=== PATIENT | female | born 1930 | race Hispanic/Latino ===

== ENCOUNTER 2016-08-01 21:39 | Inpatient (IN) | payer OTHER, MEDICARE ==
[2016-07-29 16:00] VITALS: BMI 21.2
[2016-08-01] MEDS ORDERED: Ceftaroline 400 mg Inj IVPB SCH (22:00)
[2016-08-02] MEDS: Pantoprazole 40 mg EC Tab PO SCH (06:19)
--- NOTE | 2016-08-02 08:27 | CP.PCM.PN ---
Subjective - Date & Time of Evaluation Date of Evaluation: 08/02/16 Time of Evaluation: 08:20 - Subjective Subjective: PROGRESS NOTE FOR SURGERY DR. ANDUJAR 86 year old female is seen and examined at bedside. Patient is transferred to TCU yesterday. No acute events overnight. Patient denies having any LE pain. Is ambulating without difficulty. No fevers, chills, CP, SOB, N/V/D/C. Objective - Vital Signs/Intake and Output Vital Signs (last 24 hours): Temp Pulse Resp BP Pulse Ox 16 08/02/16 00:14 - Medications Medications: Current Medications Acetaminophen (Tylenol 325mg Tab) 650 mg PO Q6H PRN PRN Reason: Fever >100.4 F Aspirin (Ecotrin) 81 mg PO 0800 [facility] Last Admin: 08/02/16 08:16 Dose: 81 mg Heparin Sodium (Porcine) (Heparin) 5,000 units SC 0600,1800 [facility] PRN Reason: Protocol Last Admin: 08/02/16 06:19 Dose: 5,000 units Ceftaroline Fosamil 400 mg/ (Sodium Chloride) 100 mls @ 100 mls/hr IVPB Q12 [facility] PRN Reason: Protocol Stop: 08/09/16 10:01 Losartan Potassium (Cozaar) 100 mg PO DAILY [facility] Mupirocin (Bactroban Ointment) 0 gm TOP DAILY [facility] Pantoprazole Sodium (Protonix Ec Tab) 40 mg PO 0630 [facility] Last Admin: 08/02/16 06:19 Dose: 40 mg - Constitutional Appears: Non-toxic, No Acute Distress - Head Exam Head Exam: ATRAUMATIC - ENT Exam ENT Exam: Mucous Membranes Moist - Respiratory Exam Respiratory Exam: absent: Accessory Muscle Use, Respiratory Distress - GI/Abdominal Exam GI & Abdominal Exam: Soft. absent: Distended, Tenderness - Extremities Exam Extremities Exam: Pedal Edema. absent: Calf Tenderness, Tenderness - Neurological Exam Neurological Exam: Alert, Awake, Oriented x3 - Psychiatric Exam Psychiatric exam: Normal Affect, Normal Mood - Skin Skin Exam: Dry, Intact, Normal Color, Warm Assessment and Plan - Assessment and Plan (Free Text) Assessment: 86 year old female is seen for cellulitis of her bilateral lower extremities. Plan: -Official read for LE doppler is negative for DVT B/L -continue antibiotics per ID recs -continue bactroban ointment and wrap -elevate legs -dvt prophylaxis Will discuss with Dr. Andujar for further recs Val Lopez, PGY1
--- NOTE | 2016-08-02 11:41 | CON ---
DATE: 08/02/2016 REASON FOR CONSULTATION: Confusion. HISTORY OF PRESENTING ILLNESS: The patient is an 86-year-old female who I have been asked for evalua tion of confusion. The patient was in acute care hospital after she had ulceration in her legs. The patient was given Xanax, and after that she was very confused. Her confusion is a lot better now. She was transferred to subacute rehab yesterday. The patient said she did have some difficulty in sleeping last night. Usually she takes 1/2 a tablet of Xanax 0.25 mg and that works wonders for her. However, she was given a little bit higher dose wh en she was in the acute care hospital and that really made her very confused. At the moment, she fee ls fine. Denies any headache, dizziness. She knows what is going on around her. REVIEW OF SYSTEMS: Denies any headache, dizziness, chest pain, shortness of breath, abdominal pain, constipation, diarrhea, dysuria, pyuria, cough, or sputum production. PAST MEDICAL HISTORY: Includes hypertension. CURRENT MEDICATIONS: Include losartan, aspirin, Protonix, Tylenol, and ceftaroline. ALLERGIES TO CODEINE. SOCIAL HISTORY: Denies smoking, use of alcohol, or illicit drugs. FAMILY HISTORY: Noncontributory. GENERAL PHYSICAL EXAMINATION: The patient is an elderly, pleasant female sitting in no acute distress. Her blood pressure is 111/83, heart rate is 70 per minute, breathing at a rate of 16 per minute, temp erature is 98 degrees Fahrenheit. HENT EXAMINATION: Normocephalic, atraumatic. NECK: Supple. There are no carotid bruits. LUNGS: Clear. CARDIOVASCULAR SYSTEM EXAMINATION: S1, S2 audible. No murmurs. ABDOMEN: Soft and nontender with bowel sounds present. NEUROLOGY EXAMINATION: MENTAL STATUS: The patient is awake, alert, oriented to time, place, and person. Speech is fluent. Naming and repetition is normal. Memory and cognition are intact. CRANIAL NERVE EXAMINATION: Pupils are 3 mm, bilaterally reactive to light. Visual chow are full. Extraocular movements are intact. There is no facial asymmetry. Palate is upgoing bilaterally and tongue is midline. MOTOR EXAMINATION: Tone is normal. Power is 5/5 bilaterally in all extremities. Reflexes +1 and sy mmetrical. Plantars downgoing bilaterally. SENSORY EXAMINATION: Intact to soft touch and pinprick. GAIT: Slow and cautious. IMPRESSION: Status post altered mental status, which is likely secondary to her use of Xanax at a hi gher dose. RECOMMENDATIONS: 1. The patient's mental status seems to be at her baseline. 2. The patient may have 1/2 a tablet of Xanax 0.25 mg at nighttime, as it helps her anxiety as well a s it helps her to go to sleep. As per patient, she has been taking it at home as well, and it does n ot bother her. We will closely monitor her. If she really needs it she may have it. 3. Please continue physical therapy for gait imbalance. 4. Please continue other treatment for her lower extremity ulcerations. Thank you for the opportunity to participate in the care of this patient. Ant Jiménez MD cc: [id number] TT: 08/02/2016 11:41:07 Confirmation # [id number] Dictation # [id number] rosa
--- NOTE | 2016-08-02 12:12 | CP.PCM.PN ---
<Lisette Jenkinsa - Last Filed: 08/02/16 12:08> Subjective - Date & Time of Evaluation Date of Evaluation: 08/02/16 Time of Evaluation: 12:09 - Subjective Subjective: 86 y.o female seen at bedside with attending Dr. Sanchez for bilateral lower extremity lesions. Patient resting comfortably in NAD and AAOx3. Patient states that she has mild pain in her legs. Patient denies any acute events overnight. She was transferred to TCU yesterday. Patient denies n/f/v/c/d/sob. Objective - Vital Signs/Intake and Output Vital Signs (last 24 hours): Temp Pulse Resp BP Pulse Ox 97.6 F 82 18 129/67 99 08/02/16 10:00 08/02/16 10:00 08/02/16 10:00 08/02/16 10:00 08/02/16 10:00 Intake and Output: 08/02/16 08/02/16 06:59 18:59 Intake Total 420 Balance 420 - Medications Medications: Current Medications Acetaminophen (Tylenol 325mg Tab) 650 mg PO Q6H PRN PRN Reason: Fever >100.4 F Alprazolam (Xanax) 0.125 mg PO HS PRN; Protocol PRN Reason: Anxiety Stop: 08/09/16 22:01 Aspirin (Ecotrin) 81 mg PO 0800 [facility] Last Admin: 08/02/16 08:16 Dose: 81 mg Heparin Sodium (Porcine) (Heparin) 5,000 units SC 0600,1800 [facility] PRN Reason: Protocol Last Admin: 08/02/16 06:19 Dose: 5,000 units Ceftaroline Fosamil 400 mg/ (Sodium Chloride) 100 mls @ 100 mls/hr IVPB 0600, 1800 [facility] PRN Reason: Protocol Stop: 08/09/16 18:01 Losartan Potassium (Cozaar) 100 mg PO DAILY [facility] Last Admin: 08/02/16 10:03 Dose: 100 mg Mupirocin (Bactroban Ointment) 0 gm TOP DAILY [facility] Last Admin: 08/02/16 10:03 Dose: 1 applic Pantoprazole Sodium (Protonix Ec Tab) 40 mg PO 0630 [facility] Last Admin: 08/02/16 06:19 Dose: 40 mg - Constitutional Appears: Well, Non-toxic, No Acute Distress - Extremities Exam Additional comments: Vasc: DP/PT 2/4, TG wnl, CFT < 3 sec to all digits, +1 pitting edema b/l neuro: grossly intact derm: multiple circular lesions that have erupted, some crusted, some with yellow serous drainage on anterior and medial legs bilaterally, no fluctuance or any signs of abscess, no purulence, no malodor, erythema diffuse circumferentially legs b/l ortho: mild pain on palpation to legs bilaterally - Neurological Exam Neurological Exam: Alert, Awake, Oriented x3 - Psychiatric Exam Psychiatric exam: Normal Affect, Normal Mood Assessment and Plan - Assessment and Plan (Free Text) Assessment: 86 y/o female seen at bedside in TCU for dermatitis of lower extremities bilateral Plan: patient evaluated and chart reviewed seen at bedside with attending Dr. Sanchez labs and vitals reviewed awaiting wound cx, biopsy results from lab applied xeroform, DSD, SAMANTHA to lower extremities b/l podiatry will continue to monitor while patient remains in house <Armando Sanchez - Last Filed: 08/03/16 07:47> Objective - Vital Signs/Intake and Output Vital Signs (last 24 hours): Temp Pulse Resp BP Pulse Ox 97.6 F 82 18 129/67 99 08/02/16 10:00 08/02/16 10:00 08/02/16 10:00 08/02/16 10:00 08/02/16 10:00 - Medications Medications: Current Medications Acetaminophen (Tylenol 325mg Tab) 650 mg PO Q6H PRN PRN Reason: Fever >100.4 F Alprazolam (Xanax) 0.125 mg PO HS PRN; Protocol PRN Reason: Anxiety Stop: 08/09/16 22:01 Aspirin (Ecotrin) 81 mg PO 0800 [facility] Last Admin: 08/02/16 08:16 Dose: 81 mg Heparin Sodium (Porcine) (Heparin) 5,000 units SC 0600,1800 [facility] PRN Reason: Protocol Last Admin: 08/03/16 05:58 Dose: 5,000 units Ceftaroline Fosamil 400 mg/ (Sodium Chloride) 100 mls @ 100 mls/hr IVPB 0600, 1800 [facility] PRN Reason: Protocol Stop: 08/09/16 18:01 Last Admin: 08/03/16 05:58 Dose: 100 mls/hr Losartan Potassium (Cozaar) 100 mg PO DAILY [facility] Last Admin: 08/02/16 10:03 Dose: 100 mg Mupirocin (Bactroban Ointment) 0 gm TOP DAILY [facility] Last Admin: 08/02/16 10:03 Dose: 1 applic Pantoprazole Sodium (Protonix Ec Tab) 40 mg PO 0630 [facility] Last Admin: 08/03/16 05:58 Dose: 40 mg - Labs Labs: 08/03/16 06:33 08/03/16 06:33 Attending/Attestation - Attestation I have personally seen and examined this patient.: Yes I have fully participated in the care of the patient.: Yes I have reviewed all pertinent clinical information, including history, physical exam and plan: Yes
--- NOTE | 2016-08-02 12:20 | HP ---
HISTORY OF PRESENT ILLNESS: This is an 86-year-old female who is admitted to the transitional care u nit at [facility] for IV antibiotic therapy for cellulitis of the lower extremities, for occupational and physical therapy for deconditioned state. PAST MEDICAL HISTORY: Connective tissue disorder, lupus, left hip surgery, multinodular goiter, cell ulitis of the lower extremities, arthritis of the right shoulder, arteriosclerotic heart disease and hypertension. ALLERGIES: CODEINE. HOME MEDICATIONS: Consist of Protonix 40 mg daily, Cozaar 100 mg daily, Ecotrin 81 mg daily and Tyle nol p.r.n. 2 tablets. CURRENT ACTIVE MEDICATIONS: Ceftaroline IV antibiotic q, 12, Cozaar 100 mg daily, Ecotrin 81 mg castro y, Protonix 40 mg daily, heparin subQ 5000 units b.i.d. for DVT prophylaxis, Tylenol p.r.n., and Bact roban ointment for topical wound care. REVIEW OF SYSTEMS: Ten systems are reviewed. Pertinent findings are that the legs and the lower ext remities are wrapped. There is diminished edema this morning. SOCIAL HISTORY: She is a nonsmoker, nondrinker, nondrug user. PHYSICAL EXAMINATION: VITAL SIGNS: Show a temp of 98, her blood pressure is 136/70. NEUROLOGIC: She is alert and oriented x 3. NECK: Supple. LUNGS: Clear. HEART: An S1, S2 rhythm. ABDOMEN: Soft with positive bowel sounds. EXTREMITIES: Show dressings over the lower extremities. There is a diminished amount of edema. The re is some erythema to the dorsum and soles of the feet. IMPRESSION: The patient will be followed by infectious disease. She has a staph wound infection on the legs and cellulitis of both legs. She will be followed by podiatry for her wound care. There is a skin biopsy that is pending and she is being followed by surgery for her venous insufficiency hist ory. We will follow up the patient's labs and continue current level of supportive care. Susanna Patel MD cc: [id number] TT: 08/02/2016 12:20:15 tn
--- NOTE | 2016-08-02 19:36 | CP.PCM.CON ---
History of Present Illness - History of Present Illness History of Present Illness: 86 year old female with PMH of bilateral lower extremity cellulitis, right shoulder effusion S/P drainage, dyslipidemia, hypertension, osteoarthritis, gastroesophageal reflux disease, multinodular goiter, mitral regurgitation, rheumatoid arthritis was initially admitted because of skin and skin structure infection of both lower extremities (areas of sores with erythema and pain). The cultures grew Staph aureus although repeat wound cx from yesterday are pending. She is now transferred to [facility] for continued medical therapy and physical rehabilitation. Infectious Diseases consult is requested to continue her antibiotic therapy. Currently the patient is comfortable, no fever or chills , no nausea or vomiting, less pain in the legs, no chest pain, no SOB, no cough or colds, no abdominal pain, no chest pain, no diarrhea, no dysuria. 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 - HEENT Hx HEENT Problems: Yes (eyeglasses) - HEMATOLOGICAL/ONCOLOGICAL Other/Comment: 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 - INTEGUMENTARY Other/Comment: ble +1 edema cellulitis, thick hard toenails,redness swelling red raised rash from thighs to lower legs, feet reddened and swollen, red dry cracked skin to legs and feet, weeping coming from open wounds both legs left more than right, both hands are reddened, skin discolorations both arms - MUSCULOSKELETAL/RHEUMATOLOGICAL Hx Falls: Yes (past) - GASTROINTESTINAL Hx Gastrointestinal Disorders: Yes (hiatal hernia) Hx Gastroesophageal Reflux: Yes - GENITOURINARY/GYNECOLOGICAL Hx Genitourinary Disorders: (frequency) - PSYCHIATRIC Hx Depression: No Hx Emotional Abuse: No Hx Physical Abuse: No - SURGICAL HISTORY Hx Cholecystectomy: Yes Hx Orthopedic Surgery: Yes (left hip 11/06/12) - ANESTHESIA Hx Anesthesia: No Hx Anesthesia Reactions: No Meds Allergies/Adverse Reactions: Allergies Allergy/AdvReac Type Severity Reaction Status Date / Time codeine AdvReac NAUSEA Verified 08/01/16 21:57 - Medications Medications: Current Medications Acetaminophen (Tylenol 325mg Tab) 650 mg PO Q6H PRN PRN Reason: Fever >100.4 F Aspirin (Ecotrin) 81 mg PO 0800 [facility] Heparin Sodium (Porcine) (Heparin) 5,000 units SC 0600,1800 [facility] PRN Reason: Protocol Last Admin: 08/02/16 06:19 Dose: 5,000 units Ceftaroline Fosamil 400 mg/ (Sodium Chloride) 100 mls @ 100 mls/hr IVPB Q12 [facility] PRN Reason: Protocol Stop: 08/09/16 10:01 Losartan Potassium (Cozaar) 100 mg PO DAILY [facility] Mupirocin (Bactroban Ointment) 0 gm TOP DAILY [facility] Pantoprazole Sodium (Protonix Ec Tab) 40 mg PO 0630 [facility] Last Admin: 08/02/16 06:19 Dose: 40 mg Physical Exam - Constitutional Appears: Non-toxic, No Acute Distress - Head Exam Head Exam: NORMAL INSPECTION - ENT Exam ENT Exam: Mucous Membranes Moist - Neck Exam Neck exam: Negative for: Lymphadenopathy, Meningismus - Respiratory Exam Respiratory Exam: Decreased Breath Sounds - Cardiovascular Exam Cardiovascular Exam: +S1, +S2 - GI/Abdominal Exam GI & Abdominal Exam: Soft. absent: Tenderness - Extremities Exam Additional comments: both legs with dry dressings in place Results - Vital Signs Recent Vital Signs: Last Vital Signs Temp Pulse Resp 16 08/02/16 00:14 BP Pulse Ox Assessment & Plan - Assessment and Plan (Free Text) Plan: Assessment consider blilateral lower extremity skin and skin structure infection with methicillin-sensitive Staph aureus R/O vasculitis; so far no evidence of fungal infection right shoulder effusion S/P drainage dyslipidemia hypertension osteoarthritis gastroesophageal reflux disease multinodular goiter mitral regurgitation rheumatoid arthritis SLE Plan will continue Ceftaroline (day 4) since repeat wound cx were done yesterday by Surgery for another area and we are awaiting final cx results from this; ANNITA prep from the wound, fungal cx are negative; VHAID is positive and will await further work up Discussed with Dr. Patel previously Will continue to follow clinically
[2016-08-03] MEDS: Pantoprazole 40 mg EC Tab PO SCH (05:58)
[2016-08-03 06:36] LABS: ADD MANUAL DIFF? NO
[2016-08-03 06:38] LABS: BASO # 0.01 K/mm3 (0.0-2.0); BASO % 0.2 % (0.0-3.0); EOS # 0.1 (0.0-0.7); EOS % 1.5 % (1.5-5.0); GRAN # 3.93 (1.4-6.5); GRAN % 72.3 % (50.0-68.0); HEMATOCRIT 31.7 % (36.0-48.0); LYMPH # 0.9 (1.2-3.4); LYMPH % 16.2 % (22.0-35.0); MEAN CELL VOLUME 89.8 fL (80.0-105.0); MEAN CORPUSCULAR HGB CONC 33.4 g/dl (31.0-37.0); MEAN PLATELET VOLUME 10.1 fl (7.0-11.0); MONO # 0.5 (0.1-0.6); MONO % 9.8 % (1.0-6.0); PLATELET COUNT 240 10^3/uL (120.0-450.0); RED CELL DISTRIBUTION WIDTH 15.2 % (11.5-14.5); WHITE BLOOD COUNT 5.4 10^3/ul (4.5-11.0)
[2016-08-03 06:52] LABS: ALB/GLOB RATIO 1.1 (1.1-1.8); ALKALINE PHOSPHATASE 59 U/L (38-133); ALT/SGPT 37 U/L (7-56); AST/SGOT 38 U/L (15-39); BILIRUBIN,TOTAL 0.3 mg/dL (0.2-1.3); BLOOD UREA NITROGEN 22 mg/dL (7-21); CALCIUM 8.7 mg/dL (8.4-10.5); CARBON DIOXIDE 29 mmol/L (21-33); CHLORIDE 102 mmol/L (95-110); GFR AFRICAN-AMERICAN > 60; GLUCOSE,RANDOM 87 mg/dL (70-110); POTASSIUM 4.1 mmol/L (3.6-5.0); SODIUM 136 mmol/L (132-148); TOTAL PROTEIN 5.3 g/dL (5.8-8.3)
--- NOTE | 2016-08-03 09:10 | CP.PCM.PN ---
<Nani Gifford - Last Filed: 08/03/16 09:02> Subjective - Date & Time of Evaluation Date of Evaluation: 08/03/16 Time of Evaluation: 07:45 - Subjective Subjective: 86 yo female patient seen at the bedside this morning with Dr. Sanchez for follow up of BL lower extremity lesions. Pt seen resting at the bedside at time of visit. Reports no acute events overnight. Denies any pain or discomfort to the legs/feet at this time. Objective - Vital Signs/Intake and Output Vital Signs (last 24 hours): Temp Pulse Resp BP Pulse Ox 97.6 F 82 18 129/67 99 08/02/16 10:00 08/02/16 10:00 08/02/16 10:00 08/02/16 10:00 08/02/16 10:00 - Medications Medications: Current Medications Acetaminophen (Tylenol 325mg Tab) 650 mg PO Q6H PRN PRN Reason: Fever >100.4 F Alprazolam (Xanax) 0.125 mg PO HS PRN; Protocol PRN Reason: Anxiety Stop: 08/09/16 22:01 Aspirin (Ecotrin) 81 mg PO 0800 [facility] Last Admin: 08/03/16 08:19 Dose: 81 mg Heparin Sodium (Porcine) (Heparin) 5,000 units SC 0600,1800 [facility] PRN Reason: Protocol Last Admin: 08/03/16 05:58 Dose: 5,000 units Ceftaroline Fosamil 400 mg/ (Sodium Chloride) 100 mls @ 100 mls/hr IVPB 0600, 1800 [facility] PRN Reason: Protocol Stop: 08/09/16 18:01 Last Admin: 08/03/16 05:58 Dose: 100 mls/hr Losartan Potassium (Cozaar) 100 mg PO DAILY [facility] Last Admin: 08/02/16 10:03 Dose: 100 mg Mupirocin (Bactroban Ointment) 0 gm TOP DAILY [facility] Last Admin: 08/02/16 10:03 Dose: 1 applic Pantoprazole Sodium (Protonix Ec Tab) 40 mg PO 0630 [facility] Last Admin: 08/03/16 05:58 Dose: 40 mg - Labs Labs: 08/03/16 06:33 08/03/16 06:33 - Constitutional Appears: Well, Non-toxic, No Acute Distress - Extremities Exam Extremities Exam: absent: Calf Tenderness Additional comments: Lower extremity exam: Dressing appears c/d/i VASC- DP/PT 2/4 BL, skin temp runs warm to cool bl, cft <3 sec to digits x 10, + 1 pitting edema noted to legs BL DERM- multiple circular lesions noted to legs bl, serous drainage noted from wounds BL, no probe to bone, no fluctuance, no purulent drainage, no malodor, slight erythema noted to anterior legs bL NEURO- pedal sensation grossly intact bl. ORTHO- slight tenderness to ant aspect of shins bl - Neurological Exam Neurological Exam: Alert, Awake, Oriented x3 - Psychiatric Exam Psychiatric exam: Normal Affect, Normal Mood Assessment and Plan - Assessment and Plan (Free Text) Assessment: 86 y/o female patient with dermatitis of BL lower extremities. Plan: -Pt seen and evaluated at the bedside with Dr. Sanchez -Chart, labs, vitals reviewed: afebrile, wbc wnl (5.4) -f/u wound cx, f/u punch biopsy results when available -Legs cleansed with sterile normal saline, and dressed with xeroform, DSD, SAMANTHA to lower extremities BL -Pt advised to remove SAMANTHA wraps at night time. -podiatry will continue to monitor while she remains in house <Armando Sanchez - Last Filed: 08/03/16 10:53> Objective - Vital Signs/Intake and Output Vital Signs (last 24 hours): Temp Pulse Resp BP Pulse Ox 97.6 F 82 18 129/67 99 08/02/16 10:00 08/02/16 10:00 08/02/16 10:00 08/02/16 10:00 08/02/16 10:00 - Medications Medications: Current Medications Acetaminophen (Tylenol 325mg Tab) 650 mg PO Q6H PRN PRN Reason: Fever >100.4 F Alprazolam (Xanax) 0.125 mg PO HS PRN; Protocol PRN Reason: Anxiety Stop: 08/09/16 22:01 Aspirin (Ecotrin) 81 mg PO 0800 [facility] Last Admin: 08/03/16 08:19 Dose: 81 mg Heparin Sodium (Porcine) (Heparin) 5,000 units SC 0600,1800 [facility] PRN Reason: Protocol Last Admin: 08/03/16 05:58 Dose: 5,000 units Ceftaroline Fosamil 400 mg/ (Sodium Chloride) 100 mls @ 100 mls/hr IVPB 0600, 1800 [facility] PRN Reason: Protocol Stop: 08/09/16 18:01 Last Admin: 08/03/16 05:58 Dose: 100 mls/hr Losartan Potassium (Cozaar) 100 mg PO DAILY [facility] Last Admin: 08/03/16 10:07 Dose: 100 mg Mupirocin (Bactroban Ointment) 0 gm TOP DAILY [facility] Last Admin: 08/03/16 10:07 Dose: 1 applic Pantoprazole Sodium (Protonix Ec Tab) 40 mg PO 0630 [facility] Last Admin: 08/03/16 05:58 Dose: 40 mg - Labs Labs: 08/03/16 06:33 08/03/16 06:33 Attending/Attestation - Attestation I have personally seen and examined this patient.: Yes I have fully participated in the care of the patient.: Yes I have reviewed all pertinent clinical information, including history, physical exam and plan: Yes
--- NOTE | 2016-08-03 11:18 | PN ---
DATE: 08/03/2016 The patient is in bed in no acute distress. PHYSICAL EXAMINATION: VITAL SIGNS: Temperature is 97. Blood pressure is 120/60, respiratory rate of 18. HEENT: Unremarkable. NECK: Supple. LUNGS: Have decreased breath sounds. HEART: Normal S1, S2. ABDOMEN: Soft. LABORATORY EXAMINATION: Reveals a white count of 5.4, hemoglobin of 10, platelets of 240. BUN of 22 , creatinine of 0.7. Microbiology is noted. ASSESSMENT AND PLAN: An 86-year-old female with bilateral lower extremity cellulitis and right shoul chidi effusion status post drainage, dyslipidemia, hypertension, osteoarthritis, gastroesophageal reflu x disease, multiplied nodular goiter, with bilateral lower extremity skin and skin soft tissue infect ion with sensitive Staphylococcus, with elevated VAHID titers of 1:1280. VAHID screen is positive with s peckled pattern. Case discussed with Dr. Patel. Review of the orders reveals the patient to be on ceftaroline. Satish Toro MD cc: [id number] TT: 08/03/2016 11:17:43 Confirmation # [id number] Dictation # [id number] rosa
--- NOTE | 2016-08-03 12:33 | PN ---
DATE: 08/03/2016 An 86-year-old female resting comfortably in the transitional care unit this morning. Nursing staff relates that she seemed to be a little upset this morning. PHYSICAL EXAMINATION: VITAL SIGNS: Her temp is 97.6, her blood pressure is 129/67, her pulse is 82, her oxygen sat is 99% on room air. GENERAL: She is alert and oriented x 3. NECK: Supple. LUNGS: Clear. HEART: Has an S1, S2 rhythm. ABDOMEN: Soft with positive bowel sounds. EXTREMITIES: She is wearing an Nik wrap ups over wound dressings, which are recently been changed by the special population paraprofessional, Dr. Sanchez. The patient is on IV antibiotic therapy by infectious disease for cellulitis of the leg. Also, there is a skin biopsy that is pending. She has an elevated VAHID titer with her history of lupus. We will await abdominal pathology report. She has also been known to have a wound culture from the site of her legs showing a staph organism, for which she is ceftaroline right now. I have discussed the clin ica setting with the patient and the family at the bedside. Also I am aware that the patient seemed to be a little bit agitated this morning because of not feeling well and at the same time seeing thi ngs going on around her on the floor which is a bit different from her normal routine. She seems to be appropriate at this time. She was seen by neurology yesterday in the evening, cleared to come to TCU with a negative CT of the head and will continue current level of medical care and follow the pat ient closely. Continue the antibiotics and awaiting the dermato pathologist report. Susanna Patel MD cc: [id number] TT: 08/03/2016 12:33:19 Confirmation # [id number] Dictation # [id number] rosa
--- NOTE | 2016-08-04 00:23 | CP.PCM.PN ---
Subjective - Date & Time of Evaluation Date of Evaluation: 08/04/16 Time of Evaluation: 05:50 - Subjective Subjective: General surgery progress note for Dr. Grubbs Pt s/e at bedside. NAEO. Patient states that pain is adequately controlled by current medication and denies fevers and chills Objective - Vital Signs/Intake and Output Vital Signs (last 24 hours): Temp Pulse Resp BP Pulse Ox 98 F 68 18 104/56 L 96 08/03/16 16:00 08/03/16 16:00 08/03/16 16:00 08/03/16 16:00 08/03/16 16:00 Intake and Output: 08/03/16 08/04/16 18:59 06:59 Intake Total 420 480 Balance 420 480 - Medications Medications: Current Medications Acetaminophen (Tylenol 325mg Tab) 650 mg PO Q6H PRN PRN Reason: Fever >100.4 F Alprazolam (Xanax) 0.125 mg PO HS PRN; Protocol PRN Reason: Anxiety Stop: 08/09/16 22:01 Aspirin (Ecotrin) 81 mg PO 0800 [facility] Last Admin: 08/03/16 08:19 Dose: 81 mg Heparin Sodium (Porcine) (Heparin) 5,000 units SC 0600,1800 [facility] PRN Reason: Protocol Last Admin: 08/03/16 17:21 Dose: 5,000 units Ceftaroline Fosamil 400 mg/ (Sodium Chloride) 100 mls @ 100 mls/hr IVPB 0600, 1800 [facility] PRN Reason: Protocol Stop: 08/09/16 18:01 Last Admin: 08/03/16 17:21 Dose: 100 mls/hr Losartan Potassium (Cozaar) 100 mg PO DAILY [facility] Last Admin: 08/03/16 10:07 Dose: 100 mg Mupirocin (Bactroban Ointment) 0 gm TOP DAILY [facility] Last Admin: 08/03/16 10:07 Dose: 1 applic Pantoprazole Sodium (Protonix Ec Tab) 40 mg PO 0630 [facility] Last Admin: 08/03/16 05:58 Dose: 40 mg - Labs Labs: 08/03/16 06:33 08/03/16 06:33 Assessment and Plan - Assessment and Plan (Free Text) Assessment: 86 year old female is seen for cellulitis of her bilateral lower extremities. Plan: -continue antibiotics per ID recs -continue wound care of legs per podiatry recommendations -elevate legs -dvt prophylaxis -f/u wound culture sensitivities Discussed with Dr. Romie Hernandez, PGY1
[2016-08-04] MEDS: Pantoprazole 40 mg EC Tab PO SCH (05:31)
--- NOTE | 2016-08-04 07:43 | CP.PCM.CON ---
History of Present Illness - History of Present Illness History of Present Illness: Surgery: Dr. Grubbs CC: Rash/edema to lower extremities 86F with B/L LE edema. Edema is persistent since Pt broke L hip in 2012 and had it replaced. In April of last yr she was admitted with B/L LE cellulitis. Cellulitis resolved with IV abx and an outpatient course of PO abx but eventually returned. A month ago it began getting worse with multiple sores developing. [place] [facility] [place] duplex ultrasounds were negative for DVT. Podiatry and surgery were consulted and her wounds have been treated with bactroban and zelalem bandage. She was transferred to TCU. She states that her symptoms are improving. Podiatry is changing the dressing. Patient denies F/C, SOB, chest pain, or any other symptoms. PMH: HTN, hyperlipidemia, GERD, hiatal hernia PSH: L hip, cholecystectomy Meds: MAR reviewed ALL: Codeine Social: Former smoker, no ETOH/drugs Fhx: non-contributory Review of Systems - Review of Systems All systems: reviewed and no additional remarkable complaints except (as per HPI ) - Gastrointestinal Gastrointestinal: absent: Nausea, Vomiting Past Patient History - Infectious Disease Hx of Infectious Diseases: None - Tetanus Immunizations Tetanus Immunization: Unknown - Past Social History Smoking Status: Never Smoked - CARDIAC Hx Hypercholesterolemia: Yes Hx Hypertension: Yes - NEUROLOGICAL Other/Comment: 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 - HEENT Hx HEENT Problems: Yes (eyeglasses) - HEMATOLOGICAL/ONCOLOGICAL Other/Comment: 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 - INTEGUMENTARY Other/Comment: ble +1 edema cellulitis, thick hard toenails,redness swelling red raised rash from thighs to lower legs, feet reddened and swollen, red dry cracked skin to legs and feet, weeping coming from open wounds both legs left more than right, both hands are reddened, skin discolorations both arms - MUSCULOSKELETAL/RHEUMATOLOGICAL Hx Falls: Yes (past) - GASTROINTESTINAL Hx Gastrointestinal Disorders: Yes (hiatal hernia) Hx Gastroesophageal Reflux: Yes - GENITOURINARY/GYNECOLOGICAL Hx Genitourinary Disorders: (frequency) - PSYCHIATRIC Hx Depression: No Hx Emotional Abuse: No Hx Physical Abuse: No - SURGICAL HISTORY Hx Cholecystectomy: Yes Hx Orthopedic Surgery: Yes (left hip 11/06/12) - ANESTHESIA Hx Anesthesia: No Hx Anesthesia Reactions: No Meds Allergies/Adverse Reactions: Allergies Allergy/AdvReac Type Severity Reaction Status Date / Time codeine AdvReac NAUSEA Verified 08/01/16 21:57 - Medications Medications: Current Medications Acetaminophen (Tylenol 325mg Tab) 650 mg PO Q6H PRN PRN Reason: Fever >100.4 F Alprazolam (Xanax) 0.125 mg PO HS PRN; Protocol PRN Reason: Anxiety Stop: 08/09/16 22:01 Aspirin (Ecotrin) 81 mg PO 0800 [facility] Last Admin: 08/03/16 08:19 Dose: 81 mg Heparin Sodium (Porcine) (Heparin) 5,000 units SC 0600,1800 [facility] PRN Reason: Protocol Last Admin: 08/04/16 05:31 Dose: 5,000 units Ceftaroline Fosamil 400 mg/ (Sodium Chloride) 100 mls @ 100 mls/hr IVPB 0600, 1800 [facility] PRN Reason: Protocol Stop: 08/09/16 18:01 Last Admin: 08/04/16 05:30 Dose: 100 mls/hr Losartan Potassium (Cozaar) 100 mg PO DAILY [facility] Last Admin: 08/03/16 10:07 Dose: 100 mg Mupirocin (Bactroban Ointment) 0 gm TOP DAILY [facility] Last Admin: 08/03/16 10:07 Dose: 1 applic Pantoprazole Sodium (Protonix Ec Tab) 40 mg PO 0630 [facility] Last Admin: 08/04/16 05:31 Dose: 40 mg Physical Exam - Constitutional Appears: Well, Non-toxic, No Acute Distress - Head Exam Head Exam: ATRAUMATIC, NORMOCEPHALIC - Eye Exam Eye Exam: Normal appearance - ENT Exam ENT Exam: Mucous Membranes Moist - Respiratory Exam Respiratory Exam: NORMAL BREATHING PATTERN. absent: Accessory Muscle Use, Respiratory Distress - Cardiovascular Exam Cardiovascular Exam: RRR - GI/Abdominal Exam GI & Abdominal Exam: absent: Distended - Extremities Exam Extremities exam: Positive for: pedal pulses present. Negative for: calf tenderness, pedal edema Additional comments: Lower legs with kerlex bandage with moderate amount of serous drainage. - Neurological Exam Neurological exam: Alert, Oriented x3 - Psychiatric Exam Psychiatric exam: Normal Affect, Normal Mood - Skin Skin Exam: Dry, Normal Color, Warm Results - Vital Signs Recent Vital Signs: Last Vital Signs Temp 97.5 F L 08/04/16 06:00 Pulse 66 08/04/16 06:00 Resp 18 08/04/16 06:00 BP 118/58 L 08/04/16 06:00 Pulse Ox 96 08/04/16 06:00 - Labs Result Diagrams: 08/03/16 06:33 08/03/16 06:33 Assessment & Plan - Assessment and Plan (Free Text) Assessment: 86F w. B/L LE cellulitis -Continue LE wound care per podiatry -Abx per ID -elevate legs -dvt prophylaxis Thank you for this consult Discussed with Dr Romie Hernandez, PGY1 [phone]
--- NOTE | 2016-08-04 10:05 | PN ---
DATE: 08/04/2016 The patient is on transitional care unit. Nursing staff relates that there were no problems during t he night. The patient says that she is feeling better than yesterday. PHYSICAL EXAMINATION: VITAL SIGNS: Reported as having a temp of 97.5, a blood pressure of 118/58. Oxygen saturation is 96 % on room air with a respiratory rate of 18. GENERAL: She is alert and oriented x 3. NECK: Supple. LUNGS: Clear. HEART: S1, S2 rhythm. ABDOMEN: Soft with positive bowel sounds. EXTREMITIES: Show Nik wraps with bandages. 1. The patient is receiving IV Teflaro, day #6, for cellulitis of the lower extremities. 2. She grew a staph organism, Staph aureus, from a wound culture for which she is receiving topical Bactroban and IV antibiotic. 3. A biopsy of the skin has been done by podiatry to rule out any dermatopathology. 4. She has an elevated VAHID titer with a history of lupus in the past. MEDICATIONS: Currently, the patient is on Xanax 0.125 at bedtime p.r.n., Tylenol 2 tabs q. 6 hours p .r.n. for a temp of 101, Protonix 40 mg daily. She is on subQ heparin for DVT prophylaxis. Ecotrin 81 mg daily, Cozaar 100 mg daily. PLAN: We will continue the antibiotics at this time. We are awaiting the pathology report from the skin biopsy. She is receiving occupational and physical therapy. The patient will be seen by a rheu matologist. Continue current level of care. Susanna Patel MD cc: [phone] TT: 08/04/2016 10:04:19 Confirmation # [id number] Dictation # [id number] rosa
--- NOTE | 2016-08-04 11:52 | PN ---
DATE: 08/04/2016 The patient is sitting on the bed, in no acute distress. Denies having any headache or dizziness. PHYSICAL EXAMINATION: VITAL SIGNS: Her blood pressure is 125/72, heart rate is 69 per minute, breathing at a rate of 16 pe r minute, temperature is 97.6 degrees Fahrenheit. HEENT: Head is normocephalic, atraumatic. NECK: Supple. There are no carotid bruits. LUNGS: Clear. CARDIOVASCULAR: S1, S2 audible. No murmurs. ABDOMEN: Soft, nontender. Bowel sounds present. NEUROLOGIC EXAMINATION: MENTAL STATUS: The patient is awake, alert, oriented to time, place, person. Speech is fluent. Nam ing and repetition is normal. Memory and cognition are intact. CRANIAL NERVES: Pupils are 3 mm, bilaterally reactive to light. Visual chow are full. Extraocula r movements are intact. There is no facial asymmetry. Palate is upgoing bilaterally and tongue is m idline. MOTOR: Tone is normal. Power is 5/5 bilaterally in all extremities. Reflexes 1+ and symmetrical. Plantars downgoing bilaterally. LABORATORIES: Reviewed, shows WBC of 5.4, hemoglobin 10.6, hematocrit 31.7 and platelets of 240. So dium is 136, potassium 4.1, chloride 102, carbon dioxide 29, BUN of 22, creatinine 0.7, and glucose o f 87. IMPRESSION: Status post altered mental status, likely secondary to benzodiazepine use. RECOMMENDATIONS: 1. The patient seems to have no further change in mental status. 2. The patient may have 0.125 mg of Xanax at nighttime to help her anxiety symptoms. 3. The patient to have physical therapy for gait imbalance. 4. Please continue other treatment and supportive care. Thank you for the opportunity to participate in the care of this patient. Ant Jiménez MD cc: [phone] TT: 08/04/2016 11:51:43 Confirmation # [id number] Dictation # [id number] en
--- NOTE | 2016-08-04 12:57 | PN ---
DATE: 08/04/2016 The patient is in bed in no acute distress. PHYSICAL EXAMINATION: VITAL SIGNS: Temperature is 97, blood pressure is 118/50, respiratory rate of 18. HEENT: Unremarkable. NECK: Supple. LUNGS: Have decreased breath sounds. HEART: Normal S1, S2. ABDOMEN: Soft. LABORATORY DATA: Reveals a white count of 5.4, hemoglobin of 10, platelets of 240. Chemistries reve al the BUN of 22, creatinine 0.7. Microbiology is noted. ASSESSMENT AND PLAN: This is an 86-year-old female with bilateral lower extremity cellulitis, right shoulder effusion, status post drainage, dyslipidemia, hypertension, osteoarthritis, gastroesophageal reflux disease, multinodular goiter, bilateral lower extremity skin and skin soft tissue infection w ith sensitive Staphylococcus. The patient also found to have an elevated VAHID titer of 1:1280, VAHID sc reen is positive with a speckled pattern, currently on ceftaroline. Case discussed with Dr. Patel. Will follow closely with you. Dr. Jiménez's note is reviewed. Satish Toro MD cc: [id number] TT: 08/04/2016 12:56:15 Confirmation # [id number] Dictation # [id number] lee
[2016-08-05] MEDS: Pantoprazole 40 mg EC Tab PO SCH (05:57)
--- NOTE | 2016-08-05 07:23 | CP.PCM.PN ---
Subjective - Date & Time of Evaluation Date of Evaluation: 08/05/16 Time of Evaluation: 07:20 - Subjective Subjective: PROGRESS NOTE FOR DR. ANDUJAR 86 year old female is seen and examined at bedside. No new events overnight. Denies having any fevers, chills, LE pain. Patient is ambulating without difficulty. Patient is tolerating diet. Objective - Vital Signs/Intake and Output Vital Signs (last 24 hours): Temp Pulse Resp BP Pulse Ox 97.7 F 68 18 140/61 96 08/05/16 06:00 08/05/16 06:00 08/05/16 06:00 08/05/16 06:00 08/05/16 06:00 Intake and Output: 08/05/16 08/05/16 06:59 18:59 Intake Total 600 Balance 600 - Medications Medications: Current Medications Acetaminophen (Tylenol 325mg Tab) 650 mg PO Q6H PRN PRN Reason: Fever >100.4 F Alprazolam (Xanax) 0.125 mg PO HS PRN; Protocol PRN Reason: Anxiety Stop: 08/09/16 22:01 Aspirin (Ecotrin) 81 mg PO 0800 [facility] Last Admin: 08/04/16 08:09 Dose: 81 mg Heparin Sodium (Porcine) (Heparin) 5,000 units SC 0600,1800 [facility] PRN Reason: Protocol Last Admin: 08/05/16 05:57 Dose: 5,000 units Ceftaroline Fosamil 400 mg/ (Sodium Chloride) 100 mls @ 100 mls/hr IVPB 0600, 1800 [facility] PRN Reason: Protocol Stop: 08/09/16 18:01 Last Admin: 08/05/16 05:58 Dose: 100 mls/hr Losartan Potassium (Cozaar) 100 mg PO DAILY [facility] Last Admin: 08/04/16 09:29 Dose: 100 mg Mupirocin (Bactroban Ointment) 0 gm TOP DAILY [facility] Last Admin: 08/04/16 09:29 Dose: 2 applic Pantoprazole Sodium (Protonix Ec Tab) 40 mg PO 0630 [facility] Last Admin: 08/05/16 05:57 Dose: 40 mg - Labs Labs: 08/03/16 06:33 08/03/16 06:33 - Constitutional Appears: Non-toxic, No Acute Distress - Head Exam Head Exam: ATRAUMATIC, NORMAL INSPECTION - ENT Exam ENT Exam: Mucous Membranes Moist - Respiratory Exam Respiratory Exam: absent: Accessory Muscle Use, Respiratory Distress - GI/Abdominal Exam GI & Abdominal Exam: Soft. absent: Distended, Firm, Guarding, Rigid, Tenderness - Extremities Exam Extremities Exam: Full ROM, Pedal Edema. absent: Tenderness Additional comments: B/L calfs are bandaged up - Neurological Exam Neurological Exam: Alert, Awake, Normal Gait, Oriented x3 - Psychiatric Exam Psychiatric exam: Normal Affect, Normal Mood - Skin Skin Exam: Dry, Intact, Normal Color, Warm Assessment and Plan - Assessment and Plan (Free Text) Assessment: 86F w. B/L LE cellulitis -Continue LE wound care per podiatry -Abx per ID -elevate legs -dvt prophylaxis Will discuss with Dr. Andujar for further recs. Val Lopez, PGY1
--- NOTE | 2016-08-05 09:55 | CP.PCM.PN ---
<Tena Jenkins - Last Filed: 08/05/16 09:52> Subjective - Date & Time of Evaluation Date of Evaluation: 08/05/16 Time of Evaluation: 09:52 - Subjective Subjective: 86 yo female patient seen at the bedside this morning with Dr. Escobar for follow up of BL lower extremity lesions. Pt seen resting at the bedside at time of visit. Reports no acute events overnight. Denies any pain or discomfort to the legs/feet at this time. Objective - Vital Signs/Intake and Output Vital Signs (last 24 hours): Temp Pulse Resp BP Pulse Ox 97.7 F 68 18 140/61 96 08/05/16 06:00 08/05/16 06:00 08/05/16 06:00 08/05/16 06:00 08/05/16 06:00 Intake and Output: 08/05/16 08/05/16 06:59 18:59 Intake Total 600 Balance 600 - Medications Medications: Current Medications Acetaminophen (Tylenol 325mg Tab) 650 mg PO Q6H PRN PRN Reason: Fever >100.4 F Alprazolam (Xanax) 0.125 mg PO HS PRN; Protocol PRN Reason: Anxiety Stop: 08/09/16 22:01 Aspirin (Ecotrin) 81 mg PO 0800 [facility] Last Admin: 08/05/16 07:47 Dose: 81 mg Heparin Sodium (Porcine) (Heparin) 5,000 units SC 0600,1800 [facility] PRN Reason: Protocol Last Admin: 08/05/16 05:57 Dose: 5,000 units Ceftaroline Fosamil 400 mg/ (Sodium Chloride) 100 mls @ 100 mls/hr IVPB 0600, 1800 [facility] PRN Reason: Protocol Stop: 08/09/16 18:01 Last Admin: 08/05/16 05:58 Dose: 100 mls/hr Losartan Potassium (Cozaar) 100 mg PO DAILY [facility] Last Admin: 08/04/16 09:29 Dose: 100 mg Mupirocin (Bactroban Ointment) 0 gm TOP DAILY [facility] Last Admin: 08/04/16 09:29 Dose: 2 applic Pantoprazole Sodium (Protonix Ec Tab) 40 mg PO 0630 [facility] Last Admin: 08/05/16 05:57 Dose: 40 mg - Labs Labs: 08/03/16 06:33 08/03/16 06:33 - Constitutional Appears: Well, Non-toxic, No Acute Distress - Extremities Exam Additional comments: Lower extremity exam: Dressing appears c/d/i VASC- DP/PT 2/4 BL, skin temp runs warm to cool bl, cft <3 sec to digits x 10, + 1 pitting edema noted to legs BL DERM- multiple circular lesions noted to legs bl, serous drainage noted from wounds BL, no probe to bone, no fluctuance, no purulent drainage, no malodor, slight erythema noted to anterior legs bL, improving NEURO- pedal sensation grossly intact bl. ORTHO- no tenderness to palpation of ant aspect of shins bl - Neurological Exam Neurological Exam: Alert, Awake, Oriented x3 - Psychiatric Exam Psychiatric exam: Normal Affect, Normal Mood Assessment and Plan - Assessment and Plan (Free Text) Assessment: 86 y/o female patient with dermatitis of BL lower extremities, improving Plan: -Pt seen and evaluated at the bedside with Dr. Escobar -Chart, labs, vitals reviewed: afebrile -final wound cx: staph aureus b/l legs - f/u punch biopsy results when available -Legs cleansed with sterile normal saline, and dressed with bactroban, DSD, SAMANTHA to lower extremities BL Rx: lotrisone -Pt advised to remove SAMANTHA wraps at night time. -podiatry will continue to monitor while she remains in house <Suellen Escobar - Last Filed: 08/09/16 14:48> Objective - Vital Signs/Intake and Output Vital Signs (last 24 hours): Temp Pulse Resp BP Pulse Ox 97.4 F L 96 H 18 128/63 97 08/09/16 10:00 08/09/16 10:00 08/09/16 10:00 08/09/16 10:00 08/09/16 10:00 Intake and Output: 08/09/16 08/09/16 06:59 18:59 Intake Total 520 620 Balance 520 620 - Medications Medications: Current Medications Acetaminophen (Tylenol 325mg Tab) 650 mg PO Q6H PRN PRN Reason: Fever >100.4 F Alprazolam (Xanax) 0.125 mg PO HS PRN; Protocol PRN Reason: Anxiety Stop: 08/09/16 22:01 Last Admin: 08/08/16 23:08 Dose: 0.125 mg Aspirin (Ecotrin) 81 mg PO 0800 [facility] Last Admin: 08/09/16 08:57 Dose: 81 mg Betamethasone/Clotrimazole (Lotrisone) 0 gm TOP BID [facility] Last Admin: 08/09/16 09:59 Dose: 1 applic Heparin Sodium (Porcine) (Heparin) 5,000 units SC 0600,1800 [facility] PRN Reason: Protocol Last Admin: 08/09/16 05:45 Dose: 5,000 units Ceftaroline Fosamil 400 mg/ (Sodium Chloride) 100 mls @ 100 mls/hr IVPB 0600, 1800 [facility] PRN Reason: Protocol Stop: 08/09/16 18:01 Last Admin: 08/09/16 05:45 Dose: 100 mls/hr Losartan Potassium (Cozaar) 100 mg PO DAILY [facility] Last Admin: 08/09/16 09:59 Dose: 100 mg Mupirocin (Bactroban Ointment) 0 gm TOP DAILY [facility] Last Admin: 08/09/16 09:58 Dose: Not Given Pantoprazole Sodium (Protonix Ec Tab) 40 mg PO 0630 [facility] Last Admin: 08/09/16 05:45 Dose: 40 mg - Labs Labs: 08/06/16 06:30 08/06/16 06:30 Attending/Attestation - Attestation I have personally seen and examined this patient.: Yes I have fully participated in the care of the patient.: Yes I have reviewed all pertinent clinical information, including history, physical exam and plan: Yes
--- NOTE | 2016-08-05 10:01 | PN ---
DATE: 08/05/2016 An 86-year-old female on transitional care unit, receiving occupational and physical therapy and also receiving IV ceftaroline for cellulitis of the lower extremities with wound ulcers and a staph infec tion. PHYSICAL EXAMINATION: GENERAL: She is alert and oriented x 3. NECK: Supple. LUNGS: Clear. VITAL SIGNS: Her blood pressure is 140/61, her temperature is 97.7, her respiratory rate is 18 and h er pulse is 68. HEART: Has an S1, S2 rhythm. ABDOMEN: Soft, scaphoid, with positive bowel sounds. EXTREMITIES: With podiatry, we see that the wounds are better. There is less edema. She is continuing with Lotrisone topical cream and dressings on the legs with SAMANTHA wraps. She will co ntinue occupational and physical therapy and continue her ceftaroline. We will follow up her labs. We are awaiting a skin biopsy from the leg to see if there is any dermal pathology and she has a posi tive VAHID titer, which will need to be reviewed by her wealth management consultant and continue current care. Susanna Patel MD cc: [id number] TT: 08/05/2016 10:01:11 Confirmation # [id number] Dictation # [id number] en
[2016-08-05] MEDS: Clotrimazole/Betamethasone Cream(15 gm) TOP SCH ×2 (10:14→17:00)
--- NOTE | 2016-08-05 15:55 | CP.PCM.PN ---
Subjective - Date & Time of Evaluation Date of Evaluation: 08/05/16 Time of Evaluation: 10:45 - Subjective Subjective: Less pain in the legs, no fevers overnight, not in distress. Objective - Vital Signs/Intake and Output Vital Signs (last 24 hours): Temp Pulse Resp BP Pulse Ox 97.7 F 68 18 140/61 96 08/05/16 06:00 08/05/16 06:00 08/05/16 06:00 08/05/16 06:00 08/05/16 06:00 Intake and Output: 08/05/16 08/05/16 06:59 18:59 Intake Total 600 Balance 600 - Medications Medications: Current Medications Acetaminophen (Tylenol 325mg Tab) 650 mg PO Q6H PRN PRN Reason: Fever >100.4 F Alprazolam (Xanax) 0.125 mg PO HS PRN; Protocol PRN Reason: Anxiety Stop: 08/09/16 22:01 Aspirin (Ecotrin) 81 mg PO 0800 [facility] Last Admin: 08/05/16 07:47 Dose: 81 mg Betamethasone/Clotrimazole (Lotrisone) 0 gm TOP BID [facility] Heparin Sodium (Porcine) (Heparin) 5,000 units SC 0600,1800 [facility] PRN Reason: Protocol Last Admin: 08/05/16 05:57 Dose: 5,000 units Ceftaroline Fosamil 400 mg/ (Sodium Chloride) 100 mls @ 100 mls/hr IVPB 0600, 1800 [facility] PRN Reason: Protocol Stop: 08/09/16 18:01 Last Admin: 08/05/16 05:58 Dose: 100 mls/hr Losartan Potassium (Cozaar) 100 mg PO DAILY [facility] Last Admin: 08/04/16 09:29 Dose: 100 mg Mupirocin (Bactroban Ointment) 0 gm TOP DAILY [facility] Last Admin: 08/04/16 09:29 Dose: 2 applic Pantoprazole Sodium (Protonix Ec Tab) 40 mg PO 0630 [facility] Last Admin: 08/05/16 05:57 Dose: 40 mg - Labs Labs: 08/03/16 06:33 08/03/16 06:33 - Constitutional Appears: Non-toxic, No Acute Distress - Head Exam Head Exam: NORMAL INSPECTION - ENT Exam ENT Exam: Mucous Membranes Moist - Neck Exam Neck Exam: absent: Lymphadenopathy, Meningismus - Respiratory Exam Respiratory Exam: Decreased Breath Sounds - Cardiovascular Exam Cardiovascular Exam: +S1, +S2 - GI/Abdominal Exam GI & Abdominal Exam: Soft. absent: Tenderness Assessment and Plan - Assessment and Plan (Free Text) Plan: Assessment blilateral lower extremity skin and skin structure infection with methicillin- sensitive Staph aureus R/O vasculitis; so far no evidence of fungal infection right shoulder effusion S/P drainage dyslipidemia hypertension osteoarthritis gastroesophageal reflux disease multinodular goiter mitral regurgitation rheumatoid arthritis SLE Plan will continue Ceftaroline (day 7); ANNITA prep from the wound, fungal cx are negative; VAHID is positive and will await further work up; target 7-10 days of antibiotics Discussed with Dr. Patel previously Will continue to follow clinically
--- NOTE | 2016-08-05 16:25 | CON ---
DATE: 08/05/2016 The patient is in room 320, bed 1 with complaint of right shoulder discomfort. 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 History of this happening be fore and I aspirated her in 04/2016. There were no crystals and no infection. This effusion again n ot as bad as in 04/2016, but I explained to her that cortisone shot may have helped it temporarily, b ut if we keep giving her the shot in the shoulders, we could decrease her immunity even further and s he could possibly get an infection. So, she said she does not have that much difficulty with the tiana ulder since the last shot did help and I told her to refrain from another shot as too much of the cor tisone could prove more to more problem than it is worth as infection and eventually increased joint destruction. So, she is understanding not get a shot today and not to even take the fluid out at thi s time because there are no signs of infection. The culture was negative in 04/2016. So, I will fol low her as an outpatient if she needs to and I could always, if it gets too bad, we could always aspi rate in a month or two, but we will try to minimize the cortisone injections to the right shoulder wi th arthritis and effusions. Peña Luna DO cc: [id number] TT: 08/05/2016 16:24:23 Confirmation # [id number] Dictation # [id number] sn
[2016-08-06] MEDS: Pantoprazole 40 mg EC Tab PO SCH (05:50)
[2016-08-06 07:27] LABS: ADD MANUAL DIFF? NO
[2016-08-06 07:30] LABS: BASO # 0.01 K/mm3 (0.0-2.0); BASO % 0.2 % (0.0-3.0); EOS # 0.1 (0.0-0.7); EOS % 2.7 % (1.5-5.0); GRAN # 3.68 (1.4-6.5); GRAN % 69.9 % (50.0-68.0); HEMATOCRIT 34.8 % (36.0-48.0); LYMPH # 0.9 (1.2-3.4); LYMPH % 17.7 % (22.0-35.0); MEAN CELL VOLUME 90.4 fL (80.0-105.0); MEAN CORPUSCULAR HEMOGLOBIN 29.4 pg (25.0-35.0); MEAN CORPUSCULAR HGB CONC 32.5 g/dl (31.0-37.0); MEAN PLATELET VOLUME 9.7 fl (7.0-11.0); MONO # 0.5 (0.1-0.6); MONO % 9.5 % (1.0-6.0); PLATELET COUNT 283 10^3/uL (120.0-450.0); RED CELL DISTRIBUTION WIDTH 15.1 % (11.5-14.5); WHITE BLOOD COUNT 5.3 10^3/ul (4.5-11.0)
[2016-08-06 08:31] LABS: ALB/GLOB RATIO 1.1 (1.1-1.8); ALKALINE PHOSPHATASE 72 U/L (38-133); ALT/SGPT 36 U/L (7-56); AST/SGOT 36 U/L (15-39); BILIRUBIN,TOTAL 0.6 mg/dL (0.2-1.3); BLOOD UREA NITROGEN 25 mg/dL (7-21); CALCIUM 9.3 mg/dL (8.4-10.5); CARBON DIOXIDE 27 mmol/L (21-33); CHLORIDE 100 mmol/L (98-107); GFR AFRICAN-AMERICAN > 60; GLUCOSE,RANDOM 84 mg/dL (70-110); POTASSIUM 4.6 mmol/L (3.6-5.0); SODIUM 134 mmol/L (132-148); TOTAL PROTEIN 6.3 g/dL (5.8-8.3)
[2016-08-06] MEDS: Clotrimazole/Betamethasone Cream(15 gm) TOP SCH ×2 (09:30→17:32)
--- NOTE | 2016-08-06 11:07 | PN ---
DATE: 08/06/2016 PROBLEMS: 1. The patient is on transitional care unit receiving IV antibiotics for cellulitis of both legs wit h micro ulcers. 2. History of seronegative rheumatoid arthritis and lupus. 3. Elevated VAHID, deconditioning, remote history of left hip surgery, hypertension, serous effusion o f the right shoulder. PHYSICAL EXAMINATION: VITAL SIGNS: Temp is 97, blood pressure is reported as 106/70, pulse is 64. LUNGS: Clear. HEART: Has a regular S1, S2 rhythm. ABDOMEN: Soft with positive bowel sounds. EXTREMITIES: Showed diminished edema, diminished erythema. LABORATORY DATA: Shows normal electrolytes. The BUN is 20, but the creatinine is 0.8. LFTs are nor mal. CBC shows a WBC of 5.3, RBC 3.85, hemoglobin 11.3, hematocrit 34.8, platelet count is 283. ASSESSMENT AND PLAN: The patient is currently receiving IV Teflaro for his bilateral cellulitis of t he lower extremities and receiving local wound care. She will continue on this current regimen. We have discussed the rheumatological background that the patient has. I have discussed this with the c onsultants and with the patient, as well as with her planer setter, Dr. Jhaveri. VAHID is elevated. We will follow this up once the current clinical status of the patient improves, to readdress treatment for underlying rheumatological disorder. We will continue current level of care at this time. She c shirin on DVT prophylaxis. Susanna Patel MD cc: [id number] TT: 08/06/2016 11:07:05 Confirmation # [id number] Dictation # [id number] lee
--- NOTE | 2016-08-06 14:22 | PN ---
DATE: 08/06/2016 The patient is an 86-year-old female seen at bedside in TCU for continued evaluation and management o f bilateral lower extremity ulcerations. The patient is reporting no pain or discomfort in either le g at this time. VITAL SIGNS: Reveal temperature of 97.8, pulse rate of 66, blood pressure 105/45, respiratory rate o f 20. LABORATORY DATA: Reveal a white count of 5.3, hemoglobin of 11.3, hematocrit of 34.8, platelet count of 283. OBJECTIVE: Palpable pedal pulses noted bilaterally. Temperature gradient is slightly reversed bilat erally. Capillary filling time is delayed. There is noted to be +1 nonpitting lower extremity edema . There is decreasing erythema and edema noted to both lower legs. The lesions that are present on both lower legs are arleth. There is noted to be serous drainage only. Base of all the wounds are primarily fibrotic. There is serous drainage with no purulence or underlying abscess formation n oted. ASSESSMENT: Resolving cellulitis of both lower extremities with accompanying dermatitis. PLAN: We will cleanse both legs with normal sterile saline. We will apply Lotrisone cream to the le gs and apply Bactroban, Xeroform, dry sterile dressing and Nik wraps. She was told to remove the Nik wraps before bedtime and patient will be seen and followed while she remains in-house. Armando Sanchez DPM cc: [id number] TT: 08/06/2016 14:21:45 Confirmation # [id number] Dictation # [id number] lee
--- NOTE | 2016-08-06 17:03 | CP.PCM.PN ---
Subjective - Date & Time of Evaluation Date of Evaluation: 08/06/16 Time of Evaluation: 10:05 - Subjective Subjective: Comfortable, afebrile, less leg pain. Objective - Vital Signs/Intake and Output Vital Signs (last 24 hours): Temp Pulse Resp BP Pulse Ox 97.8 F 66 20 105/45 L 95 08/06/16 10:00 08/06/16 10:00 08/06/16 10:00 08/06/16 10:00 08/06/16 10:00 Intake and Output: 08/06/16 08/06/16 06:59 18:59 Intake Total 1040 Balance 1040 - Medications Medications: Current Medications Acetaminophen (Tylenol 325mg Tab) 650 mg PO Q6H PRN PRN Reason: Fever >100.4 F Alprazolam (Xanax) 0.125 mg PO HS PRN; Protocol PRN Reason: Anxiety Stop: 08/09/16 22:01 Last Admin: 08/05/16 21:48 Dose: 0.125 mg Aspirin (Ecotrin) 81 mg PO 0800 [facility] Last Admin: 08/06/16 07:55 Dose: 81 mg Betamethasone/Clotrimazole (Lotrisone) 0 gm TOP BID [facility] Heparin Sodium (Porcine) (Heparin) 5,000 units SC 0600,1800 [facility] PRN Reason: Protocol Last Admin: 08/06/16 05:49 Dose: 5,000 units Ceftaroline Fosamil 400 mg/ (Sodium Chloride) 100 mls @ 100 mls/hr IVPB 0600, 1800 [facility] PRN Reason: Protocol Stop: 08/09/16 18:01 Last Admin: 08/06/16 05:50 Dose: 100 mls/hr Losartan Potassium (Cozaar) 100 mg PO DAILY [facility] Last Admin: 08/06/16 09:31 Dose: Not Given Mupirocin (Bactroban Ointment) 0 gm TOP DAILY [facility] Last Admin: 08/06/16 09:31 Dose: 1 applic Pantoprazole Sodium (Protonix Ec Tab) 40 mg PO 0630 [facility] Last Admin: 08/06/16 05:50 Dose: 40 mg - Labs Labs: 08/06/16 06:30 08/06/16 06:30 - Constitutional Appears: Non-toxic, No Acute Distress - Head Exam Head Exam: NORMAL INSPECTION - Neck Exam Neck Exam: absent: Lymphadenopathy, Meningismus - Respiratory Exam Respiratory Exam: Decreased Breath Sounds - Cardiovascular Exam Cardiovascular Exam: +S1, +S2 - GI/Abdominal Exam GI & Abdominal Exam: Soft. absent: Tenderness - Extremities Exam Additional comments: both legs with dry dressings in place Assessment and Plan - Assessment and Plan (Free Text) Plan: Assessment blilateral lower extremity skin and skin structure infection with methicillin- sensitive Staph aureus R/O vasculitis; so far no evidence of fungal infection; clinically improving right shoulder effusion S/P drainage dyslipidemia hypertension osteoarthritis gastroesophageal reflux disease multinodular goiter mitral regurgitation rheumatoid arthritis SLE Plan will continue Ceftaroline (day 8); ANNITA prep from the wound, fungal cx are negative; VAHID is positive and as discussed with Dr. Patel, will see a Manager Nursing as an outpatient; target 7-10 days of antibiotics; we may be able to d/c antibiotics in the next 24 hours Will continue to follow clinically
--- NOTE | 2016-08-06 19:38 | PN ---
DATE: 08/06/2016 SUBJECTIVE: The patient is sitting on the chair in no acute distress. Denies having any headache or dizziness. She is able to sleep better. She has no further episode of confusion. PHYSICAL EXAMINATION: VITAL SIGNS: Her blood pressure is 105/45, heart rate is 66 per minute, breathing at a rate of 16 pe r minute, temperature is 97.8 degrees Fahrenheit. HEENT: Normocephalic, atraumatic. NECK: Supple. There are no carotid bruits. LUNGS: Clear. CARDIOVASCULAR: S1, S2 audible. No murmurs. ABDOMEN: Soft and nontender with bowel sounds present. NEUROLOGIC EXAMINATION: MENTAL STATUS: The patient is awake, alert, oriented to time, place, person. Speech is fluent. Nam ing and repetition normal. Memory and cognition appears intact. CRANIAL NERVE EXAMINATION: Pupils are 3 mm bilaterally reactive to light. Visual chow are full. Extraocular movements are intact. There is no facial asymmetry. Palate is upgoing bilaterally and t ongue is midline. MOTOR EXAMINATION: Tone is normal. Power is 5/5 bilaterally in all extremities. Reflexes +1 and sy mmetrical. Plantars downgoing bilaterally. LABORATORY DATA: Labs reviewed, shows WBC of 5.3, hemoglobin 11.3, hematocrit of 34.8 and platelets of 283. Her sodium is 134, potassium 4.6, chloride 100, carbon dioxide content 27, BUN of 25, creati nine 0.8, and glucose of 84. IMPRESSION: Status post altered mental status, likely secondary to medication side effect. RECOMMENDATIONS: 1. The patient has been doing quite well and has no further episode of change in mental status. 2. The patient may have 0.125 mg of Xanax at nighttime to help her anxiety symptoms as well as to he lp her go to sleep if she needs to. 3. The patient to continue to have physical therapy for gait imbalance. 4. Please continue other treatment and supportive care. Thank you for the opportunity to participate in the care of this patient. Ant Jiménez MD cc: [id number] TT: 08/06/2016 19:38:12 Confirmation # [id number] Dictation # [id number] rn
[2016-08-07] MEDS: Pantoprazole 40 mg EC Tab PO SCH (06:32)
--- NOTE | 2016-08-07 10:11 | PN ---
DATE: 08/07/2016 The patient is resting comfortably on TCU this morning. Nursing staff relates that there were no pro blems during the night. PHYSICAL EXAMINATION: VITAL SIGNS: Temp is 97.8. Blood pressure is 105/45. GENERAL: She is alert and oriented x 3. NECK: Supple. LUNGS: Clear. HEART: Regular S1, S2 rhythm. ABDOMEN: Soft with positive bowel sounds. EXTREMITIES: Show Nik wraps. The legs are a bit less edematous this morning. The patient is receiving IV Teflaro for bilateral cellulitis of the lower extremities, being followed by infectious disease. She is also being followed by podiatry for wound care. Continue current lev el of care, and follow the patient closely with the individual consultants, and continue her physical and occupational therapy. Susanna Patel MD cc: [id number] TT: 08/07/2016 10:11:16 Confirmation # [id number] Dictation # [id number] rosa
[2016-08-07] MEDS: Clotrimazole/Betamethasone Cream(15 gm) TOP SCH ×2 (10:29→17:24)
--- NOTE | 2016-08-07 15:13 | CP.PCM.PN ---
Subjective - Date & Time of Evaluation Date of Evaluation: 08/07/16 Time of Evaluation: 14:30 - Subjective Subjective: Comfortable on a chair, less pain in the legs, no fevers. Objective - Vital Signs/Intake and Output Vital Signs (last 24 hours): Temp Pulse Resp BP Pulse Ox 97.4 F L 76 18 135/62 100 08/07/16 10:00 08/07/16 10:00 08/07/16 10:00 08/07/16 10:00 08/07/16 10:00 Intake and Output: 08/07/16 08/07/16 06:59 18:59 Intake Total 520 420 Balance 520 420 - Medications Medications: Current Medications Acetaminophen (Tylenol 325mg Tab) 650 mg PO Q6H PRN PRN Reason: Fever >100.4 F Alprazolam (Xanax) 0.125 mg PO HS PRN; Protocol PRN Reason: Anxiety Stop: 08/09/16 22:01 Last Admin: 08/06/16 21:43 Dose: 0.125 mg Aspirin (Ecotrin) [address] [facility] Last Admin: 08/07/16 07:34 Dose: 81 mg Betamethasone/Clotrimazole (Lotrisone) [address] [facility] Last Admin: 08/07/16 10:29 Dose: 1 applic Heparin Sodium (Porcine) (Heparin) 5,000 units SC 0600,1800 [facility] PRN Reason: Protocol Last Admin: 08/07/16 06:31 Dose: 5,000 units Ceftaroline Fosamil 400 mg/ (Sodium Chloride) 100 mls @ 100 mls/hr IVPB 0600, 1800 [facility] PRN Reason: Protocol Stop: 08/09/16 18:01 Last Admin: 08/07/16 06:32 Dose: 100 mls/hr Losartan Potassium (Cozaar) [address] [facility] Last Admin: 08/07/16 10:29 Dose: 100 mg Mupirocin (Bactroban Ointment) [address] [facility] Last Admin: 08/07/16 10:29 Dose: 1 applic Pantoprazole Sodium (Protonix Ec Tab) [address] [facility] Last Admin: 08/07/16 06:32 Dose: 40 mg - Labs Labs: 08/06/16 06:30 08/06/16 06:30 - Constitutional Appears: Non-toxic, No Acute Distress - Head Exam Head Exam: NORMAL INSPECTION - ENT Exam ENT Exam: Mucous Membranes Moist - Neck Exam Neck Exam: absent: Lymphadenopathy, Meningismus - Respiratory Exam Respiratory Exam: Decreased Breath Sounds - Cardiovascular Exam Cardiovascular Exam: +S1, +S2 - GI/Abdominal Exam GI & Abdominal Exam: Soft. absent: Tenderness - Extremities Exam Additional comments: both lower extremities with bandages in place Assessment and Plan - Assessment and Plan (Free Text) Plan: Assessment blilateral lower extremity skin and skin structure infection with methicillin- sensitive Staph aureus R/O vasculitis; no evidence of fungal infection; clinically improving right shoulder effusion S/P drainage dyslipidemia hypertension osteoarthritis gastroesophageal reflux disease multinodular goiter mitral regurgitation rheumatoid arthritis SLE Plan will continue Ceftaroline (day 9) - will target 10 days of antibiotics; ANNITA prep from the wound, fungal cx are negative; VAHID is positive and as discussed with Dr. Patel, will see a Show Host Or Hostess as an outpatient - will d/c antibiotics by tomorrow Will continue to follow clinically
--- NOTE | 2016-08-07 15:20 | CP.PCM.PN ---
<Tena Jenkins - Last Filed: 08/07/16 15:17> Subjective - Date & Time of Evaluation Date of Evaluation: 08/07/16 Time of Evaluation: 15:17 - Subjective Subjective: 86 yo female patient seen at the bedside this afternoon for follow up of BL lower extremity lesions. Pt seen resting at the bedside at time of visit. Reports no acute events overnight. Denies any pain or discomfort to the legs/ feet at this time. Objective - Vital Signs/Intake and Output Vital Signs (last 24 hours): Temp Pulse Resp BP Pulse Ox 97.4 F L 76 18 135/62 100 08/07/16 10:00 08/07/16 10:00 08/07/16 10:00 08/07/16 10:00 08/07/16 10:00 Intake and Output: 08/07/16 08/07/16 06:59 18:59 Intake Total 520 420 Balance 520 420 - Medications Medications: Current Medications Acetaminophen (Tylenol 325mg Tab) 650 mg PO Q6H PRN PRN Reason: Fever >100.4 F Alprazolam (Xanax) 0.125 mg PO HS PRN; Protocol PRN Reason: Anxiety Stop: 08/09/16 22:01 Last Admin: 08/06/16 21:43 Dose: 0.125 mg Aspirin (Ecotrin) 81 mg PO 0800 [facility] Last Admin: 08/07/16 07:34 Dose: 81 mg Betamethasone/Clotrimazole (Lotrisone) 0 gm TOP BID [facility] Last Admin: 08/07/16 10:29 Dose: 1 applic Heparin Sodium (Porcine) (Heparin) 5,000 units SC 0600,1800 [facility] PRN Reason: Protocol Last Admin: 08/07/16 06:31 Dose: 5,000 units Ceftaroline Fosamil 400 mg/ (Sodium Chloride) 100 mls @ 100 mls/hr IVPB 0600, 1800 [facility] PRN Reason: Protocol Stop: 08/09/16 18:01 Last Admin: 08/07/16 06:32 Dose: 100 mls/hr Losartan Potassium (Cozaar) 100 mg PO DAILY [facility] Last Admin: 08/07/16 10:29 Dose: 100 mg Mupirocin (Bactroban Ointment) 0 gm TOP DAILY [facility] Last Admin: 08/07/16 10:29 Dose: 1 applic Pantoprazole Sodium (Protonix Ec Tab) 40 mg PO 0630 [facility] Last Admin: 08/07/16 06:32 Dose: 40 mg - Labs Labs: 08/06/16 06:30 08/06/16 06:30 - Constitutional Appears: Well, Non-toxic, No Acute Distress - Extremities Exam Additional comments: Lower extremity exam: Dressing appears c/d/i VASC- DP/PT 2/4 BL, skin temp runs warm to cool bl, cft <3 sec to digits x 10, + 1 pitting edema noted to legs BL DERM- multiple circular lesions noted to legs bl, serous drainage noted from wounds BL, no probe to bone, no fluctuance, no purulent drainage, no malodor, slight erythema noted to anterior legs bL, improving NEURO- pedal sensation grossly intact bl. ORTHO- no tenderness to palpation of ant aspect of shins bl - Neurological Exam Neurological Exam: Alert, Awake, Oriented x3 - Psychiatric Exam Psychiatric exam: Normal Affect, Normal Mood Assessment and Plan - Assessment and Plan (Free Text) Assessment: 86 y/o female patient with dermatitis of BL lower extremities, improving Plan: -Pt seen and evaluated at the bedside discussed with attending Dr. Escobar Chart, labs, vitals reviewed: afebrile final wound cx: staph aureus b/l legs f/u punch biopsy results when available Legs cleansed with sterile normal saline, and dressed with bactroban, lotrisone , DSD, SAMANTHA to lower extremities BL Pt advised to remove SAMANTHA wraps at night time. continue PT continue IV abx as per ID podiatry will continue to monitor while she remains in house <Suellen Escobar - Last Filed: 08/09/16 14:58> Objective - Vital Signs/Intake and Output Vital Signs (last 24 hours): Temp Pulse Resp BP Pulse Ox 97.4 F L 96 H 18 128/63 97 08/09/16 10:00 08/09/16 10:00 08/09/16 10:00 08/09/16 10:00 08/09/16 10:00 Intake and Output: 08/09/16 08/09/16 06:59 18:59 Intake Total 520 620 Balance 520 620 - Medications Medications: Current Medications Acetaminophen (Tylenol 325mg Tab) 650 mg PO Q6H PRN PRN Reason: Fever >100.4 F Alprazolam (Xanax) 0.125 mg PO HS PRN; Protocol PRN Reason: Anxiety Stop: 08/09/16 22:01 Last Admin: 08/08/16 23:08 Dose: 0.125 mg Aspirin (Ecotrin) 81 mg PO 0800 [facility] Last Admin: 08/09/16 08:57 Dose: 81 mg Betamethasone/Clotrimazole (Lotrisone) 0 gm TOP BID [facility] Last Admin: 08/09/16 09:59 Dose: 1 applic Heparin Sodium (Porcine) (Heparin) 5,000 units SC 0600,1800 [facility] PRN Reason: Protocol Last Admin: 08/09/16 05:45 Dose: 5,000 units Ceftaroline Fosamil 400 mg/ (Sodium Chloride) 100 mls @ 100 mls/hr IVPB 0600, 1800 [facility] PRN Reason: Protocol Stop: 08/09/16 18:01 Last Admin: 08/09/16 05:45 Dose: 100 mls/hr Losartan Potassium (Cozaar) 100 mg PO DAILY [facility] Last Admin: 08/09/16 09:59 Dose: 100 mg Mupirocin (Bactroban Ointment) 0 gm TOP DAILY [facility] Last Admin: 08/09/16 09:58 Dose: Not Given Pantoprazole Sodium (Protonix Ec Tab) 40 mg PO 0630 [facility] Last Admin: 08/09/16 05:45 Dose: 40 mg - Labs Labs: 08/06/16 06:30 08/06/16 06:30 Attending/Attestation - Attestation I have personally seen and examined this patient.: Yes I have fully participated in the care of the patient.: Yes I have reviewed all pertinent clinical information, including history, physical exam and plan: Yes
[2016-08-08] MEDS: Pantoprazole 40 mg EC Tab PO SCH (05:36)
[2016-08-08] MEDS: Clotrimazole/Betamethasone Cream(15 gm) TOP SCH ×2 (10:21→17:21)
--- NOTE | 2016-08-08 11:16 | CP.PCM.PN ---
<Tena Jenkins - Last Filed: 08/08/16 11:14> Subjective - Date & Time of Evaluation Date of Evaluation: 08/08/16 Time of Evaluation: 11:14 - Subjective Subjective: 86 yo female patient seen at the bedside with attending Dr. Escobar for follow up of BL lower extremity lesions. Pt seen resting at the bedside at time of visit. Reports no acute events overnight. Denies any pain or discomfort to the legs/feet at this time. Objective - Vital Signs/Intake and Output Vital Signs (last 24 hours): Temp Pulse Resp BP Pulse Ox 97.8 F 59 L 16 127/58 L 96 08/08/16 06:00 08/08/16 06:00 08/08/16 06:00 08/08/16 06:00 08/08/16 06:00 Intake and Output: 08/08/16 08/08/16 06:59 18:59 Intake Total 420 Balance 420 - Medications Medications: Current Medications Acetaminophen (Tylenol 325mg Tab) 650 mg PO Q6H PRN PRN Reason: Fever >100.4 F Alprazolam (Xanax) 0.125 mg PO HS PRN; Protocol PRN Reason: Anxiety Stop: 08/09/16 22:01 Last Admin: 08/07/16 22:42 Dose: 0.125 mg Aspirin (Ecotrin) 81 mg PO 0800 [facility] Last Admin: 08/08/16 08:01 Dose: 81 mg Betamethasone/Clotrimazole (Lotrisone) 0 gm TOP BID [facility] Last Admin: 08/08/16 10:21 Dose: 1 applic Heparin Sodium (Porcine) (Heparin) 5,000 units SC 0600,1800 [facility] PRN Reason: Protocol Last Admin: 08/08/16 05:36 Dose: 5,000 units Ceftaroline Fosamil 400 mg/ (Sodium Chloride) 100 mls @ 100 mls/hr IVPB 0600, 1800 [facility] PRN Reason: Protocol Stop: 08/09/16 18:01 Last Admin: 08/08/16 05:36 Dose: 100 mls/hr Losartan Potassium (Cozaar) 100 mg PO DAILY [facility] Last Admin: 08/08/16 10:21 Dose: 100 mg Mupirocin (Bactroban Ointment) 0 gm TOP DAILY [facility] Last Admin: 08/08/16 10:20 Dose: 1 applic Pantoprazole Sodium (Protonix Ec Tab) 40 mg PO 0630 [facility] Last Admin: 08/08/16 05:36 Dose: 40 mg - Labs Labs: 08/06/16 06:30 08/06/16 06:30 - Constitutional Appears: Well, Non-toxic, No Acute Distress - Extremities Exam Additional comments: Lower extremity exam: Dressing appears c/d/i VASC- DP/PT 2/4 BL, skin temp runs warm to cool bl, cft <3 sec to digits x 10, + 1 pitting edema noted to legs BL DERM- multiple circular lesions noted to legs bl, no serous drainage noted from wounds BL, no probe to bone, no fluctuance, no purulent drainage, no malodor, slight erythema noted to anterior legs bL, improving NEURO- pedal sensation grossly intact bl. ORTHO- no tenderness to palpation of ant aspect of shins bl - Neurological Exam Neurological Exam: Alert, Awake, Oriented x3 - Psychiatric Exam Psychiatric exam: Normal Affect, Normal Mood Assessment and Plan - Assessment and Plan (Free Text) Assessment: 86 y/o female patient with dermatitis of BL lower extremities, improving Plan: -Pt seen and evaluated at the bedside, seen with attending Dr. Escobar Chart, labs, vitals reviewed: afebrile final wound cx: staph aureus b/l legs f/u punch biopsy results Legs cleansed with sterile normal saline, and applied lotrisone, DSD, kerlix to b/l legs continue PT continue IV abx as per ID podiatry will continue to monitor while she remains in house <Suellen Escobar - Last Filed: 08/09/16 15:05> Objective - Vital Signs/Intake and Output Vital Signs (last 24 hours): Temp Pulse Resp BP Pulse Ox 97.4 F L 96 H 18 128/63 97 08/09/16 10:00 08/09/16 10:00 08/09/16 10:00 08/09/16 10:00 08/09/16 10:00 Intake and Output: 08/09/16 08/09/16 06:59 18:59 Intake Total 520 620 Balance 520 620 - Medications Medications: Current Medications Acetaminophen (Tylenol 325mg Tab) 650 mg PO Q6H PRN PRN Reason: Fever >100.4 F Alprazolam (Xanax) 0.125 mg PO HS PRN; Protocol PRN Reason: Anxiety Stop: 08/09/16 22:01 Last Admin: 08/08/16 23:08 Dose: 0.125 mg Aspirin (Ecotrin) 81 mg PO 0800 [facility] Last Admin: 08/09/16 08:57 Dose: 81 mg Betamethasone/Clotrimazole (Lotrisone) 0 gm TOP BID [facility] Last Admin: 08/09/16 09:59 Dose: 1 applic Heparin Sodium (Porcine) (Heparin) 5,000 units SC 0600,1800 [facility] PRN Reason: Protocol Last Admin: 08/09/16 05:45 Dose: 5,000 units Ceftaroline Fosamil 400 mg/ (Sodium Chloride) 100 mls @ 100 mls/hr IVPB 0600, 1800 [facility] PRN Reason: Protocol Stop: 08/09/16 18:01 Last Admin: 08/09/16 05:45 Dose: 100 mls/hr Losartan Potassium (Cozaar) 100 mg PO DAILY [facility] Last Admin: 08/09/16 09:59 Dose: 100 mg Mupirocin (Bactroban Ointment) 0 gm TOP DAILY [facility] Last Admin: 08/09/16 09:58 Dose: Not Given Pantoprazole Sodium (Protonix Ec Tab) 40 mg PO 0630 [facility] Last Admin: 08/09/16 05:45 Dose: 40 mg - Labs Labs: 08/06/16 06:30 08/06/16 06:30 Attending/Attestation - Attestation I have personally seen and examined this patient.: Yes I have fully participated in the care of the patient.: Yes I have reviewed all pertinent clinical information, including history, physical exam and plan: Yes
[2016-08-08 12:14] VITALS: RESP 18
--- NOTE | 2016-08-08 14:18 | PN ---
DATE: 08/08/2016 An 86-year-old female on the transitional care unit. Nursing staff relates that there were no partic ular problems this morning. PHYSICAL EXAMINATION: VITAL SIGNS: Show a temp of 97.6, the blood pressure is 127/58, the pulse is 59, the oxygen sat is 9 6% on room air. GENERAL: She is alert and oriented x 3. LUNGS: Clear. HEART: An regular S1, S2 rhythm. ABDOMEN: Soft with positive bowel sounds. EXTREMITIES: Show mild edema with diminished erythema. Wounds are improving clinically. The patient is receiving local wound care for bilateral cellulitis of the lower extremities as well a s IV antibiotic therapy. She is being followed by podiatry as well as infectious disease. We will c modestoue current level of care and she is continuing occupational and physical therapy on the floor. Susanna Patel MD cc: [id number] TT: 08/08/2016 14:17:55 Confirmation # [id number] Dictation # [id number] tn
--- NOTE | 2016-08-08 15:04 | CP.PCM.PN ---
Subjective - Date & Time of Evaluation Date of Evaluation: 08/08/16 Time of Evaluation: 07:55 - Subjective Subjective: Comfortable on a chair, less pain in the legs, no fevers overnight, no diarrhea. Objective - Vital Signs/Intake and Output Vital Signs (last 24 hours): Temp Pulse Resp BP Pulse Ox 97.6 F 64 18 180/61 H 99 08/08/16 10:00 08/08/16 10:00 08/08/16 10:00 08/08/16 10:00 08/08/16 10:00 Intake and Output: 08/08/16 08/08/16 06:59 18:59 Intake Total 420 Balance 420 - Medications Medications: Current Medications Acetaminophen (Tylenol 325mg Tab) 650 mg PO Q6H PRN PRN Reason: Fever >100.4 F Alprazolam (Xanax) 0.125 mg PO HS PRN; Protocol PRN Reason: Anxiety Stop: 08/09/16 22:01 Last Admin: 08/07/16 22:42 Dose: 0.125 mg Aspirin (Ecotrin) 81 mg PO 0800 [facility] Last Admin: 08/08/16 08:01 Dose: 81 mg Betamethasone/Clotrimazole (Lotrisone) 0 gm TOP BID [facility] Last Admin: 08/08/16 10:21 Dose: 1 applic Heparin Sodium (Porcine) (Heparin) 5,000 units SC 0600,1800 [facility] PRN Reason: Protocol Last Admin: 08/08/16 05:36 Dose: 5,000 units Ceftaroline Fosamil 400 mg/ (Sodium Chloride) 100 mls @ 100 mls/hr IVPB 0600, 1800 [facility] PRN Reason: Protocol Stop: 08/09/16 18:01 Last Admin: 08/08/16 05:36 Dose: 100 mls/hr Losartan Potassium (Cozaar) 100 mg PO DAILY [facility] Last Admin: 08/08/16 10:21 Dose: 100 mg Mupirocin (Bactroban Ointment) 0 gm TOP DAILY [facility] Last Admin: 08/08/16 10:20 Dose: 1 applic Pantoprazole Sodium (Protonix Ec Tab) 40 mg PO 0630 [facility] Last Admin: 08/08/16 05:36 Dose: 40 mg - Labs Labs: 08/06/16 06:30 08/06/16 06:30 - Constitutional Appears: Non-toxic, No Acute Distress - Head Exam Head Exam: NORMAL INSPECTION - ENT Exam ENT Exam: Mucous Membranes Moist - Neck Exam Neck Exam: absent: Lymphadenopathy, Meningismus - Respiratory Exam Respiratory Exam: Decreased Breath Sounds - Cardiovascular Exam Cardiovascular Exam: +S1, +S2 - GI/Abdominal Exam GI & Abdominal Exam: Soft. absent: Tenderness - Extremities Exam Additional comments: both legs with dry dressings in place Assessment and Plan - Assessment and Plan (Free Text) Plan: Assessment blilateral lower extremity skin and skin structure infection with methicillin- sensitive Staph aureus R/O vasculitis; no evidence of fungal infection; clinically improving right shoulder effusion S/P drainage dyslipidemia hypertension osteoarthritis gastroesophageal reflux disease multinodular goiter mitral regurgitation rheumatoid arthritis SLE Plan will continue Ceftaroline (day 10) - willd/c antibiotics after today; ANNITA prep from the wound, fungal cx are negative; VAHID is positive and as discussed with Dr. Patel, will see a [employer] as an outpatient Discussed with Dr. Patel Will continue to follow clinically
[2016-08-09] MEDS: Pantoprazole 40 mg EC Tab PO SCH (05:45)
[2016-08-09] MEDS: Clotrimazole/Betamethasone Cream(15 gm) TOP SCH (09:59)
[2016-08-09 11:20] VITALS: BP 128/63; PULSE 96; TEMP 97.4; O2SAT 97
--- NOTE | 2016-08-09 13:21 | CP.PCM.PN ---
<Tena Jenkins - Last Filed: 08/09/16 13:18> Subjective - Date & Time of Evaluation Date of Evaluation: 08/09/16 Time of Evaluation: 13:18 - Subjective Subjective: 86 yo female patient seen at the bedside for follow up of BL lower extremity lesions. Pt seen resting at the bedside at time of visit. Reports no acute events overnight. Denies any pain or discomfort to the legs/feet at this time. Objective - Vital Signs/Intake and Output Vital Signs (last 24 hours): Temp Pulse Resp BP Pulse Ox 97.4 F L 96 H 18 128/63 97 08/09/16 10:00 08/09/16 10:00 08/09/16 10:00 08/09/16 10:00 08/09/16 10:00 Intake and Output: 08/09/16 08/09/16 06:59 18:59 Intake Total 520 Balance 520 - Medications Medications: Current Medications Acetaminophen (Tylenol 325mg Tab) 650 mg PO Q6H PRN PRN Reason: Fever >100.4 F Alprazolam (Xanax) 0.125 mg PO HS PRN; Protocol PRN Reason: Anxiety Stop: 08/09/16 22:01 Last Admin: 08/08/16 23:08 Dose: 0.125 mg Aspirin (Ecotrin) 81 mg PO 0800 [facility] Last Admin: 08/09/16 08:57 Dose: 81 mg Betamethasone/Clotrimazole (Lotrisone) 0 gm TOP BID [facility] Last Admin: 08/09/16 09:59 Dose: 1 applic Heparin Sodium (Porcine) (Heparin) 5,000 units SC 0600,1800 [facility] PRN Reason: Protocol Last Admin: 08/09/16 05:45 Dose: 5,000 units Ceftaroline Fosamil 400 mg/ (Sodium Chloride) 100 mls @ 100 mls/hr IVPB 0600, 1800 [facility] PRN Reason: Protocol Stop: 08/09/16 18:01 Last Admin: 08/09/16 05:45 Dose: 100 mls/hr Losartan Potassium (Cozaar) 100 mg PO DAILY [facility] Last Admin: 08/09/16 09:59 Dose: 100 mg Mupirocin (Bactroban Ointment) 0 gm TOP DAILY [facility] Last Admin: 08/09/16 09:58 Dose: Not Given Pantoprazole Sodium (Protonix Ec Tab) 40 mg PO 0630 [facility] Last Admin: 08/09/16 05:45 Dose: 40 mg - Labs Labs: 08/06/16 06:30 08/06/16 06:30 - Constitutional Appears: Well, Non-toxic, No Acute Distress - Extremities Exam Additional comments: Lower extremity exam: Dressing appears c/d/i VASC- DP/PT 2/4 BL, skin temp runs warm to cool bl, cft <3 sec to digits x 10, + 1 pitting edema noted to legs BL DERM- multiple circular lesions noted to legs bl, no serous drainage noted from wounds BL, no probe to bone, no fluctuance, no purulent drainage, no malodor, slight erythema noted to anterior legs bL, improving NEURO- pedal sensation grossly intact bl. ORTHO- no tenderness to palpation of ant aspect of shins bl - Neurological Exam Neurological Exam: Alert, Awake, Oriented x3 - Psychiatric Exam Psychiatric exam: Normal Affect, Normal Mood Assessment and Plan - Assessment and Plan (Free Text) Assessment: 86 y/o female patient with dermatitis of BL lower extremities, improving Plan: -Pt seen and evaluated at the bedside discussed in detail with attending Dr. Sanchez Chart, labs, vitals reviewed: afebrile final wound cx: staph aureus b/l legs biopsy results: SLE Legs cleansed with sterile normal saline, and applied lotrisone, DSD, kerlix to b/l legs continue PT upon d/c, patient instructed to have lotrisone, kerlix applied to lower extremities b/l daily patient to follow up with Dr. Escobar in the wound care center or office next week podiatry will continue to monitor while she remains in house <Armando Sanchez - Last Filed: 08/10/16 07:27> Objective - Vital Signs/Intake and Output Vital Signs (last 24 hours): Temp Pulse Resp BP Pulse Ox 97.4 F L 96 H 18 128/63 97 08/09/16 10:00 08/09/16 10:00 08/09/16 10:00 08/09/16 10:00 08/09/16 10:00 - Labs Labs: 08/06/16 06:30 08/06/16 06:30 Attending/Attestation - Attestation I have personally seen and examined this patient.: Yes I have fully participated in the care of the patient.: Yes I have reviewed all pertinent clinical information, including history, physical exam and plan: Yes
--- NOTE | 2016-08-09 16:59 | CP.PCM.PN ---
Subjective - Date & Time of Evaluation Date of Evaluation: 08/09/16 Time of Evaluation: 10:05 - Subjective Subjective: Comfortable on a chair, afebrile, not in distress, improved leg pain. Objective - Vital Signs/Intake and Output Vital Signs (last 24 hours): Temp Pulse Resp BP Pulse Ox 97.4 F L 96 H 18 128/63 97 08/09/16 10:00 08/09/16 10:00 08/09/16 10:00 08/09/16 10:00 08/09/16 10:00 Intake and Output: 08/09/16 08/09/16 06:59 18:59 Intake Total 520 620 Balance 520 620 - Medications Medications: Current Medications Acetaminophen (Tylenol 325mg Tab) 650 mg PO Q6H PRN PRN Reason: Fever >100.4 F Alprazolam (Xanax) 0.125 mg PO HS PRN; Protocol PRN Reason: Anxiety Stop: 08/09/16 22:01 Last Admin: 08/08/16 23:08 Dose: 0.125 mg Aspirin (Ecotrin) 81 mg PO 0800 [facility] Last Admin: 08/09/16 08:57 Dose: 81 mg Betamethasone/Clotrimazole (Lotrisone) 0 gm TOP BID [facility] Last Admin: 08/09/16 09:59 Dose: 1 applic Heparin Sodium (Porcine) (Heparin) 5,000 units SC 0600,1800 [facility] PRN Reason: Protocol Last Admin: 08/09/16 05:45 Dose: 5,000 units Losartan Potassium (Cozaar) 100 mg PO DAILY [facility] Last Admin: 08/09/16 09:59 Dose: 100 mg Mupirocin (Bactroban Ointment) 0 gm TOP DAILY [facility] Last Admin: 08/09/16 09:58 Dose: Not Given Pantoprazole Sodium (Protonix Ec Tab) 40 mg PO 0630 [facility] Last Admin: 08/09/16 05:45 Dose: 40 mg - Labs Labs: 08/06/16 06:30 08/06/16 06:30 - Constitutional Appears: Non-toxic, No Acute Distress - Head Exam Head Exam: NORMAL INSPECTION - ENT Exam ENT Exam: Mucous Membranes Moist - Neck Exam Neck Exam: absent: Lymphadenopathy, Meningismus - Respiratory Exam Respiratory Exam: Decreased Breath Sounds - Cardiovascular Exam Cardiovascular Exam: +S1, +S2 - GI/Abdominal Exam GI & Abdominal Exam: Soft. absent: Tenderness - Extremities Exam Additional comments: bilateral lower extremities with dry dressings in place Assessment and Plan - Assessment and Plan (Free Text) Plan: Assessment blilateral lower extremity skin and skin structure infection with methicillin- sensitive Staph aureus R/O vasculitis; no evidence of fungal infection; clinically improved right shoulder effusion S/P drainage dyslipidemia hypertension osteoarthritis gastroesophageal reflux disease multinodular goiter mitral regurgitation rheumatoid arthritis SLE Plan S/P 10 days of Ceftaroline - will continue to monitor off antibiotics; ANNITA prep from the wound, fungal cx are negative; VAHID is positive and as discussed with Dr. Patel, will see a [employer] as an outpatient Discussed with Dr. Patel Will continue to follow clinically
== END 2016-08-09 16:40 | disposition home or self-care (01) | DRG 603 ==
LOC: TRCU 21:39
PROVIDERS: ADMIT Internal Medicine; ATTEND Internal Medicine
PROC: F07Z9FZ Gait Training/Functional Ambulation Treatment using Assistive, Adaptive, Supportive or Protective Equipment (ICD-10-PCS; principal; 2016-08-02)
PROC: F08Z4ZZ Home Management Treatment (ICD-10-PCS; 2016-08-02)
DX: L03.116 Cellulitis of left lower limb (principal); M32.9 Systemic lupus erythematosus, unspecified; B95.61 Methicillin susceptible Staphylococcus aureus infection as the cause of diseases classified elsewhere; L03.115 Cellulitis of right lower limb; Z79.2 Long term (current) use of antibiotics; M19.011 Primary osteoarthritis, right shoulder; I25.10 Atherosclerotic heart disease of native coronary artery without angina pectoris; I10 Essential (primary) hypertension; E04.2 Nontoxic multinodular goiter; R41.82 Altered mental status, unspecified; T42.4X5A Adverse effect of benzodiazepines, initial encounter; I87.2 Venous insufficiency (chronic) (peripheral); M06.9 Rheumatoid arthritis, unspecified; K21.9 Gastro-esophageal reflux disease without esophagitis; I34.0 Nonrheumatic mitral (valve) insufficiency; E78.5 Hyperlipidemia, unspecified; K44.9 Diaphragmatic hernia without obstruction or gangrene; L30.9 Dermatitis, unspecified; Z79.82 Long term (current) use of aspirin; Z90.49 Acquired absence of other specified parts of digestive tract; Z87.891 Personal history of nicotine dependence

== ENCOUNTER 2016-09-30 12:06 | Emergency (ER) | payer MEDICARE ==
[2016-09-30 12:13] VITALS: TEMP 98.6
[2016-09-30 12:17] VITALS: BMI 20.5
--- NOTE | 2016-09-30 12:38 | CP.PCM.PN ---
<ParthaFide - Last Filed: 09/30/16 12:31> Subjective - Date & Time of Evaluation Date of Evaluation: 09/30/16 Time of Evaluation: 11:50 - Subjective Subjective: 11:45AM code star 86 YO F w/ PMHx of SLE on plaquenil, ORIF of L hip, presents with unwitnessed fall while at appointment at outpatient wound clinic at [facility] for resolving venous stasis ulcers. Pt reports slipping on non-skid shoes and falling on L hip. Reports fall at home during night prior due slipping on marble luzma. Denies being diabetic, denies head trauma and denies LOC. Vitals minutes after fall: 140/70, 84 pulse, 16 rr. PMHx of SLE on plaquenil SxHx: ORIF of L hip Medications: plaquenil, ASA 81 Objective - Vital Signs/Intake and Output Vital Signs (last 24 hours): Temp Pulse Resp BP Pulse Ox 98.6 F 73 16 161/75 H 98 09/30/16 12:12 09/30/16 12:12 09/30/16 12:12 09/30/16 12:12 09/30/16 12:12 - Constitutional Appears: Non-toxic, No Acute Distress - Eye Exam Eye Exam: EOMI, Normal appearance - Neurological Exam Neurological Exam: Alert, Oriented x3 - Skin Skin Exam: Normal Color, Warm Assessment and Plan - Assessment and Plan (Free Text) Plan: 86 YO F w/ PMHx of SLE on plaquenil, ORIF of L hip, presents with unwitnessed fall while at appointment at outpatient wound clinic at [facility] for resolving venous stasis ulcers. Pt reports slipping on non-skid shoes and falling on L hip. Vitals minutes after fall: 140/70, 84 pulse, 16 rr. Fall on L hip: transported on bed and endorsed to Dr. Watson in emergency department <Lisy Casarez - Last Filed: 09/30/16 13:08> Objective - Vital Signs/Intake and Output Vital Signs (last 24 hours): Temp Pulse Resp BP Pulse Ox 98.6 F 73 16 161/75 H 98 09/30/16 12:12 09/30/16 12:12 09/30/16 12:12 09/30/16 12:12 09/30/16 12:12 Attending/Attestation - Attestation I have personally seen and examined this patient.: Yes I have fully participated in the care of the patient.: No I have reviewed all pertinent clinical information, including history, physical exam and plan: Yes Notes (Text): 09/30/16 12:57 Pt was able to move from the wheel chair to the stretcher with some help. She also reports a fall at home a few days ago. She denies any other symptoms before or after the fall today. 09/30/16 13:04
--- NOTE | 2016-09-30 13:36 | ED PDOC ---
Arrival/HPI - General Chief Complaint: Trauma Time Seen by Provider: 09/30/16 13:31 Historian: Patient - History of Present Illness Narrative History of Present Illness (Text): 09/30/16 13:22 A 86 year old female, whose past medical history includes Left hip replacement, presents to the emergency department from the [facility] for evaluation of left hip discomfort. Patient reports she slipped and fell onto her left side. She did not hit her head or loss consciousness. Patient says she was able to stand up after the fall. She denies any back pain, neck pain, dizziness, headache or any other complaints at this time. Patient does not want any pain medications. 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 - HEENT Hx HEENT Disorder: Yes (eyeglasses) - Hematological/Oncological Other/Comment: 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 - Integumentary Other/Comment: ble +1 edema cellulitis, thick hard toenails,redness swelling red raised rash from thighs to lower legs, feet reddened and swollen, red dry cracked skin to legs and feet, weeping coming from open wounds both legs left more than right, both hands are reddened, skin discolorations both arms - Musculoskeletal/Rheumatological Hx Falls: Yes (past) - Gastrointestinal Hx Gastrointestinal Disorders: Yes (hiatal hernia) Hx Gastroesophageal Reflux: Yes - Genitourinary/Gynecological Hx Genitourinary Disorders: (frequency) - Psychiatric Hx Depression: No Hx Emotional Abuse: No Hx Physical Abuse: No Hx Substance Use: No - Surgical History Hx Cholecystectomy: Yes Hx Orthopedic Surgery: Yes (left hip 11/06/12) - Anesthesia Hx Anesthesia: No Hx Anesthesia Reactions: No Hx Malignant Hyperthermia: No - Suicidal Assessment Feels Threatened In Home Enviroment: No Family/Social History - Physician Review Nursing Documentation Reviewed: Yes Family/Social History: Unknown Family HX Smoking Status: Never Smoked Hx Alcohol Use: No Hx Substance Use: No Hx Substance Use Treatment: No Allergies/Home Meds Allergies/Adverse Reactions: Allergies codeine Adverse Reaction (Verified 09/30/16 12:21) NAUSEA Home Medications: Home Meds Medication Instructions Recorded Confirmed Hydroxychloroquine Sulfate 200 mg PO DAILY 09/30/16 09/30/16 [Plaquenil] Physical Exam - Physical Exam Narrative Physical Exam (Text): - Review of Systems Constitutional: Normal. absent: Fatigue, Weight Change, Fevers Eyes: Normal ENT: Normal Respiratory: Normal absent: SOB, Cough, Sputum Cardiovascular: Normal absent: Chest pain, Palpitations, Syncope Gastrointestinal: Normal absent: Abdominal pain, Diarrhea, Nausea, Vomiting Genitourinary: Normal. absent: Dysuria, Frequency, Hematuria Musculoskeletal: Left hip pain. absent: Arthralgias, Back Pain, Neck Pain Skin: Normal Neurological: Normal absent: Focal Weakness Endocrine: Normal Hemo/Lymphatic: Normal Psychiatric: Normal - Physical exam Patient appears age appropriate, speaking full sentences without difficulty - Systems Exam Head: Present: Atraumatic, Normocephalic Pupils: Present: PERRL Extraocular Muscles: Present: EOMI Conjunctiva: Present: Normal Mouth: Present: Moist Mucous Membranes Neck: Present: Normal Range of Motion. No: MIDLINE TENDERNESS, Paraspinal Tenderness Respiratory/Chest: Present: Clear to Auscultation, Good Air Exchange. No: Respiratory Distress, Accessory Muscle Use, Tachypneic Cardiovascular: Present: Regular Rate and Rhythm, Normal S1, S2, Peripheral Pulses Present. No: Murmurs Abdomen: Present: Normal Bowel Sounds, No: Tenderness, Peritoneal Signs, Rebound, Guarding, Distention Back: Present: Normal Inspection. No: Midline Tenderness, Paraspinal Tenderness Upper Extremity: Present: Normal Inspection. No: Cyanosis, Edema Lower Extremity: Present: Normal Inspection. No: Edema Neurological: Present: GCS=15, Speech Normal, cranial nerves II through XII fully intact with no cerebellar abnormality, neuro-sensory fully intact. No focal neurological deficits. Skin: Present: clean dressings to b/l LEs, pt asked not to have them unwrapped as she just left the wound care clinic Lymphatic: Present: OX3, NI, NC Psychiatric: Present: Alert, Oriented x 3, Normal Insight, Normal Concentration Head atraumatic. No nasal bone deformity or tenderness, no facial or jaw pain/ swelling. No neck midline tenderness, thoracic and lumbar spine with no midline tenderness. Pt moving b/l upper and lower extremities without difficulty, 5/5 strength, with full active and passive ROM. Distal neurovasc fully intact. Abd soft/nt/ng, no hematomas, no peritoneal signs. Neg. pelvic rock. Vital Signs Reviewed: Yes Vital Signs Temp Pulse Resp BP Pulse Ox 09/30/16 15:00 74 18 142/77 96 09/30/16 12:12 98.6 F 73 16 161/75 H 98 Temperature: Afebrile Blood Pressure: Hypertensive Pulse: Regular Respiratory Rate: Normal Appearance: Positive for: Well-Appearing, Non-Toxic, Comfortable Pain Distress: None Mental Status: Positive for: Alert and Oriented X 3 Medical Decision Making ED Course and Treatment: 09/30/16 13:22 Impression: A 86 year old female with left hip pain after a mechanical fall. No acute findings on examination Differential Diagnosis include but are not limited to: fracture vs. sprain vs. strain Plan: -- Head CT -- Bilateral Hip X-ray -- Reassess and disposition Progress Notes: 09/30/16 14:[address]: Creator : Idania Mayen MD IMPRESSION: Generalized atrophy. Nonspecific white matter changes. 09/30/16 14:40 Bilateral Hip and Pelvis X-ray: Creator : Peña Perez MD IMPRESSION: Severe joint space narrowing right hip. 09/30/16 15:[address] Patel, states he spoke with Dr. Escobar plan to dc pt home with outpatient f/u pt aware of and agrees with plan pt ambulates in the ER Pt states she understands to return to the ER right away for new or worsening symptoms or for inability to f/u with PMD or specialist as instructed. Patient states that she fully agrees with and understands discharge instructions. States that she agrees with the plan and disposition. Verbalized and repeated discharge instructions and plan. I have given the patient opportunity to ask any additional questions. - RAD Interpretation Radiology Orders: 09/30/16 13:32 HEAD W/O CONTRAST [CT] Stat Hip Bi with Pelvis Fall Protocol [HIP MIN 2V W/ PELVIS DHARMESH] [RAD] Stat - Scribe Statement The provider has reviewed the documentation as recorded by the Scribe Todd Gilmore Provider Scribe Attestation: All medical record entries made by the Scribe were at my direction and personally dictated by me. I have reviewed the chart and agree that the record accurately reflects my personal performance of the history, physical exam, medical decision making, and the department course for this patient. I have also personally directed, reviewed, and agree with the discharge instructions and disposition. Disposition/Present on Arrival - Present on Arrival Any Indicators Present on Arrival: No History of DVT/PE: No History of Uncontrolled Diabetes: No Urinary Catheter: No History of Decub. Ulcer: No History Surgical Site Infection Following: Orthopedic Procedures - Disposition Have Diagnosis and Disposition been Completed?: Yes Diagnosis: Fall Disposition: HOME/ ROUTINE Disposition Time: 15:34 Patient Plan: Discharge Condition: GOOD Discharge Instructions (ExitCare): Fall Prevention for Older Adults (ED), Fall Prevention (ED) Additional Instructions: PLEASE RETURN TO THE EMERGENCY DEPARTMENT FOR NEW OR WORSENING SYMPTOMS. RETURN RIGHT AWAY IF YOU CANNOT FOLLOW UP WITH YOUR PRIMARY CARE DOCTOR, CLINIC, OR SPECIALIST IN 1-2 DAYS. Please take [id number] Motrin or Tylenol for pain Referrals: PCP,NO [Primary Care Provider] - Follow up with primary Susanna Patel MD [Staff Provider] - Follow up with primary Suellen Escobar DPM [Staff Provider] - Follow up with primary
--- NOTE | 2016-09-30 14:13 | CT ---
PROCEDURE: CT HEAD WITHOUT CONTRAST. HISTORY: fall COMPARISON: None available. TECHNIQUE: Axial computed tomography images were obtained through the head/brain without intravenous contrast. Radiation dose: Total exam DLP = 780.21 mGy-cm. This CT exam was performed using one or more of the following dose reduction techniques: Automated exposure control, adjustment of the mA and/or kV according to patient size, and/or use of iterative reconstruction technique. FINDINGS: HEMORRHAGE: No intracranial hemorrhage. BRAIN: Diffuse atrophy with prominence of the ventricles and sulci noted. No mass effect or edema. Intracranial atherosclerotic calcifications. Scattered periventricular and subcortical white matter hypodensities, which are nonspecific, but often seen with chronic microvascular ischemic disease. Please note that MRI with diffusion imaging is more sensitive in the detection of acute ischemic event. VENTRICLES: No hydrocephalus. CALVARIUM: Unremarkable. PARANASAL SINUSES: Unremarkable as visualized. No significant inflammatory changes. MASTOID AIR CELLS: Unremarkable as visualized. No inflammatory changes. OTHER FINDINGS: None. IMPRESSION: Generalized atrophy. Nonspecific white matter changes.
--- NOTE | 2016-09-30 14:39 | RAD ---
PROCEDURE: Radiographs of the pelvis and bilateral hips HISTORY: pain COMPARISON: None. FINDINGS: BONES: Pelvis: Unremarkable. Right hip:Unremarkable. Left hip:Unremarkable. JOINTS: Right hip: There is severe joint space narrowing superiorly Left hip: Left hip replacement. No fracture or loosening Sacroiliac Joints: Unremarkable. Pubic symphysis: Unremarkable. SOFT TISSUES: Normal. OTHER FINDINGS: None. IMPRESSION: Severe joint space narrowing right hip.
[2016-09-30 15:26] VITALS: BP 142/77; PULSE 74; RESP 18; O2SAT 96
== END 2016-09-30 14:51 | disposition home or self-care (01) ==
LOC: ED 12:06
DX: Z03.89 Encounter for observation for other suspected diseases and conditions ruled out (principal); W01.0XXA Fall on same level from slipping, tripping and stumbling without subsequent striking against object, initial encounter

== ENCOUNTER 2017-05-20 15:19 | Inpatient (IN) | payer MEDICARE ==
[2017-05-20 15:46] VITALS: BMI 20.7
[2017-05-20 17:28] LABS: ALB/GLOB RATIO 1.1 (1.1-1.8); ALBUMIN 3.8 g/dL (3.0-4.8); ALT/SGPT 50 U/L (7-56); AST/SGOT 31 U/L (14-36); BLOOD UREA NITROGEN 18 mg/dL (7-21); CALCIUM 9.8 mg/dL (8.4-10.5); GFR AFRICAN-AMERICAN > 60; GFR NON-AFRICAN AMERICAN > 60
[2017-05-20 17:29] LABS: BASO # 0.01 K/mm3 (0.0-2.0); BASO % 0.1 % (0.0-3.0); EOS # 0.1 (0.0-0.7); EOS % 1.1 % (1.5-5.0); GRAN # 5.86 (1.4-6.5); GRAN % 79.4 % (50.0-68.0); HEMOGLOBIN 10.3 g/dL (12.0-16.0); LYMPH # 0.7 (1.2-3.4); LYMPH % 9.7 % (22.0-35.0); MEAN CORPUSCULAR HEMOGLOBIN 25.7 pg (25.0-35.0); MEAN CORPUSCULAR HGB CONC 30.6 g/dl (31.0-37.0); MEAN PLATELET VOLUME 9.1 fl (7.0-11.0); MONO # 0.7 (0.1-0.6); MONO % 9.7 % (1.0-6.0); RBC 4.01 10^6/uL (3.5-6.1); RED CELL DISTRIBUTION WIDTH 16.2 % (11.5-14.5); WHITE BLOOD COUNT 7.4 10^3/ul (4.5-11.0)
--- NOTE | 2017-05-20 17:29 | ED PDOC ---
Arrival/HPI - General Chief Complaint: Cough, Cold, Congestion Time Seen by Provider: 05/20/17 15:51 Historian: Patient, Family - History of Present Illness Narrative History of Present Illness (Text): 05/20/17 17:16 86-year-old female presents today with cough, nasal congestion 1 week. Patient states she started out with laryngitis then developed a cough. Patient states the cough is productive with a yellow phlegm. Patient denies chest pain. Denies fevers at home. Patient states she was seen at the primary care physician office today and was sent into the emergency room for evaluation to rule out pneumonia. Patient denies dizziness or weakness. Denies neck or back pain. Denies abdominal pain. No nausea or vomiting. 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 - Integumentary Other/Comment: ble +1 edema cellulitis, thick hard toenails,redness swelling red raised rash from thighs to lower legs, feet reddened and swollen, red dry cracked skin to legs and feet, weeping coming from open wounds both legs left more than right, both hands are reddened, skin discolorations both arms - Musculoskeletal/Rheumatological Hx Falls: Yes (past) - Gastrointestinal Hx Gastrointestinal Disorders: Yes (hiatal hernia) Hx Gastroesophageal Reflux: Yes - Genitourinary/Gynecological Hx Genitourinary Disorders: (frequency) - Psychiatric Hx Depression: No Hx Emotional Abuse: No Hx Physical Abuse: No Hx Substance Use: No - Surgical History Hx Cholecystectomy: Yes Hx Orthopedic Surgery: Yes (left hip 11/06/12) Other/Comment: tongue surgery - Anesthesia Hx Anesthesia: Yes Hx Anesthesia Reactions: No Hx Malignant Hyperthermia: No - Suicidal Assessment Feels Threatened In Home Enviroment: No Family/Social History - Physician Review Nursing Documentation Reviewed: Yes Family/Social History: Unknown Family HX Smoking Status: Never Smoked Hx Alcohol Use: No Hx Substance Use: No Hx Substance Use Treatment: No Allergies/Home Meds Allergies/Adverse Reactions: Allergies codeine Adverse Reaction (Verified 09/30/16 12:21) NAUSEA Home Medications: Home Meds Medication Instructions Recorded Confirmed Hydroxychloroquine Sulfate 200 mg PO HS 09/30/16 05/20/17 [Plaquenil] Esomeprazole Magnesium [Nexium] 1 cap PO DAILY 05/20/17 05/20/17 Review of Systems - Review of Systems Constitutional: absent: Fatigue, Fevers ENT: Sore Throat, Sinus Congestion Respiratory: Cough, Sputum. absent: SOB Cardiovascular: absent: Chest Pain, Palpitations Gastrointestinal: absent: Abdominal Pain, Nausea, Vomiting Genitourinary Female: absent: Dysuria Musculoskeletal: absent: Arthralgias Skin: absent: Rash, Pruritis Neurological: absent: Headache, Dizziness Psychiatric: absent: Anxiety, Depression Physical Exam Vital Signs Reviewed: Yes Vital Signs Temp Pulse Resp BP Pulse Ox 05/20/17 23:19 88 18 145/73 99 05/20/17 21:19 77 18 135/74 98 05/20/17 20:00 140/78 05/20/17 19:19 77 18 135/72 98 05/20/17 15:56 97.7 F 81 18 133/66 98 Temperature: Afebrile Blood Pressure: Normal Pulse: Regular Respiratory Rate: Normal Appearance: Positive for: Well-Appearing, Non-Toxic, Comfortable Pain Distress: None Mental Status: Positive for: Alert and Oriented X 3 - Systems Exam Head: Present: Atraumatic Mouth: Present: Moist Mucous Membranes Pharnyx: Present: Normal. No: ERYTHEMA, EXUDATE, TONSILS ENLARGED, Peritonsilar Swelling, Uvular Deviation, Muffled/Hoarse Voice Nose (External): Present: Atraumatic Nose (Internal): Present: Clear Mucous. No: Septal Hematoma Neck: Present: Normal Range of Motion Respiratory/Chest: Present: Rhonchi (right base). No: Clear to Auscultation Cardiovascular: Present: Regular Rate and Rhythm. No: Tachycardic Abdomen: No: Tenderness, Distention, Rebound, Guarding Back: Present: Normal Inspection Neurological: Present: GCS=15, Speech Normal Skin: Present: Warm, Dry, Normal Color. No: Rashes Psychiatric: Present: Alert Medical Decision Making ED Course and Treatment: 05/20/17 17:31 86yr old female with cough x >1 week. cbc wnl cmp wnl bnp 4000 trop: 0.08 Chest x-ray: FINDINGS: LUNGS: Hyperinflation, manifestations of COPD. No active pulmonary disease. PLEURA: No significant pleural effusion identified. No pneumothorax apparent. CARDIOVASCULAR: No radiographic findings to suggest acute or significant cardiovascular disease. OSSEOUS STRUCTURES: No significant abnormalities. VISUALIZED UPPER ABDOMEN: Normal. OTHER FINDINGS: None. IMPRESSION: No active pulmonary disease. No significant interval change compared to the prior examination(s). ekg; normal sinus rhythm at [address] elevations blood cultures pending Venous duplex of the bilateral lower extremities: No evidence of DVT Case was discussed in depth with Dr. Patel. We will admit the patient observational status to telemetry for CHF. 20mg of Lasix given IV All results were discussed in depth with the patient and family. pt reassessment; nontoxic well-appearing no distress. Impression: CHF, cough admit observational status to tele. - Lab Interpretations Lab Results: 05/20/17 17:01 05/20/17 17:01 Lab Results 05/20/17 18:17: Lactate Dehydrogenase 743 H, Total Creatine Kinase 113, Troponin I 0.08 D 05/20/17 17:01: WBC 7.4 D, RBC 4.01, Hgb 10.3 L, Hct 33.7 L, MCV 84.0, MCH 25.7 , MCHC 30.6 L, RDW 16.2 H, Plt Count 357, MPV 9.1, Gran % 79.4 H, Lymph % (Auto ) 9.7 L, Weld % (Auto) 9.7 H, Eos % (Auto) 1.1 L, Baso % (Auto) 0.1, Gran # 5.86 , Lymph # 0.7 L, Weld # 0.7 H, Eos # 0.1, Baso # 0.01 05/20/17 17:01: Sodium 138, Potassium 4.1, Chloride 101, Carbon Dioxide 27, Anion Gap 14, BUN 18, Creatinine 0.7, Est GFR ( Amer) > 60, Est GFR (Non- Af Amer) > 60, Random Glucose 137 H, Calcium 9.8, Total Bilirubin 0.4, AST 31, ALT 50, Alkaline Phosphatase 109, NT-Pro-B Natriuret Pep 4000 H, Total Protein 7.2, Albumin 3.8, Globulin 3.4, Albumin/Globulin Ratio 1.1 - RAD Interpretation Radiology Orders: 05/20/17 16:15 CHEST TWO VIEWS (PA/LAT) [RAD] Stat 05/20/17 18:24 DUPLEX LOWER EXTRM VEIN BILAT [US] Stat - Medication Orders Current Medication Orders: Discontinued Medications Furosemide (Lasix) 20 mg IVP STAT STA Stop: 05/20/17 19:32 Last Admin: 05/20/17 20:00 Dose: 20 mg MAR Blood Pressure Document 05/20/17 20:00 JOL (Rec: 05/20/17 20:21 JOL [id number]) Blood Pressure Blood Pressure (100/60-150/90 mm Hg) 140/78 IVP Administration Document 05/20/17 20:00 JOL (Rec: 05/20/17 20:21 JOL [id number]) Charges for Administration # of IVP Administrations 1 Disposition/Present on Arrival - Present on Arrival Any Indicators Present on Arrival: No History of DVT/PE: No History of Uncontrolled Diabetes: No Urinary Catheter: No History of Decub. Ulcer: No - Disposition Have Diagnosis and Disposition been Completed?: Yes Diagnosis: CHF (congestive heart failure) Disposition: HOSPITALIZED Disposition Time: 18:43 Patient Plan: Admission Patient Problems: Current Active Problems Problem Status Onset CHF (congestive heart failure) Acute Condition: FAIR
[2017-05-20 17:36] LABS: B-TYPE NATRIURETIC PEPTIDE 4000 pg/mL (0-450)
--- NOTE | 2017-05-20 18:42 | RAD ---
HISTORY: cough x 1 week COMPARISON: 07/29/2016 TECHNIQUE: Chest PA and lateral FINDINGS: LUNGS: Hyperinflation, manifestations of COPD. No active pulmonary disease. PLEURA: No significant pleural effusion identified. No pneumothorax apparent. CARDIOVASCULAR: No radiographic findings to suggest acute or significant cardiovascular disease. OSSEOUS STRUCTURES: No significant abnormalities. VISUALIZED UPPER ABDOMEN: Normal. OTHER FINDINGS: None. IMPRESSION: No active pulmonary disease. No significant interval change compared to the prior examination(s).
[2017-05-20 19:43] LABS: TROPONIN I 0.08 ng/mL
--- NOTE | 2017-05-20 19:54 | US ---
HISTORY: Leg pain and swelling. Evaluate for DVT PHYSICIAN(S): Silvino Tracey MD. TECHNIQUE: Duplex sonography and color-flow Doppler with graded compression were used to evaluate the deep venous systems of both lower extremities. The exam is limited by edema. FINDINGS: The visualized deep venous systems of both lower extremities are sonographically normal and compressible. Normal wave forms and augmentation are seen. There is no sonographic evidence for deep venous thrombosis in the visualized segments of both lower extremities. IMPRESSION: No sonographic evidence for deep venous thrombosis in the visualized segments of both lower extremities.
[2017-05-21 06:52] LABS: BLOOD UREA NITROGEN 16 mg/dL (7-21); CALCIUM 9.1 mg/dL (8.4-10.5); GFR AFRICAN-AMERICAN > 60; GFR NON-AFRICAN AMERICAN > 60
[2017-05-21 07:49] LABS: TROPONIN I 0.07 ng/mL
[2017-05-21] MEDS ORDERED: levoFLOXacin 500 MG TAB PO SCH (10:45)
--- NOTE | 2017-05-21 10:55 | HP ---
HISTORY OF PRESENT ILLNESS: This is an 86-year-old female who lives at home who is seen for history of fatigue, cough, and congestion apparently since [place]. The patient denied any evidence of fever, chills, or chest pain. She has a past medical history of rheumatoid arthritis, serous effusion of the right shoulder, thyroid nodules, left hip fracture, cellulitis of the lower extremities, hypertension, and anxiety disorder. ALLERGIES: CODEINE. HOME MEDICATIONS: Consist of Xanax 0.125 mg at bedtime, Cozaar 100 mg daily, Plaquenil 200 mg daily, Nexium 1 capsule daily, and Ecotrin 81 mg daily. REVIEW OF SYSTEMS: Other systems are reviewed. Pertinent findings is that there is diminished breath sounds at the bases of the lungs. There is edema in the lower extremities. PHYSICAL EXAMINATION: GENERAL: The patient is alert and oriented x3. VITAL SIGNS: The patient had a pulse of 77, temperature of 98, blood pressure of 135/72, respiratory rate was 18, and oxygen saturation was 98% on room air. NECK: Supple. HEART: S1 and S2 rhythm. LUNGS: Showed some mild wheezing with rhonchi at the base. ABDOMEN: Soft, scaphoid, and positive bowel sounds. EXTREMITIES: Showed 2+ edema. LABORATORY DATA: Shows WBC of 7.4, RBC of 4.01, hemoglobin of 10.3, hematocrit of 33.7, and platelet count of 357. Chemistry showed BNP of 4000 and her troponin is 0.08. She had sodium of 138, potassium of 4.1, chloride of 101, and CO2 of 27. The BUN is 18 with a creatinine of 0.7. Random blood sugar is 137. LFTs are normal. LDH is 743. A venous Doppler of the lower extremities was reported as showing no evidence of DVT. Chest x-ray reviewed by Radiology shows hyperinflation with manifestations of COPD IMPRESSION AND PLAN: The patient has one elevated brain natriuretic peptide, an indeterminate elevation in her troponin, edema in the lower extremity, and chronic obstructive pulmonary disease. We will admit the patient into the hospital. She receive a dose of Lasix in the Emergency Room. She will be admitted to monitor telemetry bed with Cardiology consult. Will follow heart healthy diet. Clinical findings have been discussed with the emergency room staff and with the family and the patient as well. Must consider respiratory tract infection also,possible community acquired infection. Susanna Patel MD [facility] # [id number] IRMA
[2017-05-21] MEDS: Pantoprazole 40 mg EC Tab PO SCH (11:43)
--- NOTE | 2017-05-21 15:10 | CARD ---
APPROVED REPORT EKG Measurement Heart [id number] <Conclusion> Normal sinus rhythm Possible Left atrial enlargement Possible Anterior infarct, age undetermined Abnormal ECG
--- NOTE | 2017-05-21 15:16 | CP.PCM.CON ---
History of Present Illness - History of Present Illness History of Present Illness: 86 year old female with PMH of bilateral lower extremity cellulitis, right shoulder effusion S/P drainage, dyslipidemia, hypertension, osteoarthritis, gastroesophageal reflux disease, multinodular goiter, mitral regurgitation, rheumatoid arthritis came in to [facility] complaining of nasal congestion for the past week which has progressed to sore throat and cough with associated yellowish phlegm. She denies having rhinorrhea currently and has no fevers. She denies headache, no excessive eye tearing, no facial pain, no dysphagia, no chest pain, no SOB, no abdominal pain, no diarrhea, no dysuria, no hematuria, no melena or hematochezia. She has not been in the hospital since July of last year and lives at home. Infectious Diseases consult is requested to further evaluate and manage. 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 - HEENT Hx HEENT Problems: Yes (eyeglasses) - HEMATOLOGICAL/ONCOLOGICAL Other/Comment: 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 - INTEGUMENTARY Other/Comment: ble +1 edema cellulitis, thick hard toenails,redness swelling red raised rash from thighs to lower legs, feet reddened and swollen, red dry cracked skin to legs and feet, weeping coming from open wounds both legs left more than right, both hands are reddened, skin discolorations both arms - MUSCULOSKELETAL/RHEUMATOLOGICAL Hx Falls: No - GASTROINTESTINAL Hx Gastrointestinal Disorders: Yes (hiatal hernia) Hx Gastroesophageal Reflux: Yes - GENITOURINARY/GYNECOLOGICAL Hx Genitourinary Disorders: (frequency) - PSYCHIATRIC Hx Depression: No Hx Emotional Abuse: No Hx Physical Abuse: No Hx Substance Use: No - SURGICAL HISTORY Hx Cholecystectomy: Yes Hx Orthopedic Surgery: Yes (left hip 11/06/12) Other/Comment: tongue surgery - ANESTHESIA Hx Anesthesia: Yes Hx Anesthesia Reactions: No Hx Malignant Hyperthermia: No Meds Allergies/Adverse Reactions: Allergies Allergy/AdvReac Type Severity Reaction Status Date / Time codeine AdvReac NAUSEA Verified 09/30/16 12:21 - Medications Medications: Current Medications Alprazolam (Xanax) 0.125 mg PO HS PRN; Protocol PRN Reason: Anxiety Stop: 05/28/17 10:36 Aspirin (Ecotrin) 81 mg PO DAILY ANTHONY Hydroxychloroquine Sulfate (Plaquenil) 200 mg PO HS ANTHONY Losartan Potassium (Cozaar) 100 mg PO DAILY ANTHONY Pantoprazole Sodium (Protonix Ec Tab) 40 mg PO ACB ANTHONY Physical Exam - Constitutional Appears: Non-toxic - Head Exam Head Exam: NORMAL INSPECTION - ENT Exam ENT Exam: Mucous Membranes Moist - Neck Exam Neck exam: Negative for: Meningismus - Respiratory Exam Respiratory Exam: Decreased Breath Sounds - Cardiovascular Exam Cardiovascular Exam: +S1, +S2 - GI/Abdominal Exam GI & Abdominal Exam: Soft. absent: Tenderness Results - Vital Signs Recent Vital Signs: Last Vital Signs Temp 98.2 F 05/21/17 06:00 Pulse 91 H 05/21/17 06:00 Resp 19 05/21/17 06:00 BP 148/76 05/21/17 06:00 Pulse Ox 95 05/21/17 06:00 - Labs Result Diagrams: 05/20/17 17:01 05/21/17 06:00 Labs: Laboratory Results - last 24 hr 05/21/17 05/21/17 06:00 06:00 Sodium 137 Potassium 3.8 Chloride 103 Carbon Dioxide 26 Anion Gap 12 BUN 16 Creatinine 0.7 Est GFR ( Amer) > 60 Est GFR (Non-Af Amer) > 60 Random Glucose 103 Calcium 9.1 Lactate Dehydrogenase 566 Total Creatine Kinase 90 Troponin I 0.07 Assessment & Plan - Assessment and Plan (Free Text) Plan: Assessment Consider upper respiratory tract infection without evidence of pneumonia history of bilateral lower extremity skin and skin structure infection with methicillin-sensitive Staph aureus history of right shoulder effusion S/P drainage dyslipidemia hypertension osteoarthritis gastroesophageal reflux disease multinodular goiter mitral regurgitation rheumatoid arthritis SLE Plan Since it has been a week since start of symptoms, will treat with Rocephin and Doxycycline pending blood cx; reviewed CXR which does not show pneumonia discussed with Dr. Patel will monitor clinical response
[2017-05-21 16:08] LABS: TROPONIN I 0.07 ng/mL
[2017-05-21] MEDS: cefTRIAXone 1 gm 1 GM/100 ML BAG IVPB SCH (16:37)
[2017-05-21] MEDS ORDERED: Benzocaine/Menthol (Cepacol) Lozenge MT PRN (19:26)
[2017-05-21] MEDS: guaiFENesin 100 mg/5 ml Syrup UD PO PRN (22:50)
[2017-05-21 22:51] LABS: TROPONIN I 0.07 ng/mL
--- NOTE | 2017-05-21 23:15 | CON ---
DATE: 05/21/2017 REQUESTING PHYSICIAN: Susanna Patel MD REASON FOR CONSULTATION: Dyspnea. HISTORY OF PRESENT ILLNESS: This is an 86-year-old woman well known to me with a history of chronic venous insufficiency and mitral regurgitation who was admitted with complains of persistent cough, congestion and fatigue for over one week. She was seen in the office by Dr. Patel, yesterday and advised the hospital admission. She is currently seen on Telemetry. She is feeling somewhat better, but does have a persistent cough and chest x-ray showed no clear infiltrate or evidence of congestive heart failure. She was treated with Lasix in the Emergency Room. She denies any chest pain, PND or orthopnea. She does have chronic leg edema. PAST MEDICAL HISTORY: Notable for chronic cellulitis of the lower extremities, history of hypertension, left hip fracture, rheumatoid arthritis and anxiety. MEDICATIONS: At home included Cozaar,Plaquenil, Nexium, Xanax, and Ecotrin. ALLERGIES: SHE HAS HAD REACTION TO CODEINE IN THE PAST. FAMILY HISTORY: Both parents are from age-related illness. SOCIAL HISTORY: She does not smoke or drink. She is and lives alone. REVIEW OF SYSTEMS: A 10-point review of systems was reviewed and otherwise unremarkable. PHYSICAL EXAMINATION GENERAL: She is anxious appearing elderly woman. VITAL SIGNS: Her blood pressure is 148/76 with pulse of 90 and sinus, and respirations are 14. She is afebrile. HEENT: Head is normocephalic and atraumatic. NECK: Supple. No JVD noted. CHEST: Bilateral scattered rhonchi heard. No rales present. HEART: PMI displaced bilaterally with soft systolic murmur at the low sternal border and apex. GASTROINTESTINAL: The abdomen is soft and nontender with normoactive bowel sounds. EXTREMITIES: Chronic cellulitic changes present. 1 to 2+ leg edema noted. SKIN: Warm and dry. PSYCHIATRIC: Mild anxiety revealed, otherwise normal mood and affect. NEUROLOGIC: Alert and oriented x3. No gross motor sensory is appreciable. DIAGNOSTIC DATA: Her initial troponin is 0.08 and repeat is 0.07, potassium is 4.1, and BUN and creatinine are 18 and 0.7. White count of 7.4, and hemoglobin and hematocrit of 10.3, and 33.7 with MCV of 84, and platelet count is 357,000. Electrocardiogram reveals sinus rhythm with left atrial enlargement and prior anteroseptal myocardial infarction, pattern is not being excluded. Chest x-ray revealed borderline cardiac silhouette enlargement with no evidence of congestive changes. IMPRESSION: 1. Dyspnea and fatigue appears most consistent with upper respiratory infection and likely viral in nature. 2. No clear evidence of congestive heart failure despite elevated brain natriuretic peptide likely due to diastolic dysfunction and chronic valvular heart disease. 3. Chronic venous sufficiency, stable at present. RECOMMENDATIONS: The patient does not appear any additional Lasix therapy at this time. Leg elevation and compression stocking use is advised. Symptomatic treatment for her cough should proceed. Assuming no other issues arise early discharge would be advisable. Thank you for this consultation. We will be happy to follow along as needed. Gibran Hunter MD
--- NOTE | 2017-05-22 04:34 | CON ---
DATE: IDENTIFYING INFORMATION: The patient is an 86-year-old (soon to be 87 year-old as told to me by the patient) white female, initially admitted with a history of fatigue, cough and congestion over the past week. She has a past medical history of rheumatoid arthritis, serous effusion of her right shoulder, nodular thyroid, a past left hip fracture, cellulitis of the lower extremities, hypertension, and the perception of an anxiety disorder. She has been maintained domestically on Xanax 0.125 mg h.s. along with Cozaar 100 mg, Plaquenil 200, Nexium and Ecotrin. The patient was interviewed alone and I had discussed her situation with her two younger daughters (with her older daughter residing in [place]). The patient is a [place] and a high school graduate. 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 She for the first time in her 20s and was for approximately 7 years before she lost interest in her and asked for a divorce, which was granted. She then remarried in her 30s, and was for 45 years according to the patient until her 10 years ago of heart disease. She indicated she got along well with her who was an avid fisherman, which led to travels that she was not so enthusiastic about (but went along with him nonetheless). From this marriage, she has her three daughters, which she described as being aged 23, 24 (which is obviously wrong) and Gabriela, age 60, who lives in [place] (which is closer to the approximate age of her daughters). She has a number of grandchildren. The patient describes herself as always been a somewhat finicky, anxious individual, not anxious to travel. Her activities appear to have been mostly local other than her fishing expeditions with her , with her primary social output apparently being a member of the [employer] choir. She still appears to be involved in this, although she observes that she has to climb up stairs and gets winded and thus is less participatory of this choral event. Last year, her daughters, concerned about her driving abilities or lack thereof having prohibited her from driving. This is because it felt she was somewhat slower and having trouble with her leg. About 7 years ago, according to the patient, she did see a psychiatrist, this appears to be Dr. Quiroz whom she saw briefly according to the patient. She could not tell me specifically what medication she was on, but it may have included Xanax, which she is still on. The patient is an only child of her parents who were for along time. Her father of esophageal cancer, her mother of heart disease and also had Alzheimer disease (her daughters told me that her mother Aysha was possibly treated by me for Alzheimer disease in the ). Presently, the patient is alert, oriented, gave a meaningful history, expressed the fear that she has word-finding difficulties, and at times, did, as noted, appear to have focusing work concentration or memory difficulties, but was able to interact in a meaningful focused engaging away. She spoke of some anxiety and lack of energy or drive, but stopped short of calling herself depressed. She denied suicidality, denied psychotic ideation. Her insight and judgment appear to be reasonably intact. 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 RECOMMENDATIONS: I will start the patient both on Aricept for potential memory preservation or enhancement and Wellbutrin 150 XL as a stimulating antidepressant that might help her with her energy, anhedonia and possible attentional difficulties. A CBC and differential yesterday showed low hemoglobin of 10.3, hematocrit 33.7. Biochemical profile showed the blood glucose of 103 today. Pulse 92, temperature 98.4, blood pressure 131/67, respiratory rate 18. Thank you as always for this consultation. I will continue to monitor with you. Glenn Manning MD/ PhD
[2017-05-22] MEDS: guaiFENesin 100 mg/5 ml Syrup UD PO PRN (07:50)
[2017-05-22] MEDS: Pantoprazole 40 mg EC Tab PO SCH (07:50)
[2017-05-22] MEDS: cefTRIAXone 1 gm 1 GM/100 ML BAG IVPB SCH (09:36)
[2017-05-22] MEDS: buPROPion 150 mg/24 Hours XL Tab PO SCH (09:36)
--- NOTE | 2017-05-22 12:30 | CP.PCM.PN ---
Subjective - Date & Time of Evaluation Date of Evaluation: 05/22/17 Time of Evaluation: 10:35 - Subjective Subjective: Cough is a little better, no fevers overnight, not in distress. Having right knee pain. Objective - Vital Signs/Intake and Output Vital Signs (last 24 hours): Temp Pulse Resp BP Pulse Ox 98.4 F 94 H 20 139/76 94 L 05/22/17 06:00 05/22/17 06:00 05/22/17 06:00 05/22/17 06:00 05/22/17 06:00 Intake and Output: 05/22/17 05/22/17 06:59 18:59 Intake Total 240 Output Total 650 Balance -410 - Medications Medications: Current Medications Alprazolam (Xanax) 0.125 mg PO HS PRN; Protocol PRN Reason: Anxiety Stop: 05/28/17 10:36 Aspirin (Ecotrin) 81 mg PO DAILY [facility] Last Admin: 05/22/17 09:36 Dose: 81 mg Benzocaine/Menthol (Cepacol Sore Throat) 1 farnaz MT Q1H PRN PRN Reason: Cough Bupropion HCl (Wellbutrin Xl) 150 mg PO DAILY [facility] Last Admin: 05/22/17 09:36 Dose: 150 mg Donepezil HCl (Aricept) 5 mg PO HS [facility] Last Admin: 05/21/17 22:50 Dose: 5 mg Doxycycline Hyclate (Doryx) 100 mg PO Q12 [facility] PRN Reason: Protocol Last Admin: 05/22/17 09:36 Dose: 100 mg Guaifenesin (Robitussin) 200 mg PO Q4H PRN PRN Reason: Cough Last Admin: 05/22/17 07:50 Dose: 200 mg Hydroxychloroquine Sulfate (Plaquenil) 200 mg PO HS [facility] Last Admin: 05/21/17 22:50 Dose: 200 mg Ceftriaxone Sodium (Rocephin 1 Gram Ivpb) 1 gm in 100 mls @ 100 mls/hr IVPB DAILY [facility] PRN Reason: Protocol Last Admin: 05/22/17 09:36 Dose: 100 mls/hr Losartan Potassium (Cozaar) 100 mg PO DAILY [facility] Last Admin: 05/22/17 09:36 Dose: 100 mg Pantoprazole Sodium (Protonix Ec Tab) 40 mg PO ACB [facility] Last Admin: 05/22/17 07:50 Dose: 40 mg - Constitutional Appears: Non-toxic - Head Exam Head Exam: NORMAL INSPECTION - ENT Exam ENT Exam: Mucous Membranes Moist - Neck Exam Neck Exam: absent: Lymphadenopathy, Meningismus - Respiratory Exam Respiratory Exam: Decreased Breath Sounds. absent: Rales - Cardiovascular Exam Cardiovascular Exam: +S1, +S2 - GI/Abdominal Exam GI & Abdominal Exam: Soft. absent: Tenderness - Extremities Exam Additional comments: right knee without swelling Assessment and Plan - Assessment and Plan (Free Text) Plan: Assessment Consider upper respiratory tract infection without evidence of pneumonia, slowly improving right knee arthralgia history of bilateral lower extremity skin and skin structure infection with methicillin-sensitive Staph aureus history of right shoulder effusion S/P drainage dyslipidemia hypertension osteoarthritis gastroesophageal reflux disease multinodular goiter mitral regurgitation rheumatoid arthritis SLE Plan continue Rocephin and Doxycycline day 2 to complete 3-5 days; blood cx are negative x 1 day; reviewed CXR which does not show pneumonia discussed with Dr. Patel previously - pain meds for the knee pain per Dr. Patel will continue to monitor clinically
--- NOTE | 2017-05-22 19:32 | PN ---
DATE: SUBJECTIVE: An 86-year-old female, resting in bed this morning. Nursing staff relates there are no particular problems during the night. The patient is little emotional this morning. She is upset about being sick and having to be in the hospital, also concerns about being by herself, although her children are extremely supportive and are close by, but she feels that she does not want to be a burden on them. She had a good night sleep. PHYSICAL EXAMINATION GENERAL: She is alert and oriented x3. VITAL SIGNS: Her temperature is 98.4, her pulse is 94, her blood pressure is 139/76, her oxygen saturation is 94% on room air. NECK: Supple. There is no JVD. LUNGS: Have rhonchi at the bases, right more than left. ABDOMEN: Soft and scaphoid. Positive bowel sounds. EXTREMITIES: Showing some erythema, there is mild edema. LABORATORY DATA: Her serial troponins are 0.07 and 0.07. She has been seen by Cardiology who states that the elevation of BMP is probably from some right diastolic dysfunction. No evidence of CHF. She is being followed by Infectious Disease and placed on IV antibiotics for respiratory tract infection using Rocephin and Doryx. We will continue with the current regimen at this time. She was seen by Psychiatry. Note has been reviewed and she has been placed on Wellbutrin 150 mg daily and Aricept 5 mg at bedtime. We will continue current level of care. The patient will receive physical therapy. We will follow up her lab work. Susanna Patel MD
[2017-05-23 06:19] LABS: BASO # 0.01 K/mm3 (0.0-2.0); BASO % 0.1 % (0.0-3.0); EOS % 0.2 % (1.5-5.0); GRAN # 7.37 (1.4-6.5); GRAN % 82.1 % (50.0-68.0); HEMOGLOBIN 8.6 g/dL (12.0-16.0); LYMPH # 0.6 (1.2-3.4); MEAN CELL VOLUME 81.4 fl (80.0-105.0); MEAN CORPUSCULAR HEMOGLOBIN 25.4 pg (25.0-35.0); MEAN CORPUSCULAR HGB CONC 31.2 g/dl (31.0-37.0); MEAN PLATELET VOLUME 8.8 fl (7.0-11.0); MONO % 10.6 % (1.0-6.0); RBC 3.39 10^6/uL (3.5-6.1); RED CELL DISTRIBUTION WIDTH 16.1 % (11.5-14.5)
[2017-05-23 06:37] LABS: BLOOD UREA NITROGEN 17 mg/dL (7-21); CALCIUM 9.1 mg/dL (8.4-10.5); GFR AFRICAN-AMERICAN > 60; GFR NON-AFRICAN AMERICAN > 60
[2017-05-23] MEDS: Pantoprazole 40 mg EC Tab PO SCH (08:28)
--- NOTE | 2017-05-23 08:57 | PN ---
DATE: 05/22/2017 SUBJECTIVE: The patient is seen lying in bed on telemetry. She appears extremely anxious. She continues to have a dry cough. She feels that she is developing mild laryngitis. She is very anxious to go home. CURRENT MEDICATIONS: Include Aricept, Cozaar 100 mg daily, doxycycline, Ecotrin, Plaquenil, Protonix, Rocephin, Wellbutrin and Xanax p.r.n. OBJECTIVE: GENERAL: She is a very elderly woman, appears extremely anxious. VITAL SIGNS: Her blood pressure is 140/76 with a pulse of 90 and sinus, respirations are 14. She is afebrile. HEENT: No JVD. CHEST: A few scattered rhonchi heart. HEART: PMI displaced laterally with systolic murmur noted in the left sternal border and apex. ABDOMEN: Soft, nontender. Normoactive bowel sounds. EXTREMITIES: Revealed 1+ leg edema with chronic cellulitic changes. LABORATORY DATA: No morning blood work pending. Serial cardiac enzymes from yesterday were negative. IMPRESSION: 1. Apparent tracheobronchitis. 2. Chronic venous insufficiency. 3. Mitral regurgitation. 4. Worsened anxiety with no underlying dementia. RECOMMENDATIONS: Her current cardiac medication management should continue. Early discharge would be in her best interest. Wellbutrin and Aricept were recently added by Dr. Manning hopefully will be helpful in reducing her level of anxiety and agitation. We will be happy to follow along as needed. Gibran Hunter MD MTDD
[2017-05-23] MEDS: cefTRIAXone 1 gm 1 GM/100 ML BAG IVPB SCH (11:02)
[2017-05-23] MEDS: buPROPion 150 mg/24 Hours XL Tab PO SCH (11:02)
--- NOTE | 2017-05-23 11:25 | RAD ---
PROCEDURE: Right Knee Radiographs. HISTORY: swollen right knee COMPARISON: None. FINDINGS: BONES: Normal. No fracture. JOINTS: There is joint space narrowing and osteophyte formation in the lateral compartment. There is meniscal calcification JOINT EFFUSION: Moderate joint effusion OTHER FINDINGS: None. IMPRESSION: There is joint space narrowing and osteophyte formation in the lateral compartment. There is meniscal calcification
--- NOTE | 2017-05-23 12:34 | CP.PCM.PN ---
Subjective - Date & Time of Evaluation Date of Evaluation: 05/23/17 Time of Evaluation: 11:15 - Subjective Subjective: Complaining of right knee pain, no fevers, less cough. Objective - Vital Signs/Intake and Output Vital Signs (last 24 hours): Temp Pulse Resp BP Pulse Ox 98.3 F 108 H 19 129/59 L 95 05/23/17 09:00 05/23/17 09:00 05/23/17 09:00 05/23/17 09:00 05/23/17 09:00 Intake and Output: 05/23/17 05/23/17 06:59 18:59 Output Total 400 Balance -400 - Medications Medications: Current Medications Alprazolam (Xanax) 0.125 mg PO HS PRN; Protocol PRN Reason: Anxiety Stop: 05/28/17 10:36 Aspirin (Ecotrin) 81 mg PO DAILY [facility] Last Admin: 05/23/17 11:02 Dose: 81 mg Benzocaine/Menthol (Cepacol Sore Throat) 1 farnaz MT Q1H PRN PRN Reason: Cough Bupropion HCl (Wellbutrin Xl) 150 mg PO DAILY [facility] Last Admin: 05/23/17 11:02 Dose: 150 mg Donepezil HCl (Aricept) 5 mg PO HS [facility] Last Admin: 05/22/17 21:13 Dose: 5 mg Doxycycline Hyclate (Doryx) 100 mg PO Q12 [facility] PRN Reason: Protocol Last Admin: 05/23/17 11:02 Dose: 100 mg Guaifenesin (Robitussin) 200 mg PO Q4H PRN PRN Reason: Cough Last Admin: 05/22/17 07:50 Dose: 200 mg Hydroxychloroquine Sulfate (Plaquenil) 200 mg PO HS [facility] Last Admin: 05/22/17 21:13 Dose: 200 mg Ceftriaxone Sodium (Rocephin 1 Gram Ivpb) 1 gm in 100 mls @ 100 mls/hr IVPB DAILY [facility] PRN Reason: Protocol Last Admin: 05/23/17 11:02 Dose: 100 mls/hr Losartan Potassium (Cozaar) 100 mg PO DAILY [facility] Last Admin: 05/23/17 11:02 Dose: 100 mg Pantoprazole Sodium (Protonix Ec Tab) 40 mg PO ACB [facility] Last Admin: 05/23/17 08:28 Dose: 40 mg - Labs Labs: 05/23/17 06:00 05/23/17 06:00 - Constitutional Appears: Non-toxic - Head Exam Head Exam: NORMAL INSPECTION - ENT Exam ENT Exam: Mucous Membranes Moist - Neck Exam Neck Exam: absent: Lymphadenopathy, Meningismus - Respiratory Exam Respiratory Exam: Decreased Breath Sounds - Cardiovascular Exam Cardiovascular Exam: +S1, +S2 - GI/Abdominal Exam GI & Abdominal Exam: Soft. absent: Tenderness Assessment and Plan - Assessment and Plan (Free Text) Plan: Assessment Consider upper respiratory tract infection without evidence of pneumonia, slowly improving right knee arthralgia history of bilateral lower extremity skin and skin structure infection with methicillin-sensitive Staph aureus history of right shoulder effusion S/P drainage dyslipidemia hypertension osteoarthritis gastroesophageal reflux disease multinodular goiter mitral regurgitation rheumatoid arthritis SLE Plan continue Rocephin and Doxycycline day 3 to complete 3-5 days; blood cx are negative; reviewed CXR which does not show pneumonia discussed with Dr. Patel previously - pain meds for the knee pain per Dr. Patel and patient to be seen by Dr. Luna - follow up knee xray will continue to monitor clinically
[2017-05-23 13:49] LABS: IRON < 10 ug/dL (45-180); TOTAL IRON BINDING CAPACITY 318 ug/dL (265-497)
[2017-05-23 13:49] LABS: BODY FLUID TYPE PLEURAL
[2017-05-23 13:54] LABS: % IRON SATURATION < 3 % (20-55)
--- NOTE | 2017-05-23 18:07 | PN ---
IDENTIFYING INFORMATION: The patient is an 86-year-old white female who has mild dementia and a longstanding depressive disorder. She had been started on Aricept and Wellbutrin 2 days ago in response to her clinical condition. Her case has been reviewed with Dr. Patel. The patient is alert, oriented, seems anxious today and tells me that she does feel anxious. She appears to be somewhat sedate and withdrawn. It is too soon to make a determination about the efficacy of either the Aricept or the Wellbutrin. Blood pressure 129/59, pulse 108, temperature 98.3, respiratory rate 19. CBC and differential today shows RBC of 3.39, hemoglobin 8.6, hematocrit 27.6 all low. A biochemical profile today is within normal limits. The patient does not appear to be psychotic or confused. She is complaining of right knee pain but, has been noted to have neither fever and less of a cough. Supportive therapy offered. Glenn Manning MD/ PhD
--- NOTE | 2017-05-24 01:08 | CON ---
DATE: 05/23/2017 ORTHOPEDIC CONSULTATION HISTORY OF PRESENT ILLNESS: The patient is an 86-year-old female who came in the hospital on 05/21/2017, Dr. Patel saw her for medical issues and I saw her for the right knee pain and right shoulder pain. X-rays of her right knee shows osteoarthritis with decreased joint space laterally with a tense effusion. We did arthrocentesis, aspirating 60 mL of turbid fluid, not purulent, we sent this specimen for cell count, culture and crystals, and I injected the right knee after irrigated out with normal saline diluted, and I gave her Depo-Medrol and Marcaine to help the pain and inflammation. We will await for the culture to come back and cell count and crystal analysis in a couple of days. She is on IV antibiotics for her respiratory infection. FINAL DIAGNOSIS: Inflammatory arthritis of right knee, suspect gout or other inflammation problems. Peña Luna DO [facility]
[2017-05-24 08:08] LABS: GRAN # 10.58 (1.4-6.5); GRAN % 91.3 % (50.0-68.0); HEMOGLOBIN 8.7 g/dL (12.0-16.0); LYMPH # 0.5 (1.2-3.4); LYMPH % 4.2 % (22.0-35.0); MEAN CELL VOLUME 81.3 fl (80.0-105.0); MEAN CORPUSCULAR HGB CONC 30.7 g/dl (31.0-37.0); MEAN PLATELET VOLUME 8.9 fl (7.0-11.0); MONO # 0.5 (0.1-0.6); MONO % 4.5 % (1.0-6.0); PLATELET COUNT 353 10^3/uL (120.0-450.0); RBC 3.48 10^6/uL (3.5-6.1); WHITE BLOOD COUNT 11.6 10^3/ul (4.5-11.0)
[2017-05-24] MEDS: Pantoprazole 40 mg EC Tab PO SCH (08:18)
[2017-05-24] MEDS: buPROPion 150 mg/24 Hours XL Tab PO SCH (10:03)
[2017-05-24] MEDS: cefTRIAXone 1 gm 1 GM/100 ML BAG IVPB SCH (10:03)
--- NOTE | 2017-05-24 10:11 | PN ---
DATE: 05/24/2017 SUBJECTIVE: An 86-year-old female in room 366, bed 3. The patient underwent arthrocentesis of her tensely swollen right knee yesterday, was still waiting for the white cell count, culture and crystal analysis. Otherwise, she feels better in her right knee. We will do physical therapy to get her up out of bed and ambulate with a walker, and we will reevaluate her again once the blood work and synovial fluid analysis comes back. In the meantime, we will do physical therapy, ambulate with a walker, weight bearing to tolerance of the right knee. Peña Luna DO
[2017-05-24 10:24] LABS: ANISOCYTOSIS SLIGHT; BASOPHIL 1 % (0.0-1.0); GIANT PLATELETS PRESENT; LARGE PLATELETS PRESENT; LYMPHOCYTE 6 % (22.0-35.0); MONOCYTE 1 % (1.0-6.0); NEUTROPHIL 92 % (50.0-70.0); PLATELET ESTIMATE NORMAL (NORMAL); POIKILOCYTOSIS SLIGHT
--- NOTE | 2017-05-24 12:45 | CP.PCM.PN ---
Subjective - Date & Time of Evaluation Date of Evaluation: 05/24/17 Time of Evaluation: 11:35 - Subjective Subjective: Had drainage of right knee yesterday and is feeling little better today, cough is better. Objective - Vital Signs/Intake and Output Vital Signs (last 24 hours): Temp Pulse Resp BP Pulse Ox 98.3 F 78 16 109/60 96 05/23/17 16:00 05/23/17 16:00 05/23/17 16:00 05/23/17 16:00 05/23/17 16:00 Intake and Output: 05/24/17 05/24/17 06:59 18:59 Intake Total 940 Output Total 1200 Balance -260 - Medications Medications: Current Medications Alprazolam (Xanax) 0.125 mg PO HS PRN; Protocol PRN Reason: Anxiety Stop: 05/28/17 10:36 Benzocaine/Menthol (Cepacol Sore Throat) 1 farnaz MT Q1H PRN PRN Reason: Cough Last Admin: 05/24/17 10:08 Dose: 1 farnaz Bupropion HCl (Wellbutrin Xl) 150 mg PO DAILY [facility] Last Admin: 05/24/17 10:03 Dose: 150 mg Donepezil HCl (Aricept) 5 mg PO HS [facility] Last Admin: 05/23/17 22:01 Dose: 5 mg Doxycycline Hyclate (Doryx) 100 mg PO Q12 [facility] PRN Reason: Protocol Last Admin: 05/24/17 10:03 Dose: 100 mg Guaifenesin (Robitussin) 200 mg PO Q4H PRN PRN Reason: Cough Last Admin: 05/22/17 07:50 Dose: 200 mg Hydroxychloroquine Sulfate (Plaquenil) 200 mg PO HS [facility] Last Admin: 05/23/17 22:02 Dose: 200 mg Ceftriaxone Sodium (Rocephin 1 Gram Ivpb) 1 gm in 100 mls @ 100 mls/hr IVPB DAILY [facility] PRN Reason: Protocol Last Admin: 05/24/17 10:03 Dose: 100 mls/hr Losartan Potassium (Cozaar) 100 mg PO DAILY [facility] Last Admin: 05/24/17 10:03 Dose: 100 mg Pantoprazole Sodium (Protonix Ec Tab) 40 mg PO ACB [facility] Last Admin: 05/24/17 08:18 Dose: 40 mg - Labs Labs: 05/24/17 07:00 05/23/17 06:00 - Constitutional Appears: Non-toxic - Head Exam Head Exam: NORMAL INSPECTION - ENT Exam ENT Exam: Mucous Membranes Moist - Neck Exam Neck Exam: absent: Meningismus - Respiratory Exam Respiratory Exam: Decreased Breath Sounds - Cardiovascular Exam Cardiovascular Exam: +S1, +S2 - GI/Abdominal Exam GI & Abdominal Exam: Soft. absent: Tenderness Assessment and Plan - Assessment and Plan (Free Text) Plan: Assessment Consider upper respiratory tract infection without evidence of pneumonia, slowly improving right knee inflammatory arthritis S/P arthrocentesis POD #1 history of bilateral lower extremity skin and skin structure infection with methicillin-sensitive Staph aureus history of right shoulder effusion S/P drainage dyslipidemia hypertension osteoarthritis gastroesophageal reflux disease multinodular goiter mitral regurgitation rheumatoid arthritis SLE Plan continue Rocephin and Doxycycline day 4 to complete 3-5 days; blood cx are negative; reviewed CXR which does not show pneumonia follow up synovial fluid analysis and cultures will continue to monitor clinically
--- NOTE | 2017-05-24 16:14 | PN ---
DATE: SUBJECTIVE: This is an 86-year-old female resting in bed comfortably this morning. The nursing staff relates that there were no particular problems during the night. PHYSICAL EXAMINATION: VITAL SIGNS: Her vital signs show a temperature of 98.3, pulse is 78, blood pressure is 109/60, oxygen sat is 96% on room air. GENERAL: She is alert and oriented x3. NECK: Her neck is supple. There is no JVD. LUNGS: Clear. A few rhonchi at the base. HEART: S1 and S2 rhythm with a grade 2/6 systolic murmur. ABDOMEN: Soft, scaphoid. Positive bowel sounds. EXTREMITIES: Showed increased edema. LABORATORY DATA: Her iron is less than 10, her TIBC is 318, her percent saturation less than 3. Ferritin is 24.9. Stool guaiac is positive. CBC shows a WBC of 11.6, RBC 3.48, hemoglobin 8.7, hematocrit 28.3, and platelet count of 353. Retic count is 0.88. ASSESSMENT: 1, The patient is being treated with intravenous antibiotics, being followed by Infectious Disease. They were initiated on 05/21/2017. This is day 3. She is continuing on her Rocephin and Doryx. 2. She has been seen by Orthopedics for swelling of the right knee, fluid analysis is pending. 3. The patient has a history of arthritis, on Plaquenil by Rheumatology. 4. She has a history of hypertension. 5. She has been seen by Psychiatry and placed on Aricept for the feeling of early dementia, mild. She has periods of memory loss or forgetfulness and difficulty to recall on certain items. She has also been placed on Wellbutrin 150 daily by Psychiatry for depression. She is also on Xanax for anxiety. She is on Protonix p.o. Gastrointestinal consult is pending. We will continue to monitor the patient. Microbiological studies to date and blood cultures are negative after three days. Susanna Patel MD
--- NOTE | 2017-05-24 20:27 | CON ---
DATE: 05/24/2017 REQUESTING PHYSICIAN: Susanna Patel MD. REASON FOR CONSULTATION: I have been asked to see this 86-year-old female, well-known to me with a longstanding history of GERD, also with history of mitral regurgitation, chronic venous stasis of her lower extremities, rheumatoid arthritis, who comes to the hospital with 1-week history of cough, upper airway and nasal congestion; this is associated with generalized weakness and malaise. I have been asked to see this patient for a drop in her hemoglobin from 10 g range to 8-1/2 g range. Stool for occult blood was positive. She currently denies any overt rectal bleeding, melena, nausea, vomiting, abdominal pain or chest pain. She does feel extremely weak. She has had endoscopies and colonoscopies in the past with her last endoscopy over 3-4 years ago and a colonoscopy over 5 years ago. PAST MEDICAL HISTORY: As above. Again, she has a history of GERD, hypertension, mitral regurgitation, chronic venous insufficiency of her lower extremities, rheumatoid arthritis, anxiety. SOCIAL HISTORY: She denies cigarette smoking or alcohol use. She is a and lives at home alone. FAMILY HISTORY: Noncontributory. REVIEW OF SYSTEMS: A 14-point review of systems is notable for cough, upper airway and nasal congestion, generalized weakness. HOME MEDICATIONS: Include alprazolam, losartan,esomeprazole 40 mg once a day, Plaquenil 200 mg once a day, and Ecotrin 81 mg once a day. PHYSICAL EXAMINATION: GENERAL: Elderly female appearing pale, lying in bed with nasal congestion, her voice sounds nasally. VITAL SIGNS: Reveal temperature of 98.3, blood pressure 109/60, heart rate 78. HEENT: Reveal sclerae to be white. Conjunctivae pale. NECK: Supple. CHEST: Reveal lungs to be clear. HEART: Exam reveals a regular rate and rhythm. ABDOMEN: Soft, nontender. EXTREMITIES: Show no edema. LABORATORY DATA: Reveal hemoglobin of 8.7, on admission to the hospital was 10.3. This is a drop of approximately 15%. White blood cell count 11.6, platelet count 353,000. Chemistries reveal normal electrolytes. AST, ALT, alk phos on admission were normal. Iron saturation is less than 3%. Ferritin is 24.9. IMPRESSION: This is an 86-year-old female with symptomatic anemia with a drop in her hemoglobin from 10.3 to 8.7. Her she denies any overt gastrointestinal bleeding, but her stool guaiac was positive. I suspect that the anemia is multifactorial including possible chronic gastrointestinal blood loss versus anemia of chronic disease. She was admitted with cough and upper airway congestion probably secondary to viral syndrome or possible flu. RECOMMENDATIONS: 1. Transfuse 2 units of packed red blood cells. 2. An EGD and colonoscopy can be performed electively. 3. The patient to be transferred to [facility] after her blood transfusions have been completed. 4. Follow serial hematocrits. Drake Bennett MD
[2017-05-24 21:02] VITALS: RESP 20
[2017-05-25 08:42] LABS: GRAN # 9.99 (1.4-6.5); GRAN % 87.9 % (50.0-68.0); LYMPH # 0.7 (1.2-3.4); LYMPH % 6.3 % (22.0-35.0); MEAN CORPUSCULAR HGB CONC 31.7 g/dl (31.0-37.0); MONO # 0.7 (0.1-0.6); MONO % 5.8 % (1.0-6.0); RBC 4.23 10^6/uL (3.5-6.1); RED CELL DISTRIBUTION WIDTH 15.6 % (11.5-14.5); WHITE BLOOD COUNT 11.4 10^3/ul (4.5-11.0)
[2017-05-25 09:07] LABS: ALBUMIN 2.9 g/dL (3.0-4.8); ALT/SGPT 44 U/L (7-56); AST/SGOT 42 U/L (14-36); BLOOD UREA NITROGEN 28 mg/dL (7-21); CALCIUM 9.4 mg/dL (8.4-10.5); GFR AFRICAN-AMERICAN > 60; GFR NON-AFRICAN AMERICAN > 60
[2017-05-25 09:10] VITALS: BP 127/73; PULSE 70; TEMP 97.8; O2SAT 97
[2017-05-25] MEDS: cefTRIAXone 1 gm 1 GM/100 ML BAG IVPB SCH (10:04)
[2017-05-25] MEDS: Pantoprazole 40 mg EC Tab PO SCH (10:04)
[2017-05-25] MEDS: buPROPion 150 mg/24 Hours XL Tab PO SCH (10:05)
--- NOTE | 2017-05-25 11:55 | CP.PCM.PN ---
Subjective - Date & Time of Evaluation Date of Evaluation: 05/25/17 Time of Evaluation: 11:10 - Subjective Subjective: Comfortable in bed, less pain in the right knee, less cough. Objective - Vital Signs/Intake and Output Vital Signs (last 24 hours): Temp Pulse Resp BP Pulse Ox 97.8 F 70 20 127/73 97 05/25/17 06:00 05/25/17 06:00 05/25/17 06:00 05/25/17 06:00 05/25/17 06:00 Intake and Output: 05/25/17 05/25/17 06:59 18:59 Intake Total 625 Balance 625 - Medications Medications: Current Medications Alprazolam (Xanax) 0.125 mg PO HS PRN; Protocol PRN Reason: Anxiety Stop: 05/28/17 10:36 Benzocaine/Menthol (Cepacol Sore Throat) 1 farnaz MT Q1H PRN PRN Reason: Cough Last Admin: 05/24/17 10:08 Dose: 1 farnaz Bupropion HCl (Wellbutrin Xl) 150 mg PO DAILY [facility] Last Admin: 05/24/17 10:03 Dose: 150 mg Donepezil HCl (Aricept) 5 mg PO HS [facility] Last Admin: 05/24/17 22:11 Dose: 5 mg Doxycycline Hyclate (Doryx) 100 mg PO Q12 [facility] PRN Reason: Protocol Last Admin: 05/24/17 22:11 Dose: 100 mg Guaifenesin (Robitussin) 200 mg PO Q4H PRN PRN Reason: Cough Last Admin: 05/22/17 07:50 Dose: 200 mg Hydroxychloroquine Sulfate (Plaquenil) 200 mg PO HS [facility] Last Admin: 05/24/17 22:12 Dose: 200 mg Ceftriaxone Sodium (Rocephin 1 Gram Ivpb) 1 gm in 100 mls @ 100 mls/hr IVPB DAILY [facility] PRN Reason: Protocol Last Admin: 05/24/17 10:03 Dose: 100 mls/hr Losartan Potassium (Cozaar) 100 mg PO DAILY [facility] Last Admin: 05/24/17 10:03 Dose: 100 mg Pantoprazole Sodium (Protonix Ec Tab) 40 mg PO ACB [facility] Last Admin: 05/24/17 08:18 Dose: 40 mg - Labs Labs: 05/25/17 08:00 05/25/17 08:00 - Constitutional Appears: Non-toxic - Head Exam Head Exam: NORMAL INSPECTION - ENT Exam ENT Exam: Mucous Membranes Moist - Neck Exam Neck Exam: absent: Meningismus - Respiratory Exam Respiratory Exam: Decreased Breath Sounds - Cardiovascular Exam Cardiovascular Exam: +S1, +S2 - GI/Abdominal Exam GI & Abdominal Exam: Soft. absent: Tenderness Assessment and Plan - Assessment and Plan (Free Text) Plan: Assessment Consider upper respiratory tract infection without evidence of pneumonia, improving right knee inflammatory arthritis S/P arthrocentesis POD #2 history of bilateral lower extremity skin and skin structure infection with methicillin-sensitive Staph aureus history of right shoulder effusion S/P drainage dyslipidemia hypertension osteoarthritis gastroesophageal reflux disease multinodular goiter mitral regurgitation rheumatoid arthritis SLE Plan continue Rocephin and Doxycycline day 5 to complete 3-5 days; blood cx are negative; reviewed CXR which does not show pneumonia follow up synovial fluid analysis and cultures will continue to monitor clinically discussed with Dr. Patel
--- NOTE | 2017-05-26 04:41 | DS ---
HOSPITAL COURSE: This is an 86-year-old female, resting comfortably in bed this morning. Nursing staff relates that there were no problems during the night or day. The patient is status post 2 units of packed red blood cells as ordered by her public transportation inspector, Dr. Bennett, for low hemoglobin and she has a history of positive stool guaiac. PHYSICAL EXAMINATION: VITAL SIGNS: Show a temperature of 97.8, pulse is 70, blood pressure is 127/73, oxygen saturation is 97% on room air, and respiratory rate is 20. GENERAL: She is alert and oriented x3. NECK: Supple. LUNGS: Shows some diminished breath sounds at the bases. HEART: Has S1 and S2 rhythm. ABDOMEN: Soft, scaphoid. Positive bowel sounds. EXTREMITIES: Show no evidence of edema LABORATORY DATA: Status post transfusion of 2 units of packed red blood cells, WBCs 11.4, RBCs 4.23, hemoglobin is 11, hematocrit is 34.7, platelet count is 356. Chemistry shows normal electrolytes, the BUN is 20 and the creatinine is 0.8. Her HIV is negative, nonreactive. 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 She is on Cozaar 100 mg daily, Protonix 40 mg daily, Plaquenil 200 mg at bedtime, Doryx 100 mg q.12, Rocephin a gram q.24, Xanax 0.125 mg at bedtime p.r.n. She is currently receiving treatment for respiratory tract infection. She is status post aspiration of fluid from the right knee by Orthopedics. The mycobacterial culture of the fluid is reported as no acid-fast bacilli seen. Fluid cell count is still pending. GI is recommending elective endoscopies for the drop in her hemoglobin and positive stool guaiac. I do recommend continuation of current antibiotic regimen for respiratory tract infection. Dr. Manning of psychiatrist is recommending continuation of the above-mentioned medications for her underlying depression and cognitive disorder. Continue current level of care. The patient will be going to the Transitional Care Unit to continue her medication and therapy and get occupational and physical therapy. Susanna Patel MD
[2017-05-26 10:47] LABS: BF GROSS APPEARANCE TURBID (CLEAR)
[2017-05-26 10:49] LABS: BODY FLUID TOTAL COUNT 100 (0-0)
[2017-05-26 19:28] LABS: HEPATITIS B SURFACE AG NEGATIVE (NEGATIVE)
[2017-05-26 19:33] LABS: HEPATITIS A IGM NEGATIVE (NEGATIVE); HEPATITIS B CORE AB Negative (NEGATIVE)
[2017-05-26 19:45] LABS: HEPATITIS C ANTIBODY Negative (NEGATIVE)
== END 2017-05-25 13:00 | DRG 153 ==
LOC: ED 15:19 → ERH 19:17 → 2RSO 05-21 01:07 → OBSVTOIN 05-21 10:37 → 3RNO 05-22 19:02
PROVIDERS: ADMIT Internal Medicine; ATTEND Internal Medicine
PROC: 0S9C3ZX Drainage of Right Knee Joint, Percutaneous Approach, Diagnostic (ICD-10-PCS; principal; 2017-05-23)
PROC: 3E0U33Z Introduction of Anti-inflammatory into Joints, Percutaneous Approach (ICD-10-PCS; 2017-05-23)
PROC: 3E0U3BZ Introduction of Anesthetic Agent into Joints, Percutaneous Approach (ICD-10-PCS; 2017-05-23)
PROC: 30233N1 Transfusion of Nonautologous Red Blood Cells into Peripheral Vein, Percutaneous Approach (ICD-10-PCS; 2017-05-24)
DX: J06.9 Acute upper respiratory infection, unspecified (principal); I11.0 Hypertensive heart disease with heart failure; I50.9 Heart failure, unspecified; M32.9 Systemic lupus erythematosus, unspecified; M17.11 Unilateral primary osteoarthritis, right knee; D63.8 Anemia in other chronic diseases classified elsewhere; J44.9 Chronic obstructive pulmonary disease, unspecified; I34.0 Nonrheumatic mitral (valve) insufficiency; M06.9 Rheumatoid arthritis, unspecified; F41.9 Anxiety disorder, unspecified; M25.411 Effusion, right shoulder; E78.5 Hyperlipidemia, unspecified; K21.9 Gastro-esophageal reflux disease without esophagitis; E04.2 Nontoxic multinodular goiter; I87.2 Venous insufficiency (chronic) (peripheral); F32.9 Major depressive disorder, single episode, unspecified; G30.9 Alzheimer's disease, unspecified; F02.80 Dementia in other diseases classified elsewhere, unspecified severity, without behavioral disturbance, psychotic disturbance, mood disturbance, and anxiety; E78.00 Pure hypercholesterolemia, unspecified; Z87.891 Personal history of nicotine dependence

== ENCOUNTER → 2017-06-01 14:09 | Inpatient (IN) | payer OTHER, MEDICARE ==
[2017-05-25 14:14] VITALS: BMI 20.1
[2017-05-26] MEDS: cefTRIAXone 1 GM/100 ML BAG IVPB SCH (05:49)
[2017-05-26] MEDS: Pantoprazole 40 mg EC Tab PO SCH (05:50)
[2017-05-26 07:06] LABS: ALBUMIN 2.7 g/dL (3.0-4.8); ALT/SGPT 51 U/L (7-56); AST/SGOT 41 U/L (14-36); BLOOD UREA NITROGEN 28 mg/dL (7-21); CALCIUM 9.1 mg/dL (8.4-10.5); GFR AFRICAN-AMERICAN > 60; GFR NON-AFRICAN AMERICAN 60
[2017-05-26 07:07] LABS: BASO # 0.01 K/mm3 (0.0-2.0); BASO % 0.1 % (0.0-3.0); EOS # 0.1 (0.0-0.7); GRAN # 6.14 (1.4-6.5); GRAN % 78.3 % (50.0-68.0); LYMPH # 0.9 (1.2-3.4); LYMPH % 11.2 % (22.0-35.0); MEAN CELL VOLUME 82.5 fl (80.0-105.0); MEAN CORPUSCULAR HEMOGLOBIN 25.9 pg (25.0-35.0); MEAN CORPUSCULAR HGB CONC 31.4 g/dl (31.0-37.0); MONO # 0.7 (0.1-0.6); MONO % 9.4 % (1.0-6.0); RBC 4.24 10^6/uL (3.5-6.1); RED CELL DISTRIBUTION WIDTH 15.7 % (11.5-14.5); WHITE BLOOD COUNT 7.9 10^3/ul (4.5-11.0)
[2017-05-26] MEDS: buPROPion 150 mg/24 Hours XL Tab PO SCH (10:57)
--- NOTE | 2017-05-26 12:30 | PN ---
DATE: 05/26/2017 SUBJECTIVE: The patient is seen in [facility]. She feels a little bit stronger. Her cough is less. Her medications include Aricept 5 mg at night, losartan 100 mg daily, doxycycline 100 mg p.o. twice a day, Plaquenil 200 mg at bedtime, Protonix 40 mg once a day, ceftriaxone 1 g IV daily, Wellbutrin 150 mg daily, Xanax 0.125 mg at bedtime. PHYSICAL EXAMINATION: VITAL SIGNS: Reveal temperature of 97.9, blood pressure 116/70, heart rate 65. HEENT: Reveal sclerae to be white. Conjunctivae pink. NECK: Supple. CHEST: Reveal lungs to be clear. HEART: Exam reveals a regular rate and rhythm. ABDOMEN: Soft, nontender. No mass. EXTREMITIES: Show chronic stasis changes of the lower extremities. LABORATORY DATA: Reveal hemoglobin 11, white blood cell count 7.9. Chemistries reveal BUN 28, creatinine 0.9. IMPRESSION: 1. Anemia with heme-positive stool. There is no evidence of overt gastrointestinal bleeding. 2. Cough 3. Gastroesophageal reflux disease. 4. Mitral regurgitation. RECOMMENDATIONS: 1. Continue PPI. 2. Follow serial hematocrits. 3. Outpatient endoscopy and possible colonoscopy. Drake Bennett MD
--- NOTE | 2017-05-26 14:14 | CP.PCM.CON ---
History of Present Illness - History of Present Illness History of Present Illness: 86 year old female with PMH of bilateral lower extremity cellulitis, right shoulder effusion S/P drainage, dyslipidemia, hypertension, osteoarthritis, gastroesophageal reflux disease, multinodular goiter, mitral regurgitation, rheumatoid arthritis was initially admitted for respiratory tract infection. She also developed right knee effusion with arthritis and arthrocentesis was done. She is now transferred to [facility] for continued medical therapy and physical rehab. Infectious diseases consult is requested to continue her antibiotic therapy. Her right knee is still sore but is better, no fever or chills, no nausea or vomiting, no chest pain, no SOB, no headache or dizziness, no abdominal pain, no diarrhea, no dysuria. 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 - HEENT Hx HEENT Problems: Yes (eyeglasses) - HEMATOLOGICAL/ONCOLOGICAL Other/Comment: 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 - INTEGUMENTARY Other/Comment: ble +1 edema cellulitis, thick hard toenails,redness swelling red raised rash from thighs to lower legs, feet reddened and swollen, red dry cracked skin to legs and feet, weeping coming from open wounds both legs left more than right, both hands are reddened, skin discolorations both arms - MUSCULOSKELETAL/RHEUMATOLOGICAL Hx Falls: No - GASTROINTESTINAL Hx Gastrointestinal Disorders: Yes (hiatal hernia) Hx Gastroesophageal Reflux: Yes - GENITOURINARY/GYNECOLOGICAL Hx Genitourinary Disorders: (frequency) - PSYCHIATRIC Hx Depression: No Hx Emotional Abuse: No Hx Physical Abuse: No - SURGICAL HISTORY Hx Cholecystectomy: Yes Hx Orthopedic Surgery: Yes (left hip 11/06/12) Other/Comment: tongue surgery - ANESTHESIA Hx Anesthesia: Yes Hx Anesthesia Reactions: No Hx Malignant Hyperthermia: No Meds Allergies/Adverse Reactions: Allergies Allergy/AdvReac Type Severity Reaction Status Date / Time codeine AdvReac NAUSEA Verified 05/25/17 15:42 - Medications Medications: Current Medications Alprazolam (Xanax) 0.125 mg PO HS PRN; Protocol PRN Reason: Anxiety Stop: 06/01/17 13:22 Benzocaine/Menthol (Cepacol Sore Throat) 1 farnaz MT Q1H PRN; Protocol PRN Reason: Cough Bupropion HCl (Wellbutrin Xl) 150 mg PO DAILY ANTHONY PRN Reason: Protocol Donepezil HCl (Aricept) 5 mg PO HS ANTHONY PRN Reason: Protocol Last Admin: 05/25/17 21:32 Dose: 5 mg Doxycycline Hyclate (Doryx) 100 mg PO Q12 ANTHONY PRN Reason: Protocol Last Admin: 05/25/17 21:32 Dose: 100 mg Guaifenesin (Robitussin) 200 mg PO Q4H PRN; Protocol PRN Reason: Cough and congestion Hydroxychloroquine Sulfate (Plaquenil) 200 mg PO HS ANTHONY PRN Reason: Protocol Last Admin: 05/25/17 21:33 Dose: 200 mg Ceftriaxone Sodium (Rocephin 1 Gram Ivpb) 1 gm in 100 mls @ 100 mls/hr IVPB 0600 [facility] Last Admin: 05/26/17 05:49 Dose: 100 mls/hr Losartan Potassium (Cozaar) 100 mg PO DAILY [facility] PRN Reason: Protocol Pantoprazole Sodium (Protonix Ec Tab) 40 mg PO 0600 [facility] Last Admin: 05/26/17 05:50 Dose: 40 mg Physical Exam - Constitutional Appears: Non-toxic - Head Exam Head Exam: NORMAL INSPECTION - ENT Exam ENT Exam: Mucous Membranes Moist - Neck Exam Neck exam: Negative for: Lymphadenopathy, Meningismus - Respiratory Exam Respiratory Exam: Decreased Breath Sounds - Cardiovascular Exam Cardiovascular Exam: +S1, +S2 - GI/Abdominal Exam GI & Abdominal Exam: Soft. absent: Tenderness Results - Vital Signs Recent Vital Signs: Last Vital Signs Temp 97.9 F 05/26/17 06:00 Pulse 65 05/26/17 06:00 Resp 18 05/26/17 06:00 BP 116/70 05/26/17 06:00 Pulse Ox 95 05/26/17 06:00 - Labs Result Diagrams: 05/26/17 06:30 05/26/17 06:30 Assessment & Plan - Assessment and Plan (Free Text) Plan: Assessment Consider upper respiratory tract infection without evidence of pneumonia, improving right knee inflammatory arthritis S/P arthrocentesis POD #3 history of bilateral lower extremity skin and skin structure infection with methicillin-sensitive Staph aureus history of right shoulder effusion S/P drainage dyslipidemia hypertension osteoarthritis gastroesophageal reflux disease multinodular goiter mitral regurgitation rheumatoid arthritis SLE Plan on Rocephin and Doxycycline day 6 - will d/c after today; blood cx are negative ; reviewed CXR which does not show pneumonia follow up synovial fluid analysis and cultures ( so far negative) will continue to monitor clinically discussed with Dr. Patel
--- NOTE | 2017-05-26 15:14 | PN ---
DATE: HISTORY OF PRESENT ILLNESS: This is an 86-year-old female receiving IV antibiotics for respiratory tract infection, bronchitis, with underlying COPD, status post right knee effusion drainage for arthritis, admitted to the Transitional Care Unit for continuation of her therapy and antibiotic treatment. SOCIAL HISTORY: She is a nonsmoker, nondrinker. ALLERGIES: TO CODEINE. ACTIVE MEDICATIONS: Consist of Xanax 0.125 mg at bedtime, Wellbutrin 150 mg daily, Rocephin 1 g q. 24, doxycycline 100 mg p.o. q.12, Protonix 40 mg daily, Robitussin q.4 hours p.r.n. for cough, Plaquenil 200 mg at bedtime, Losartan, potassium 100 mg daily, Cepacol p.r.n., and Aricept 5 mg at bedtime. PHYSICAL EXAMINATION: GENERAL: She is alert and oriented x3. VITAL SIGNS: Show a temperature of 97.9, blood pressure 116/70, pulse is 65, respiratory rate is 18, and oxygen saturation is 95% on room air. NECK: Supple. No JVD. LUNGS: Rhonchitic at the base. HEART: S1 and S2 rhythm. ABDOMEN: Soft. Positive bowel sounds. EXTREMITIES: No evidence of edema. LABORATORY DATA: Shows WBC of 7.9, RBC 4.24, hemoglobin 11, hematocrit 35, and platelet count is 352. Chemistry shows normal electrolytes, the BUN is 20, the creatinine is 0.9, AST is 41. The patient is status post transfusion of 2 units of packed red blood cells as recommended by Gastroenterology, where she was found to have a drop in her hemoglobin with positive stool guaiac. Recommendation at this time is to monitor the patient. She is being followed by Psychiatry for depression and cognitive behavior disorder by Infectious Disease for her respiratory tract infection and by Orthopedics for arthritis and swollen right knee. Fluid analysis is pending and continue current levels of care. Susanna Patel MD
--- NOTE | 2017-05-27 01:42 | PN ---
DATE: IDENTIFYING INFORMATION: The patient is an 86-year-old white female whom I had initially seen on the medical floor prior to her transfer to the Transitional Care Unit. She has a mild dementia and longstanding depressive disorder. Presently, she appears to be alert, oriented, remembered who I was, indicates that she is feeling somewhat more relaxed and better, but was presently concerned about getting to the bathroom so that she could have a bowel movement. I have reviewed her situation with Dr. Patel. Psychotropically, she is on Aricept 5 mg at bedtime and Wellbutrin 150 XL and Xanax 0.125 p.r.n. and seems to be doing reasonably well. Glenn Manning MD/ PhD
[2017-05-27] MEDS: cefTRIAXone 1 GM/100 ML BAG IVPB SCH (05:16)
[2017-05-27] MEDS: Pantoprazole 40 mg EC Tab PO SCH (05:16)
--- NOTE | 2017-05-27 09:29 | CON ---
DATE: 05/27/2017 ORTHOPEDIC CONSULTATION LOCATION: Room 322, bed 1. HISTORY OF PRESENT ILLNESS: The patient is an 86-year-old female seen about a week ago with right knee swelling and right shoulder pain. We injected her right knee at that time because of swelling and we got fluid back that showed calcium pyrophosphate crystals and that got the knee to feeling better, so she could ambulate better and right shoulder has osteoarthritis, but does not want an injection there. We will start physical therapy in the same Transitional Care Unit and hope she gets stronger and her knees tolerate the therapy, but she does not need any injection at this time and she does feel better. I will just maintain good physical therapy to get her confidence back, so she could walk with a walker and improve her strength. FINAL DIAGNOSES: Osteoarthritis of the both knees and right shoulder osteoarthritis. Peña Luna DO
[2017-05-27] MEDS: buPROPion 150 mg/24 Hours XL Tab PO SCH (10:29)
--- NOTE | 2017-05-27 13:08 | CP.PCM.PN ---
Subjective - Date & Time of Evaluation Date of Evaluation: 05/27/17 Time of Evaluation: 10:10 - Subjective Subjective: Comfortable, breathing better, improved cough, no fevers. Objective - Vital Signs/Intake and Output Vital Signs (last 24 hours): Temp Pulse Resp BP Pulse Ox 98.4 F 60 18 131/70 96 05/27/17 06:00 05/27/17 06:00 05/27/17 06:00 05/27/17 06:00 05/27/17 06:00 - Medications Medications: Current Medications Alprazolam (Xanax) 0.125 mg PO HS PRN; Protocol PRN Reason: Anxiety Stop: 06/02/17 23:07 Last Admin: 05/26/17 23:18 Dose: 0.125 mg Benzocaine/Menthol (Cepacol Sore Throat) 1 farnaz MT Q1H PRN; Protocol PRN Reason: Cough Bupropion HCl (Wellbutrin Xl) 150 mg PO DAILY ANTHONY PRN Reason: Protocol Last Admin: 05/26/17 10:57 Dose: 150 mg Donepezil HCl (Aricept) 5 mg PO HS ANTHONY PRN Reason: Protocol Last Admin: 05/26/17 21:23 Dose: 5 mg Doxycycline Hyclate (Doryx) 100 mg PO Q12 ANTHONY PRN Reason: Protocol Last Admin: 05/26/17 21:23 Dose: 100 mg Guaifenesin (Robitussin) 200 mg PO Q4H PRN; Protocol PRN Reason: Cough and congestion Hydroxychloroquine Sulfate (Plaquenil) 200 mg PO HS ANTHONY PRN Reason: Protocol Last Admin: 05/26/17 21:23 Dose: 200 mg Ceftriaxone Sodium (Rocephin 1 Gram Ivpb) 1 gm in 100 mls @ 100 mls/hr IVPB 0600 AN[facility] Last Admin: 05/27/17 05:16 Dose: 100 mls/hr Losartan Potassium (Cozaar) 100 mg PO DAILY AN[facility]Y PRN Reason: Protocol Last Admin: 05/26/17 10:56 Dose: 100 mg Pantoprazole Sodium (Protonix Ec Tab) 40 mg PO 0600 [facility] Last Admin: 05/27/17 05:16 Dose: 40 mg - Labs Labs: 05/26/17 06:30 05/26/17 06:30 - Constitutional Appears: Non-toxic - Head Exam Head Exam: NORMAL INSPECTION - Respiratory Exam Respiratory Exam: Decreased Breath Sounds - Cardiovascular Exam Cardiovascular Exam: +S1, +S2 - GI/Abdominal Exam GI & Abdominal Exam: Soft. absent: Tenderness Assessment and Plan - Assessment and Plan (Free Text) Plan: Assessment Consider upper respiratory tract infection without evidence of pneumonia, improving right knee inflammatory arthritis S/P arthrocentesis POD #4 history of bilateral lower extremity skin and skin structure infection with methicillin-sensitive Staph aureus history of right shoulder effusion S/P drainage dyslipidemia hypertension osteoarthritis gastroesophageal reflux disease multinodular goiter mitral regurgitation rheumatoid arthritis SLE Plan on Rocephin and Doxycycline day 7 - will d/c today; blood cx are negative; reviewed CXR which does not show pneumonia follow up synovial fluid analysis and cultures ( so far negative) will continue to follow clinically
--- NOTE | 2017-05-27 18:42 | PN ---
DATE: SUBJECTIVE: This is an 86-year-old female in the Transitional Care Unit. The patient is completing a course of antibiotics therapy for respiratory tract infection. She is also receiving Occupational and Physical Therapy. She is status post right knee fluid aspiration for an effusion by orthopedic. PHYSICAL EXAMINATION: VITAL SIGNS: Her vital signs show a temperature of 97, blood pressure is 120/61, pulse is 63, oxygen sat is 96% on room air. GENERAL: She is alert and oriented x3. NECK: Her neck is supple. There is no JVD. LUNGS: Clear. HEART: S1 and S2 rhythm. ABDOMEN: Soft, scaphoid. Positive bowel sounds. EXTREMITIES: No evidence of edema. NEUROLOGIC. She is alert and oriented x3. LABORATORY DATA: She is status post transfusion of 2 units of packed red blood cells as ordered by GI for drop in her hemoglobin with heme positive stool. RECOMMENDATIONS: At this time, monitor the CBC and electively do endoscopy unless of course there is an indication that she needs to have it done sooner as per GI. She has been placed on Aricept and Wellbutrin for depression and a mild cognitive disorder. She is on Cozaar for blood pressure along with Plaquenil for her rheumatoid arthritis, Protonix for GI prophylaxis and GERD, Xanax at bedtime p.r.n. and Robitussin p.r.n. for cough. We will follow up the patient's CBC. She will continue being followed by the individual consultants of Psychiatry, GI, and Infectious Disease and continue to receive her therapy. Susanna Patel MD
[2017-05-28] MEDS: Pantoprazole 40 mg EC Tab PO SCH (05:40)
[2017-05-28 07:12] LABS: BASO # 0.01 K/mm3 (0.0-2.0); BASO % 0.1 % (0.0-3.0); EOS # 0.1 (0.0-0.7); EOS % 1.5 % (1.5-5.0); GRAN # 7.55 (1.4-6.5); HEMOGLOBIN 11.4 g/dL (12.0-16.0); LYMPH # 1.1 (1.2-3.4); MEAN CELL VOLUME 82.8 fl (80.0-105.0); MEAN CORPUSCULAR HEMOGLOBIN 25.9 pg (25.0-35.0); MEAN CORPUSCULAR HGB CONC 31.2 g/dl (31.0-37.0); MEAN PLATELET VOLUME 8.7 fl (7.0-11.0); MONO # 0.8 (0.1-0.6); MONO % 8.4 % (1.0-6.0); RBC 4.41 10^6/uL (3.5-6.1); RED CELL DISTRIBUTION WIDTH 15.6 % (11.5-14.5); WHITE BLOOD COUNT 9.6 10^3/ul (4.5-11.0)
[2017-05-28] MEDS: buPROPion 150 mg/24 Hours XL Tab PO SCH (09:52)
--- NOTE | 2017-05-28 12:09 | PN ---
DATE: 05/28/2017 SUBJECTIVE: The patient is sitting up in bed. She denies any further cough. She denies rectal bleeding. She has had bowel movements. She denies any nausea, vomiting or abdominal pain. PHYSICAL EXAMINATION: VITAL SIGNS: Reveal a temperature of 98, blood pressure 129/77, heart rate of 69. HEENT: Reveals sclerae to be white. Conjunctivae pink. NECK: Supple. CHEST: Lungs are clear. HEART: Exam reveals regular rate and rhythm. ABDOMEN: Soft, nontender. No mass. EXTREMITIES: Show chronic stasis changes of the lower extremities. LABORATORY DATA: Reveals hemoglobin 11.4, white blood cell count 9.6, BUN 28, creatinine 0.9. IMPRESSION: 1. Anemia with heme-positive stools. Her hemoglobin has remained stable since her blood transfusion several days ago. 2. Upper respiratory tract infection. 3. Deconditioning. RECOMMENDATIONS: 1. Continue rehab for deconditioning. 2. We will follow the patient up as an outpatient with endoscopy and colonoscopy for her anemia and heme-positive stool. There is no evidence of active GI bleeding at this time. Drake Bennett MD
--- NOTE | 2017-05-28 16:40 | CP.PCM.PN ---
Subjective - Date & Time of Evaluation Date of Evaluation: 05/28/17 Time of Evaluation: 10:55 - Subjective Subjective: Comfortable, afebrile overnight, right knee is feeling a little better. Objective - Vital Signs/Intake and Output Vital Signs (last 24 hours): Temp Pulse Resp BP Pulse Ox 98 F 69 18 129/77 96 05/27/17 17:36 05/27/17 17:36 05/27/17 17:36 05/27/17 17:36 05/27/17 06:00 - Medications Medications: Current Medications Alprazolam (Xanax) 0.125 mg PO HS PRN; Protocol PRN Reason: Anxiety Stop: 06/02/17 23:07 Last Admin: 05/26/17 23:18 Dose: 0.125 mg Benzocaine/Menthol (Cepacol Sore Throat) 1 farnaz MT Q1H PRN; Protocol PRN Reason: Cough Bupropion HCl (Wellbutrin Xl) 150 mg PO DAILY ANTHONY PRN Reason: Protocol Last Admin: 05/27/17 10:29 Dose: 150 mg Donepezil HCl (Aricept) 5 mg PO HS ANTHONY PRN Reason: Protocol Last Admin: 05/27/17 21:36 Dose: 5 mg Guaifenesin (Robitussin) 200 mg PO Q4H PRN; Protocol PRN Reason: Cough and congestion Hydroxychloroquine Sulfate (Plaquenil) 200 mg PO HS ANTHONY PRN Reason: Protocol Last Admin: 05/27/17 21:36 Dose: 200 mg Losartan Potassium (Cozaar) 100 mg PO DAILY ANTHONY PRN Reason: Protocol Last Admin: 05/27/17 10:29 Dose: 100 mg Pantoprazole Sodium (Protonix Ec Tab) 40 mg PO 0600 [facility] Last Admin: 05/28/17 05:40 Dose: 40 mg - Labs Labs: 05/28/17 06:30 05/26/17 06:30 - Constitutional Appears: Non-toxic, No Acute Distress - Head Exam Head Exam: NORMAL INSPECTION - ENT Exam ENT Exam: Mucous Membranes Moist - Neck Exam Neck Exam: absent: Meningismus - Respiratory Exam Respiratory Exam: Decreased Breath Sounds - Cardiovascular Exam Cardiovascular Exam: +S1, +S2 - GI/Abdominal Exam GI & Abdominal Exam: Soft. absent: Tenderness Assessment and Plan - Assessment and Plan (Free Text) Plan: Assessment Consider upper respiratory tract infection without evidence of pneumonia, improving right knee inflammatory arthritis S/P arthrocentesis POD #5 history of bilateral lower extremity skin and skin structure infection with methicillin-sensitive Staph aureus history of right shoulder effusion S/P drainage dyslipidemia hypertension osteoarthritis gastroesophageal reflux disease multinodular goiter mitral regurgitation rheumatoid arthritis SLE Plan continue to monitor off antibiotics since she is at risk for nosocomial infections discussed with Dr. Patel
--- NOTE | 2017-05-28 19:54 | PN ---
DATE: SUBJECTIVE: An 86-year-old female resting comfortably this morning. She has completed a course of the antibiotics for respiratory tract infection. She is currently receiving Occupational and Physical Therapy in the Transitional Care Unit. She is status post aspiration of fluid from the right knee with injection of steroid for arthritic knee. She has an underlying history of rheumatoid arthritis, on Plaquenil 200 mg daily. She has GERD with a history of using Protonix 40 mg daily. She has cognitive behavior disorder and depression and she is on Aricept 5 mg daily and Wellbutrin 150 mg daily, Xanax 0.125 mg at bedtime p.r.n. She has a history of hypertension, on Cozaar 100 mg daily. PHYSICAL EXAMINATION GENERAL: She is alert and oriented x3. VITAL SIGNS: Temperature of 98.5, blood pressure of 139/71, respiratory rate was 14, and oxygen saturation was 97% and pulse is 74 and regular. LUNGS: Clear with diminished breath sounds. HEART: Regular S1 and S2 rhythm. ABDOMEN: Soft. Positive bowel sounds. EXTREMITIES: No evidence of edema. LABORATORY DATA: She is status post transfusion of 2 units of packed red blood cells for drop in her hemoglobin and heme positive stool being followed by Dr. Bennett of the GI service. So, her WBC is 9.6, RBC is 4.41, hemoglobin 11.1, hematocrit 36.5, platelets are 378,000. Chemistry shows normal electrolytes; BUN is 28, creatinine is 0.9, AST is 41. We will follow up the patient's chemistries and LFT. She finished her antibiotics and we will continue her current medications at this time. Susanna Patel MD
[2017-05-29] MEDS: Pantoprazole 40 mg EC Tab PO SCH (05:53)
[2017-05-29 07:27] LABS: BASO # 0.01 K/mm3 (0.0-2.0); BASO % 0.1 % (0.0-3.0); EOS # 0.2 (0.0-0.7); EOS % 1.8 % (1.5-5.0); GRAN # 8.31 (1.4-6.5); GRAN % 81.6 % (50.0-68.0); HEMOGLOBIN 11.3 g/dL (12.0-16.0); LYMPH % 9.3 % (22.0-35.0); MEAN CELL VOLUME 83.1 fl (80.0-105.0); MEAN CORPUSCULAR HEMOGLOBIN 25.5 pg (25.0-35.0); MEAN CORPUSCULAR HGB CONC 30.7 g/dl (31.0-37.0); MEAN PLATELET VOLUME 8.7 fl (7.0-11.0); MONO # 0.7 (0.1-0.6); MONO % 7.2 % (1.0-6.0); RBC 4.43 10^6/uL (3.5-6.1); RED CELL DISTRIBUTION WIDTH 15.9 % (11.5-14.5); WHITE BLOOD COUNT 10.2 10^3/ul (4.5-11.0)
[2017-05-29 08:00] LABS: ALBUMIN 2.9 g/dL (3.0-4.8); ALT/SGPT 38 U/L (7-56); AST/SGOT 24 U/L (14-36); BLOOD UREA NITROGEN 20 mg/dL (7-21); CALCIUM 9.6 mg/dL (8.4-10.5); GFR AFRICAN-AMERICAN > 60; GFR NON-AFRICAN AMERICAN > 60
[2017-05-29] MEDS: buPROPion 150 mg/24 Hours XL Tab PO SCH (11:06)
--- NOTE | 2017-05-29 14:53 | CP.PCM.PN ---
Subjective - Date & Time of Evaluation Date of Evaluation: 05/29/17 Time of Evaluation: 12:00 - Subjective Subjective: Comfortable in bed, improved pain in the right knee, no fevers, breathing much better. Objective - Vital Signs/Intake and Output Vital Signs (last 24 hours): Temp Pulse Resp BP Pulse Ox 98.5 F 74 14 139/71 97 05/28/17 16:00 05/28/17 16:00 05/28/17 16:00 05/28/17 16:00 05/28/17 16:00 - Medications Medications: Current Medications Alprazolam (Xanax) 0.125 mg PO HS PRN; Protocol PRN Reason: Anxiety Stop: 06/02/17 23:07 Last Admin: 05/28/17 22:50 Dose: 0.125 mg Benzocaine/Menthol (Cepacol Sore Throat) 1 farnaz MT Q1H PRN; Protocol PRN Reason: Cough Bupropion HCl (Wellbutrin Xl) 150 mg PO DAILY ANTHONY PRN Reason: Protocol Last Admin: 05/28/17 09:52 Dose: 150 mg Donepezil HCl (Aricept) 5 mg PO HS ANTHONY PRN Reason: Protocol Last Admin: 05/28/17 21:30 Dose: 5 mg Guaifenesin (Robitussin) 200 mg PO Q4H PRN; Protocol PRN Reason: Cough and congestion Hydroxychloroquine Sulfate (Plaquenil) 200 mg PO HS ANTHONY PRN Reason: Protocol Last Admin: 05/28/17 21:31 Dose: 200 mg Losartan Potassium (Cozaar) 100 mg PO DAILY ANTHONY PRN Reason: Protocol Last Admin: 05/28/17 09:52 Dose: 100 mg Pantoprazole Sodium (Protonix Ec Tab) 40 mg PO 0600 [facility] Last Admin: 05/29/17 05:53 Dose: 40 mg - Labs Labs: 05/28/17 06:30 05/26/17 06:30 - Constitutional Appears: Non-toxic - Head Exam Head Exam: NORMAL INSPECTION - ENT Exam ENT Exam: Mucous Membranes Moist - Neck Exam Neck Exam: absent: Meningismus - Respiratory Exam Respiratory Exam: Decreased Breath Sounds - Cardiovascular Exam Cardiovascular Exam: +S1, +S2 - GI/Abdominal Exam GI & Abdominal Exam: Soft. absent: Tenderness Assessment and Plan - Assessment and Plan (Free Text) Plan: Assessment S/P upper respiratory tract infection without evidence of pneumonia, improved and S/P treatment right knee inflammatory arthritis S/P arthrocentesis POD #6 history of bilateral lower extremity skin and skin structure infection with methicillin-sensitive Staph aureus history of right shoulder effusion S/P drainage dyslipidemia hypertension osteoarthritis gastroesophageal reflux disease multinodular goiter mitral regurgitation rheumatoid arthritis SLE Plan continue to monitor off antibiotics since she is at risk for hospital-acquired infections discussed with Dr. Patel previously
--- NOTE | 2017-05-29 15:03 | PN ---
DATE: SUBJECTIVE: The patient is an 86-year-old white female with a lifelong history of anxiety and more recent history of depression. She is being seen in the TCU where she appears to be comfortable. She is alert, oriented to 3 spheres, indicates that her mood and affect are good. She was able to recognize me by name (after some initial difficulty). She has been started on Aricept and is also on Wellbutrin 150 XL and Xanax 0.125. She has a past history of PHYSICAL EXAMINATION: VITAL SIGNS: Blood pressure 137/57, pulse 57, temperature 97.6, respiratory rate 16. Please recontact as needed. Glenn Manning MD/ PhD
--- NOTE | 2017-05-29 22:11 | PN ---
DATE: 05/29/2017 SUBJECTIVE: An 86-year-old female resting comfortably this morning on the bed. Nursing staff relates that there were no particular problems during the night. She has completed a course of antibiotics for respiratory tract infection and is currently receiving occupational/physical therapy on the transitional care unit. CURRENT MEDICATIONS: Consist of Aricept 5 mg at bedtime and Wellbutrin 150 mg daily for cognitive behavior disorder, memory issues and depression. She is also on Cozaar 100 mg daily for hypertension, Plaquenil 200 mg daily for rheumatoid arthritis, Protonix 40 mg daily for GERD, Robitussin 200 mg q.4 hours p.r.n. for cough, Tylenol two tabs q.6 p.r.n. for pain and Xanax 0.125 at bedtime p.r.n. for anxiety. PHYSICAL EXAMINATION: VITAL SIGNS: She had a temperature of 97.2, pulse 71, blood pressure was 110/50, oxygen saturation is 95% on room air, respiratory rate was 18. GENERAL: She is alert and oriented x3. NECK: Supple. No JVD. LUNGS: Clear. HEART: S1 and S2 rhythm. ABDOMEN: Soft. Positive bowel sounds. EXTREMITIES: Show no evidence of edema. NEUROLOGICAL: She was alert and oriented x3. LABORATORY DATA: Shows WBC of 10.2, RBC of 4.43, hemoglobin 11.3, hematocrit 36.8, platelet count 389,000. Electrolytes and chemistry were normal. The BUN was 20, creatinine 0.8. LFTs were normal. Albumin is 2.9. ASSESSMENT AND PLAN: The patient will continue her current therapy. She was being followed by Psychiatry as well as by Infectious Disease. She has received 2 units of packed red blood cells for which she had had a drop in her blood count and has stool positive for blood. Dr. Bennett, the [facility] extension specialist, recommended monitoring the patient and electively do endoscopies. Susanna Patel MD
[2017-05-30] MEDS: Pantoprazole 40 mg EC Tab PO SCH (05:16)
--- NOTE | 2017-05-30 09:24 | PN ---
DATE: SUBJECTIVE: An 86-year-old female on Transitional Care Unit recently treated for respiratory tract infection with IV antibiotic therapy status post right knee fluid drainage with prednisone injection, receiving occupational and physical therapy. PHYSICAL EXAMINATION GENERAL: The patient is alert and oriented x3. VITAL SIGNS: Her temperature is 98, pulse 65, blood pressure 106/41, oxygen saturation is 97% on room air, respiratory rate is 18. NECK: Supple. LUNGS: Clear. HEART: S1 and S2 rhythm. ABDOMEN: Soft, scaphoid, positive bowel sounds. EXTREMITIES: No evidence of edema. MEDICATIONS: Currently, the patient is taking Aricept 5 mg at bedtime and Wellbutrin 150 mg daily, Cozaar 100 mg daily, Plaquenil 200 mg daily, Protonix 40 mg daily, Robitussin cough medicine q. 4 hours p.r.n., Tylenol 2 tablets q. 6 h. p.r.n., Xanax 0.125 mg at bedtime. ASSESSMENT AND PLAN: She has a history of rheumatoid arthritis, forgetfulness, memory issues, cognitive disorder, depression, reflux, gastroesophageal reflux disease, hypertension and anxiety. She is being followed by Psychiatry, GI, and Infectious Disease. She had received 2 units of packed red blood cells when it was noted that her hemoglobin had dropped and she had a stool guaiac positive. GI recommended outpatient endoscopies. I am monitoring the patient closely while in the hospital. Should that status change, then decision about endoscopies would be revisited. We will follow up the patient's lab work and continue current level of care. Susanna Patel MD
[2017-05-30] MEDS: buPROPion 150 mg/24 Hours XL Tab PO SCH (09:48)
--- NOTE | 2017-05-30 14:08 | CP.PCM.PN ---
Subjective - Date & Time of Evaluation Date of Evaluation: 05/30/17 Time of Evaluation: 11:50 - Subjective Subjective: Comfortable in bed, no fevers, not in distress. Objective - Vital Signs/Intake and Output Vital Signs (last 24 hours): Temp Pulse Resp BP Pulse Ox 98.1 F 65 18 106/41 L 97 05/30/17 06:00 05/30/17 06:00 05/30/17 06:00 05/30/17 06:00 05/30/17 06:00 Intake and Output: 05/29/17 05/30/17 18:59 06:59 Intake Total 420 Balance 420 - Medications Medications: Current Medications Acetaminophen (Tylenol 325mg Tab) 650 mg PO Q6H PRN PRN Reason: Pain, moderate (4-7) Alprazolam (Xanax) 0.125 mg PO HS PRN; Protocol PRN Reason: Anxiety Stop: 06/02/17 23:07 Last Admin: 05/29/17 23:05 Dose: 0.125 mg Benzocaine/Menthol (Cepacol Sore Throat) 1 farnaz MT Q1H PRN; Protocol PRN Reason: Cough Bupropion HCl (Wellbutrin Xl) 150 mg PO DAILY ANTHONY PRN Reason: Protocol Last Admin: 05/29/17 11:06 Dose: 150 mg Donepezil HCl (Aricept) 5 mg PO HS ANTHONY PRN Reason: Protocol Last Admin: 05/29/17 21:07 Dose: 5 mg Guaifenesin (Robitussin) 200 mg PO Q4H PRN; Protocol PRN Reason: Cough and congestion Hydroxychloroquine Sulfate (Plaquenil) 200 mg PO HS ANTHONY PRN Reason: Protocol Last Admin: 05/29/17 21:07 Dose: 200 mg Losartan Potassium (Cozaar) 100 mg PO DAILY ANTHONY PRN Reason: Protocol Last Admin: 05/29/17 11:05 Dose: 100 mg Pantoprazole Sodium (Protonix Ec Tab) 40 mg PO 0600 [facility] Last Admin: 05/30/17 05:16 Dose: 40 mg - Labs Labs: 05/29/17 07:00 05/29/17 07:00 - Constitutional Appears: Non-toxic - Head Exam Head Exam: NORMAL INSPECTION - Respiratory Exam Respiratory Exam: Decreased Breath Sounds - Cardiovascular Exam Cardiovascular Exam: +S1, +S2 - GI/Abdominal Exam GI & Abdominal Exam: Soft. absent: Tenderness Assessment and Plan - Assessment and Plan (Free Text) Plan: Assessment S/P upper respiratory tract infection without evidence of pneumonia, improved and S/P treatment right knee inflammatory arthritis S/P arthrocentesis POD #7 history of bilateral lower extremity skin and skin structure infection with methicillin-sensitive Staph aureus history of right shoulder effusion S/P drainage dyslipidemia hypertension osteoarthritis gastroesophageal reflux disease multinodular goiter mitral regurgitation rheumatoid arthritis SLE Plan continue to monitor off antibiotics since she is at risk for healthcare- associated infections discussed with Dr. Patel previously
[2017-05-30 18:45] VITALS: O2SAT 94
[2017-05-31] MEDS: Pantoprazole 40 mg EC Tab PO SCH (05:48)
[2017-05-31 07:29] LABS: BASO # 0.02 K/mm3 (0.0-2.0); BASO % 0.2 % (0.0-3.0); EOS # 0.1 (0.0-0.7); EOS % 1.6 % (1.5-5.0); GRAN # 7.35 (1.4-6.5); GRAN % 81.7 % (50.0-68.0); HEMOGLOBIN 10.7 g/dL (12.0-16.0); LYMPH # 0.8 (1.2-3.4); LYMPH % 8.5 % (22.0-35.0); MEAN CELL VOLUME 83.7 fl (80.0-105.0); MEAN CORPUSCULAR HEMOGLOBIN 26.1 pg (25.0-35.0); MEAN CORPUSCULAR HGB CONC 31.2 g/dl (31.0-37.0); MEAN PLATELET VOLUME 9.1 fl (7.0-11.0); MONO # 0.7 (0.1-0.6); RBC 4.1 10^6/uL (3.5-6.1); RED CELL DISTRIBUTION WIDTH 16.3 % (11.5-14.5)
[2017-05-31] MEDS: buPROPion 150 mg/24 Hours XL Tab PO SCH (09:54)
--- NOTE | 2017-05-31 13:17 | PN ---
DATE: 05/31/2017 SUBJECTIVE: The patient seen in bed, in no acute distress, nontoxic. OBJECTIVE: VITAL SIGNS: On exam, temperature is 98, blood pressure is 120/70, respiratory rate of 16. HEENT: Unremarkable. NECK: Supple. LUNGS: Have decreased breath sounds. HEART: Normal S1, S2. ABDOMEN: Soft, nontender. LABORATORY EXAMINATION: Reveals a white count of 9000, hemoglobin of 10, platelets of 406. Chemistries reveals a BUN of 20, creatinine of 0.8. ASSESSMENT AND PLAN: An 86-year-old female with status post upper respiratory tract infection and without evidence of pneumonia that improved and status post treatment of right knee inflammatory arthritis, status post arthrocentesis postprocedure day #8 with a history of bilateral lower extremity skin and skin structure infection, and methicillin-sensitive Staphylococcus aureus, a history of right shoulder effusion, status post drainage, dyslipidemia, hypertension, osteoarthritis, gastroesophageal reflux disease, multinodular goiter, mitral regurgitation, rheumatoid arthritis and lupus, currently off antibiotics, afebrile. Review of the orders confirms the patient to be off antibiotics. The patient is at risk for developing nosocomial infections. Satish Toro MD
--- NOTE | 2017-05-31 15:51 | PN ---
DATE: SUBJECTIVE: This is an 86-year-old female on Transitional Care Unit. She is receiving occupational and physical therapy. She has a history of anemia with positive stool guaiac; depression; memory loss issues; hypertension; bronchitis, treated with IV antibiotics; rheumatoid arthritis. Currently, her medications are Aricept 5 mg at bedtime, Cepacol lozenges p.r.n., Cozaar 100 mg daily, Plaquenil 200 mg at bedtime, Protonix 40 mg daily, Robitussin p.r.n. q. 4 hours, Tylenol 2 tablets q. 6 hours p.r.n. for moderate pain, Wellbutrin 150 mg daily, and Xanax 0.125 mg p.o. at bedtime p.r.n. PHYSICAL EXAMINATION: GENERAL: She is alert and oriented x3. NECK: Supple. LUNGS: Clear. HEART: S1 and S2 rhythm. ABDOMEN: Soft with positive bowel sounds. EXTREMITIES: No evidence of edema. LABORATORY DATA: Shows a WBC of 9, RBC 4.1, hemoglobin 10.7, hematocrit 31.3, and platelet count 406. Chemistry shows a sodium of 134, potassium 4.3, chloride 99, BUN is 20, creatinine is 0.8. Albumin is 2.9. ASSESSMENT AND PLAN: We will repeat the CBC of the patient in the a.m. I have discussed with Dr. Bennett who recently recommended that the patient could have elective endoscopies as an outpatient. We will review this treatment plan, pending repeat CBC. Continue current level of medical care, monitor the patient's blood pressure and continue her physical and occupational therapy. Susanna aPtel MD
[2017-05-31 17:15] VITALS: BP 118/64; PULSE 90; RESP 14; TEMP 97
--- NOTE | 2017-05-31 17:58 | PN ---
DATE: 05/31/2017 SUBJECTIVE: The patient is sitting in chair, comfortable. She has had a slight drop in her hemoglobin from 11.5 to 10.7. She denies any abdominal pain, rectal bleeding or melena. PHYSICAL EXAMINATION: VITAL SIGNS: Reveal temperature of 98.1, blood pressure 116/47, heart rate 69. HEENT: Reveal sclerae to be white. Conjunctivae pink. NECK: Supple. CHEST/LUNGS: Clear. HEART: Reveals regular rate and rhythm. ABDOMEN: Soft, nontender. No mass. EXTREMITIES: Show chronic stasis changes of her lower extremities. LABORATORY DATA: Reveal hemoglobin of 10.7 down from 11.3, white blood cell count of 11. Chemistries reveal normal electrolytes. IMPRESSION: 1. Anemia. No signs of overt gastrointestinal bleeding. 2. Acute upper respiratory infection. RECOMMENDATIONS: 1. Follow CBC. 2. Outpatient elective endoscopy and colonoscopy. I have discussed this case with Dr. Patel at the bedside with the patient. Drake Bennett MD
[2017-06-01] MEDS: Pantoprazole 40 mg EC Tab PO SCH (06:06)
[2017-06-01 08:12] LABS: BASO # 0.01 K/mm3 (0.0-2.0); BASO % 0.1 % (0.0-3.0); EOS # 0.1 (0.0-0.7); EOS % 1.1 % (1.5-5.0); GRAN # 6.97 (1.4-6.5); LYMPH % 11.8 % (22.0-35.0); MEAN CORPUSCULAR HEMOGLOBIN 26.2 pg (25.0-35.0); MEAN CORPUSCULAR HGB CONC 31.2 g/dl (31.0-37.0); MEAN PLATELET VOLUME 9.4 fl (7.0-11.0); MONO # 0.7 (0.1-0.6); RBC 4.2 10^6/uL (3.5-6.1); RED CELL DISTRIBUTION WIDTH 16.5 % (11.5-14.5); WHITE BLOOD COUNT 8.8 10^3/ul (4.5-11.0)
[2017-06-01] MEDS: buPROPion 150 mg/24 Hours XL Tab PO SCH (10:59)
--- NOTE | 2017-06-01 11:49 | PN ---
DATE: 06/01/2017 SUBJECTIVE: The patient is in bed, in no acute distress, nontoxic. PHYSICAL EXAMINATION: VITAL SIGNS: Temperature is 98, blood pressure is 118/60, respiratory rate of 18, heart rate of 90. HEENT: Unremarkable. NECK: Supple. LUNGS: Have decreased breath sounds. HEART: Normal S1, S2. ABDOMEN: Soft, nontender. LABORATORY EXAMINATION: Reveals a white count of 8, hemoglobin of 11, platelets of 434. Chemistries reveal a BUN of 20, creatinine of 0.8. Review of orders reveals the patient to be off antibiotics. Dr. Bennett's note from yesterday is reviewed and Dr. Patel' note is reviewed. ASSESSMENT/PLAN: This is an 86-year-old female status post upper respiratory tract infection without evidence of pneumonia, improved; status post treatment of right knee inflammatory arthritis, arthrocentesis postprocedure day number 9 and a bilateral lower extremity skin and skin soft tissue infection with methicillin-resistant Staphylococcus aureus; history of right shoulder effusion, status post drainage; dyslipidemia; hypertension; osteoarthritis; gastroesophageal reflux disease; multinodular goiter; mitral regurgitation; rheumatoid arthritis and lupus. Currently, the patient is off antibiotics, afebrile, doing well, however, at risk of developing nosocomial infections. Satish Toro MD
[~2017-06-01 14:09] MED LIST: Benzocaine/Menthol (Cepacol) Lozenge MT PRN; cefTRIAXone 2 GM IN NS 2 GM/100 ML BAG IVPB SCH; guaiFENesin 200 mg/10 ml Syrup UD PO PRN
--- NOTE | 2017-06-02 10:49 | DS ---
HISTORY OF PRESENT ILLNESS: This is an 86-year-old female resting comfortably this morning. Nursing staff related there were no problems during the day or night. PHYSICAL EXAMINATION: VITAL SIGNS: Show a temperature of 97, pulse of 90, blood pressure 118/64, respiratory rate is 14, oxygen saturation is 94% on room air. GENERAL: Patient is alert and oriented x3. NECK: Supple. No JVD. LUNGS: Show diminished breath sounds at the base. ABDOMEN: Soft with positive bowel sounds. HEART: S1, S2 rhythm. EXTREMITIES: No evidence of edema. LABORATORY DATA: Shows a WBC of 8.8, RBC 4.2, hemoglobin 11, hematocrit 35.3, platelet count 434,000. MEDICATIONS: Current medications consist of Aricept 5 mg at bedtime; Cozaar 100 mg daily; Plaquenil 200 mg daily; Protonix 40 mg daily, which will be replaced with Nexium; Tylenol 2 tablets q. 6 h. p.r.n. for moderate pain; Wellbutrin 150 mg daily; and Xanax 0.125 mg at bedtime. ASSESSMENT AND PLAN: Patient will be returning home with family. She is status post treatment for respiratory tract infection with bronchitis and chronic obstructive pulmonary disease. She had an effusion of the right knee, managed by Dr. Luna of the Orthopedics Service with clinical improvement. She had a mild drop in her hemoglobin, was seen by GI Dr. Bennett. Stool guaiac was positive. Aspirin was recommended to be discontinued. The patient had a repeat CBC while in the hospital, which showed improvement. No evidence of active bleeding and GI recommended outpatient followup with endoscopies. She will continue on the above-mentioned medications for the history of rheumatoid arthritis, chronic obstructive lung disease, bronchitis, memory issues, cognitive disorder, and depression. She will be home with family with outpatient followup of labs. Susanna Patel MD
== END | disposition home or self-care (01) | DRG 153 ==
LOC: TRCU 05-25 13:19 → UNDOADMIN 05-25 13:19 → TRCU 05-25 13:19
PROVIDERS: ADMIT Internal Medicine; ATTEND Internal Medicine
PROC: F07Z9FZ Gait Training/Functional Ambulation Treatment using Assistive, Adaptive, Supportive or Protective Equipment (ICD-10-PCS; principal; 2017-05-27)
PROC: F07L6ZZ Therapeutic Exercise Treatment of Musculoskeletal System - Lower Back / Lower Extremity (ICD-10-PCS; 2017-05-27)
PROC: F07Z5FZ Bed Mobility Treatment using Assistive, Adaptive, Supportive or Protective Equipment (ICD-10-PCS; 2017-05-28)
PROC: F07Z8FZ Transfer Training Treatment using Assistive, Adaptive, Supportive or Protective Equipment (ICD-10-PCS; 2017-05-28)
PROC: F08Z2FZ Grooming/Personal Hygiene Treatment using Assistive, Adaptive, Supportive or Protective Equipment (ICD-10-PCS; 2017-05-28)
PROC: F08Z1FZ Dressing Techniques Treatment using Assistive, Adaptive, Supportive or Protective Equipment (ICD-10-PCS; 2017-05-28)
DX: J06.9 Acute upper respiratory infection, unspecified (principal); F03.91 Unspecified dementia, unspecified severity, with behavioral disturbance; M32.9 Systemic lupus erythematosus, unspecified; D64.9 Anemia, unspecified; M06.9 Rheumatoid arthritis, unspecified; I10 Essential (primary) hypertension; F32.9 Major depressive disorder, single episode, unspecified; K21.9 Gastro-esophageal reflux disease without esophagitis; E04.2 Nontoxic multinodular goiter; I34.0 Nonrheumatic mitral (valve) insufficiency; M19.011 Primary osteoarthritis, right shoulder; M17.0 Bilateral primary osteoarthritis of knee; F41.9 Anxiety disorder, unspecified; J44.9 Chronic obstructive pulmonary disease, unspecified; E78.5 Hyperlipidemia, unspecified; Z87.891 Personal history of nicotine dependence

== ENCOUNTER 2017-12-25 20:41 | Inpatient (IN) | payer MEDICARE ==
[2017-12-25 21:18] VITALS: BMI 20.3
[2017-12-25 21:45] LABS: BASO # 0.01 K/mm3 (0.0-2.0); BASO % 0.2 % (0.0-3.0); EOS % 0.3 % (1.5-5.0); GRAN # 5.8 (1.4-6.5); HEMOGLOBIN 12.3 g/dL (12.0-16.0); LYMPH # 0.5 (1.2-3.4); LYMPH % 7.2 % (22.0-35.0); MEAN CELL VOLUME 83.8 fl (80.0-105.0); MEAN CORPUSCULAR HEMOGLOBIN 27.2 pg (25.0-35.0); MEAN CORPUSCULAR HGB CONC 32.5 g/dl (31.0-37.0); MEAN PLATELET VOLUME 9.3 fl (7.0-11.0); MONO # 0.4 (0.1-0.6); MONO % 5.3 % (1.0-6.0); RBC 4.52 10^6/uL (3.5-6.1); RED CELL DISTRIBUTION WIDTH 15.4 % (11.5-14.5); WHITE BLOOD COUNT 6.7 10^3/ul (4.5-11.0)
[2017-12-25 21:54] LABS: PARTIAL THROMBOPLASTIN TIME 28.9 Seconds (25.1-36.5); PROTHROMBIN TIME 11.4 SECONDS (9.4-12.5)
[2017-12-25 22:05] LABS: ALB/GLOB RATIO 1.3 (1.1-1.8); ALBUMIN 3.9 g/dL (3.0-4.8); ALT/SGPT 32 U/L (7-56); AST/SGOT 41 U/L (14-36); BLOOD UREA NITROGEN 25 mg/dL (7-21); GFR AFRICAN-AMERICAN > 60; GFR NON-AFRICAN AMERICAN > 60
[2017-12-25 22:13] LABS: TROPONIN I 0.09 ng/mL
[2017-12-25 22:27] LABS: CK MB% 2.2 % (2.5-3.0); CK-MB 10.6 ng/mL (0.0-3.6)
--- NOTE | 2017-12-25 23:10 | ED PDOC ---
Arrival/HPI - General Historian: Patient - General Chief Complaint: Trauma Time Seen by Provider: 12/25/17 20:54 - History of Present Illness Narrative History of Present Illness (Text): 12/25/17 23:04 87yo female with OA and left hip replacement surgery bib EMS for complaint of right hip, lower back and right knee pain s/p trauma today. The daughter's by the bedside states patient lives by herself and she fell while going to the bathroom and was on the floor for unknown period of time. Patient usually ambulates with a walker, states she slipped and fell backward, hitting the back of her head and her back on the floor. She denies LOC, headache, nausea, focal weakness, dizziness, focal/urinary incontinence, saddle anesthesia, any other complaint. 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 - HEENT Hx HEENT Disorder: Yes (eyeglasses) Hx Glaucoma: Yes - Renal Hx Renal Disorder: No - Endocrine/Metabolic Hx Endocrine Disorders: Yes Hx Systemic Lupus Erythematosus: Yes - Hematological/Oncological Other/Comment: 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 - Integumentary Hx Dermatological Disorder: Yes Hx Cellulitis: Yes Other/Comment: ble +1 edema cellulitis, thick hard toenails,redness swelling red raised rash from thighs to lower legs, feet reddened and swollen, red dry cracked skin to legs and feet, weeping coming from open wounds both legs left more than right, both hands are reddened, skin discolorations both arms - Musculoskeletal/Rheumatological Hx Musculoskeletal Disorders: Yes Hx Degenerative Joint Disease: Yes - Gastrointestinal Hx Gastrointestinal Disorders: Yes (hiatal hernia) Hx Gastroesophageal Reflux: Yes - Genitourinary/Gynecological Hx Genitourinary Disorders: (frequency) - Psychiatric Hx Psychophysiologic Disorder: No Hx Depression: No Hx Emotional Abuse: No Hx Physical Abuse: No Hx Substance Use: No - Surgical History Hx Appendectomy: Yes Hx Cataract Extraction: Yes Hx Cholecystectomy: Yes Hx Orthopedic Surgery: Yes (left hip 11/06/12) Other/Comment: tongue surgery. cyst removal from right breast. hemorroidectomy - Anesthesia Hx Anesthesia: Yes Hx Anesthesia Reactions: No Hx Malignant Hyperthermia: No - Suicidal Assessment Feels Threatened In Home Enviroment: No Family/Social History - Physician Review Nursing Documentation Reviewed: Yes Family/Social History: Unknown Family HX Smoking Status: Former Smoker Hx Alcohol Use: No Hx Substance Use: No Hx Substance Use Treatment: No Allergies/Home Meds Allergies/Adverse Reactions: Allergies codeine Adverse Reaction (Verified 05/25/17 15:42) NAUSEA Home Medications: Home Meds Medication Instructions Recorded Confirmed Hydroxychloroquine Sulfate 200 mg PO HS 09/30/16 05/25/17 [Plaquenil] Esomeprazole Magnesium [Nexium] 1 cap PO DAILY 05/20/17 05/25/17 Review of Systems - Physician Review All systems were reviewed & negative as marked: Yes - Review of Systems Constitutional: Normal Eyes: Normal ENT: Normal Respiratory: Normal Cardiovascular: Normal Gastrointestinal: Normal Genitourinary Female: Normal Musculoskeletal: Arthralgias (Right hip), Back Pain Skin: Normal Neurological: Normal Endocrine: Normal Hemo/Lymphatic: Normal Psychiatric: Normal Physical Exam Vital Signs Reviewed: Yes Temperature: Afebrile Blood Pressure: Normal Pulse: Regular Respiratory Rate: Normal Appearance: Positive for: Well-Appearing, Non-Toxic, Comfortable Pain Distress: None Mental Status: Positive for: Alert and Oriented X 3 - Systems Exam Head: Present: Atraumatic, Normocephalic Pupils: Present: PERRL Extroacular Muscles: Present: EOMI Conjunctiva: Present: Normal Mouth: Present: Moist Mucous Membranes Neck: Present: Normal Range of Motion Respiratory/Chest: Present: Clear to Auscultation, Good Air Exchange. No: Respiratory Distress, Accessory Muscle Use Cardiovascular: Present: Regular Rate and Rhythm, Normal S1, S2. No: Murmurs Abdomen: No: Tenderness, Distention, Peritoneal Signs Back: Present: Midline Tenderness, Paraspinal Tenderness. No: Pain with Leg Raise Upper Extremity: Present: Normal Inspection. No: Cyanosis, Edema Lower Extremity: Present: NORMAL PULSES, Normal ROM, Tenderness (Right hip/knee) , Swelling (Right knee), Neurovascularly Intact. No: Edema, Deformity Neurological: Present: GCS=15, CN II-XII Intact, Speech Normal Skin: Present: Warm, Dry, Normal Color. No: Rashes Psychiatric: Present: Alert, Oriented x 3, Normal Insight, Normal Concentration Vital Signs Temp Pulse Resp BP Pulse Ox 12/25/17 21:09 98.7 F 83 17 128/69 98 12/25/17 20:54 97.9 F 76 18 128/69 94 L Medical Decision Making ED Course and Treatment: 12/26/17 01:07 EKG reviewed, shows: Normal sinus rhythm @68 bpm Possible left atrial enlargement Nonspecific T wave abnormality Abnormal EKG (Tc Moss) 12/26/17 01:56 PT presented for stated history. She was AAO x3, Neurologically intact and hemodynamically stable in ED. B/L hips/LS xray and right hip xray - No acute fracture/dislocation. Avascular necrosis of right hip was noted, which is old. Head CT - No acute finding Lab was ordered and elevated CK was noted Case was DW Dr. Patel who requested for Beef Tagger to see the pt. He saw the pt and states pt is stable for Tele admission. PT was admitted to Tele. (Vidya Guzman) - Lab Interpretations Lab Results: 12/25/17 21:35 12/25/17 21:35 Lab Results 12/25/17 21:35: PT 11.4, INR 1.00, APTT 28.9 12/25/17 21:35: Sodium 138, Potassium 4.2, Chloride 102, Carbon Dioxide 28, Anion Gap 13, BUN 25 H, Creatinine 0.8, Est GFR ( Amer) > 60, Est GFR ( Non-Af Amer) > 60, Random Glucose 132 H, Calcium 10.0, Total Bilirubin 0.8, AST 41 H D, ALT 32, Alkaline Phosphatase 100, Lactate Dehydrogenase 831 H, Total Creatine Kinase 474 H, CK-MB (CK-2) 10.6 H, CK-MB (CK-2) % 2.2 L, Troponin I 0.09 D, Total Protein 7.0, Albumin 3.9, Globulin 3.0, Albumin/Globulin Ratio 1.3 12/25/17 21:35: WBC 6.7, RBC 4.52, Hgb 12.3, Hct 37.9, MCV 83.8, MCH 27.2, MCHC 32.5, RDW 15.4 H, Plt Count 287, MPV 9.3, Gran % 87.0 H, Lymph % (Auto) 7.2 L, [place] % (Auto) 5.3, Eos % (Auto) 0.3 L, Baso % (Auto) 0.2, Gran # 5.80, Lymph # ( Auto) 0.5 L, [place] # (Auto) 0.4, Eos # (Auto) 0.0, Baso # (Auto) 0.01 - RAD Interpretation Radiology Orders: 12/25/17 21:19 HEAD W/O CONTRAST [CT] Stat 12/25/17 21:20 HIP MIN 3V W/ PELVIS DHARMESH [RAD] Stat LS SPINE WITH OBL > 18 YRS OLD [RAD] Stat 12/25/17 21:21 KNEE RIGHT 2 VIEWS (AP & LAT) [RAD] Stat - Medication Orders Current Medication Orders: Sodium Chloride (Sodium Chloride 0.9%) 1,000 mls @ 100 mls/hr IV .Q10H ANTHONY Stop: 12/26/17 09:00 Last Admin: 12/26/17 00:30 Dose: 100 mls/hr eMAR Start Stop Document 12/26/17 00:30 AD (Rec: 12/26/17 01:56 AD [email or web address]) Intravenous Solution Start Date 12/26/17 Start Time 00:30 Sodium Chloride (Sodium Chloride 0.9%) 1,000 mls @ 75 mls/hr IV .[id number] ANTHONY Discontinued Medications Acetaminophen (Tylenol 325mg Tab) 975 mg PO STAT STA Stop: 12/26/17 00:16 Last Admin: 12/26/17 00:30 Dose: 975 mg MAR Pain/Vitals Document 12/26/17 00:30 AD (Rec: 12/26/17 01:55 AD [email or web address]) Presence of Pain Presence of Pain Yes Location Intensity 5 Scale Used Numeric Sodium Chloride (Sodium Chloride 0.9%) 1,000 mls @ 100 mls/hr IV .Q10H STA Stop: 12/26/17 09:26 Last Admin: 12/25/17 23:37 Dose: 100 mls/hr eMAR Start Stop Document 12/25/17 23:37 AD (Rec: 12/25/17 23:37 AD [email or web address]) Intravenous Solution Start Date 12/25/17 Start Time 23:37 Lidocaine (Lidoderm) 1 ea TD ONCE ONE Stop: 12/26/17 00:18 Morphine Sulfate (Morphine) 2 mg IVP STAT STA Stop: 12/26/17 00:25 Simethicone (Mylicon Chew Tab) 80 mg PO ONCE ONE Stop: 12/26/17 00:19 Tramadol HCl (Ultram) 50 mg PO STAT STA Stop: 12/26/17 00:16 Last Admin: 12/26/17 00:30 Dose: 50 mg MAR Pain Assessment Document 12/26/17 00:30 AD (Rec: 12/26/17 01:56 AD [email or web address] Pain Reassessment Is this a pain reassessment? No Presence of Pain Presence of Pain Yes Pain Scale Used Pain Scale Used Numeric Description Intensity of Pain at present 5 Pain Behavior Facial Grimacing Disposition/Present on Arrival - Present on Arrival Any Indicators Present on Arrival: No History of DVT/PE: No History of Uncontrolled Diabetes: No Urinary Catheter: No History of Decub. Ulcer: No History Surgical Site Infection Following: None - Disposition Have Diagnosis and Disposition been Completed?: Yes Disposition Time: 22:10 Patient Plan: Admission - Disposition Diagnosis: Rhabdomyolysis, Hip pain, Back pain, Knee pain Disposition: HOSPITALIZED Patient Problems: Current Active Problems Problem Status Onset Back pain Acute Hip pain Acute Knee pain Acute Rhabdomyolysis Acute Condition: FAIR
[2017-12-25] MEDS ORDERED: Sodium Chloride 0.9% 1,000 ML IV STA (23:27)
[2017-12-26] MEDS ORDERED: Sodium Chloride 0.9% 1,000 ML IV SCH (00:15)
[2017-12-26] MEDS ORDERED: Lidocaine 5% Patch TD ONE (00:17)
[2017-12-26] MEDS ORDERED: Simethicone 80 mg Chewtab PO ONE (00:18)
[2017-12-26] MEDS ORDERED: Morphine 2 mg/ml ISec IVP STA (00:24)
--- NOTE | 2017-12-26 00:25 | CP.PCM.CON ---
History of Present Illness - History of Present Illness History of Present Illness: PGY-2 ICU consult note for Dr Barboza HPI: Patient is a 87 year old female with a PMHx left hip replacement, osteoporosis, HTN, HLD, GERD, hiatal hernia, was brought by EMS after sustaining a fall and suffering injuring to her right hip, lower back and right knee. Patient's daughter was at bedside. Patient stated she slipped while going to the bathroom and fell backward and hit the back of her head on the floor and landed on her right side. She could not recall how long she was on the floor. She lives by herself and ambulates with a walker. Patient stated the pain was most prominent in her lumbar back rating it a 10/10. Imaging was collected including knee xray, hip/pelvis xray and lumbar xray all of which were negative for acute fracture. On labs, her total creatine kinase was elevated at 474 and her LDH was 831. PMH: HTN, hyperlipidemia, GERD, hiatal hernia PSH: L hip replacement, cholecystectomy Meds: MAR reviewed ALL: Codeine (rash) Social: Former smoker, no ETOH/drugs Fhx: non-contributory Review of Systems - Constitutional Constitutional: absent: Chills, Fever - EENT Eyes: absent: Blurred Vision Ears: absent: Disequilibrium, Dizziness Nose/Mouth/Throat: absent: Nasal Discharge - Cardiovascular Cardiovascular: absent: Chest Pain, Chest Pain at Rest, Diaphoresis, Dyspnea, Lightheadedness - Respiratory Respiratory: absent: Cough, Dyspnea, Wheezing - Gastrointestinal Gastrointestinal: absent: Abdominal Pain, Constipation, Diarrhea - Genitourinary Genitourinary: absent: Dysuria - Musculoskeletal Musculoskeletal: Back Pain, Myalgias - Integumentary Integumentary: Bleeding Lesions - Neurological Neurological: Confusion. 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 - HEENT Hx HEENT Problems: Yes (eyeglasses) Hx Glaucoma: Yes - RENAL Hx Chronic Kidney Disease: No - ENDOCRINE/METABOLIC Hx Endocrine Disorders: Yes Hx Systemic Lupus Erythematosus: Yes - HEMATOLOGICAL/ONCOLOGICAL Other/Comment: 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 - INTEGUMENTARY Hx Dermatological Problems: Yes Hx Cellulitis: Yes Other/Comment: ble +1 edema cellulitis, thick hard toenails,redness swelling red raised rash from thighs to lower legs, feet reddened and swollen, red dry cracked skin to legs and feet, weeping coming from open wounds both legs left more than right, both hands are reddened, skin discolorations both arms - MUSCULOSKELETAL/RHEUMATOLOGICAL Hx Musculoskeletal Disorders: Yes Hx Degenerative Joint Disease: Yes - GASTROINTESTINAL Hx Gastrointestinal Disorders: Yes (hiatal hernia) Hx Gastroesophageal Reflux: Yes - GENITOURINARY/GYNECOLOGICAL Hx Genitourinary Disorders: (frequency) - PSYCHIATRIC Hx Psychophysiologic Disorder: No Hx Depression: No Hx Emotional Abuse: No Hx Physical Abuse: No Hx Substance Use: No - SURGICAL HISTORY Hx Appendectomy: Yes Hx Cataract Extraction: Yes Hx Cholecystectomy: Yes Hx Orthopedic Surgery: Yes (left hip 11/06/12) Other/Comment: tongue surgery. cyst removal from right breast. hemorroidectomy - ANESTHESIA Hx Anesthesia: Yes Hx Anesthesia Reactions: No Hx Malignant Hyperthermia: No Meds Allergies/Adverse Reactions: Allergies Allergy/AdvReac Type Severity Reaction Status Date / Time codeine AdvReac NAUSEA Verified 05/25/17 15:42 - Medications Medications: Current Medications Acetaminophen (Tylenol 325mg Tab) 975 mg PO STAT STA Stop: 12/26/17 00:16 Sodium Chloride (Sodium Chloride 0.9%) 1,000 mls @ 100 mls/hr IV .Q10H ANTHONY Stop: 12/26/17 09:00 Sodium Chloride (Sodium Chloride 0.9%) 1,000 mls @ 75 mls/hr IV .[id number] ANTHONY Lidocaine (Lidoderm) 1 ea TD ONCE ONE Stop: 12/26/17 00:18 Physical Exam - Constitutional Appears: Well, Non-toxic, No Acute Distress - Head Exam Head Exam: ATRAUMATIC, NORMAL INSPECTION - Eye Exam Eye Exam: EOMI, PERRL - ENT Exam ENT Exam: Mucous Membranes Moist - Neck Exam Neck exam: Positive for: Normal Inspection. Negative for: Tenderness - Respiratory Exam Respiratory Exam: Clear to Auscultation Bilateral, NORMAL BREATHING PATTERN. absent: Rales, Rhonchi, Wheezes - Cardiovascular Exam Cardiovascular Exam: +S1, +S2, Systolic Murmur. absent: Bradycardia, Tachycardia, JVD - GI/Abdominal Exam GI & Abdominal Exam: Normal Bowel Sounds, Soft. absent: Distended, Firm, Tenderness - Extremities Exam Extremities exam: Positive for: normal inspection - Back Exam Back exam: muscle spasm, tenderness. absent: NORMAL INSPECTION, rash noted - Neurological Exam Neurological exam: Alert, Oriented x3 - Skin Skin Exam: Dry, Intact, Warm Results - Vital Signs Recent Vital Signs: Last Vital Signs Temp 98.7 F 12/25/17 21:09 Pulse 83 12/25/17 21:09 Resp 17 12/25/17 21:09 BP 128/69 12/25/17 21:09 Pulse Ox 98 12/25/17 21:09 - Labs Result Diagrams: 12/25/17 21:35 12/25/17 21:35 Assessment & Plan - Assessment and Plan (Free Text) Assessment: Patient is a 87 year old female with a PMHx left hip replacement, osteoporosis, HTN, HLD, GERD, hiatal hernia, was brought by EMS after sustaining a fall and suffering injuring to her right hip, lower back and right knee: S/P Fall Elevated Total Creatine Kinase Elevated CK-MB -We'll hydrate patient, start with NS 100cc/hr for 8 hours then switch to NS 75cc/hr -Trend total creatine kinase and CK-MB -Treat pain with tramadol 50mg po once, tylenol 975mg po once, lidocaine patch Patient does not need ICU monitoring at this time.
--- NOTE | 2017-12-26 00:55 | CP.PCM.PN ---
Subjective - Date & Time of Evaluation Date of Evaluation: 12/26/17 Time of Evaluation: 00:49 - Subjective Subjective: The pt. was seen and discussed with residents. 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 doesn't meet ICU criteria and can be managed on AMF Objective - Vital Signs/Intake and Output Vital Signs (last 24 hours): Temp Pulse Resp BP Pulse Ox 98.7 F 83 17 128/69 98 12/25/17 21:09 12/25/17 21:09 12/25/17 21:09 12/25/17 21:09 12/25/17 21:09 - Medications Medications: Current Medications Sodium Chloride (Sodium Chloride 0.9%) 1,000 mls @ 100 mls/hr IV .Q10H ANTHONY Stop: 12/26/17 09:00 Sodium Chloride (Sodium Chloride 0.9%) 1,000 mls @ 75 mls/hr IV .[id number] ANTHONY - Labs Labs: PT 11.4 SECONDS (9.4-12.5) 12/25/17 21:35 INR 1.00 12/25/17 21:35 APTT 28.9 Seconds (25.1-36.5) 12/25/17 21:35
[2017-12-26 07:03] LABS: BASO # 0.01 K/mm3 (0.0-2.0); BASO % 0.2 % (0.0-3.0); EOS # 0.1 (0.0-0.7); EOS % 2.5 % (1.5-5.0); GRAN # 3.12 (1.4-6.5); GRAN % 69.6 % (50.0-68.0); HEMOGLOBIN 10.3 g/dL (12.0-16.0); LYMPH # 0.8 (1.2-3.4); LYMPH % 18.3 % (22.0-35.0); MEAN CORPUSCULAR HEMOGLOBIN 26.6 pg (25.0-35.0); MEAN CORPUSCULAR HGB CONC 31.7 g/dl (31.0-37.0); MEAN PLATELET VOLUME 9.2 fl (7.0-11.0); MONO # 0.4 (0.1-0.6); MONO % 9.4 % (1.0-6.0); RBC 3.87 10^6/uL (3.5-6.1); RED CELL DISTRIBUTION WIDTH 15.4 % (11.5-14.5); WHITE BLOOD COUNT 4.5 10^3/ul (4.5-11.0)
[2017-12-26 07:05] LABS: PROTHROMBIN TIME 11.5 SECONDS (9.4-12.5)
[2017-12-26 07:24] LABS: ALB/GLOB RATIO 1.2 (1.1-1.8); ALT/SGPT 23 U/L (7-56); AST/SGOT 33 U/L (14-36); BLOOD UREA NITROGEN 19 mg/dL (7-21); CALCIUM 8.9 mg/dL (8.4-10.5); GFR AFRICAN-AMERICAN > 60; GFR NON-AFRICAN AMERICAN > 60
[2017-12-26 08:18] LABS: CK MB% 2.1 % (2.5-3.0); CK-MB 7.2 ng/mL (0.0-3.6)
--- NOTE | 2017-12-26 08:36 | CT ---
Date of service: 12/25/2017 PROCEDURE: CT HEAD WITHOUT CONTRAST. HISTORY: s/p trauma COMPARISON: None available. TECHNIQUE: Axial computed tomography images were obtained through the head/brain without intravenous contrast. Radiation dose: Total exam DLP = mGy-cm. This CT exam was performed using one or more of the following dose reduction techniques: Automated exposure control, adjustment of the mA and/or kV according to patient size, and/or use of iterative reconstruction technique. FINDINGS: HEMORRHAGE: No intracranial hemorrhage. BRAIN: No mass effect or edema. Chronic periventricular white matter ischemic disease. VENTRICLES: Unremarkable. No hydrocephalus. CALVARIUM: Unremarkable. PARANASAL SINUSES: Unremarkable as visualized. No significant inflammatory changes. MASTOID AIR CELLS: Unremarkable as visualized. No inflammatory changes. OTHER FINDINGS: None. IMPRESSION: No acute hemorrhage.
--- NOTE | 2017-12-26 09:36 | RAD ---
Date of service: 12/25/2017 PROCEDURE: Radiographs of the Lumbar Spine. HISTORY: back pain COMPARISON: No prior. FINDINGS: BONES: Normal alignment. No listhesis. No fracture. DISC SPACES: There is severe multilevel disc degeneration. There is dextroscoliosis. OTHER FINDINGS: None. IMPRESSION: No acute compression fracture. Multilevel disc degeneration and dextroscoliosis
--- NOTE | 2017-12-26 09:38 | RAD ---
Date of service: 12/25/2017 PROCEDURE: Right Knee Radiographs. HISTORY: knee pain s/p trauma COMPARISON: None. FINDINGS: BONES: Normal. No fracture. JOINTS: There is joint space narrowing in the medial and lateral joint space. JOINT EFFUSION: None. OTHER FINDINGS: The report concurs with the preliminary [facility] report IMPRESSION: Joint space narrowing in the medial and lateral joint space
[2017-12-26 09:40] LABS: IRON 68 ug/dL (45-180)
--- NOTE | 2017-12-26 09:40 | RAD ---
PROCEDURE: Radiographs of the pelvis and bilateral hips HISTORY: hip pain s/p trauma COMPARISON: None. FINDINGS: BONES: Pelvis: Unremarkable. Right hip:Severe degenerative changes with flattening of the femoral head and bony sclerosis. No evidence of fracture Left hip:Left hip prosthesis with no fracture or loosening JOINTS: Right hip: Unremarkable. Left hip: Unremarkable. Sacroiliac Joints: Unremarkable. Pubic symphysis: Unremarkable. SOFT TISSUES: Normal. OTHER FINDINGS: The report concurs with the preliminary [facility] report IMPRESSION: Right hip:Severe degenerative changes with flattening of the femoral head and bony sclerosis. No evidence of fracture
[2017-12-26 09:50] LABS: % IRON SATURATION 19 % (20-55); TOTAL IRON BINDING CAPACITY 360 ug/dL (265-497)
[2017-12-26] MEDS: Sodium Chloride 0.9% 1,000 ML IV SCH ×2 (10:39→23:42)
[2017-12-26] MEDS: Magnesium Oxide 400 mg Tab UD PO SCH ×2 (10:40→18:48)
[2017-12-26] MEDS ORDERED: MethylPREDNISolone Depo 40 mg/ml Inj IM ONE (11:04)
[2017-12-26] MEDS ORDERED: Bupivacaine 0.5% Inj(30mL) IJ ONE (11:04)
--- NOTE | 2017-12-26 12:24 | CP.PCM.CON ---
History of Present Illness - History of Present Illness History of Present Illness: 87 year old female with PMH of bilateral lower extremity cellulitis, right shoulder effusion S/P drainage, dyslipidemia, hypertension, osteoarthritis, gastroesophageal reflux disease, multinodular goiter, mitral regurgitation, rheumatoid arthritis came in to [facility] after she fell in the bathroom when she slipped and hit her left arm and leg. She denies losing consciousness, no headache or dizziness, no chest palpitations, no nausea or vomiting, no abdominal pain, no diarrhea, no dysuria, no sore throat, no cough or colds. Infectious Diseases consult is requested to further evaluate and manage. 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 - HEENT Hx HEENT Problems: Yes (eyeglasses) Hx Glaucoma: Yes - RENAL Hx Chronic Kidney Disease: No - ENDOCRINE/METABOLIC Hx Endocrine Disorders: Yes Hx Systemic Lupus Erythematosus: Yes - HEMATOLOGICAL/ONCOLOGICAL Other/Comment: 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 - INTEGUMENTARY Hx Dermatological Problems: Yes Other/Comment: ble +1 edema cellulitis, thick hard toenails,redness swelling red raised rash from thighs to lower legs, feet reddened and swollen, red dry cracked skin to legs and feet, weeping coming from open wounds both legs left more than right, both hands are reddened, skin discolorations both arms - MUSCULOSKELETAL/RHEUMATOLOGICAL Hx Musculoskeletal Disorders: Yes Hx Degenerative Joint Disease: Yes Hx Falls: Yes (fell at home) - GASTROINTESTINAL Hx Gastrointestinal Disorders: Yes (hiatal hernia) Hx Gastroesophageal Reflux: Yes - GENITOURINARY/GYNECOLOGICAL Hx Genitourinary Disorders: (frequency) - PSYCHIATRIC Hx Psychophysiologic Disorder: No Hx Depression: No Hx Emotional Abuse: No Hx Physical Abuse: No Hx Substance Use: No - SURGICAL HISTORY Hx Appendectomy: Yes Hx Cholecystectomy: Yes Hx Orthopedic Surgery: Yes (left hip 11/06/12) Other/Comment: tongue surgery. cyst removal from right breast. hemorroidectomy - ANESTHESIA Hx Anesthesia: Yes Hx Anesthesia Reactions: No Hx Malignant Hyperthermia: No Meds Allergies/Adverse Reactions: Allergies Allergy/AdvReac Type Severity Reaction Status Date / Time codeine AdvReac NAUSEA Verified 05/25/17 15:42 - Medications Medications: Current Medications Acetaminophen (Tylenol 325mg Tab) 650 mg PO Q6H PRN PRN Reason: Pain, moderate (4-7) Donepezil HCl (Aricept) 5 mg PO HS ANTHONY Hydroxychloroquine Sulfate (Plaquenil) 200 mg PO HS ANTHONY PRN Reason: Protocol Sodium Chloride (Sodium Chloride 0.9%) 1,000 mls @ 100 mls/hr IV .Q10H ANTHONY Stop: 12/26/17 09:00 Last Admin: 12/26/17 00:30 Dose: 100 mls/hr Sodium Chloride (Sodium Chloride 0.9%) 1,000 mls @ 75 mls/hr IV .[id number] ANTHONY Losartan Potassium (Cozaar) 100 mg PO DAILY ANTHONY Magnesium Oxide (Mag-Ox) 400 mg PO BID ANTHONY Physical Exam - Constitutional Appears: Non-toxic, Chronically Ill - Head Exam Head Exam: NORMAL INSPECTION - ENT Exam ENT Exam: Mucous Membranes Moist - Neck Exam Neck exam: Negative for: Lymphadenopathy, Meningismus - Respiratory Exam Respiratory Exam: Decreased Breath Sounds - Cardiovascular Exam Cardiovascular Exam: +S1, +S2 - GI/Abdominal Exam GI & Abdominal Exam: Soft. absent: Tenderness - Extremities Exam Additional comments: small wound on the left forearm without discharge or pus, some erythema and tenderness on the left leg, without pus Results - Vital Signs Recent Vital Signs: Last Vital Signs Temp 98.7 F 12/25/17 21:09 Pulse 63 12/26/17 05:35 Resp 19 12/26/17 02:02 BP 129/72 12/26/17 00:35 Pulse Ox 100 12/26/17 00:35 - Labs Result Diagrams: 12/26/17 06:45 12/26/17 06:45 Assessment & Plan - Assessment and Plan (Free Text) Plan: Assessment consider left leg cellulitis in this patient with a history of MRSA wound infection in the same leg S/P upper respiratory tract infection without evidence of pneumonia, improved and S/P treatment right knee inflammatory arthritis S/P arthrocentesis POD #7 history of bilateral lower extremity skin and skin structure infection with methicillin-sensitive Staph aureus history of right shoulder effusion S/P drainage dyslipidemia hypertension osteoarthritis gastroesophageal reflux disease multinodular goiter mitral regurgitation rheumatoid arthritis SLE Plan started Teflaro pending blood cx and will monitor clinically discussed with Dr. Patel
[2017-12-26 12:36] LABS: FERRITIN 26.8 ng/mL
[2017-12-26 13:06] LABS: FOLATE 15.3 ng/mL
--- NOTE | 2017-12-26 16:14 | CON ---
Copied To: Peña Luna DO Attending MD: Peña Luna DO DATE: 12/26/2017 ORTHOPEDIC CONSULTATION Patient is an 87-year-old female with known osteoarthritis of her right hip with subluxation of the hip joint. No evidence of infection and she has mild osteoarthritis of the right knee with mild effusion. She was seen several months ago and did not want total hip replacement to get rid of her right hip pain and she has not changed her mind. She still does not want to consider surgery to help the pain of her right hip. She had a history of falling at home yesterday and had to wait for a while to get help, but there is nothing for me to do right now. She does not want to have surgery, but she is a good candidate for right total hip replacement. Even at the age, surgery is much more successful than years ago and they will get rid of her pain and she will be more stable when she walks. So, she consents for surgery as much I can do for now and she does not need a Depo-Medrol injection for the right knee. I will give that if she hurts more in the right knee. We will try to get her up out of bed and ambulate. Peña Luna, DO : 12/26/2017 11:49:44
--- NOTE | 2017-12-26 17:58 | CP.PCM.CON ---
<Froylan Metzger - Last Filed: 12/26/17 17:54> History of Present Illness - History of Present Illness History of Present Illness: Podiatry Consult Note for Dr. Sanchez 87F with PMHx eft hip replacement, osteoporosis, HTN, HLD, GERD, hiatal hernia seen at bedside complaining of elongated, thickened, dystrophic nails that have been present for several weeks. Patient states that she is no longer able to reach her toenails to trim them. She is AAO x 3 and NAD at time of visit. Denies any acute overnight events or any other pedal complaints at this time. Denies any recent N/V/F/C/CP/SOB/D/posterior calf pain when squeezed. 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 - HEENT Hx HEENT Problems: Yes (eyeglasses) Hx Glaucoma: Yes - RENAL Hx Chronic Kidney Disease: No - ENDOCRINE/METABOLIC Hx Endocrine Disorders: Yes Hx Systemic Lupus Erythematosus: Yes - HEMATOLOGICAL/ONCOLOGICAL Other/Comment: 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 - INTEGUMENTARY Hx Dermatological Problems: Yes Other/Comment: ble +1 edema cellulitis, thick hard toenails,redness swelling red raised rash from thighs to lower legs, feet reddened and swollen, red dry cracked skin to legs and feet, weeping coming from open wounds both legs left more than right, both hands are reddened, skin discolorations both arms - MUSCULOSKELETAL/RHEUMATOLOGICAL Hx Musculoskeletal Disorders: Yes Hx Degenerative Joint Disease: Yes Hx Falls: Yes (fell at home) - GASTROINTESTINAL Hx Gastrointestinal Disorders: Yes (hiatal hernia) Hx Gastroesophageal Reflux: Yes - GENITOURINARY/GYNECOLOGICAL Hx Genitourinary Disorders: (frequency) - PSYCHIATRIC Hx Psychophysiologic Disorder: No Hx Depression: No Hx Emotional Abuse: No Hx Physical Abuse: No Hx Substance Use: No - SURGICAL HISTORY Hx Appendectomy: Yes Hx Cholecystectomy: Yes Hx Orthopedic Surgery: Yes (left hip 06/21/13) Other/Comment: tongue surgery. cyst removal from right breast. hemorroidectomy - ANESTHESIA Hx Anesthesia: Yes Hx Anesthesia Reactions: No Hx Malignant Hyperthermia: No Meds Allergies/Adverse Reactions: Allergies Allergy/AdvReac Type Severity Reaction Status Date / Time codeine AdvReac NAUSEA Verified 05/25/17 15:42 - Medications Medications: Current Medications Acetaminophen (Tylenol 325mg Tab) 650 mg PO Q6H PRN PRN Reason: Pain, moderate (4-7) Donepezil HCl (Aricept) 5 mg PO HS ANTHONY Hydroxychloroquine Sulfate (Plaquenil) 200 mg PO HS ANTHONY PRN Reason: Protocol Sodium Chloride (Sodium Chloride 0.9%) 1,000 mls @ 75 mls/hr IV .[id number] [facility] Last Admin: 12/26/17 10:39 Dose: 75 mls/hr Ceftaroline Fosamil 400 mg/ (Sodium Chloride) 100 mls @ 100 mls/hr IVPB Q12 ANTHONY PRN Reason: Protocol Stop: 01/02/18 10:01 Last Admin: 12/26/17 10:46 Dose: 100 mls/hr Losartan Potassium (Cozaar) 100 mg PO DAILY [facility] Last Admin: 12/26/17 10:40 Dose: 100 mg Magnesium Oxide (Mag-Ox) 400 mg PO BID [facility] Last Admin: 12/26/17 10:40 Dose: 400 mg Physical Exam - Constitutional Appears: Well, Non-toxic, No Acute Distress - Extremities Exam Additional comments: B/l LE focused exam: Vasc: DP/PT pulses fully palpable 2/4 b/l. Skin temperature warm to warm from proximal to distal. CFT < 3 seconds to all digits b/l. Minimal 1+, pitting b/l LE edema noted Neuro: Epicritic and protective sensation grossly intact b/l Derm: Nails 1-5 b/l noted to be elongated, thickened and dystrophic. Otherwise, no open lesions, wounds, maceration, xerosis, abnormal pigmentation or abnormal growths noted bl/ MSK: Minimal POP to nail plates. ROM WNL at all major muscle groups. MMT WNL for patient age. No other gross deformities noted - Neurological Exam Neurological exam: Alert, Oriented x3 - Psychiatric Exam Psychiatric exam: Normal Affect, Normal Mood Results - Vital Signs Recent Vital Signs: Last Vital Signs Temp 98 F 12/26/17 17:41 Pulse 63 08/10/18 17:41 Resp 18 12/26/17 17:41 BP 134/62 12/26/17 17:41 Pulse Ox 100 12/26/17 00:35 - Labs Result Diagrams: 12/26/17 06:45 12/26/17 06:45 Labs: Laboratory Results - last 24 hr 12/26/17 Unknown Iron 68 TIBC 360 % Saturation 19 L Assessment & Plan - Assessment and Plan (Free Text) Assessment: 87F seen at bedside complaining of elongated, thickened, dystrophic nails that have been present for several weeks Plan: Patient seen and evaluated Plan discussed with Dr. Sanchez Did not have access to nail nippers as wound care center was closed Will see patient tomorrow to debride nails down to appropriate length - Date & Time Date: 12/26/17 Time: 17:58 <Armando Sanchez - Last Filed: 12/26/17 19:29> Meds - Medications Medications: Current Medications Acetaminophen (Tylenol 325mg Tab) 650 mg PO Q6H PRN PRN Reason: Pain, moderate (4-7) Donepezil HCl (Aricept) 5 mg PO HS ANTHONY Hydroxychloroquine Sulfate (Plaquenil) 200 mg PO HS ANTHONY PRN Reason: Protocol Sodium Chloride (Sodium Chloride 0.9%) 1,000 mls @ 75 mls/hr IV .[id number] [facility] Last Admin: 12/26/17 10:39 Dose: 75 mls/hr Ceftaroline Fosamil 400 mg/ (Sodium Chloride) 100 mls @ 100 mls/hr IVPB Q12 ANTHONY PRN Reason: Protocol Stop: 01/02/18 10:01 Last Admin: 12/26/17 10:46 Dose: 100 mls/hr Losartan Potassium (Cozaar) 100 mg PO DAILY [facility] Last Admin: 12/26/17 10:40 Dose: 100 mg Magnesium Oxide (Mag-Ox) 400 mg PO BID [facility] Last Admin: 12/26/17 18:48 Dose: 400 mg Results - Vital Signs Recent Vital Signs: Last Vital Signs Temp 98 F 12/26/17 17:41 Pulse 63 12/26/17 18:00 Resp 18 12/26/17 17:41 BP 134/62 12/26/17 17:41 Pulse Ox 100 12/26/17 00:35 - Labs Result Diagrams: 12/26/17 06:45 12/26/17 06:45 Labs: Laboratory Results - last 24 hr 12/26/17 Unknown Iron 68 TIBC 360 % Saturation 19 L Attending/Attestation - Attestation I have personally seen and examined this patient.: Yes I have fully participated in the care of the patient.: Yes I have reviewed all pertinent clinical information: Yes
--- NOTE | 2017-12-26 19:16 | CON ---
Copied To: Marlen León MD Attending MD: Marlen León MD DATE: 12/26/2017 REASON FOR CONSULTATION: Acute rhabdomyolysis, status post fall. HISTORY OF PRESENT ILLNESS: An 87-year-old lady admitted early this morning, she was brought to the emergency room after a fall. She was in the bathroom. She did try to reach for a towel, she lost her balance and she fell. She denies any chest pain or palpitations prior to fall. She denies any lightheadedness or dizziness. She denies any nausea or vomiting. She does report diarrhea for two days prior to admission. She also reports lack of an appetite and some abdominal pain. She denies any chest tightness. She denies any urinary complaints. There was no loss of bladder or bowel. In the emergency room, she was hemodynamically stable. She was afebrile. Her initial blood work showed a hemoglobin of 12, elevated CPK of 474 with a troponin of 0.09. The patient was admitted to observation, but now she is full admission. The patient had multiple x-rays in the emergency room, no fractures were seen. PAST MEDICAL AND SURGICAL HISTORY: Severe osteoarthritis, left hip replacement, right hip osteoarthritis, hypertension, hyperlipidemia, GERD. FAMILY HISTORY: Noncontributory. SOCIAL HISTORY: Ex-smoker, no alcohol use, no IV drug abuse. ALLERGIES: CODEINE. MEDICATIONS AT HOME: Included losartan 100, hydroxychloroquine 200, Aricept, Tylenol, Wellbutrin, Nexium, Xanax. REVIEW OF SYSTEMS: All systems are reviewed, pertinent positives as mentioned in the history of presenting illness, rest is unremarkable. PHYSICAL EXAMINATION GENERAL: Elderly lady lying in bed, in no acute distress at present. VITAL SIGNS: Blood pressure 129/72, heart rate 88, respiratory rate 18, temperature 98.7. HEENT: Normocephalic, atraumatic, positive pallor. NECK: Supple, no JVD. LUNGS: Bilateral equal air entry, bilateral equal expansion, no rales. CARDIAC: S1 and S2, regular rate and rhythm, no murmur, no rub. ABDOMEN: Soft, nondistended, nontender, bowel sounds present. EXTREMITIES: No lower extremity edema. INTAKE AND OUTPUT: Not charted. LABORATORY DATA: WBC 4.5, hemoglobin 10.3, hematocrit 32, platelets 252. Sodium 136, potassium 4.1, chloride 104, CO2 of 28, BUN 19, creatinine 0.7, glucose 84, calcium 8.9, phosphorus 2.9, magnesium 1.6, AST 33, ALT 23, albumin 3. CURRENT MEDICATIONS: Aricept, ceftaroline, losartan 100, magnesium oxide, hydroxychloroquine, normal saline at 75, Tylenol. ASSESSMENT: 1. Status post fall at home, mild rhabdomyolysis. 2. Mild prerenal azotemia. 3. Severe osteoarthritis. 4. History of lupus. 5. Hypertension. 6. Anemia. PLAN: 1. Continue IV fluids for 24 hours. 2. Discontinue empiric antibiotics? 3. Check iron stores. 4. Check B12 and folate. 5. Continue losartan for hypertension. 6. Right hip replacement being considered? Thank you for the courtesy of this consultation. We will follow this patient closely with you. Marlen León MD
--- NOTE | 2017-12-26 19:33 | HP ---
Copied To: Susanna Patel MD Attending MD: Susanna Patel MD HISTORY OF PRESENT ILLNESS: An 87-year-old female was brought to [facility] by her daughters. When they returned to home in the evening, they found that the mother was on the floor. As per the patient, she states that in the morning when she was in the bathroom, she fell. Denies any loss of consciousness, chest pain or shortness of breath or headache, but she fell, stating that she felt that she lost her balance. PAST MEDICAL HISTORY: Lupus, cellulitis of the lower extremities with MRSA wound infection, hypertension, cognitive behavior disorder, gastroesophageal reflux disease, anxiety history. HOME MEDICATIONS: Reported as Cozaar, Plaquenil, Aricept, Tylenol, Nexium and Xanax. She states that she has not been using any Wellbutrin. SOCIAL HISTORY: She is a nonsmoker, nondrinker, nondrug user. ALLERGIES: CODEINE. REVIEW OF SYSTEMS: Ten systems are reviewed, pertinent finding as stated above. PHYSICAL EXAMINATION: VITAL SIGNS: Her temp is 98.7, her pulse is 88, blood pressure is 129/72, oxygen saturation is reported at 100% on room air. GENERAL: She is sleepy, but alert and oriented x3. She states that she is not having any pain at this time, but she did have pain when she was in the Emergency Room. NECK: Supple. LUNGS: Shows diminished breath sounds at the bases. HEART: S1 and S2 rhythm. ABDOMEN: Soft, scaphoid with positive bowel sounds. EXTREMITIES: Show edema with cellulitic changes, has a dry scab on the left leg. LABORATORY DATA: Shows a WBC of 6.7, RBC of 4.52, hemoglobin 12.3, hematocrit 37.9, platelet count 287. Her PT is 11.4 with an INR of 1 and PTT is 28.9. Chemistry shows a sodium of 138, potassium 4.2, chloride 102, the BUN is 20, creatinine is 0.8, random blood sugar is 132, calcium is 10. Her AST is 41, her LDH is 831, her total CK is 474, CK-MB2 is 10.6, percent is 2.2, troponin is 0.09. Her CAT scan of the head shows chronic ischemic changes, no acute findings. X-ray of the hip and pelvis is variably reported showing no evidence of fracture. X-ray of the lumbar spine is reportedly showing degenerative changes with multilevel disk disease and dextroscoliosis. X-ray of the knee is pending. It has been reported by the monitor technicians that the patient had some bradyarrhythmia on the monitors during the night. ASSESSMENT: 1. Elderly female with fall at home. 2. Degenerative arthritis of the spine, history of lupus in the past. 3. History of left hip surgery in the past. 4. History of degenerative arthritis of the right shoulder. 5. History of arthritis of the right knee. 6. Gait disorder. 7. Cognitive disorder. 8. Anemia. 9. Elevated CPK and LDH. The patient had been lying on the floor for a period of time, as per the patient, since 9:30 in the morning until her daughters found her in the evening. PLAN: 1. We will get Renal to see the patient given the elevated in the CPK, the LDH with rhabdomyolysis as a differential. 2. Anemia. We will get iron studies and B12 and folate and check stool guaiacs. 3. Bradyarrhythmia history. We will get Cardiology evaluation. 4. We will get an Ortho evaluation. The patient will be monitored on telemetry. Follow up the patient's labs. Further treatment plan pending input from the consultants and diagnostic studies. Case has been discussed with emergency room and the patient's family. Susanna Patel MD
--- NOTE | 2017-12-26 20:59 | CARD ---
APPROVED REPORT Date of service: 12/26/2017 EKG Measurement Heart [id number] CT [id number] <Conclusion> Normal sinus rhythm Possible Left atrial enlargement Nonspecific T wave abnormality Abnormal ECG
[2017-12-27 07:28] LABS: BASO # 0.01 K/mm3 (0.0-2.0); BASO % 0.2 % (0.0-3.0); EOS # 0.1 (0.0-0.7); EOS % 1.7 % (1.5-5.0); GRAN # 4.97 (1.4-6.5); HEMOGLOBIN 11.2 g/dL (12.0-16.0); LYMPH # 0.8 (1.2-3.4); LYMPH % 12.6 % (22.0-35.0); MEAN CELL VOLUME 84.5 fl (80.0-105.0); MEAN CORPUSCULAR HEMOGLOBIN 27.1 pg (25.0-35.0); MEAN CORPUSCULAR HGB CONC 32.1 g/dl (31.0-37.0); MEAN PLATELET VOLUME 9.5 fl (7.0-11.0); MONO # 0.4 (0.1-0.6); MONO % 6.5 % (1.0-6.0); RBC 4.13 10^6/uL (3.5-6.1); RED CELL DISTRIBUTION WIDTH 15.4 % (11.5-14.5); WHITE BLOOD COUNT 6.3 10^3/ul (4.5-11.0)
[2017-12-27 08:02] LABS: ALB/GLOB RATIO 1.2 (1.1-1.8); ALBUMIN 3.1 g/dL (3.0-4.8); ALT/SGPT 22 U/L (7-56); AST/SGOT 34 U/L (14-36); BLOOD UREA NITROGEN 17 mg/dL (7-21); CALCIUM 8.8 mg/dL (8.4-10.5); GFR AFRICAN-AMERICAN > 60; GFR NON-AFRICAN AMERICAN > 60
[2017-12-27] MEDS: Magnesium Oxide 400 mg Tab UD PO SCH ×2 (09:11→17:23)
--- NOTE | 2017-12-27 10:22 | CP.PCM.PN ---
<SbBernie - Last Filed: 12/27/17 10:18> Subjective - Date & Time of Evaluation Date of Evaluation: 12/27/17 Time of Evaluation: 10:18 - Subjective Subjective: Podiatry Consult Note for Dr. Sanchez 87 y/o female patient seen and evaluated at bedside complaining of elongated, thickened, dystrophic nails that have been present for several weeks. Patient states that she is no longer able to reach her toenails to trim them. She is AAO x 3 and NAD at time of visit. Denies any acute overnight events or any other pedal complaints at this time. Denies any recent N/V/F/C/CP/SOB/D/ posterior calf pain when squeezed. Objective - Vital Signs/Intake and Output Vital Signs (last 24 hours): Temp Pulse Resp BP Pulse Ox 98.2 F 60 20 147/71 95 12/27/17 00:01 12/27/17 02:00 12/27/17 00:01 12/27/17 00:01 12/27/17 00:01 Intake and Output: 12/27/17 12/27/17 06:59 18:59 Intake Total 240 Output Total 2500 Balance -2260 - Medications Medications: Current Medications Acetaminophen (Tylenol 325mg Tab) 650 mg PO Q6H PRN PRN Reason: Pain, moderate (4-7) Last Admin: 12/26/17 23:41 Dose: 650 mg Alprazolam (Xanax) 0.125 mg PO HS PRN; Protocol PRN Reason: Anxiety Stop: 01/02/18 22:16 Last Admin: 12/26/17 23:42 Dose: 0.125 mg Donepezil HCl (Aricept) 5 mg PO HS ANTHONY Last Admin: 12/26/17 21:46 Dose: 5 mg Hydroxychloroquine Sulfate (Plaquenil) 200 mg PO HS ANTHONY PRN Reason: Protocol Last Admin: 12/26/17 21:47 Dose: 200 mg Sodium Chloride (Sodium Chloride 0.9%) 1,000 mls @ 75 mls/hr IV .[id number] ANTHONY Last Admin: 12/26/17 23:42 Dose: 75 mls/hr Ceftaroline Fosamil 400 mg/ (Sodium Chloride) 100 mls @ 100 mls/hr IVPB Q12 ANTHONY PRN Reason: Protocol Stop: 01/02/18 10:01 Last Admin: 12/27/17 09:15 Dose: 100 mls/hr Lidocaine (Lidoderm) 1 ea TD DAILY [facility] Losartan Potassium (Cozaar) 100 mg PO DAILY [facility] Last Admin: 12/27/17 09:11 Dose: 100 mg Magnesium Oxide (Mag-Ox) 400 mg PO BID [facility] Last Admin: 12/27/17 09:11 Dose: 400 mg - Labs Labs: 12/27/17 07:00 12/27/17 07:00 PT 11.5 SECONDS (9.4-12.5) 12/26/17 06:45 INR 1.00 12/26/17 06:45 APTT 29.0 Seconds (25.1-36.5) 12/26/17 06:45 - Constitutional Appears: Well, Non-toxic, No Acute Distress - Head Exam Head Exam: ATRAUMATIC, NORMOCEPHALIC - Extremities Exam Additional comments: B/l LE focused exam: Vasc: DP/PT pulses fully palpable 2/4 b/l. Skin temperature warm to warm from proximal to distal. CFT < 3 seconds to all digits b/l. Minimal 1+, pitting b/l LE edema noted Neuro: Epicritic and protective sensation grossly intact b/l Derm: Elongated, thickened and dystrophic toenails X 10, Otherwise, no open lesions, wounds, maceration, xerosis, abnormal pigmentation or abnormal growths noted bl/ MSK: Minimal POP to nail plates. ROM WNL at all major muscle groups. MMT WNL for patient age. No other gross deformities noted - Neurological Exam Neurological Exam: Alert, Awake, Oriented x3 - Psychiatric Exam Psychiatric exam: Normal Affect, Normal Mood Assessment and Plan - Assessment and Plan (Free Text) Assessment: 87 y/o female seen at bedside complaining of elongated, thickened, dystrophic nails that have been present for several weeks Plan: Patient seen and evaluated at bedside Plan with discussed with attending Dr. Sanchez Chart, labs and vitals reviewed Aseptic debridement of toenails X 10 with sterile nail nippers Patient tolerated procedure well Patient questions and concerns were answered Thank You for the podiatry consult <Armando Sanchez - Last Filed: 12/27/17 13:47> Objective - Vital Signs/Intake and Output Vital Signs (last 24 hours): Temp Pulse Resp BP Pulse Ox 97.9 F 70 18 138/77 95 12/27/17 11:25 12/27/17 13:15 12/27/17 11:25 12/27/17 11:25 12/27/17 00:01 Intake and Output: 12/27/17 12/27/17 06:59 18:59 Intake Total 240 Output Total 2500 Balance -2260 - Medications Medications: Current Medications Acetaminophen (Tylenol 325mg Tab) 650 mg PO Q6H PRN PRN Reason: Pain, moderate (4-7) Last Admin: 12/26/17 23:41 Dose: 650 mg Alprazolam (Xanax) 0.125 mg PO HS PRN; Protocol PRN Reason: Anxiety Stop: 01/02/18 22:16 Last Admin: 12/26/17 23:42 Dose: 0.125 mg Donepezil HCl (Aricept) 5 mg PO HS ANTHONY Last Admin: 12/26/17 21:46 Dose: 5 mg Hydroxychloroquine Sulfate (Plaquenil) 200 mg PO HS ANTHONY PRN Reason: Protocol Last Admin: 12/26/17 21:47 Dose: 200 mg Sodium Chloride (Sodium Chloride 0.9%) 1,000 mls @ 75 mls/hr IV .[id number] [facility]ON[facility] Last Admin: 12/27/17 12:56 Dose: 75 mls/hr Ceftaroline Fosamil 400 mg/ (Sodium Chloride) 100 mls @ 100 mls/hr IVPB Q12 ANTHONY PRN Reason: Protocol Stop: 01/02/18 10:01 Last Admin: 12/27/17 09:15 Dose: 100 mls/hr Lidocaine (Lidoderm) 1 ea TD DAILY [facility] Last Admin: 12/27/17 10:53 Dose: 1 ea Losartan Potassium (Cozaar) 100 mg PO DAILY [facility] Last Admin: 12/27/17 09:11 Dose: 100 mg Magnesium Oxide (Mag-Ox) 400 mg PO BID [facility] Last Admin: 12/27/17 09:11 Dose: 400 mg - Labs Labs: 12/27/17 07:00 12/27/17 07:00 PT 11.5 SECONDS (9.4-12.5) 12/26/17 06:45 INR 1.00 12/26/17 06:45 APTT 29.0 Seconds (25.1-36.5) 12/26/17 06:45 Attending/Attestation - Attestation I have personally seen and examined this patient.: Yes I have fully participated in the care of the patient.: Yes I have reviewed all pertinent clinical information, including history, physical exam and plan: Yes
[2017-12-27] MEDS: Lidocaine 5% Patch TD SCH (10:53)
--- NOTE | 2017-12-27 11:15 | CT ---
Date of service: 12/27/2017 PROCEDURE: CT of the Right Hip. HISTORY: Pain. COMPARISON: Comparison made with radiographs of the pelvis and both hips 12/25/2017. TECHNIQUE: Contiguous axial images of the right hip were obtained. Coronal and sagittal reformats were generated. This CT exam was performed using one or more of the following dose reduction techniques: Automated exposure control, adjustment of the mA and/or kV according to patient size, and/or use of iterative reconstruction technique. Radiation dose: Total DLP = 227.1 mGy-cm FINDINGS: BONES: No evidence of acute displaced fracture. Re- demonstrated is flattening of the superior margin of the right femoral head possibly secondary to chronic avascular necrosis. The femoral head is also slightly laterally positioned/located with respect to the acetabulum also felt to be secondary to femoral head flattened femoral head. Secondary degenerative osteoarthritis with marked joint space narrowing subchondral cystic changes and eburnation involving both the femoral head an acetabulum. . There appears to have been some remodeling of the acetabulum as well. RIGHT HIP JOINT: As above. SOFT TISSUES: No evidence of subcutaneous emphysema. IMPRESSION: No evidence of acute displaced fracture. Re- demonstrated is flattening of the superior margin of the right femoral head possibly secondary to chronic avascular necrosis. The femoral head is also slightly laterally positioned/located with respect to the acetabulum also felt to be secondary to femoral head flattened femoral head. Secondary degenerative osteoarthritis with marked joint space narrowing subchondral cystic changes and eburnation involving both the femoral head an acetabulum. . There also appears to have been some remodeling of the acetabulum as well.
--- NOTE | 2017-12-27 12:05 | CP.PCM.PN ---
Subjective - Date & Time of Evaluation Date of Evaluation: 12/27/17 Time of Evaluation: 11:45 - Subjective Subjective: No fevers, less pain in the left leg, no nausea. Objective - Vital Signs/Intake and Output Vital Signs (last 24 hours): Temp Pulse Resp BP Pulse Ox 97.6 F 79 18 113/53 L 100 12/26/17 11:51 12/26/17 11:51 12/26/17 11:51 12/26/17 11:51 12/26/17 00:35 - Medications Medications: Current Medications Acetaminophen (Tylenol 325mg Tab) 650 mg PO Q6H PRN PRN Reason: Pain, moderate (4-7) Donepezil HCl (Aricept) 5 mg PO HS [facility] Hydroxychloroquine Sulfate (Plaquenil) 200 mg PO HS ANTHONY PRN Reason: Protocol Sodium Chloride (Sodium Chloride 0.9%) 1,000 mls @ 75 mls/hr IV .[id number] [facility] Last Admin: 12/26/17 10:39 Dose: 75 mls/hr Ceftaroline Fosamil 400 mg/ (Sodium Chloride) 100 mls @ 100 mls/hr IVPB Q12 ANTHONY PRN Reason: Protocol Stop: 01/02/18 10:01 Last Admin: 12/26/17 10:46 Dose: 100 mls/hr Losartan Potassium (Cozaar) 100 mg PO DAILY [facility] Last Admin: 12/26/17 10:40 Dose: 100 mg Magnesium Oxide (Mag-Ox) 400 mg PO BID [facility] Last Admin: 12/26/17 10:40 Dose: 400 mg - Labs Labs: PT 11.5 SECONDS (9.4-12.5) 12/26/17 06:45 INR 1.00 12/26/17 06:45 APTT 29.0 Seconds (25.1-36.5) 12/26/17 06:45 - Constitutional Appears: Non-toxic, No Acute Distress, Chronically Ill - Head Exam Head Exam: NORMAL INSPECTION - ENT Exam ENT Exam: Mucous Membranes Moist - Respiratory Exam Respiratory Exam: Decreased Breath Sounds - Cardiovascular Exam Cardiovascular Exam: +S1, +S2 - GI/Abdominal Exam GI & Abdominal Exam: Soft. absent: Tenderness - Extremities Exam Additional comments: left leg with decreased erythema Assessment and Plan - Assessment and Plan (Free Text) Plan: Assessment consider left leg cellulitis in this patient with a history of MRSA wound infection in the same leg, slowly improving S/P upper respiratory tract infection without evidence of pneumonia, improved and S/P treatment right knee inflammatory arthritis S/P arthrocentesis POD #7 history of bilateral lower extremity skin and skin structure infection with methicillin-sensitive Staph aureus history of right shoulder effusion S/P drainage dyslipidemia hypertension osteoarthritis gastroesophageal reflux disease multinodular goiter mitral regurgitation rheumatoid arthritis SLE Plan continue Teflaro day 2 pending blood cx and will continue to monitor clinically discussed with Dr. Patel
[2017-12-27] MEDS: Sodium Chloride 0.9% 1,000 ML IV SCH (12:56)
--- NOTE | 2017-12-27 14:20 | PN ---
Copied To: Susanna Patel MD Attending MD: Susanna Patel MD DATE: 12/27/2017 SUBJECTIVE: The patient is resting in bed this morning. She feels very fatigued and tired. PHYSICAL EXAMINATION: VITAL SIGNS: Her temperature is 98, her pulse is 58, her blood pressure is 147/71 and her oxygen saturation is 95% on room air. NECK: Supple. LUNGS: Clear. HEART: S1, S2. ABDOMEN: Soft. Positive bowel sounds. EXTREMITIES: Show diminished edema. There is mild erythema. There is a dry scab on the left lower leg. LABORATORY DATA: Shows a sodium of 136, potassium of 4.3, chloride 104, BUN is 17, creatinine is 0.7. Magnesium is now 1.8. Her iron is 360. Her TIBC is 19, ferritin is 26.8. Her B12 is 308. Her folate is 15.3. ASSESSMENT AND PLAN: Currently, the patient is receiving Aricept, sertraline, Lidoderm patch, magnesium oxide, Plaquenil, intravenous fluids, Tylenol and Xanax at bedtime p.r.n. The patient is receiving antibiotic therapy for cellulitis of the lower extremities. There is a remote history of methicillin-resistant Staphylococcus aureus. She had been seen by Podiatry for nail care. She is being followed by Orthopedics. A CAT scan of the right hip has been done. Cardiology consult is pending. Family and the patient are discussing with Orthopedics the possibility of right hip surgery when she is more clinically stable. This will require Cardiology evaluation and clearance. We will continue current level of care. Monitor the patient's labs. Stool for guaiac has been requested. Susanna Patel MD
[2017-12-28] MEDS: Sodium Chloride 0.9% 1,000 ML IV SCH ×2 (02:00→15:00)
[2017-12-28 08:05] LABS: BASO # 0.01 K/mm3 (0.0-2.0); BASO % 0.1 % (0.0-3.0); EOS # 0.2 (0.0-0.7); EOS % 2.2 % (1.5-5.0); GRAN # 6.19 (1.4-6.5); GRAN % 84.1 % (50.0-68.0); HEMOGLOBIN 12.3 g/dL (12.0-16.0); LYMPH # 0.6 (1.2-3.4); MEAN CELL VOLUME 84.1 fl (80.0-105.0); MEAN CORPUSCULAR HEMOGLOBIN 27.1 pg (25.0-35.0); MEAN CORPUSCULAR HGB CONC 32.2 g/dl (31.0-37.0); MEAN PLATELET VOLUME 9.5 fl (7.0-11.0); MONO # 0.4 (0.1-0.6); MONO % 5.6 % (1.0-6.0); RBC 4.54 10^6/uL (3.5-6.1); RED CELL DISTRIBUTION WIDTH 15.4 % (11.5-14.5); WHITE BLOOD COUNT 7.4 10^3/ul (4.5-11.0)
[2017-12-28 08:06] LABS: BLOOD UREA NITROGEN 10 mg/dL (7-21); CALCIUM 9.3 mg/dL (8.4-10.5); GFR AFRICAN-AMERICAN > 60; GFR NON-AFRICAN AMERICAN > 60
--- NOTE | 2017-12-28 08:11 | PN ---
Copied To: Marlen León MD Attending MD: Marlen León MD DATE: 12/27/2017 SUBJECTIVE: The patient is seen lying in bed. She is awake. She is alert. She reports she is not feeling well. She denies any specific complaints. She complains of pain in her right hip. She also reports that she needs to move her bowels. PHYSICAL EXAMINATION: GENERAL: Elderly lady, lying in bed. VITAL SIGNS: Blood pressure 132/70, heart rate 88, respiratory rate 18, temperature 98.2. HEENT: Normocephalic, atraumatic, positive pallor. NECK: Supple, no JVD. LUNGS: Bilateral equal air entry, bilateral equal expansion, no rales. CARDIAC: S1 and S2, regular rate and rhythm, no murmur, no rub. ABDOMEN: Soft, nondistended, nontender, bowel sounds present. EXTREMITIES: No lower extremity edema. INTAKE AND OUTPUT: Not charted. LABORATORY DATA: WBC 6.3, hemoglobin 11, hematocrit 35, platelets 285. Sodium 136, potassium 4.3, chloride 104, CO2 of 27, BUN 17, creatinine 0.7, glucose 92, CPK 208. MEDICATIONS: List reviewed. ASSESSMENT: 1. Mild acute rhabdomyolysis, resolved. 2. Severe osteoarthritis. 3. Status post fall. 4. History of hypertension. 5. History of left hip replacement. PLAN: 1. The patient is stable from the renal standpoint. 2. Right hip surgery is being considered. 3. Continue current management. Marlen León MD
[2017-12-28] MEDS: Lidocaine 5% Patch TD SCH (09:12)
[2017-12-28] MEDS: Magnesium Oxide 400 mg Tab UD PO SCH ×2 (09:13→17:31)
--- NOTE | 2017-12-28 15:19 | CT ---
Date of service: 12/28/2017 PROCEDURE: CT HEAD WITHOUT CONTRAST. HISTORY: HEADACHE COMPARISON: Comparison made with CT scan of the brain 12/25/2017. TECHNIQUE: Contiguous helical/transaxial computed tomography images were obtained through the head/brain without intravenous contrast. Radiation dose: Total exam DLP = 1078.79 mGy-cm. This CT exam was performed using one or more of the following dose reduction techniques: Automated exposure control, adjustment of the mA and/or kV according to patient size, and/or use of iterative reconstruction technique. . FINDINGS: HEMORRHAGE: No intracranial hemorrhage. BRAIN: Moderate to significant clear diffuse/ confluent chronic periventricular white matter ischemic changes are again seen extending peripherally into the deep and subcortical white matter both cerebral hemispheres. There may also be some extension of these changes into the white matter tracts of both basal ganglia. Note that the possibility of a small hyperacute infarct cannot be excluded. Clinical correlation recommended. No obvious parenchymal nor extra-axial mass or collection seen on this noncontrast study. Moderate to significant generalized volume loss Vascular calcifications both carotid siphons and vertebral arteries. VENTRICLES: Unremarkable. No hydrocephalus. CALVARIUM: Calvarium intact. PARANASAL SINUSES: Unremarkable as visualized. No significant inflammatory changes. MASTOID AIR CELLS: Unremarkable as visualized. No inflammatory changes. OTHER FINDINGS: Note that the orbits are incompletely visualized however senile calcifications at the insertion sites of the extraocular musculature bilaterally on the right and unilaterally are incompletely visualized. Changes of bilateral cataract surgery also the the incompletely visualized. IMPRESSION: Moderate to significant chronic white matter ischemic changes with some extension of these changes into the white matter tracts of both basal nuclei. Moderate to significant generalized volume loss.
--- NOTE | 2017-12-28 15:43 | CT ---
Date of service: 12/28/2017 PROCEDURE: CT Cervical Spine without contrast HISTORY: HEADACHE COMPARISON: No prior study available for comparison. TECHNIQUE: Axial computed tomography images were obtained of the cervical spine without the use of intravenous contrast. Coronal and sagittal reformatted images were created and reviewed. Radiation dose: Total exam DLP = 280.92 mGy-cm. This CT exam was performed using one or more of the following dose reduction techniques: Automated exposure control, adjustment of the mA and/or kV according to patient size, and/or use of iterative reconstruction technique.. FINDINGS: VERTEBRAE: The current study reveals no acute compression fractures nor retropulsed fragments. The vertebral bodies exhibit relatively normal stature. There is however mild to moderate dextroscoliosis limiting evaluation to some degree. Minimal anterior subluxation of C3 over C4. Vertebral bodies and facets otherwise exhibit normal alignment. DISCS/SPINAL CANAL/NEURAL FORAMINA: Multilevel degenerative spondylosis. Of. At the C2-C3 level, there is posterior disc space narrowing. Small amount of intradiscal calcification present. Small central and bilateral disc bulge indents the ventral surface of the thecal sac reaching and minimally if at all flattening the ventral surface of the cord. Central canal is mildly narrowed. The uncovertebral facet joints are hypertrophic left greater than right. Left exit foramen is marginal to slightly narrowed. Right exit foramen is adequate. At the C3-C4 level, there is also mild posterior disc space narrowing. Small central and bilateral disc bulge ridge complex is present. Uncovertebral joints are mildly hypertrophic. The facets are also moderate 2 fairly significantly hypertrophic . There calcification changes of the left sided ligamentum flavum. . Changes result in mild central canal stenosis and cord compression. Exit foramina are appear narrowed bilaterally. At the C4-C5 level, there is disc space narrowing more so along the posterior disc margin. Small broad-based disc ridge complex contiguous with mildly hypertrophic uncovertebral joints. The facets also hypertrophic bilaterally. The changes result in mild central canal stenosis and flattening of the ventral surface of the cord. Exit foramina stenotic bilaterally. At the C5-C6 level, there is marked disc space narrowing. Small irregular osteophytic ridge disc complex contiguous with hypertrophic uncovertebral joints left greater than right. Facets are hypertrophic of. There is resultant irregular compressive effects on the ventral surface of the thecal sac and spinal cord. There is also mild central canal stenosis. Exit foramina stenotic bilaterally. Significant disc space narrowing noted at the C6-C7 level with what appears represent partial fusion of the posterior vertebral body segments at the disc space level. Broad-based disc ridge complex contiguous with hypertrophic uncovertebral joints. Facets also hypertrophic. Central canal is appears adequate. Exit foramina are stenotic. . PARASPINAL SOFT TISSUES: Prevertebral and paraspinal soft tissues unremarkable. . OTHER FINDINGS: Note made of vascular calcifications both carotid bifurcations. Carotid Doppler could be performed further evaluation if indicated. Lung apices clear. IMPRESSION: No acute fractures. Multilevel degenerative spondylosis of with varying degrees of mild canal narrowing and cord compression with variable bilateral foraminal stenosis as detailed above.
--- NOTE | 2017-12-28 16:11 | CP.PCM.PN ---
Subjective - Date & Time of Evaluation Date of Evaluation: 12/28/17 Time of Evaluation: 11:15 - Subjective Subjective: Comfortable in bed, improved discomfort in the left leg, no fevers. Objective - Vital Signs/Intake and Output Vital Signs (last 24 hours): Temp Pulse Resp BP Pulse Ox 97.9 F 72 18 138/77 95 12/27/17 11:25 12/27/17 11:25 12/27/17 11:25 12/27/17 11:25 12/27/17 00:01 Intake and Output: 12/27/17 12/27/17 06:59 18:59 Intake Total 240 Output Total 2500 Balance -2260 - Medications Medications: Current Medications Acetaminophen (Tylenol 325mg Tab) 650 mg PO Q6H PRN PRN Reason: Pain, moderate (4-7) Last Admin: 12/26/17 23:41 Dose: 650 mg Alprazolam (Xanax) 0.125 mg PO HS PRN; Protocol PRN Reason: Anxiety Stop: 01/02/18 22:16 Last Admin: 12/26/17 23:42 Dose: 0.125 mg Donepezil HCl (Aricept) 5 mg PO HS ANTHONY Last Admin: 12/26/17 21:46 Dose: 5 mg Hydroxychloroquine Sulfate (Plaquenil) 200 mg PO HS ANTHONY PRN Reason: Protocol Last Admin: 12/26/17 21:47 Dose: 200 mg Sodium Chloride (Sodium Chloride 0.9%) 1,000 mls @ 75 mls/hr IV .[id number] ANTHONY Last Admin: 12/26/17 23:42 Dose: 75 mls/hr Ceftaroline Fosamil 400 mg/ (Sodium Chloride) 100 mls @ 100 mls/hr IVPB Q12 ANTHONY PRN Reason: Protocol Stop: 01/02/18 10:01 Last Admin: 12/27/17 09:15 Dose: 100 mls/hr Lidocaine (Lidoderm) 1 ea TD DAILY ANTHONY Last Admin: 12/27/17 10:53 Dose: 1 ea Losartan Potassium (Cozaar) 100 mg PO DAILY ANTHONY Last Admin: 12/27/17 09:11 Dose: 100 mg Magnesium Oxide (Mag-Ox) 400 mg PO BID ANTHONY Last Admin: 12/27/17 09:11 Dose: 400 mg - Labs Labs: 12/27/17 07:00 12/27/17 07:00 PT 11.5 SECONDS (9.4-12.5) 12/26/17 06:45 INR 1.00 12/26/17 06:45 APTT 29.0 Seconds (25.1-36.5) 12/26/17 06:45 - Constitutional Appears: Chronically Ill - Head Exam Head Exam: NORMAL INSPECTION - Neck Exam Neck Exam: absent: Meningismus - Respiratory Exam Respiratory Exam: Decreased Breath Sounds - Cardiovascular Exam Cardiovascular Exam: +S1, +S2 - GI/Abdominal Exam GI & Abdominal Exam: Soft. absent: Tenderness Assessment and Plan - Assessment and Plan (Free Text) Assessment: Assessment consider left leg cellulitis in this patient with a history of MRSA wound infection in the same leg, slowly improving S/P upper respiratory tract infection without evidence of pneumonia, improved and S/P treatment right knee inflammatory arthritis S/P arthrocentesis POD #7 history of bilateral lower extremity skin and skin structure infection with methicillin-sensitive Staph aureus history of right shoulder effusion S/P drainage dyslipidemia hypertension osteoarthritis gastroesophageal reflux disease multinodular goiter mitral regurgitation rheumatoid arthritis SLE Plan continue Teflaro day 3 pending final blood cx results and will continue to monitor clinically - target is 7-10 days of therapy but may be able to switch to PO antibiotics in the next 48-[address] Patel
--- NOTE | 2017-12-28 21:19 | PN ---
Copied To: Susanna Patel MD Attending MD: Susanna Patel MD DATE: 12/28/2017 SUBJECTIVE: The patient is sitting comfortably in a chair at this time. Earlier this morning, she stated that she had a mild headache with some discomfort over her neck. She states that it has been off and on since the fall that she had months ago, which she now states. PHYSICAL EXAMINATION: VITAL SIGNS: Show a temperature of 98.5, blood pressure is 132/63, respiratory rate is 18, oxygen sat is 98%, pulse is 70 and regular. GENERAL: She is alert and oriented x3. LUNGS: Clear. HEART: In S1, S2. ABDOMEN: Soft, scaphoid. Positive bowel sounds. EXTREMITIES: Show edema with marked erythema. LABORATORY DATA: Shows a WBC of 7.4, RBC of 4.54, hemoglobin 12.3, hematocrit 38.2, platelet count is 290. Chemistry shows normal electrolytes. BUN is 10, creatinine is 0.6. Calcium is 9.3. ASSESSMENT AND PLAN: 1. We will get a Neurology consult and repeat CT of the head and cervical spine. CT was discussed with Neurology. 2. She continues on IV antibiotics for the cellulitis of the lower extremities. She has a remote history of methicillin-resistant Staphylococcus aureus cellulitis in the past. She is also having evaluation by Cardiology, has been requested as there is an intended discussion and plan for right hip surgery. We will follow up the patient's labs. Susanna Patel MD
[2017-12-29] MEDS: Magnesium Oxide 400 mg Tab UD PO SCH ×2 (10:33→17:41)
[2017-12-29] MEDS: Lidocaine 5% Patch TD SCH (10:34)
[2017-12-29 11:20] LABS: BASO # 0.01 K/mm3 (0.0-2.0); BASO % 0.1 % (0.0-3.0); EOS # 0.1 (0.0-0.7); EOS % 1.6 % (1.5-5.0); GRAN # 7.95 (1.4-6.5); HEMOGLOBIN 11.9 g/dL (12.0-16.0); LYMPH # 0.3 (1.2-3.4); LYMPH % 3.2 % (22.0-35.0); MEAN CELL VOLUME 83.8 fl (80.0-105.0); MEAN CORPUSCULAR HEMOGLOBIN 27.2 pg (25.0-35.0); MEAN CORPUSCULAR HGB CONC 32.5 g/dl (31.0-37.0); MEAN PLATELET VOLUME 9.1 fl (7.0-11.0); MONO # 0.5 (0.1-0.6); MONO % 5.1 % (1.0-6.0); PLATELET COUNT 257 10^3/uL (120.0-450.0); RBC 4.37 10^6/uL (3.5-6.1); RED CELL DISTRIBUTION WIDTH 15.3 % (11.5-14.5); WHITE BLOOD COUNT 8.8 10^3/ul (4.5-11.0)
[2017-12-29 11:32] LABS: ALB/GLOB RATIO 1.3 (1.1-1.8); ALBUMIN 3.3 g/dL (3.0-4.8); ALT/SGPT 32 U/L (7-56); AST/SGOT 22 U/L (14-36); BLOOD UREA NITROGEN 15 mg/dL (7-21); CALCIUM 9.6 mg/dL (8.4-10.5); GFR AFRICAN-AMERICAN > 60; GFR NON-AFRICAN AMERICAN > 60
[2017-12-29 11:46] LABS: EOSINOPHIL 3 % (0.0-3.0); LYMPHOCYTE 8 % (22.0-35.0); MONOCYTE 3 % (1.0-6.0); NEUTROPHIL 86 % (50.0-70.0)
[2017-12-29 11:47] LABS: PLATELET ESTIMATE NORMAL (NORMAL)
--- NOTE | 2017-12-29 11:52 | CP.PCM.PN ---
Subjective - Date & Time of Evaluation Date of Evaluation: 12/29/17 Time of Evaluation: 11:35 - Subjective Subjective: Left leg is a little better, no fevers, no nausea, no diarrhea. Objective - Vital Signs/Intake and Output Vital Signs (last 24 hours): Temp Pulse Resp BP Pulse Ox 97.5 F L 76 20 143/81 97 12/29/17 05:54 12/29/17 05:54 12/29/17 05:54 12/29/17 05:54 12/29/17 05:54 Intake and Output: 12/29/17 12/29/17 06:59 18:59 Intake Total 760 Output Total 500 Balance 260 - Medications Medications: Current Medications Acetaminophen (Tylenol 325mg Tab) 650 mg PO Q6H PRN PRN Reason: Pain, moderate (4-7) Last Admin: 12/29/17 10:13 Dose: 650 mg Alprazolam (Xanax) 0.125 mg PO HS PRN; Protocol PRN Reason: Anxiety Stop: 01/02/18 22:16 Last Admin: 12/28/17 21:24 Dose: 0.125 mg Donepezil HCl (Aricept) 5 mg PO HS ANTHONY Last Admin: 12/28/17 21:24 Dose: 5 mg Hydroxychloroquine Sulfate (Plaquenil) 200 mg PO HS ANTHONY PRN Reason: Protocol Last Admin: 12/28/17 21:24 Dose: 200 mg Sodium Chloride (Sodium Chloride 0.9%) 1,000 mls @ 75 mls/hr IV .[id number] ANTHONY Last Admin: 12/28/17 15:00 Dose: 75 mls/hr Ceftaroline Fosamil 400 mg/ (Sodium Chloride) 100 mls @ 100 mls/hr IVPB Q12 ANTHONY PRN Reason: Protocol Stop: 01/02/18 10:01 Last Admin: 12/29/17 10:34 Dose: 100 mls/hr Lidocaine (Lidoderm) 1 ea TD DAILY ANTHONY Last Admin: 12/29/17 10:34 Dose: 1 ea Losartan Potassium (Cozaar) 100 mg PO DAILY ANTHONY Last Admin: 12/29/17 10:33 Dose: 100 mg Magnesium Oxide (Mag-Ox) 400 mg PO BID ANTHONY Last Admin: 12/29/17 10:33 Dose: 400 mg - Labs Labs: 12/29/17 11:15 12/29/17 11:15 PT 11.5 SECONDS (9.4-12.5) 12/26/17 06:45 INR 1.00 12/26/17 06:45 APTT 29.0 Seconds (25.1-36.5) 12/26/17 06:45 - Constitutional Appears: Chronically Ill - Head Exam Head Exam: NORMAL INSPECTION - ENT Exam ENT Exam: Mucous Membranes Moist - Neck Exam Neck Exam: absent: Meningismus - Respiratory Exam Respiratory Exam: Decreased Breath Sounds - Cardiovascular Exam Cardiovascular Exam: +S1, +S2 - GI/Abdominal Exam GI & Abdominal Exam: Soft. absent: Tenderness - Extremities Exam Additional comments: left leg with decreased erythema and swelling Assessment and Plan - Assessment and Plan (Free Text) Plan: Assessment consider left leg cellulitis in this patient with a history of MRSA wound infection in the same leg, slowly improving S/P upper respiratory tract infection without evidence of pneumonia, improved and S/P treatment right knee inflammatory arthritis S/P arthrocentesis history of bilateral lower extremity skin and skin structure infection with methicillin-sensitive Staph aureus history of right shoulder effusion S/P drainage dyslipidemia hypertension osteoarthritis gastroesophageal reflux disease multinodular goiter mitral regurgitation rheumatoid arthritis SLE Plan continue Teflaro day 4 pending final blood cx results and will continue to monitor clinically - target is 7-10 days of therapy but may be able to switch to PO antibiotics in the next 24-[address] Patel
--- NOTE | 2017-12-29 13:45 | CON ---
Copied To: Paul Blair MD Attending MD: Paul Blair MD DATE: 12/29/2017 NEUROLOGY CONSULT CHIEF COMPLAINT: Neck pain, status post fall. HISTORY OF PRESENT ILLNESS: This is an 87-year-old woman with past medical history of bilateral lower extremity cellulitis; right shoulder effusion, status post drainage; dyslipidemia; hypertension; severe osteoarthritis; history of left hip replacement; gastroesophageal reflux disease; mitral regurgitation; rheumatoid arthritis. Came in after she had fallen in the bathtub, slipped and hit left side of her body. She denies any loss of consciousness, but she was complaining of neck pain, in addition to some mild headache. Her CAT scan of head just showed chronic ischemic changes. No evidence of any acute intracranial abnormality. Her CAT scan of the cervical spine did show multilevel severe degenerative changes and spondylosis especially from C5 to C6 and C6 to C7 in addition to bilateral severe foraminal stenosis, but no evidence of any cord impingement. Currently, she has very minimal neck pain. No more headaches. She is able to move her upper extremities without any difficulty, able to squeeze hands and has very good strength. It is noticed on my examination, she has severe osteoarthritis. No acute events overnight. She will need a Lidoderm patch and physical therapy. PAST MEDICAL HISTORY: As above. SOCIAL HISTORY: No illicit drug use, smoking or EtOH abuse. MEDICATIONS: Reviewed by nurses' reconciliation sheet. ALLERGIES: ALLERGIC TO CODEINE. FAMILY HISTORY: Noncontributory. REVIEW OF SYSTEMS: Fourteen-point review of systems is negative except as per the HPI. LABORATORY DATA: Sodium is 138, potassium 4.2, chloride 101, carbon dioxide 28, BUN 15, creatinine 0.7, random glucose of 90. PHYSICAL EXAMINATION: VITAL SIGNS: Temperature 98.4, pulse rate of 68, blood pressure 132/87, respiratory rate of 18, oxygen saturation of 97% by room air. GENERAL: The patient is sitting up in bed, in no acute distress. HEENT: Atraumatic, normocephalic. PERRLA. Extraocular muscles intact. NECK: Supple. No JVD, no adenopathy noted. LUNGS: Clear to auscultation. No adventitious sounds. HEART: S1, S2. Normal rate and rhythm. No murmurs, rubs or gallops. ABDOMEN: Soft, nontender and nondistended. Bowel sounds are present. EXTREMITIES: No clubbing. No cyanosis. Peripheral pulses 2+ felt bilaterally. MUSCULOSKELETAL: There are severe changes of osteoarthritis on her musculoskeletal exam. NEUROLOGIC: The patient is alert and oriented to person, place, month and year. Speech is fluent without any errors. Cranial nerves II through XII intact. Motor exam: Moves all extremities equally. Toes are downgoing bilaterally. Sensory exam: Light touch, pinprick, proprioception and vibration are intact. DTRs are 2+ throughout, 1 at both knees and ankles. Coordination: [id number] intact. No dysmetria noted. 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 She complained of neck pain, therefore I was called to evaluate. Her CAT scan of the head showed no acute intracranial abnormality. Cervical CT scan showed severe foraminal and degenerative arthritis and stenosis from C5 to C7, but no evidence of any cord compression. Neurologic exam is nonfocal. This is mostly deconditioned, generalized osteoarthritis. 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 At this time, we will recommend, 1. Physical therapy: Cervical muscle stretching, therapeutic exercise, TENS unit, myofascial pain release techniques. 2. Continue Lidoderm patch for pain relief and p.r.n. Toradol with acute onset of pain. 3. Follow up with orthopedics recommendations regarding her possible right hip placement avascular necrosis. 4. Continue to hydrate since she has some mild rhabdomyolysis. Continue with the current present medical management. No further neurological workup needed at this time. She is clinically stable. Paul Blair MD
--- NOTE | 2017-12-29 14:35 | PN ---
Copied To: Marlen León MD Attending MD: Marlen León MD DATE: 12/29/2017 SUBJECTIVE: The patient is seen lying in bed. She is awake. She is alert. She is comfortable. She reports feeling good today. She moved her bowels yesterday and the day before. She denies any chest tightness. She denies any palpitation. PHYSICAL EXAMINATION GENERAL: Elderly lady, lying in bed. VITAL SIGNS: Blood pressure 143/81, heart rate 76, respiratory rate 20, temperature 97.5. HEENT: Normocephalic, atraumatic, positive pallor. NECK: Supple, no JVD. LUNGS: Bilateral equal air entry, bilateral equal expansion, no rales. CARDIAC: S1 and S2, regular rate and rhythm, no murmur, no rub. ABDOMEN: Soft, nondistended, nontender, bowel sounds present. EXTREMITIES: No lower extremity edema. INTAKE AND OUTPUT: 1630/500. LABORATORY DATA: WBC 8.8, hemoglobin 11.9, hematocrit 36.6, platelets 257. Sodium 138, potassium 4.2, chloride 101, CO2 of 28, BUN 15, creatinine 0.7, glucose 90, calcium 9.6. AST 22, ALT 32. Blood culture, no growth. CT of the cervical spine, no acute fractures, multilevel degeneration, spondylosis, varying degrees of mild canal narrowing and cord compression. CT of the right hip, flattening of the superior margin of the right femoral head secondary to chronic avascular necrosis, DJD with marked joint space narrowing. CURRENT MEDICATIONS: Aricept, ceftaroline, Cozaar 100, lidocaine, magnesium oxide, Plaquenil, Tylenol, Xanax. ASSESSMENT: 1. Status post fall, mild rhabdomyolysis, resolved. 2. Hypertension, well controlled. 3. Severe osteoarthritis, right hip osteoarthritis, plan for hip replacement? PLAN: 1. Discontinue IV fluids. 2. Continue current antihypertensives. 3. The patient is stable from the renal standpoint. Marlen León MD
--- NOTE | 2017-12-29 20:55 | PN ---
Copied To: Susanna Patel MD Attending MD: Susanna Patel MD DATE: 12/29/2017 SUBJECTIVE: An 87-year-old female resting comfortably in bed this morning. Nursing staff relates that there are no particular problems during the day or night. PHYSICAL EXAMINATION: VITAL SIGNS: Temperature is 98.4, blood pressure is 133/87, respiratory rate is 18, oxygen saturation is 97% on room air, pulse is 68 and regular. NECK: Supple. LUNGS: Clear. HEART: S1, S2 rhythm ABDOMEN: Soft, positive bowel sounds. EXTREMITIES: No evidence of edema, it is reduced at this time. LABORATORY DATA: Cultures of blood and MRSA screen are negative. Currently, the patient is on IV ceftaroline for cellulitis of the lower extremities with a history of MRSA in the past. She has got a normal electrolyte panel with a BUN of 15, creatinine is 0.7, LFTs are normal. C-reactive protein is less than 5. CBC: WBC is 8.8, RBC 4.37, hemoglobin 11.9, hematocrit 36.6, platelet count is 257. ASSESSMENT AND PLAN: The patient is awaiting Cardiology evaluation in anticipation of right hip surgery. She is receiving physical therapy at this time and will continue on medical management. She has underlying cognitive behavior rheumatoid arthritis, hypertension, chronic degenerative changes. Neurology is evaluating the patient and reviewing the cervical and hip CT studies. Susanna Patel MD
[2017-12-30 00:10] VITALS: O2SAT 95
--- NOTE | 2017-12-30 11:29 | CON ---
Copied To: Zbigniew Ortiz MD Attending MD: Zbigniew Ortiz MD DATE: 12/30/2017 CONSULTATION INDICATIONS: Preoperative evaluation. HISTORY OF PRESENT ILLNESS: This is an 87-year-old woman admitted on 12/25/2017 with a fall at home. Apparently, she fell in the bathroom hitting the back of her head and suffering back and hip trauma with pain. There is a plan for a right total hip replacement electively in the future. Cardiac consultation was requested. The episode was a mechanical fall. There was no loss of consciousness. There is no chest pain, shortness of breath, orthopnea, PND, syncope, palpitations, vertigo, fever, chills, cough, sputum production, hemoptysis, abdominal pain, nausea, vomiting, diarrhea, constipation, melena. PAST MEDICAL HISTORY: Includes hypertension, hyperlipidemia, mitral regurgitation, chronic venous insufficiency, lupus, cellulitis, status post left hip replacement, cognitive dysfunction, GERD, anxiety, anemia and severe osteoarthritis. On admission, she was found to have elevated enzymes and was treated for mild rhabdomyolysis. She has been seen by multiple consultants including Renal, Orthopedics, Infectious Disease, Neurology, Podiatry. Initially, there was some evidence of bradycardia on monitoring, but she continues to be in sinus rhythm most of the time. There is no history of rheumatic fever, myocardial infarction, congestive heart failure, angina, arrhythmia, diabetes, stroke, TIA or gout. MEDICATIONS: At the time of admission included Aricept, losartan, Nexium, Plaquenil, Tylenol, Wellbutrin, Xanax. Her current medications include Aricept, losartan, methylprednisolone, lidocaine patch, magnesium oxide, hydroxychloroquine, ceftaroline, Tylenol, Xanax. ALLERGIES: THERE IS AN ALLERGY TO CODEINE REPORTED. SOCIAL HISTORY: She lives at home. She does not smoke cigarettes or drink alcohol. FAMILY HISTORY: Noncontributory. REVIEW OF SYSTEMS: Ten-point review of systems is, otherwise, unremarkable. PHYSICAL EXAMINATION: GENERAL: She is a well-developed elderly woman lying in bed on Telemetry, in no acute distress. VITAL SIGNS: She is in sinus rhythm at 74 to 89 beats per minute. She is afebrile, blood pressure 133/68, respirations 18 to 19, O2 sat 95% on room air. HEENT: Reveals no neck vein distention, thyromegaly, carotid bruit. Mucous membranes moist. Conjunctivae pink. NECK: Supple. LUNGS: Lung chow clear. HEART: Revealed normal first and second heart sounds. There is a soft systolic murmur along the left sternal border. PMI is not palpable. ABDOMEN: Soft. Bowel sounds present. No mass, organomegaly, tenderness, rebound or guarding. No CVA tenderness. No palpable abdominal aortic aneurysm. EXTREMITIES: Revealed no cyanosis, clubbing or edema. There are cellulitic changes in the lower extremities. NEUROLOGICAL: She was awake, alert and oriented. PSYCHIATRIC: Normal as to mood and affect. SKIN: Warm and dry. LABORATORY AND IMAGING: A CT scan of the head on 12/25/2017 revealed no acute hemorrhage. The repeat CT scan of the head on 12/28/2017 revealed moderate-to- significant chronic white matter ischemic changes, etc., see full report. A hip and pelvis x-ray reveals severe degenerative changes with flattening of the femoral head and bony sclerosis, no fracture, etc. A lumbar spine x-ray reveals multilevel disk degeneration. A knee x-ray reveals joint space narrowing in the medial and lateral joint space of the right knee. EKG demonstrates sinus rhythm, LVH, nonspecific S-T wave changes, no acute changes or change compared to a prior EKG. A hip CT scan reveals no evidence of acute displaced fracture, etc. A cervical spine CT reveals no acute fractures, etc. White count normal, hemoglobin 11.9, hematocrit 36.6, platelet count normal. PT/INR and PTT normal. Electrolytes: BUN, creatinine, blood sugar unremarkable. Magnesium 1.8. LFT is unremarkable. Troponin 0.09. Initial CKs were elevated consistent with rhabdomyolysis. B12 and folate levels are normal. C-reactive protein less than 5. Yesterday's basic metabolic panel unremarkable. IMPRESSION: Deann Felix is an 87-year-old woman with a history of hypertension and mitral regurgitation who was admitted with a fall at home and evidence of mild rhabdomyolysis, which has improved. She has severe osteoarthritis, status post left total hip replacement and severe degenerative changes in her right hip and spine. Orthopedic Surgery is being planned. There are no cardiac contraindications. She should be considered a mildly increased cardiac risk. She is, however, frail with many medical problems and should be thoroughly evaluated and cleared medically prior to any elective surgery. In considering surgery, the benefit of increased mobility should be carefully assessed in this frail woman with multiple orthopedic issues. I have discussed the case with Dr. Patel. She will be going to [facility] [place] for a period of rehabilitation. The decision regarding future orthopedic surgery will be made during that period. Zbigniew Ortiz MD [facility]
[2017-12-30] MEDS: Lidocaine 5% Patch TD SCH (11:33)
[2017-12-30] MEDS: Magnesium Oxide 400 mg Tab UD PO SCH (11:33)
[2017-12-30 11:39] VITALS: BP 142/69; PULSE 61; RESP 18; TEMP 97.8
--- NOTE | 2017-12-30 12:45 | CP.PCM.PN ---
Subjective - Date & Time of Evaluation Date of Evaluation: 12/30/17 Time of Evaluation: 08:25 - Subjective Subjective: No fevers, left leg is a little better, no nausea or diarrhea. Objective - Vital Signs/Intake and Output Vital Signs (last 24 hours): Temp Pulse Resp BP Pulse Ox 97.5 F L 76 20 143/81 97 12/29/17 05:54 12/29/17 05:54 12/29/17 05:54 12/29/17 05:54 12/29/17 05:54 Intake and Output: 12/29/17 12/29/17 06:59 18:59 Intake Total 760 Output Total 500 Balance 260 - Medications Medications: Current Medications Acetaminophen (Tylenol 325mg Tab) 650 mg PO Q6H PRN PRN Reason: Pain, moderate (4-7) Last Admin: 12/29/17 10:13 Dose: 650 mg Alprazolam (Xanax) 0.125 mg PO HS PRN; Protocol PRN Reason: Anxiety Stop: 01/02/18 22:16 Last Admin: 12/28/17 21:24 Dose: 0.125 mg Donepezil HCl (Aricept) 5 mg PO HS ANTHONY Last Admin: 12/28/17 21:24 Dose: 5 mg Hydroxychloroquine Sulfate (Plaquenil) 200 mg PO HS ANTHONY PRN Reason: Protocol Last Admin: 12/28/17 21:24 Dose: 200 mg Sodium Chloride (Sodium Chloride 0.9%) 1,000 mls @ 75 mls/hr IV .[id number] ANTHONY Last Admin: 12/28/17 15:00 Dose: 75 mls/hr Ceftaroline Fosamil 400 mg/ (Sodium Chloride) 100 mls @ 100 mls/hr IVPB Q12 ANTHONY PRN Reason: Protocol Stop: 01/02/18 10:01 Last Admin: 12/29/17 10:34 Dose: 100 mls/hr Lidocaine (Lidoderm) 1 ea TD DAILY ANTHONY Last Admin: 12/29/17 10:34 Dose: 1 ea Losartan Potassium (Cozaar) 100 mg PO DAILY ANTHONY Last Admin: 12/29/17 10:33 Dose: 100 mg Magnesium Oxide (Mag-Ox) 400 mg PO BID ANTHONY Last Admin: 12/29/17 10:33 Dose: 400 mg - Labs Labs: 12/29/17 11:15 12/29/17 11:15 PT 11.5 SECONDS (9.4-12.5) 12/26/17 06:45 INR 1.00 12/26/17 06:45 APTT 29.0 Seconds (25.1-36.5) 12/26/17 06:45 - Constitutional Appears: Non-toxic, Chronically Ill - Head Exam Head Exam: NORMAL INSPECTION - ENT Exam ENT Exam: Mucous Membranes Moist - Respiratory Exam Respiratory Exam: Decreased Breath Sounds - Cardiovascular Exam Cardiovascular Exam: +S1, +S2 - GI/Abdominal Exam GI & Abdominal Exam: Soft. absent: Tenderness Assessment and Plan - Assessment and Plan (Free Text) Plan: Assessment consider left leg cellulitis in this patient with a history of MRSA wound infection in the same leg, slowly improving S/P upper respiratory tract infection without evidence of pneumonia, improved and S/P treatment right knee inflammatory arthritis S/P arthrocentesis history of bilateral lower extremity skin and skin structure infection with methicillin-sensitive Staph aureus history of right shoulder effusion S/P drainage dyslipidemia hypertension osteoarthritis gastroesophageal reflux disease multinodular goiter mitral regurgitation rheumatoid arthritis SLE Plan continue Zyvox day 5 total (was on Teflaro previously) and will continue to monitor clinically - target is 7-10 days of therapy
--- NOTE | 2017-12-30 16:37 | DS ---
Copied To: Susanna Patel MD Attending MD: Susanna Patel MD HISTORY OF PRESENT ILLNESS: An 87-year-old female, admitted to [facility] for rhabdomyolysis, status post mechanical fall at home, who was seen by Nephrology for her rhabdomyolysis, seen by Neurology for her fall, seen by Cardiology at the request of Orthopedics and the family for her fall history and anticipated possible right hip surgery. MEDICATIONS: Consist of Cozaar 100 mg daily, Plaquenil 200 mg at bedtime, Aricept 5 mg at bedtime, Tylenol 2 tabs every 6 p.r.n. for moderate pain, Nexium, Xanax 0.125 mg at bedtime. PHYSICAL EXAMINATION: VITAL SIGNS: The patient had a temp of 97.8, pulse is 61, blood pressure 148/69, respiratory rate was 18 and oxygen sat was 95% on room air. GENERAL: The patient was alert and oriented x3. LUNGS: Clear. HEART: An S1 and S2 rhythm. ABDOMEN: Soft with positive bowel sounds. EXTREMITIES: No evidence of edema. ASSESSMENT AND PLAN: 1. She was cleared by Neurology with the recommendation of physical therapy. 2. She has been seen by Infectious Disease and subsequently after being treated for cellulitis with a remote history of methicillin-resistant Staphylococcus aureus infection of the legs, she was also seen by Podiatry for care. She has a history of left hip fracture, effusion of the right shoulder with drainage, methicillin-resistant Staphylococcus aureus infection of the legs with cellulitis, inflammatory arthritis. She has been recommended to continue on Zyvox to complete course. She has rheumatoid arthritis, lupus, mitral regurgitation, multinodular goiter, gastroesophageal reflux, dyslipidemia, hypertension. She was seen by Cardiology, Dr. Ortiz, who states in his notes that there is no cardiac contradictions to the planned hip surgery, but that she is frail with multiple medical problems would benefit from rehabilitation. She will be going for rehabilitation at this time and continue above-mentioned medications. Susanna Patel MD
== END 2017-12-30 15:16 | DRG 558 ==
LOC: ED 20:41 → ERH 23:48 → 2RSO 12-26 01:07 → OBSVTOIN 12-26 08:01
PROVIDERS: ADMIT Internal Medicine; ATTEND Internal Medicine
DX: M62.82 Rhabdomyolysis (principal); L03.115 Cellulitis of right lower limb; L03.116 Cellulitis of left lower limb; D64.9 Anemia, unspecified; E04.2 Nontoxic multinodular goiter; E78.5 Hyperlipidemia, unspecified; E86.0 Dehydration; F09 Unspecified mental disorder due to known physiological condition; H40.9 Unspecified glaucoma; I10 Essential (primary) hypertension; I34.0 Nonrheumatic mitral (valve) insufficiency; I73.00 Raynaud's syndrome without gangrene; I87.2 Venous insufficiency (chronic) (peripheral); K21.9 Gastro-esophageal reflux disease without esophagitis; M06.9 Rheumatoid arthritis, unspecified; M16.0 Bilateral primary osteoarthritis of hip; M17.11 Unilateral primary osteoarthritis, right knee; M19.011 Primary osteoarthritis, right shoulder; M32.9 Systemic lupus erythematosus, unspecified; M46.92 Unspecified inflammatory spondylopathy, cervical region; M47.9 Spondylosis, unspecified; M48.02 Spinal stenosis, cervical region; M81.0 Age-related osteoporosis without current pathological fracture; W01.0XXA Fall on same level from slipping, tripping and stumbling without subsequent striking against object, initial encounter; Y92.002 Bathroom of unspecified non-institutional (private) residence as the place of occurrence of the external cause; Z86.14 Personal history of Methicillin resistant Staphylococcus aureus infection; Z87.891 Personal history of nicotine dependence; Z90.49 Acquired absence of other specified parts of digestive tract; Z91.81 History of falling; Z96.642 Presence of left artificial hip joint

== ENCOUNTER 2017-12-30 15:19 | Inpatient (IN) | payer OTHER, MEDICARE ==
[2017-12-30 16:18] VITALS: BMI 18.6
[2017-12-30] MEDS: Magnesium Oxide 400 mg Tab UD PO SCH (17:33)
[2017-12-30] MEDS ORDERED: Pneumococcal 23-Valent Vaccine IM ONE (17:38)
--- NOTE | 2017-12-31 00:40 | PN ---
Copied To: Marlen León MD Attending MD: Marlen León MD DATE: 12/30/2017 SUBJECTIVE: The patient is seen lying in bed. She is awake. She is alert. She is complaining of some pain in her right groin. She denies any chest pain. She denies any shortness of breath. PHYSICAL EXAMINATION: GENERAL: Elderly lady, lying in bed. VITAL SIGNS: Blood pressure 142/69, heart rate 61, respiratory rate 18, temperature 97.8. HEENT: Normocephalic, atraumatic, positive pallor. NECK: Supple, no JVD. LUNGS: Bilateral equal air entry, bilateral equal expansion. CARDIAC: S1 and S2, regular rate and rhythm, no murmur, no rub. ABDOMEN: Soft, nondistended, nontender, bowel sounds present. EXTREMITIES: No lower extremity edema. LABORATORY DATA: WBC 8.8, hemoglobin 11.9, hematocrit 36.6, platelets 257. Sodium 132, potassium 4.2, chloride 101, CO2 of 28, BUN 15, creatinine 0.7, glucose 90, calcium 9.6. CURRENT MEDICATIONS: Aricept, ceftaroline, Cozaar, mag oxide, Plaquenil, Tylenol, Xanax, Zyvox. ASSESSMENT: 1. Acute rhabdomyolysis, mild, resolved. 2. Status post fall. 3. Severe osteoarthritis. 4. Hypertension. PLAN: 1. Continue current antihypertensives. 2. Avoid nephrotoxins. 3. Stable from the renal standpoint. Marlen León MD
[2017-12-31 06:55] LABS: BASO # 0.01 K/mm3 (0.0-2.0); BASO % 0.2 % (0.0-3.0); EOS # 0.2 (0.0-0.7); EOS % 4.5 % (1.5-5.0); GRAN # 3.97 (1.4-6.5); GRAN % 78.1 % (50.0-68.0); HEMOGLOBIN 10.3 g/dL (12.0-16.0); LYMPH # 0.4 (1.2-3.4); LYMPH % 8.7 % (22.0-35.0); MEAN CELL VOLUME 83.4 fl (80.0-105.0); MEAN CORPUSCULAR HEMOGLOBIN 26.7 pg (25.0-35.0); MEAN PLATELET VOLUME 9.2 fl (7.0-11.0); MONO # 0.4 (0.1-0.6); MONO % 8.5 % (1.0-6.0); RBC 3.86 10^6/uL (3.5-6.1); RED CELL DISTRIBUTION WIDTH 15.5 % (11.5-14.5); WHITE BLOOD COUNT 5.1 10^3/ul (4.5-11.0)
[2017-12-31 07:13] LABS: ALB/GLOB RATIO 1.1 (1.1-1.8); ALBUMIN 2.9 g/dL (3.0-4.8); ALT/SGPT 20 U/L (7-56); AST/SGOT 20 U/L (14-36); BLOOD UREA NITROGEN 18 mg/dL (7-21); CALCIUM 8.8 mg/dL (8.4-10.5); GFR NON-AFRICAN AMERICAN > 60
[2017-12-31] MEDS: Magnesium Oxide 400 mg Tab UD PO SCH ×2 (09:54→17:12)
[2017-12-31] MEDS: Lidocaine 5% Patch TD SCH (09:54)
--- NOTE | 2017-12-31 17:48 | CON ---
Copied To: Peña Luna DO Attending MD: Peña Luna DO DATE: 12/31/2017 ORTHOPEDIC CONSULTATION LOCATION: In room 321, bed 1. HISTORY OF PRESENT ILLNESS: The patient is an 87-year-old female with severe advanced unstable osteoarthritis, right hip, being prepared for total hip replacement at [facility] once she has optimal strength and conditioning. We will do this at the [facility] at [facility] once medically she is ready and they will have more facilities that facilitate to accomplish a total hip replacement on someone at 87 years old. Has closer follow up with well trained house staff for total hip replacements and with the residents. We will do advanced physical therapy here in the TCU floor and speak with the family to make arrangements at [facility] at that optimal time, hopefully within two weeks. FINAL DIAGNOSIS: Advanced unstable osteoarthritis, right hip. PLAN: Total hip replacement when she is optimally ready, medically and physically. Peña Luna DO
--- NOTE | 2017-12-31 21:28 | HP ---
Copied To: Susanna Patel MD Attending MD: Susanna Patel MD HISTORY OF PRESENT ILLNESS: An 87-year-old female being admitted to the transitional care unit at [facility]. PAST MEDICAL HISTORY: Left hip surgery, degenerative arthritis of the right hip, cervical disc disease, lumbar disc disease, lupus, arthritis, cellulitis of the lower extremities with MRSA, hypomagnesemia, hypertension, anxiety, and cognitive behavior disorder. CURRENT MEDICATIONS: Consist of Aricept 5 mg at bedtime, Cozaar 100 mg daily, Lidoderm patch daily, magnesium oxide 400 mg b.i.d, Plaquenil 200 mg at bedtime, Tylenol 2 tabs every 6 hours p.r.n. pain, Xanax 0.125 mg at bedtime p.r.n. and 0.125 mg daily p.r.n. and Zyvox 100 mg p.o. b.i.d. ALLERGIES: CODEINE. SOCIAL HISTORY: She is a nonsmoker, nondrinker, non-drug user. REVIEW OF SYSTEMS: Multiple systems are reviewed. Pertinent findings as stated in the physical. PHYSICAL EXAMINATION: VITAL SIGNS: Show a temperature of 98, pulse of 60, blood pressure 113/66, respiratory rate is 18, oxygen sat is 97% on room air. GENERAL: She is alert and oriented x 3. NECK: Supple. There is no JVD. LUNGS: Clear. HEART: S1, S2 rhythm. ABDOMEN: Soft with positive bowel sounds. EXTREMITIES: Show diminished erythema and edema. NEUROLOGIC: She is alert and oriented x 3. LABORATORY DATA: Shows a WBC of 5.1, RBC 3.86, hemoglobin 10.3, hematocrit 32.2, platelet count is 243. Chemistry shows normal electrolytes. BUN is 18, creatinine is 0.7, total protein is 5.5, albumin is 2.9. LFTs are normal. ASSESSMENT AND PLAN: 1. Patient is status post treatment for acute rhabdomyolysis. 2. She is status post mechanical fall, was cleared by Neurology. She had a negative CT of the head and CAT scan of the cervical spine showed mild degenerative disease. Orthopedics and Neurology recommended physical therapy. She is being followed by Orthopedics with recommendation to consider right hip surgery. She has been seen by Cardiology at the request of orthopedics for the clearance. Cardiology's note suggested the patient is okay for surgery. There is no cardiac contraindication, however, he recommends patient be monitored during rehab. She will continue the current above mentioned medications and receive physical and occupational therapy. She will be followed by Orthopedics and further clinical management pending input from the consultants and the plan for physical therapy. Susanna Patel MD : 12/31/2017 11:34:43
[2018-01-01 06:59] LABS: BASO # 0.01 K/mm3 (0.0-2.0); BASO % 0.2 % (0.0-3.0); EOS # 0.2 (0.0-0.7); EOS % 4.6 % (1.5-5.0); GRAN # 3.21 (1.4-6.5); GRAN % 73.3 % (50.0-68.0); HEMOGLOBIN 10.5 g/dL (12.0-16.0); LYMPH # 0.6 (1.2-3.4); LYMPH % 14.4 % (22.0-35.0); MEAN CELL VOLUME 84.2 fl (80.0-105.0); MEAN CORPUSCULAR HEMOGLOBIN 26.7 pg (25.0-35.0); MEAN CORPUSCULAR HGB CONC 31.7 g/dl (31.0-37.0); MEAN PLATELET VOLUME 9.5 fl (7.0-11.0); MONO # 0.3 (0.1-0.6); MONO % 7.5 % (1.0-6.0); RBC 3.93 10^6/uL (3.5-6.1); RED CELL DISTRIBUTION WIDTH 15.4 % (11.5-14.5); WHITE BLOOD COUNT 4.4 10^3/ul (4.5-11.0)
[2018-01-01] MEDS: Lidocaine 5% Patch TD SCH (09:44)
[2018-01-01] MEDS: Magnesium Oxide 400 mg Tab UD PO SCH ×2 (09:45→17:33)
--- NOTE | 2018-01-02 00:55 | PN ---
Copied To: Susanna Patel MD Attending MD: Susanna Patel MD DATE: 01/01/2018 SUBJECTIVE: An 87-year-old female on the transitional care unit receiving occupational and physical therapy. Completing antibiotic course for cellulitis in the lower extremity. PHYSICAL EXAMINATION: GENERAL: Patient is alert and oriented x3. VITAL SIGNS: Temperature is 98.3, pulse is 65, blood pressure is 121/57, respiratory rate is 18, oxygen saturation is reported 95% on room air. NECK: Supple. HEART: S1, S2 rhythm. LUNGS: Show diminished breath sounds at the bases. ABDOMEN: Soft, scaphoid with positive bowel sounds. EXTREMITIES: Show diminished erythema and edema. LABORATORY DATA: Shows a WBC of 4.4, RBC 3.93, hemoglobin 10.5, hematocrit 33.1, platelet count is 277. MEDICATIONS: Currently, the patient is on Aricept, Cozaar, Lidoderm, magnesium, Plaquenil, Xanax, Tylenol and Zyvox. PLAN: We will continue current level of care. She is being followed by Infectious Disease and Orthopedics. We will follow up the patient's CBC and continue her occupational and physical therapy. Susanna Patel MD
[2018-01-02 07:10] LABS: BASO # 0.01 K/mm3 (0.0-2.0); BASO % 0.3 % (0.0-3.0); EOS # 0.2 (0.0-0.7); EOS % 4.5 % (1.5-5.0); GRAN # 2.72 (1.4-6.5); GRAN % 67.9 % (50.0-68.0); HEMOGLOBIN 10.5 g/dL (12.0-16.0); LYMPH # 0.7 (1.2-3.4); LYMPH % 18.5 % (22.0-35.0); MEAN CELL VOLUME 83.4 fl (80.0-105.0); MEAN CORPUSCULAR HEMOGLOBIN 27.2 pg (25.0-35.0); MEAN CORPUSCULAR HGB CONC 32.6 g/dl (31.0-37.0); MEAN PLATELET VOLUME 9.5 fl (7.0-11.0); MONO # 0.4 (0.1-0.6); MONO % 8.8 % (1.0-6.0); RBC 3.86 10^6/uL (3.5-6.1); RED CELL DISTRIBUTION WIDTH 15.5 % (11.5-14.5)
[2018-01-02] MEDS: Lidocaine 5% Patch TD SCH (09:45)
[2018-01-02] MEDS: Magnesium Oxide 400 mg Tab UD PO SCH ×2 (09:45→17:19)
--- NOTE | 2018-01-02 11:44 | PN ---
Copied To: Susanna Patel MD Attending MD: Susanna Patel MD DATE: 01/02/2018 SUBJECTIVE: An 87-year-old female resting comfortably in a chair this morning. Nursing staff relates that the patient has no particular problems. PHYSICAL EXAMINATION: GENERAL: She is alert and oriented x3. VITAL SIGNS: Her blood pressure is 104/54, her temp is 98.1. LUNGS: Clear. HEART: S1 and S2 rhythm. ABDOMEN: Soft with positive bowel sounds. EXTREMITIES: Show diminished edema. LABORATORY DATA: Shows a WBC of 4, RBC of 3.86, hemoglobin 10.5, hematocrit 32.2, platelet count 287. The patient is receiving antibiotic therapy, completing the course of treatment for her cellulitis of the lower extremities. She has cognitive behavior disorder, on Aricept. She has a history of hypertension, on Cozaar. She is receiving Lidoderm patch for her backache problem and she is on Plaquenil for her history of arthritis and lupus. She is also on Xanax for anxiety. She will continue occupational and physical therapy. She is being followed by Orthopedics with an intent to do right hip surgery at a later date. We will continue current level of care and follow the patient's lab work. Susanna Patel MD
--- NOTE | 2018-01-02 13:51 | CP.PCM.CON ---
History of Present Illness - History of Present Illness History of Present Illness: 87 year old female with PMH of bilateral lower extremity cellulitis, right shoulder effusion S/P drainage, dyslipidemia, hypertension, osteoarthritis, gastroesophageal reflux disease, multinodular goiter, mitral regurgitation, rheumatoid arthritis initially came in to [facility] because of a fall, but she was also noted to have cellulitis of the left leg. She is now transferred to [facility] for continued medical therapy and physical rehab. Infectious diseases consult is requested to continue her antibiotics. She is comfortable in bed, left leg feels much better, no fevers, no vomiting, no diarrhea, no SOB, no cough, no abdominal pain. 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 - HEENT Hx HEENT Problems: Yes (eyeglasses) Hx Glaucoma: Yes - RENAL Hx Chronic Kidney Disease: No - ENDOCRINE/METABOLIC Hx Endocrine Disorders: Yes Hx Systemic Lupus Erythematosus: Yes - HEMATOLOGICAL/ONCOLOGICAL Other/Comment: 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 - INTEGUMENTARY Hx Dermatological Problems: Yes Other/Comment: ble +1 edema cellulitis, thick hard toenails,redness swelling red raised rash from thighs to lower legs, feet reddened and swollen, red dry cracked skin to legs and feet, weeping coming from open wounds both legs left more than right, both hands are reddened, skin discolorations both arms - MUSCULOSKELETAL/RHEUMATOLOGICAL Hx Arthritis: Yes - GASTROINTESTINAL Hx Gastrointestinal Disorders: Yes (HIATAL HERNIA,APPENDECTOMY,CHOLECYSTECTOMY, CONSTIPATION) - GENITOURINARY/GYNECOLOGICAL Hx Genitourinary Disorders: Yes (URINARY FREQUENCY,SOME INCONTINENCY.) Hx Reproductive Disorders: No - PSYCHIATRIC Hx Psychophysiologic Disorder: No Hx Depression: No Hx Emotional Abuse: No Hx Physical Abuse: No Hx Substance Use: No - SURGICAL HISTORY Hx Appendectomy: Yes Hx Cholecystectomy: Yes Hx Orthopedic Surgery: Yes (left hip 11/06/12) Other/Comment: tongue surgery. cyst removal from right breast. hemorroidectomy - ANESTHESIA Hx Anesthesia: Yes Hx Anesthesia Reactions: No Hx Malignant Hyperthermia: No Meds Allergies/Adverse Reactions: Allergies Allergy/AdvReac Type Severity Reaction Status Date / Time codeine AdvReac NAUSEA Verified 12/30/17 15:46 - Medications Medications: Current Medications Acetaminophen (Tylenol 325mg Tab) 650 mg PO Q6H PRN; Protocol PRN Reason: Pain, moderate (4-7) Last Admin: 01/01/18 21:26 Dose: 650 mg Alprazolam (Xanax) 0.125 mg PO HS PRN; Protocol PRN Reason: Anxiety Stop: 01/06/18 16:19 Last Admin: 01/01/18 21:24 Dose: 0.125 mg Alprazolam (Xanax) 0.125 mg PO DAILY PRN; Protocol PRN Reason: Anxiety Stop: 01/07/18 10:01 Donepezil HCl (Aricept) 5 mg PO HS ANTHONY PRN Reason: Protocol Last Admin: 01/01/18 21:24 Dose: 5 mg Hydroxychloroquine Sulfate (Plaquenil) 200 mg PO HS ANTHONY PRN Reason: Protocol Last Admin: 01/01/18 21:24 Dose: 200 mg Lidocaine (Lidoderm) 1 ea TD DAILY ANTHONY PRN Reason: Protocol Last Admin: 01/01/18 09:44 Dose: 1 ea Linezolid (Zyvox) 600 mg PO BID ANTHONY PRN Reason: Protocol Last Admin: 01/01/18 17:33 Dose: 600 mg Losartan Potassium (Cozaar) 100 mg PO DAILY ANTHONY PRN Reason: Protocol Last Admin: 01/01/18 09:43 Dose: 100 mg Magnesium Oxide (Mag-Ox) 400 mg PO BID ANTHONY PRN Reason: Protocol Last Admin: 01/01/18 17:33 Dose: 400 mg Physical Exam - Constitutional Appears: Non-toxic, Chronically Ill - Head Exam Head Exam: NORMAL INSPECTION - Respiratory Exam Respiratory Exam: Decreased Breath Sounds - Cardiovascular Exam Cardiovascular Exam: +S1, +S2 - GI/Abdominal Exam GI & Abdominal Exam: Soft. absent: Tenderness - Extremities Exam Additional comments: left leg with decreased redness and swelling Results - Vital Signs Recent Vital Signs: Last Vital Signs Temp 98.1 F 01/01/18 16:00 Pulse 59 L 01/01/18 16:00 Resp 18 01/01/18 16:00 BP 104/54 L 01/01/18 16:00 Pulse Ox 94 L 01/01/18 16:00 - Labs Result Diagrams: 01/02/18 06:30 12/31/17 06:30 Labs: Laboratory Results - last 24 hr 01/01/18 06:50 WBC 4.4 L RBC 3.93 Hgb 10.5 L Hct 33.1 L MCV 84.2 MCH 26.7 MCHC 31.7 RDW 15.4 H Plt Count 277 MPV 9.5 Gran % 73.3 H Lymph % (Auto) 14.4 L [place] % (Auto) 7.5 H Eos % (Auto) 4.6 Baso % (Auto) 0.2 Gran # 3.21 Lymph # (Auto) 0.6 L [place] # (Auto) 0.3 Eos # (Auto) 0.2 Baso # (Auto) 0.01 Assessment & Plan - Assessment and Plan (Free Text) Plan: Assessment consider left leg cellulitis in this patient with a history of MRSA wound infection in the same leg, clinically improving S/P upper respiratory tract infection without evidence of pneumonia, improved and S/P treatment right knee inflammatory arthritis S/P arthrocentesis history of bilateral lower extremity skin and skin structure infection with methicillin-sensitive Staph aureus history of right shoulder effusion S/P drainage dyslipidemia hypertension osteoarthritis gastroesophageal reflux disease multinodular goiter mitral regurgitation rheumatoid arthritis SLE Plan continue Zyvox day 9 to complete 10 days of therapy
[2018-01-03 07:35] LABS: BASO # 0.01 K/mm3 (0.0-2.0); BASO % 0.2 % (0.0-3.0); EOS # 0.2 (0.0-0.7); EOS % 4.4 % (1.5-5.0); GRAN # 3.2 (1.4-6.5); GRAN % 67.6 % (50.0-68.0); HEMOGLOBIN 11.1 g/dL (12.0-16.0); LYMPH # 0.9 (1.2-3.4); LYMPH % 19.2 % (22.0-35.0); MEAN CELL VOLUME 82.7 fl (80.0-105.0); MEAN CORPUSCULAR HEMOGLOBIN 26.6 pg (25.0-35.0); MEAN CORPUSCULAR HGB CONC 32.2 g/dl (31.0-37.0); MEAN PLATELET VOLUME 8.9 fl (7.0-11.0); MONO # 0.4 (0.1-0.6); MONO % 8.6 % (1.0-6.0); RBC 4.17 10^6/uL (3.5-6.1); RED CELL DISTRIBUTION WIDTH 15.4 % (11.5-14.5); WHITE BLOOD COUNT 4.7 10^3/ul (4.5-11.0)
[2018-01-03 08:05] LABS: ALB/GLOB RATIO 1.2 (1.1-1.8); ALBUMIN 3.3 g/dL (3.0-4.8); ALT/SGPT 23 U/L (7-56); AST/SGOT 22 U/L (14-36); BLOOD UREA NITROGEN 19 mg/dL (7-21); CALCIUM 9.4 mg/dL (8.4-10.5); GFR NON-AFRICAN AMERICAN > 60
[2018-01-03] MEDS: Magnesium Oxide 400 mg Tab UD PO SCH ×2 (09:32→17:11)
[2018-01-03] MEDS: Lidocaine 5% Patch TD SCH (09:32)
--- NOTE | 2018-01-03 11:20 | PN ---
Copied To: Satish Toro MD Attending MD: Satish Toro MD DATE: 01/03/2018 SUBJECTIVE: The patient is seen early this morning in room 321. No fevers and chills. She had an uneventful night. She is tolerating antibiotics well. No diarrhea. No nausea. PHYSICAL EXAMINATION: VITAL SIGNS: On exam, temperature is 97, blood pressure is 106/40, respiratory rate of 18, heart rate of 58. HEENT: Examination of HEENT is unremarkable. NECK: Supple. LUNGS: Have decreased breath sounds. HEART: Normal S1, S2. ABDOMEN: Soft. LABORATORY DATA: Laboratory examination reveals a white count of 4.7, hemoglobin of 11, platelets of 211. BUN of 19, creatinine of 0.8. Microbiology is noted. Blood cultures are reported to be negative. Naris is negative for MRSA. ASSESSMENT AND PLAN: An 87-year-old female seen earlier today in room 321 with left leg cellulitis in a patient with a history of methicillin-resistant Staphylococcus aureus wound infection in the same leg, improving and status post upper respiratory tract infection with history of bilateral lower extremity skin and skin structure infection with methicillin-resistant Staphylococcus aureus, hypertension, osteoarthritis and currently on day #10 of Zyvox. We will discontinue the Zyvox after today's last dose. Satish Toro MD
--- NOTE | 2018-01-03 13:19 | PN ---
Copied To: Susanna Patel MD Attending MD: Susanna Patel MD DATE: 01/03/2018 SUBJECTIVE: An 87-year-old female resting in bed on Transitional Care Unit this morning. The patient states that she had several bowel movements yesterday. The nursing staff states that they were formed, soft, not loose. Nothing else has been reported by the patient or the nurse. PHYSICAL EXAMINATION: GENERAL: The patient is alert and oriented x3. VITAL SIGNS: Her temp is 97.5, pulse is 63, blood pressure is 137/67, respiratory rate is 20, oxygen saturation is reported at 95% on room air. LUNGS: Clear. HEART: S1, S2. ABDOMEN: Soft with positive bowel sounds. EXTREMITIES: Show diminished edema. LABORATORY DATA: Shows a WBC of 4.7, RBC of 4.17, hemoglobin 11.1, hematocrit 34.5, platelet count is 311. The chemistry shows normal electrolytes, the BUN is 19 and creatinine is 0.8, LFTs are normal. Her albumin is 3.3. ASSESSMENT AND PLAN: Currently, the patient is status post treatment for rhabdomyolysis. She has degenerative arthritis and degenerative right hip. She is receiving occupational and physical therapy in the Transitional Care Unit and will ultimately undergo right hip surgery. She has got a history of left hip surgery repair, right shoulder effusion with degenerative arthritis, cognitive behavior disorder and lupus, hypertension, hypomagnesemia and has a history of anxiety. She will continue on the antibiotic, Zyvox; being followed by Infectious Disease with cellulitis of the lower extremities, Xanax is on a p.r.n. basis as is Tylenol for moderate pain. She is on Plaquenil, magnesium, Lidoderm patch, Cozaar and Aricept. I will continue with current medical management at this time and occupational and physical therapy. Susanna Patel MD
[2018-01-04] MEDS: Lidocaine 5% Patch TD SCH (09:18)
[2018-01-04] MEDS: Magnesium Oxide 400 mg Tab UD PO SCH ×2 (09:19→17:36)
--- NOTE | 2018-01-04 10:23 | PN ---
Copied To: Susanna Patel MD Attending MD: Susanna Patel MD DATE: 01/04/2018 SUBJECTIVE: An 87-year-old female on the Transitional Care Unit. Nursing staff relates that the patient had no particular problems during the day or night. She did not have any loose bowel movements as per the nursing staff. PHYSICAL EXAMINATION: VITAL SIGNS: Her temp is 97.4, blood pressure is 120/70, oxygen sat is 95% on room air. GENERAL: She is alert and oriented x3. LUNGS: Clear. HEART: An S1 and S2 rhythm. ABDOMEN: Soft with positive bowel sounds. EXTREMITIES: Show no evidence of edema. MEDICATIONS: She is currently on Aricept, Cozaar, Lidoderm, magnesium oxide, Plaquenil, Tylenol, Xanax. ASSESSMENT AND PLAN: She is receiving occupational and physical therapy. She is status post fall at home with rhabdomyolysis, which is resolved. Discussion is ongoing between her and the family and the Orthopedics regarding probable right hip surgery. I continued current medical management at this time and wait input regarding plans for further care and surgery. Susanna Patel MD
--- NOTE | 2018-01-04 12:02 | PN ---
Copied To: Satish Toro MD Attending MD: Satish Toro MD DATE: 01/04/2018 SUBJECTIVE: The patient has no fevers. No chills. No nausea. No vomiting. PHYSICAL EXAMINATION: VITAL SIGNS: With a temperature of 97, blood pressure is 100/50, respiratory rate of 20, heart rate of 80. HEENT: Examination of HEENT is unremarkable. NECK: Supple. LUNGS: Have decreased breath sounds. HEART: Normal S1, S2. ABDOMEN: Soft, nontender. LABORATORY DATA: Laboratory examination reveals a white count of 4.7, hemoglobin 11, platelets of 311. BUN 19, creatinine of 0.8. Microbiology reveals the patient's blood cultures were negative. Nares cultures are also negative. Review of orders reveals the patient is on Zyvox p.o. ASSESSMENT AND PLAN: An 87-year-old female, seen earlier today in room 321 with a left leg cellulitis in a patient with a history of methicillin-resistant Staphylococcus aureus, status post upper respiratory tract infection and history of bilateral lower extremity skin and skin structure infection, osteoarthritis. The patient had completed, today is day #11. The patient has received 11 days as of today. We will discontinue the Zyvox. Case discussed with Dr. Patel. The patient is at risk for developing nosocomial infections. We will discontinue the Zyvox, today is day #11. Satish Toro MD
[2018-01-05 06:21] LABS: BASO # 0.02 K/mm3 (0.0-2.0); BASO % 0.5 % (0.0-3.0); EOS # 0.1 (0.0-0.7); EOS % 3.6 % (1.5-5.0); GRAN # 2.89 (1.4-6.5); GRAN % 73.5 % (50.0-68.0); HEMOGLOBIN 10.9 g/dL (12.0-16.0); LYMPH # 0.6 (1.2-3.4); LYMPH % 16.3 % (22.0-35.0); MEAN CELL VOLUME 84.1 fl (80.0-105.0); MEAN CORPUSCULAR HGB CONC 32.2 g/dl (31.0-37.0); MEAN PLATELET VOLUME 8.9 fl (7.0-11.0); MONO # 0.2 (0.1-0.6); MONO % 6.1 % (1.0-6.0); RBC 4.03 10^6/uL (3.5-6.1); RED CELL DISTRIBUTION WIDTH 15.3 % (11.5-14.5); WHITE BLOOD COUNT 3.9 10^3/ul (4.5-11.0)
[2018-01-05 06:31] LABS: ALB/GLOB RATIO 1.2 (1.1-1.8); ALBUMIN 3.3 g/dL (3.0-4.8); ALT/SGPT 24 U/L (7-56); AST/SGOT 18 U/L (14-36); BLOOD UREA NITROGEN 27 mg/dL (7-21); CALCIUM 9.2 mg/dL (8.4-10.5); GFR NON-AFRICAN AMERICAN > 60
[2018-01-05] MEDS: Lidocaine 5% Patch TD SCH (10:21)
[2018-01-05] MEDS: Magnesium Oxide 400 mg Tab UD PO SCH ×2 (10:21→17:16)
--- NOTE | 2018-01-05 12:07 | PN ---
Copied To: Susanna Patel MD Attending MD: Susanna Patel MD DATE: 01/05/2018 SUBJECTIVE: This is an 87-year-old female on Transitional Care Unit status post treatment for acute rhabdomyolysis and cellulitis of the lower extremities. PHYSICAL EXAMINATION: VITALS SIGNS: Show a temperature of 97.7, blood pressure is 115/57, respiratory rate of 18, oxygen sat is 95% on room air, pulse is 61. GENERAL: She is alert and oriented x3. NECK: Supple. There is no JVD. LUNGS: Clear. HEART: S1 and S2 rhythm. ABDOMEN: Soft, scaphoid with positive bowel sounds. EXTREMITIES: Showed no evidence of edema. LABORATORY DATA: Shows a WBC of 3.9, RBC 4.03, hemoglobin of 10.9, hematocrit 33.9, platelet count is 299. Chemistry shows normal electrolytes. BUN is 27, creatinine is 0.8. LFTs are normal. Her albumin is 3.3. The patient is currently receiving Occupational and Physical Therapy on the Transitional Care Unit and a history of degenerative arthritis of the cervical spine, the lumbar spine, lupus and degenerative arthritis of the right hip. ASSESSMENT AND PLAN: Discussion is ongoing with the family regarding possible right hip surgery in the near future. She will continue on her current medications with followup of her CBC. Susanna Patel MD
--- NOTE | 2018-01-05 19:18 | CP.PCM.PN ---
Subjective - Date & Time of Evaluation Date of Evaluation: 01/05/18 Time of Evaluation: 11:25 - Subjective Subjective: Patient doing her physical therapy well, no fevers, no leg pain. Objective - Vital Signs/Intake and Output Vital Signs (last 24 hours): Temp Pulse Resp BP Pulse Ox 97.7 F 61 18 115/57 L 95 01/04/18 15:23 01/04/18 15:23 01/04/18 15:23 01/04/18 15:23 01/04/18 15:23 - Medications Medications: Current Medications Acetaminophen (Tylenol 325mg Tab) 650 mg PO Q6H PRN; Protocol PRN Reason: Pain, moderate (4-7) Last Admin: 01/04/18 20:30 Dose: 650 mg Alprazolam (Xanax) 0.125 mg PO HS PRN; Protocol PRN Reason: Anxiety Stop: 01/06/18 16:19 Last Admin: 01/04/18 22:06 Dose: 0.125 mg Alprazolam (Xanax) 0.125 mg PO DAILY PRN; Protocol PRN Reason: Anxiety Stop: 01/07/18 10:01 Donepezil HCl (Aricept) 5 mg PO HS ANTHONY PRN Reason: Protocol Last Admin: 01/04/18 21:50 Dose: 5 mg Hydroxychloroquine Sulfate (Plaquenil) 200 mg PO HS ANTHONY PRN Reason: Protocol Last Admin: 01/04/18 21:50 Dose: 200 mg Lidocaine (Lidoderm) 1 ea TD DAILY ANTHONY PRN Reason: Protocol Last Admin: 01/05/18 10:21 Dose: 1 ea Losartan Potassium (Cozaar) 100 mg PO DAILY ANTHONY PRN Reason: Protocol Last Admin: 01/05/18 10:21 Dose: 100 mg Magnesium Oxide (Mag-Ox) 400 mg PO BID ANTHONY PRN Reason: Protocol Last Admin: 01/05/18 10:21 Dose: 400 mg - Labs Labs: 01/05/18 05:50 01/05/18 05:50 - Constitutional Appears: Chronically Ill - Head Exam Head Exam: NORMAL INSPECTION - ENT Exam ENT Exam: Mucous Membranes Moist - Neck Exam Neck Exam: absent: Meningismus - Respiratory Exam Respiratory Exam: Decreased Breath Sounds - Cardiovascular Exam Cardiovascular Exam: +S1, +S2 - GI/Abdominal Exam GI & Abdominal Exam: Soft. absent: Tenderness Assessment and Plan - Assessment and Plan (Free Text) Plan: Assessment S/P left leg cellulitis in this patient with a history of MRSA wound infection in the same leg, clinically improved and S/P treatment with antibiotics S/P upper respiratory tract infection without evidence of pneumonia, improved and S/P treatment right knee inflammatory arthritis S/P arthrocentesis history of bilateral lower extremity skin and skin structure infection with methicillin-sensitive Staph aureus history of right shoulder effusion S/P drainage dyslipidemia hypertension osteoarthritis gastroesophageal reflux disease multinodular goiter mitral regurgitation rheumatoid arthritis SLE Plan completed course of Zyvox - continue to monitor the patient off antibiotics discussed with Dr. Patel
[2018-01-06 06:35] LABS: BASO # 0.02 K/mm3 (0.0-2.0); BASO % 0.5 % (0.0-3.0); EOS # 0.1 (0.0-0.7); EOS % 2.7 % (1.5-5.0); GRAN # 2.84 (1.4-6.5); GRAN % 70.3 % (50.0-68.0); HEMOGLOBIN 11.4 g/dL (12.0-16.0); LYMPH # 0.8 (1.2-3.4); LYMPH % 19.1 % (22.0-35.0); MEAN CELL VOLUME 83.3 fl (80.0-105.0); MEAN CORPUSCULAR HEMOGLOBIN 26.9 pg (25.0-35.0); MEAN CORPUSCULAR HGB CONC 32.3 g/dl (31.0-37.0); MEAN PLATELET VOLUME 8.9 fl (7.0-11.0); MONO # 0.3 (0.1-0.6); MONO % 7.4 % (1.0-6.0); RBC 4.24 10^6/uL (3.5-6.1); RED CELL DISTRIBUTION WIDTH 15.2 % (11.5-14.5)
--- NOTE | 2018-01-06 10:00 | PN ---
Copied To: Susanna Patel MD Attending MD: Susanna Patel MD DATE: 01/06/2018 SUBJECTIVE: An 87-year-old female, who was sitting in chair on the Transitional Care Unit. Nurses state that she had a quiet evening. She is a bit agitated this morning, anxious about anticipation of going home and anticipated surgery. PHYSICAL EXAMINATION: VITAL SIGNS: Her temp is 97.6, her pulse is 70, her blood pressure is 118/69, respiratory rate is 18, oxygen sat is reported at 99% on room air. GENERAL: She is alert and oriented x3. LUNGS: Show diminished breath sounds at the bases. HEART: An S1 and S2 rhythm. ABDOMEN: Soft with positive bowel sounds. EXTREMITIES: Show no evidence of edema. LABORATORY DATA: WBC is 4, RBC 4.24, hemoglobin 11.4, hematocrit 35.3, platelet count is 304. MEDICATIONS: Currently, the patient is on Aricept, Cozaar, Lidoderm patch, magnesium oxide, Plaquenil, Tylenol, Xanax at bedtime and daily p.r.n. ASSESSMENT AND PLAN: 1. Status post acute rhabdomyolysis. 2. Status post cellulitis of the lower extremities. 3. History of degenerative arthritis of the shoulder and the spine and neck, right hip. History of left hip surgery. History of anxiety. History of cognitive disorder. I have discussed with the patient getting a psychiatry evaluation or discussion. She has agreed. I have also spoken to the family about the anticipation of possible surgery going forward. At this time, I would continue the occupational and physical therapy. Follow up the patient's labs. Susanna Patel MD
[2018-01-06] MEDS: Magnesium Oxide 400 mg Tab UD PO SCH ×2 (10:24→17:40)
[2018-01-06] MEDS: Lidocaine 5% Patch TD SCH (10:24)
--- NOTE | 2018-01-06 10:25 | PN ---
Copied To: Peña Luna DO Attending MD: Peña Luna DO DATE: 01/06/2018 An 87-year-old female in 321, bed 1. 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 At [facility], I do not have the level of help that I have at [facility] and the knowledge of the assistance and the team that performs total hip replacement and the OR and the special squad to be observed 24x7 as I would be the only one responsible for the patient here but in the other facilities at [facility], we have a whole team of people for the Orthopedic service that is responsible for the care of the patient and it will be higher risk than a normal procedure in a patient who was told there is risk of an infection, redislocation, redo surgery and blood loss. I feel more comfortable with the patient at [facility] and we are in the process of scheduling the case in a week or two. I will follow her closely. This is a patient with severe arthritis of the right hip. Peña Luna DO
--- NOTE | 2018-01-06 13:47 | RAD ---
HISTORY: COMPARISON: No prior. TECHNIQUE: Chest PA and lateral FINDINGS: LINES AND TUBES: None. LUNG AND PLEURA: The lungs are well inflated and clear. No pleural effusion or pneumothorax. HEART AND MEDIASTINUM: The heart is not enlarged. The hilar and mediastinal contours are within normal limits. SKELETAL STRUCTURES: There is severe degenerative osteoarthrosis in the right glenohumeral joint.There is diffuse bone demineralization and multilevel degenerative changes in the spine. VISUALIZED UPPER ABDOMEN: Normal. OTHER FINDINGS: None. IMPRESSION: No active pulmonary disease.
--- NOTE | 2018-01-06 15:02 | CP.PCM.PN ---
Subjective - Date & Time of Evaluation Date of Evaluation: 01/06/18 Time of Evaluation: 10:45 - Subjective Subjective: Feeling much stronger, eager to go home, no diarrhea, no nausea, no fevers, left leg feels much better. Objective - Vital Signs/Intake and Output Vital Signs (last 24 hours): Temp Pulse Resp BP Pulse Ox 97.6 F 70 18 118/69 99 01/05/18 16:00 01/05/18 16:00 01/05/18 16:00 01/05/18 16:00 01/05/18 16:00 - Medications Medications: Current Medications Acetaminophen (Tylenol 325mg Tab) 650 mg PO Q6H PRN; Protocol PRN Reason: Pain, moderate (4-7) Last Admin: 01/05/18 15:56 Dose: 650 mg Alprazolam (Xanax) 0.125 mg PO HS PRN; Protocol PRN Reason: Anxiety Stop: 01/06/18 16:19 Last Admin: 01/05/18 21:18 Dose: 0.125 mg Alprazolam (Xanax) 0.125 mg PO DAILY PRN; Protocol PRN Reason: Anxiety Stop: 01/07/18 10:01 Donepezil HCl (Aricept) 5 mg PO HS ANTHONY PRN Reason: Protocol Last Admin: 01/05/18 21:17 Dose: 5 mg Hydroxychloroquine Sulfate (Plaquenil) 200 mg PO HS ANTHONY PRN Reason: Protocol Last Admin: 01/05/18 21:17 Dose: 200 mg Lidocaine (Lidoderm) 1 ea TD DAILY ANTHONY PRN Reason: Protocol Last Admin: 01/05/18 10:21 Dose: 1 ea Losartan Potassium (Cozaar) 100 mg PO DAILY ANTHONY PRN Reason: Protocol Last Admin: 01/05/18 10:21 Dose: 100 mg Magnesium Oxide (Mag-Ox) 400 mg PO BID ANTHONY PRN Reason: Protocol Last Admin: 01/05/18 17:16 Dose: 400 mg - Labs Labs: 01/06/18 06:00 01/05/18 05:50 - Constitutional Appears: Non-toxic, No Acute Distress, Chronically Ill - Head Exam Head Exam: NORMAL INSPECTION - ENT Exam ENT Exam: Mucous Membranes Moist - Respiratory Exam Respiratory Exam: absent: Rales, Rhonchi - Cardiovascular Exam Cardiovascular Exam: +S1, +S2 - GI/Abdominal Exam GI & Abdominal Exam: Soft. absent: Tenderness - Extremities Exam Additional comments: no swelling of left leg, no erythema Assessment and Plan - Assessment and Plan (Free Text) Plan: Assessment S/P left leg cellulitis in this patient with a history of MRSA wound infection in the same leg, clinically improved and S/P treatment with antibiotics S/P upper respiratory tract infection without evidence of pneumonia, improved and S/P treatment right knee inflammatory arthritis S/P arthrocentesis history of bilateral lower extremity skin and skin structure infection with methicillin-sensitive Staph aureus history of right shoulder effusion S/P drainage dyslipidemia hypertension osteoarthritis gastroesophageal reflux disease multinodular goiter mitral regurgitation rheumatoid arthritis SLE Plan completed course of Zyvox - continue to monitor the patient off antibiotics discussed with Dr. Patel
[2018-01-07 06:25] LABS: INR 0.97; PARTIAL THROMBOPLASTIN TIME 28.2 Seconds (25.1-36.5); PROTHROMBIN TIME 11.2 SECONDS (9.4-12.5)
[2018-01-07 06:30] LABS: BASO # 0.02 K/mm3 (0.0-2.0); BASO % 0.4 % (0.0-3.0); EOS # 0.1 (0.0-0.7); EOS % 2.2 % (1.5-5.0); GRAN # 3.28 (1.4-6.5); HEMOGLOBIN 11.2 g/dL (12.0-16.0); LYMPH # 0.8 (1.2-3.4); LYMPH % 17.3 % (22.0-35.0); MEAN CELL VOLUME 83.4 fl (80.0-105.0); MEAN CORPUSCULAR HEMOGLOBIN 27.3 pg (25.0-35.0); MEAN CORPUSCULAR HGB CONC 32.7 g/dl (31.0-37.0); MEAN PLATELET VOLUME 8.5 fl (7.0-11.0); MONO # 0.4 (0.1-0.6); MONO % 9.1 % (1.0-6.0); RBC 4.1 10^6/uL (3.5-6.1); RED CELL DISTRIBUTION WIDTH 15.4 % (11.5-14.5); WHITE BLOOD COUNT 4.6 10^3/ul (4.5-11.0)
[2018-01-07 06:31] LABS: ALB/GLOB RATIO 1.2 (1.1-1.8); ALBUMIN 3.4 g/dL (3.0-4.8); ALT/SGPT 25 U/L (7-56); AST/SGOT 19 U/L (14-36); BLOOD UREA NITROGEN 27 mg/dL (7-21); CALCIUM 9.1 mg/dL (8.4-10.5); GFR NON-AFRICAN AMERICAN > 60
[2018-01-07] MEDS: Magnesium Oxide 400 mg Tab UD PO SCH ×2 (10:06→17:30)
[2018-01-07] MEDS: Lidocaine 5% Patch TD SCH (10:06)
--- NOTE | 2018-01-07 11:35 | PN ---
Copied To: Susanna Patel MD Attending MD: Susanna Patel MD DATE: 01/07/2018 SUBJECTIVE: An 87-year-old female on the Transitional Care Unit. Nursing staff states that there were no bowel movements during the day or night. The patient states that she is feeling a little bit better this morning. PHYSICAL EXAMINATION: VITAL SIGNS: Her temp is 97.2, her pulse is 67, her blood pressure is 120/65, respiratory rate is 18, oxygen saturation is reported at 92% on room air. NECK: Supple. LUNGS: Clear. HEART: An S1 and S2 rhythm. ABDOMEN: Soft with positive bowel sounds. EXTREMITIES: No evidence of edema. LABORATORY DATA: CBC: WBC is 4.6, RBC 4.1, hemoglobin 11.2, hematocrit 34.2, platelet count 280. PT 11.2 with an INR of 0.97, PTT of 28.2. Chemistry: Normal electrolytes. The BUN is 27, the creatinine is 0.8. LFTs are normal. Albumin is 3.4. ASSESSMENT AND PLAN: Currently, the patient is on Aricept, Cozaar, Lidoderm patch, magnesium oxide, Plaquenil and Tylenol. She is receiving occupational and physical therapy. She is status post fall at home with acute rhabdomyolysis, which is resolved. She is being followed by Orthopedics with a planned outpatient surgical procedure for the right hip. There is an ongoing discussion with the family and Orthopedics regarding the timing and scheduling of this. She had a chest x-ray that showed no acute or active disease. She is also being followed by Infectious Disease and she was treated for cellulitis of the lower extremities. She has a history of arthritis, effusion of the right shoulder with degenerative changes, left hip surgery, cellulitis of the lower extremities with methicillin-resistant Staphylococcus aureus, history of degenerative arthritis of the right hip, dyslipidemia, hypertension, gastroesophageal reflux disease, multinodular goiter, mitral regurgitation, lupus and rheumatoid arthritis. Susanna Patel MD
--- NOTE | 2018-01-07 11:58 | CP.PCM.PN ---
Subjective - Date & Time of Evaluation Date of Evaluation: 01/07/18 Time of Evaluation: 11:00 - Subjective Subjective: Comfortable on a chair, no fevers, not in distress. Objective - Vital Signs/Intake and Output Vital Signs (last 24 hours): Temp Pulse Resp BP Pulse Ox 97.2 F L 67 18 120/65 92 L 01/06/18 16:00 01/06/18 16:00 01/06/18 16:00 01/06/18 16:00 01/06/18 16:00 - Medications Medications: Current Medications Acetaminophen (Tylenol 325mg Tab) 650 mg PO Q6H PRN; Protocol PRN Reason: Pain, moderate (4-7) Last Admin: 01/06/18 16:47 Dose: 650 mg Alprazolam (Xanax) 0.125 mg PO DAILY PRN; Protocol PRN Reason: Anxiety Stop: 01/07/18 10:01 Last Admin: 01/06/18 21:34 Dose: 0.125 mg Donepezil HCl (Aricept) 5 mg PO HS ANTHONY PRN Reason: Protocol Last Admin: 01/06/18 21:34 Dose: 5 mg Hydroxychloroquine Sulfate (Plaquenil) 200 mg PO HS ANTHONY PRN Reason: Protocol Last Admin: 01/06/18 21:34 Dose: 200 mg Lidocaine (Lidoderm) 1 ea TD DAILY ANTHONY PRN Reason: Protocol Last Admin: 01/06/18 10:24 Dose: 1 ea Losartan Potassium (Cozaar) 100 mg PO DAILY ANTHONY PRN Reason: Protocol Last Admin: 01/06/18 10:23 Dose: 100 mg Magnesium Oxide (Mag-Ox) 400 mg PO BID ANTHONY PRN Reason: Protocol Last Admin: 01/06/18 17:40 Dose: 400 mg - Labs Labs: 01/07/18 05:30 01/07/18 05:30 PT 11.2 SECONDS (9.4-12.5) 01/07/18 05:30 INR 0.97 01/07/18 05:30 APTT 28.2 Seconds (25.1-36.5) 01/07/18 05:30 - Constitutional Appears: No Acute Distress, Chronically Ill - Head Exam Head Exam: NORMAL INSPECTION - Respiratory Exam Respiratory Exam: Decreased Breath Sounds - Cardiovascular Exam Cardiovascular Exam: +S1, +S2 - GI/Abdominal Exam GI & Abdominal Exam: Soft. absent: Tenderness Assessment and Plan - Assessment and Plan (Free Text) Plan: Assessment S/P left leg cellulitis in this patient with a history of MRSA wound infection in the same leg, clinically improved and S/P treatment with antibiotics S/P upper respiratory tract infection without evidence of pneumonia, improved and S/P treatment right knee inflammatory arthritis S/P arthrocentesis history of bilateral lower extremity skin and skin structure infection with methicillin-sensitive Staph aureus history of right shoulder effusion S/P drainage dyslipidemia hypertension osteoarthritis gastroesophageal reflux disease multinodular goiter mitral regurgitation rheumatoid arthritis SLE Plan completed course of Zyvox - continue to monitor the patient off antibiotics discussed with Dr. Patel previously
--- NOTE | 2018-01-08 08:18 | CON ---
Copied To: Glenn Manning MD/ PhD Attending MD: Glenn Manning MD/ PhD DATE: 01/07/2018 HISTORY OF PRESENT ILLNESS: The patient is an 87-year-old white female, seen in the Transitional Care Unit after she had suffered a fall. The patient is receiving occupational and physical therapy after a fall at home, which has had led to acute rhabdomyolysis, which has resolved. She is to undergo hip surgery in 2 days under the care of Dr. Luna. I have interviewed the patient, reviewed her chart, discussed with Dr. Patel and with the patient's daughter. The patient did recognize me from our previous encounters this past May. She has a past medical history of a left hip fracture, cellulitis of the lower extremities, hypertension, rheumatoid arthritis, serous effusion of her right shoulder, and a thyroid nodule. She resides by herself, but her daughter and other relatives looking on her regularly. She is to have an aide when she goes home tomorrow. A notable feature of her behavioral repertoire is her anxiety and obsessiveness, which appears to be a lifelong. She is a [place] and high school graduate. She had worked as a secretary board of commissioners for many years in [place] and then for many years at the [employer] in [place]. She had been active in their choir, but can no longer call upon the pulmonary reserve that this requires. She still however is active in her protestant and has friends there. She had for the first time in her 20s and remained so for approximately 7 years until she asked for a divorce, because she lost interest in her . Then in her 30s, she a man whom she was to for 45 years until his demise of heart disease 10 years ago. She indicated she got along with her who is an avid fisherman. Her three daughters, one who is a nurse at [employer], one who lives in [place], are all attentive to her. The patient had been under the care of Dr. Quiroz approximately 8 years ago, but not for long period of time. The patient is an only child. Her father of esophageal cancer and her mother of heart disease. The mother also had Alzheimer's disease. The patient is presently alert, mildly disoriented to time, anxious with her being aware that this is a lifelong trait. She is worried about her health. She does not appear to be despondent, nor suicidal or homicidal. She appears capable of making decisions regarding her own health care. I had put her on Wellbutrin in the past. Its therapeutic efficacy is uncertain to me. The daughters indicate that Aricept has helped her and we will maintain on 5 mg, although she may be a candidate for an increase in this dose. Given her behavioral profile with obsessiveness and anxiety, we will start the patient on an SSRI (Celexa 10 mg). A CBC and differential today showed hemoglobin 11.2, hematocrit 34.2. A biochemical profile shows elevated BUN of 27. Blood pressure 110/53, temperature 97.8, pulse 64, respiratory rate 20. The patient's other medications are Cozaar 100 mg daily, Lidoderm daily, magnesium oxide 400 mg b.i.d., Plaquenil 200 mg at bedtime. 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 Glenn Manning MD/ PhD
[2018-01-08 10:08] VITALS: O2SAT 95
[2018-01-08] MEDS: Lidocaine 5% Patch TD SCH (10:34)
[2018-01-08] MEDS: Magnesium Oxide 400 mg Tab UD PO SCH (10:34)
--- NOTE | 2018-01-08 16:00 | CP.PCM.PN ---
Subjective - Date & Time of Evaluation Date of Evaluation: 01/08/18 Time of Evaluation: 11:30 - Subjective Subjective: Comfortable in bed, not in distress, no leg pain. Objective - Vital Signs/Intake and Output Vital Signs (last 24 hours): Temp Pulse Resp BP Pulse Ox 97.8 F 64 20 110/53 L 98 01/07/18 16:00 01/07/18 16:00 01/07/18 16:00 01/07/18 16:00 01/07/18 16:00 - Medications Medications: Current Medications Acetaminophen (Tylenol 325mg Tab) 650 mg PO Q6H PRN; Protocol PRN Reason: Pain, moderate (4-7) Last Admin: 01/07/18 10:07 Dose: 650 mg Alprazolam (Xanax) 0.25 mg PO DAILY PRN; Protocol PRN Reason: Anxiety Stop: 01/15/18 10:01 Last Admin: 01/07/18 21:44 Dose: 0.25 mg Citalopram Hydrobromide (Celexa) 10 mg PO DAILY ANTHONY Donepezil HCl (Aricept) 5 mg PO HS ANTHONY PRN Reason: Protocol Last Admin: 01/07/18 21:16 Dose: 5 mg Hydroxychloroquine Sulfate (Plaquenil) 200 mg PO HS ANTHONY PRN Reason: Protocol Last Admin: 01/07/18 21:16 Dose: 200 mg Lidocaine (Lidoderm) 1 ea TD DAILY ANTHONY PRN Reason: Protocol Last Admin: 01/07/18 10:06 Dose: 1 ea Losartan Potassium (Cozaar) 100 mg PO DAILY ANTHONY PRN Reason: Protocol Last Admin: 01/07/18 10:05 Dose: 100 mg Magnesium Oxide (Mag-Ox) 400 mg PO BID ANTHONY PRN Reason: Protocol Last Admin: 01/07/18 17:30 Dose: 400 mg - Labs Labs: 01/07/18 05:30 01/07/18 05:30 PT 11.2 SECONDS (9.4-12.5) 01/07/18 05:30 INR 0.97 01/07/18 05:30 APTT 28.2 Seconds (25.1-36.5) 01/07/18 05:30 - Constitutional Appears: Chronically Ill - Head Exam Head Exam: NORMAL INSPECTION - ENT Exam ENT Exam: Mucous Membranes Moist - Neck Exam Neck Exam: absent: Meningismus - Respiratory Exam Respiratory Exam: Decreased Breath Sounds - Cardiovascular Exam Cardiovascular Exam: +S1, +S2 - GI/Abdominal Exam GI & Abdominal Exam: Soft. absent: Tenderness Assessment and Plan - Assessment and Plan (Free Text) Plan: Assessment S/P left leg cellulitis in this patient with a history of MRSA wound infection in the same leg, clinically improved and S/P treatment with antibiotics S/P upper respiratory tract infection without evidence of pneumonia, improved and S/P treatment right knee inflammatory arthritis S/P arthrocentesis history of bilateral lower extremity skin and skin structure infection with methicillin-sensitive Staph aureus history of right shoulder effusion S/P drainage dyslipidemia hypertension osteoarthritis gastroesophageal reflux disease multinodular goiter mitral regurgitation rheumatoid arthritis SLE Plan completed course of Zyvox - continue to monitor the patient off antibiotics
[2018-01-08 16:15] VITALS: BP 132/68; PULSE 66; RESP 20; TEMP 97.3
== END 2018-01-08 19:23 | disposition home or self-care (01) | DRG 558 ==
LOC: TRCU 15:19
PROVIDERS: ADMIT Internal Medicine; ATTEND Internal Medicine
PROC: F07L6YZ Therapeutic Exercise Treatment of Musculoskeletal System - Lower Back / Lower Extremity using Other Equipment (ICD-10-PCS; principal; 2018-01-01)
PROC: F07Z9FZ Gait Training/Functional Ambulation Treatment using Assistive, Adaptive, Supportive or Protective Equipment (ICD-10-PCS; 2018-01-02)
PROC: F07Z5FZ Bed Mobility Treatment using Assistive, Adaptive, Supportive or Protective Equipment (ICD-10-PCS; 2018-01-02)
PROC: F07Z8FZ Transfer Training Treatment using Assistive, Adaptive, Supportive or Protective Equipment (ICD-10-PCS; 2018-01-02)
PROC: F08Z1FZ Dressing Techniques Treatment using Assistive, Adaptive, Supportive or Protective Equipment (ICD-10-PCS; 2018-01-02)
PROC: F08Z2FZ Grooming/Personal Hygiene Treatment using Assistive, Adaptive, Supportive or Protective Equipment (ICD-10-PCS; 2018-01-03)
DX: M62.82 Rhabdomyolysis (principal); L03.115 Cellulitis of right lower limb; L03.116 Cellulitis of left lower limb; M16.11 Unilateral primary osteoarthritis, right hip; I10 Essential (primary) hypertension; M32.9 Systemic lupus erythematosus, unspecified; M25.411 Effusion, right shoulder; E04.2 Nontoxic multinodular goiter; F41.1 Generalized anxiety disorder; K21.9 Gastro-esophageal reflux disease without esophagitis; H40.9 Unspecified glaucoma; M06.9 Rheumatoid arthritis, unspecified; I34.0 Nonrheumatic mitral (valve) insufficiency; I73.00 Raynaud's syndrome without gangrene; F60.5 Obsessive-compulsive personality disorder; F09 Unspecified mental disorder due to known physiological condition; M47.892 Other spondylosis, cervical region; M47.896 Other spondylosis, lumbar region; M19.019 Primary osteoarthritis, unspecified shoulder; E78.5 Hyperlipidemia, unspecified; Z86.14 Personal history of Methicillin resistant Staphylococcus aureus infection

== ENCOUNTER 2018-01-29 13:20 | Inpatient (IN) | payer MEDICARE ==
--- NOTE | 2018-01-29 13:42 | ED PDOC ---
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 Luna 8 days ago, presents to the emergency department for anemia. Patient received a call from Dr. Patel telling patient to go to the ER for anemia. Patient is confused and cannot give an accurate history. She never smoked and is not a drinker. Patient denies any fever, chills, chest pain, shortness of breath, nausea, abdominal pain, vomiting, diarrhea, urinary symptoms, back pain, neck pain, headache, dizziness, or any other complaints. PMD: Dr. 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 - HEENT Hx HEENT Disorder: Yes (eyeglasses) Hx Glaucoma: Yes - Renal Hx Renal Disorder: No - Endocrine/Metabolic Hx Endocrine Disorders: Yes Hx Systemic Lupus Erythematosus: Yes - Hematological/Oncological Other/Comment: 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 - Integumentary Hx Dermatological Disorder: Yes Other/Comment: ble +1 edema cellulitis, thick hard toenails,redness swelling red raised rash from thighs to lower legs, feet reddened and swollen, red dry cracked skin to legs and feet, weeping coming from open wounds both legs left more than right, both hands are reddened, skin discolorations both arms - Musculoskeletal/Rheumatological Hx Arthritis: Yes - Gastrointestinal Hx Gastrointestinal Disorders: Yes (HIATAL HERNIA,APPENDECTOMY,CHOLECYSTECTOMY, CONSTIPATION) - Genitourinary/Gynecological Hx Genitourinary Disorders: Yes (URINARY FREQUENCY,SOME INCONTINENCY.) Hx Reproductive Disorders: No - Psychiatric Hx Psychophysiologic Disorder: No Hx Depression: No Hx Emotional Abuse: No Hx Physical Abuse: No Hx Substance Use: No - Surgical History Hx Appendectomy: Yes Hx Cholecystectomy: Yes Hx Orthopedic Surgery: Yes (left hip 11/06/12) Other/Comment: tongue surgery. cyst removal from right breast. hemorroidectomy - Anesthesia Hx Anesthesia: Yes Hx Anesthesia Reactions: No Hx Malignant Hyperthermia: No - Suicidal Assessment Feels Threatened In Home Enviroment: No Family/Social History - Physician Review Nursing Documentation Reviewed: Yes Family/Social History: No Known Family HX Smoking Status: Never Smoked Hx Alcohol Use: No Hx Substance Use: No Hx Substance Use Treatment: No Allergies/Home Meds Allergies/Adverse Reactions: Allergies codeine Adverse Reaction (Verified 01/29/18 13:37) NAUSEA Home Medications: Home Meds Medication Instructions Recorded Confirmed Hydroxychloroquine Sulfate 200 mg PO DAILY 09/30/16 01/29/18 [Plaquenil] ALPRAZolam [Xanax] 0.25 mg PO HS 01/29/18 01/29/18 Apixaban [Eliquis] 2.5 mg PO BID 01/29/18 01/29/18 Calcium Carb 500 2 tab PO Q4 01/29/18 01/29/18 Docusate Sodium [Colace] 200 mg PO HS 01/29/18 01/29/18 Ferrous Sulfate 325 mg PO TID 01/29/18 01/29/18 Folic Acid 1 mg PO DAILY 01/29/18 01/29/18 Omeprazole 20 mg PO DAILY 01/29/18 01/29/18 traMADol [Ultram] 100 mg PO Q8 PRN 01/29/18 01/29/18 Review of Systems - Physician Review All systems were reviewed & negative as marked: Yes - Review of Systems Constitutional: absent: Fevers, Other (Chills) Respiratory: absent: SOB Cardiovascular: absent: Chest Pain Gastrointestinal: absent: Abdominal Pain, Diarrhea, Nausea, Vomiting Genitourinary Female: absent: Dysuria, Frequency, Hematuria Musculoskeletal: absent: Back Pain, Neck Pain Neurological: absent: Headache, Dizziness Physical Exam Vital Signs Reviewed: Yes Vital Signs Temp Pulse Resp BP Pulse Ox 01/29/18 13:43 98.3 F 77 18 123/53 L 96 Appearance: Positive for: Well-Appearing, Non-Toxic, Comfortable Pain Distress: None Mental Status: Positive for: Alert and Oriented X 3 - Systems Exam Head: Present: Atraumatic, Normocephalic Pupils: Present: PERRL Extroacular Muscles: Present: EOMI Conjunctiva: Present: Normal Mouth: Present: Moist Mucous Membranes Neck: Present: Normal Range of Motion Respiratory/Chest: Present: Clear to Auscultation, Good Air Exchange. No: Respiratory Distress, Accessory Muscle Use Cardiovascular: Present: Regular Rate and Rhythm, Normal S1, S2. No: Murmurs Abdomen: No: Tenderness, Distention, Peritoneal Signs Rectal: Present: Other (Black stool, but guaiac negative. Patient is taking Iron pills) Back: Present: Normal Inspection Upper Extremity: Present: Normal Inspection. No: Cyanosis, Edema Lower Extremity: Present: Swelling (Entire right side of extremity swollen), Other (would right hip. Clean and dry with no sign of infection.). No: Edema Neurological: Present: GCS=15, CN II-XII Intact, Speech Normal Skin: Present: Warm, Dry, Pale. No: Rashes Psychiatric: Present: Alert, Oriented x 3, Normal Insight, Normal Concentration Medical Decision Making ED Course and Treatment: 01/29/18 13:37 Impression: 87 year old female presents sent in by Dr. Patel for Anemia. Plan: -- Labs -- EKG -- Chest X-ray -- Duplex Lower Extrm Vein Bilaterally US -- Reassess and disposition Prior Visits: Notes and results from previous visits were reviewed. Progress Notes: 01/29/18 14:25 EKG shows normal sinus rhythm rate approximately [address] or T-wave changes. PROCEDURE: Chest X-ray Dictator : Peña Perez MD Report Date : 01/29/2018 14:13:12 IMPRESSION: No active disease. PROCEDURE: Duplex Lower Extrm Vein Bilaterally US Dictator : Silvino Espana MD Report Date : 01/29/2018 15:44:20 IMPRESSION: No sonographic evidence for deep venous thrombosis in the visualized segments of both lower extremities. 01/29/18 17:04 [facility] found to be an[facility]. Recent right total hip replacement. - Lab Interpretations Lab Results: 01/29/18 14:09 01/29/18 14:09 Lab Results 01/29/18 14:09: Blood Type O POSITIVE, Antibody Screen Negative, BBK History Checked Patient has bt 01/29/18 14:09: Sodium 136, Potassium 4.9, Chloride 103, Carbon Dioxide 27, Anion Gap 11, BUN 23 H, Creatinine 0.7, Est GFR ( Amer) > 60, Est GFR ( Non-Af Amer) > 60, Random Glucose 91, Calcium 9.2, Magnesium 1.7, Total Bilirubin 0.3, AST 20, ALT 21, Alkaline Phosphatase 63, Lactate Dehydrogenase 476, Total Creatine Kinase 34 L, Troponin I 0.15 H* D, Total Protein 5.9, Albumin 3.2, Globulin 2.7, Albumin/Globulin Ratio 1.2 01/29/18 14:09: WBC 7.2 D, RBC 3.09 L, Hgb 8.5 L D, Hct 26.8 L, MCV 86.7 D, MCH 27.5, MCHC 31.7, RDW 16.9 H, Plt Count 412, MPV 8.2, Gran % 74.8 H, Lymph % (Auto) 10.6 L, [place] % (Auto) 12.8 H, Eos % (Auto) 1.7, Baso % (Auto) 0.1, Gran # 5.39, Lymph # (Auto) 0.8 L, [place] # (Auto) 0.9 H, Eos # (Auto) 0.1, Baso # ( Auto) 0.01 01/29/18 14:09: PT 11.8, INR 1.03, APTT 28.1 I have reviewed the lab results: Yes - RAD Interpretation Radiology Orders: 01/29/18 13:38 DUPLEX LOWER EXTRM VEIN BILAT [US] Stat 01/29/18 13:39 CHEST PORTABLE [RAD] Stat Bilateral lower extremity venous Doppler is read by the radiologist as negative for DVT. Chest one view is read by the radiologist shows no acute findings. Photolithographer: Radiologist - EKG Interpretation Interpreted by ED Physician: Yes Type: 12 lead EKG - Scribe Statement The provider has reviewed the documentation as recorded by the Torito Castro Provider Scribe Attestation: All medical record entries made by the Tabithaibmo were at my direction and personally dictated by me. I have reviewed the chart and agree that the record accurately reflects my personal performance of the history, physical exam, medical decision making, and the department course for this patient. I have also personally directed, reviewed, and agree with the discharge instructions and disposition. Disposition/Present on Arrival - Present on Arrival Any Indicators Present on Arrival: No History of DVT/PE: No History of Uncontrolled Diabetes: No Urinary Catheter: No History of Decub. Ulcer: No History Surgical Site Infection Following: None - Disposition Have Diagnosis and Disposition been Completed?: Yes Diagnosis: Elevated troponin, Anemia Disposition: HOSPITALIZED Disposition Time: 15:25 Patient Plan: Observation, Telemetry Patient Problems: Current Active Problems Problem Status Onset Anemia Acute Elevated troponin Acute Condition: GOOD
--- NOTE | 2018-01-29 14:14 | RAD ---
Date of service: 01/29/2018 HISTORY: anemia COMPARISON: 01/06/2018 FINDINGS: LUNGS: No active pulmonary disease. PLEURA: No significant pleural effusion identified, no pneumothorax apparent. CARDIOVASCULAR: Normal. OSSEOUS STRUCTURES: No significant abnormalities. VISUALIZED UPPER ABDOMEN: Normal. OTHER FINDINGS: None. IMPRESSION: No active disease.
[2018-01-29 14:25] LABS: BASO # 0.01 K/mm3 (0.0-2.0); BASO % 0.1 % (0.0-3.0); EOS # 0.1 (0.0-0.7); EOS % 1.7 % (1.5-5.0); GRAN # 5.39 (1.4-6.5); GRAN % 74.8 % (50.0-68.0); HEMOGLOBIN 8.5 g/dL (12.0-16.0); LYMPH # 0.8 (1.2-3.4); LYMPH % 10.6 % (22.0-35.0); MEAN CELL VOLUME 86.7 fl (80.0-105.0); MEAN CORPUSCULAR HEMOGLOBIN 27.5 pg (25.0-35.0); MEAN CORPUSCULAR HGB CONC 31.7 g/dl (31.0-37.0); MEAN PLATELET VOLUME 8.2 fl (7.0-11.0); MONO # 0.9 (0.1-0.6); MONO % 12.8 % (1.0-6.0); RBC 3.09 10^6/uL (3.5-6.1); RED CELL DISTRIBUTION WIDTH 16.9 % (11.5-14.5); WHITE BLOOD COUNT 7.2 10^3/ul (4.5-11.0)
[2018-01-29 14:33] LABS: INR 1.03; PARTIAL THROMBOPLASTIN TIME 28.1 Seconds (25.1-36.5); PROTHROMBIN TIME 11.8 SECONDS (9.4-12.5)
[2018-01-29 14:39] LABS: ALB/GLOB RATIO 1.2 (1.1-1.8); ALBUMIN 3.2 g/dL (3.0-4.8); ALT/SGPT 21 U/L (7-56); AST/SGOT 20 U/L (14-36); BLOOD UREA NITROGEN 23 mg/dL (7-21); CALCIUM 9.2 mg/dL (8.4-10.5); GFR NON-AFRICAN AMERICAN > 60
[2018-01-29 15:13] LABS: TROPONIN I 0.15 ng/mL
--- NOTE | 2018-01-29 15:46 | US ---
HISTORY: Leg pain and swelling. Evaluate for DVT PHYSICIAN(S): Silvino Tracey MD. TECHNIQUE: Duplex sonography and color-flow Doppler with graded compression were used to evaluate the deep venous systems of both lower extremities. The exam is somewhat limited by edema FINDINGS: The visualized deep venous systems of both lower extremities are sonographically normal and compressible. Normal wave forms and augmentation are seen. There is no sonographic evidence for deep venous thrombosis in the visualized segments of both lower extremities. IMPRESSION: No sonographic evidence for deep venous thrombosis in the visualized segments of both lower extremities.
--- NOTE | 2018-01-29 15:59 | CARD ---
APPROVED REPORT Date of service: 01/29/2018 EKG Measurement Heart [id number] <Conclusion> Normal sinus rhythm Cannot rule out Anterior infarct, age undetermined Abnormal ECG
[2018-01-29 16:23] LABS: URINE BILIRUBIN NEGATIVE (NEGATIVE); URINE BLOOD NEGATIVE (NEGATIVE); URINE GLUCOSE (UA) NEGATIVE (NEGATIVE); URINE LEUKOCYTE ESTERASE TRACE Leu/uL (NEGATIVE); URINE PROTEIN TRACE mg/dL (<30 mg/dL); URINE UROBILINOGEN 0.2 E.U./dL (<1 E.U./dL)
[2018-01-29 16:25] LABS: URINE APPEARANCE CLEAR (CLEAR); URINE COLOR YELLOW (YELLOW)
[2018-01-29 16:43] LABS: URINE BACTERIA MOD (NEG); URINE RBC 0 - 2 /hpf (0-2)
[2018-01-29 19:34] LABS: TROPONIN I 0.17 ng/mL
[2018-01-29 22:43] VITALS: BMI 25.0
[2018-01-29] MEDS ORDERED: Pneumococcal 23-Valent Vaccine IM ONE (22:44)
[2018-01-30 02:46] LABS: TROPONIN I 0.11 ng/mL
[2018-01-30 07:12] LABS: BASO # 0.01 K/mm3 (0.0-2.0); BASO % 0.2 % (0.0-3.0); EOS # 0.2 (0.0-0.7); EOS % 3.6 % (1.5-5.0); GRAN # 3.81 (1.4-6.5); GRAN % 67.7 % (50.0-68.0); HEMOGLOBIN 7.7 g/dL (12.0-16.0); LYMPH # 0.9 (1.2-3.4); LYMPH % 16.2 % (22.0-35.0); MEAN CELL VOLUME 86.9 fl (80.0-105.0); MEAN CORPUSCULAR HEMOGLOBIN 27.3 pg (25.0-35.0); MEAN CORPUSCULAR HGB CONC 31.4 g/dl (31.0-37.0); MEAN PLATELET VOLUME 8.3 fl (7.0-11.0); MONO # 0.7 (0.1-0.6); MONO % 12.3 % (1.0-6.0); RBC 2.82 10^6/uL (3.5-6.1); WHITE BLOOD COUNT 5.6 10^3/ul (4.5-11.0)
[2018-01-30 07:30] LABS: BLOOD UREA NITROGEN 22 mg/dL (7-21); CALCIUM 8.7 mg/dL (8.4-10.5); GFR NON-AFRICAN AMERICAN > 60
[2018-01-30] MEDS: Pantoprazole 40 mg EC Tab PO SCH (09:49)
[2018-01-30 10:16] LABS: TROPONIN I 0.14 ng/mL
--- NOTE | 2018-01-30 10:37 | CP.PCM.PN ---
Subjective - Date & Time of Evaluation Date of Evaluation: 01/30/18 Time of Evaluation: 07:00 - Subjective Subjective: I was asked to consult for mild trop. elevation in patient who did not have CP or ischemic ECG changes and was admitted for post hip surgery anemia. Since the suspicion for an acute MD in this patient is very low, the mild trop elevation probably represents a false positive result. She is elderly, frail and has cognitive impairment. A conservative course of cardiac care is appropriate. See my 01/03/18 full consultation for a summary of her medical history and other details. No further cardiac testing is warranted. I have discussed this with Dr. Patel. Dr. Angel MD Objective - Vital Signs/Intake and Output Vital Signs (last 24 hours): Temp Pulse Resp BP Pulse Ox 97.5 F L 62 20 120/67 92 L 01/30/18 06:00 01/30/18 06:00 01/30/18 06:00 01/30/18 06:00 01/30/18 06:00 Intake and Output: 01/30/18 01/30/18 06:59 18:59 Intake Total 120 Output Total 300 Balance -180 - Medications Medications: Current Medications Acetaminophen (Tylenol 325mg Tab) 650 mg PO Q6H PRN PRN Reason: Pain, moderate (4-7) Last Admin: 01/30/18 02:43 Dose: 650 mg Alprazolam (Xanax) 0.25 mg PO HS PRN; Protocol PRN Reason: Anxiety Stop: 02/05/18 22:01 Last Admin: 01/29/18 21:41 Dose: 0.25 mg Citalopram Hydrobromide (Celexa) 10 mg PO DAILY ANTHONY Docusate Sodium (Colace) 200 mg PO HS ANTHONY Last Admin: 01/29/18 21:41 Dose: 200 mg Donepezil HCl (Aricept) 5 mg PO HS ANTHONY Last Admin: 01/29/18 21:41 Dose: 5 mg Ferrous Sulfate (Feosol) 324 mg PO WM ANTHONY Hydroxychloroquine Sulfate (Plaquenil) 200 mg PO DAILY ANTHONY PRN Reason: Protocol Losartan Potassium (Cozaar) 100 mg PO DAILY ANTHONY Pantoprazole Sodium (Protonix Ec Tab) 40 mg PO ACB ANTHONY - Labs Labs: 01/30/18 07:00 01/30/18 07:00 PT 11.8 SECONDS (9.4-12.5) 01/29/18 14:09 INR 1.03 01/29/18 14:09 APTT 28.1 Seconds (25.1-36.5) 01/29/18 14:09
--- NOTE | 2018-01-30 11:45 | PN ---
DATE: 01/30/2018 SUBJECTIVE: This is an 87-year-old female, resting comfortably in bed this morning. Nursing staff relates that there were no particular problems reported. PHYSICAL EXAMINATION: VITAL SIGNS: The patient has a temp of 97.5, blood pressure is 120/67, pulse is 62, oxygen saturation is 92% on room air, respiratory rate is 20. LABORATORY DATA: Shows normal electrolytes. Her troponins have been 0.15, 0.17, 0.11 and 0.14. Cardiology input is pending. Chemistry show normal electrolytes. The BUN is 22, the creatinine is 0.7. CBC shows WBC of 5.6, RBC 2.82, hemoglobin 7.7, hematocrit 24.5, platelet count is 407. ASSESSMENT: 1. The patient is status post right hip surgery. 2. Anemia. 3. Elevation in cardiac enzymes. PLAN: 1. Discussion with Orthopedics. The patient received 2 units of packed red blood cells. 2. We will get a GI consult given the patient's past medical history and fluctuating change in her blood count. 3. We will check her stool guaiacs. 4. Await Cardiology input. Follow up the patient's labs. Susanna Patel MD
--- NOTE | 2018-01-30 13:51 | HP ---
HISTORY OF PRESENT ILLNESS: An 87-year-old female referred to [facility] from [facility]. It was reported that she had a hemoglobin of 7.5. The patient is status post right hip surgery at [facility]. PAST MEDICAL HISTORY: She has a past medical history of left hip surgery, lupus, hypertension, anxiety, depression, thyroid nodules, cognitive behavioral disorder, gastroesophageal reflux disease. SOCIAL HISTORY: She is a nonsmoker, nondrinker. No drug user. ALLERGIES: TO CODEINE. ACTIVE MEDICATIONS: Have been Eliquis as per orthopedic protocol, Aricept, Celexa, Colace, Cozaar, Feosol, Plaquenil, Protonix, Tylenol and Xanax. PHYSICAL EXAMINATION: GENERAL: The patient is alert and oriented x3. NECK: Supple. No JVD. LUNGS: Clear with diminished breath sounds at the bases. HEART: Is in S1, S2 rhythm. ABDOMEN: Soft with positive bowel sounds. EXTREMITIES: Show edema. LABORATORY DATA: WBC of 7.2, RBC 3.09, hemoglobin 8.5, hematocrit 26.8, platelet count 412. PT 11.8 with an INR 1.03, PTT of 28.1. Chemistry shows normal electrolytes. The BUN is 23. Her troponin is 0.15. Urinalysis, has moderate urine bacteria. Her EKG shows sinus rhythm with interpretation of rule out anterior infarct. Chest x-ray is clear. IMPRESSION: 1. Elevated troponin. The patient does state that she has been having episodes of indigestion. 2. Anemia post hip surgery. 3. Anxiety disorder. 4. Hypertension. RECOMMENDATIONS: To get the patient serial cardiac enzymes, get a Cardiology consult. Follow up the patient's labs. This was discussed with emergency room staff as well as with Orthopedics. This has also been discussed with the patient and her family. Susanna Patel MD
--- NOTE | 2018-01-30 22:04 | CON ---
DATE: 01/30/2018 ORTHOPEDIC CONSULT LOCATION: Room 276, bed 1. HISTORY OF PRESENT ILLNESS: Came into the hospital on 01/29/2018, was having anemia after being in a rehab hospital for few days, recovering from her total hip surgery approximately a week ago. Otherwise she is doing well. The wound is dry. The hemoglobin was at 7.5. So we have to transfuse her 2 units of blood, and hopefully she would go to rehab soon after that. Dr. Patel is overseeing her medical condition. ASSESSMENT AND PLAN: The wound is dry, otherwise she feels fine. We will just improve her hemodynamics and send her back for physical therapy to ambulate with total hip precautions. Peña Luna DO
[2018-01-31 07:47] LABS: BASO # 0.01 K/mm3 (0.0-2.0); BASO % 0.1 % (0.0-3.0); EOS # 0.2 (0.0-0.7); EOS % 2.7 % (1.5-5.0); GRAN # 5.8 (1.4-6.5); GRAN % 78.1 % (50.0-68.0); HEMOGLOBIN 11.4 g/dL (12.0-16.0); LYMPH # 0.7 (1.2-3.4); LYMPH % 9.7 % (22.0-35.0); MEAN CELL VOLUME 85.7 fl (80.0-105.0); MEAN CORPUSCULAR HEMOGLOBIN 28.1 pg (25.0-35.0); MEAN CORPUSCULAR HGB CONC 32.9 g/dl (31.0-37.0); MEAN PLATELET VOLUME 8.3 fl (7.0-11.0); MONO # 0.7 (0.1-0.6); MONO % 9.4 % (1.0-6.0); RBC 4.05 10^6/uL (3.5-6.1); RED CELL DISTRIBUTION WIDTH 16.8 % (11.5-14.5); WHITE BLOOD COUNT 7.4 10^3/ul (4.5-11.0)
[2018-01-31 07:57] LABS: BLOOD UREA NITROGEN 19 mg/dL (7-21); GFR NON-AFRICAN AMERICAN > 60
[2018-01-31] MEDS: Pantoprazole 40 mg EC Tab PO SCH (08:39)
--- NOTE | 2018-01-31 17:26 | CON ---
DATE: 01/31/2018 GASTROENTEROLOGY CONSULTATION REQUESTING PHYSICIAN: Susanna Patel MD REASON FOR CONSULTATION: I have been asked to see this 87-year-old female who was referred from [facility] after undergoing left hip replacement surgery 1 week ago for anemia. In the emergency room, the patient was noted to be anemic with a hemoglobin of 8.5. Twenty four hours later her hemoglobin went down to 7.6. Stool for occult blood in the emergency room was negative. The patient denies any rectal bleeding, melena, nausea, vomiting, hematemesis, abdominal pain or chest pain. The patient does have a history of anemia most likely that of chronic disease. A CBC from 05/2017 showed her hemoglobin to be 8.6. The patient has been on Eliquis for DVT prophylaxis. PAST MEDICAL HISTORY: Notable for degenerative joint disease, hypertension, lupus, depression, anxiety, thyroid nodules, GERD. PAST SURGICAL HISTORY: Notable for left hip replacement 1 week ago. SOCIAL HISTORY: She denies cigarette smoking or alcohol use. She is currently domiciled at [facility] to rehab a left hip replacement. FAMILY HISTORY: Noncontributory. REVIEW OF SYSTEMS: A 14-point review of systems is negative for GI bleeding, melena, hematemesis, abdominal pain, chest pain or shortness of breath. MEDICATIONS AT HOME: Include Ultram, omeprazole, Cozaar, Plaquenil, folic acid, ferrous sulfate, Aricept, Colace, Celexa, calcium carbonate, Eliquis, Tylenol and Xanax. PHYSICAL EXAMINATION: GENERAL: Well-developed female lying in bed in no acute distress. VITAL SIGNS: Reveal temperature of 98.4, blood pressure 130/61, heart rate of 69. HEENT: Reveal sclerae to be white. Conjunctivae pink. NECK: Supple. CHEST: Lungs are clear. HEART: Reveals regular rate and rhythm. ABDOMEN: Soft, nontender. No mass. EXTREMITIES: Show no edema. LABORATORY DATA: Reveal white blood cell count 7.4, hemoglobin 11.4 after 2 units of packed red blood cells. Laboratory data reveal BUN 19, creatinine 0.7, troponin 0.14. IMPRESSION: 1. Anemia most likely anemia of chronic disease. Her hemoglobin on admission to the hospital was similar to hemoglobin in 05/2017 at 8.6. The patient may have lost some blood during her left hip replacement surgery. There is no evidence of overt gastrointestinal bleeding. She did have stool for occult blood negative in the ER. 2. Elevated troponin, rule out [id number] myocardial infarction. 3. Gastroesophageal reflux disease. RECOMMENDATIONS: 1. Continue supportive care. There are no plans for any invasive endoscopic procedures at this time as the patient does not appear to be bleeding clinically. 2. We will need to follow troponins and further workup as per Dr. Ortiz of Cardiology. Drake Bennett MD
--- NOTE | 2018-01-31 21:35 | PN ---
DATE: 01/31/2018 SUBJECTIVE: The patient has no complaints of any chest pain. No shortness of breath. No headaches or dizziness. PHYSICAL EXAMINATION: VITAL SIGNS: Temperature was 97.6, pulse of 69, blood pressure 125/68, respirations 18. GENERAL: The patient is lying in bed, flat, comfortable. HEENT: No oral lesion. Anicteric sclerae. Moist mucosa. NECK: No JVD, adenopathy, or thyromegaly. CARDIOVASCULAR: S1 and S2, regular. No murmurs, rubs, or gallops. LUNGS: Clear to auscultation bilaterally. No wheeze, rales, or rhonchi. ABDOMEN: Bowel sounds are positive, soft, nontender and nondistended. EXTREMITIES: No cyanosis, clubbing or edema. ASSESSMENT: 1. Acute anemia secondary to blood loss. 2. Anxiety disorder. 3. Hypertension. 4. Status post left hip replacement. 5. Lupus. 6. Gastroesophageal reflux disease. PLAN: The patient is currently comfortable and is being followed by Dr. Bennett. The patient's hemoglobin is 11. The patient most likely had blood loss from the surgery and may have anemia of chronic disease. The patient is on Aricept. She is going to continue losartan for hypertension and Colace for constipation. The patient is on hydroxychloroquine for the lupus. Vickey Leslie MD
[2018-02-01 07:38] LABS: BASO # 0.01 K/mm3 (0.0-2.0); BASO % 0.1 % (0.0-3.0); EOS # 0.2 (0.0-0.7); EOS % 2.2 % (1.5-5.0); GRAN # 5.47 (1.4-6.5); HEMOGLOBIN 10.8 g/dL (12.0-16.0); MEAN CELL VOLUME 86.6 fl (80.0-105.0); MEAN CORPUSCULAR HEMOGLOBIN 27.8 pg (25.0-35.0); MEAN PLATELET VOLUME 8.4 fl (7.0-11.0); MONO # 0.7 (0.1-0.6); MONO % 9.7 % (1.0-6.0); RBC 3.89 10^6/uL (3.5-6.1); RED CELL DISTRIBUTION WIDTH 17.2 % (11.5-14.5); WHITE BLOOD COUNT 7.3 10^3/ul (4.5-11.0)
[2018-02-01] MEDS: Pantoprazole 40 mg EC Tab PO SCH (09:54)
--- NOTE | 2018-02-01 12:15 | PN ---
DATE: 02/01/2018 SUBJECTIVE: The patient is status post right hip surgery with anemia status post transfusion of 2 units of packed red blood cells. She has also had elevation in her cardiac enzymes. PHYSICAL EXAMINATION: VITAL SIGNS: Show a temperature of 98.6, pulse is 70, blood pressure is 108/59, oxygen sat is 96%, respiratory rate is 20. GENERAL: She is alert and oriented x3. LUNGS: Clear. HEART: S1 and S2. ABDOMEN: Soft with positive bowel sounds. EXTREMITIES: Show trace edema. NEUROLOGICAL: She is alert and oriented x3. LABORATORY DATA: WBC 7.3, RBC 3.89, hemoglobin 10.8, hematocrit 33.7, platelet count 406. MEDICATIONS: Currently the patient is on Aricept, Celexa, Colace, Cozaar, Feosol, Plaquenil, Protonix, Tylenol and Xanax. 1. When she was seen by GI, this note is appreciated, felt to be anemia of chronic disease with blood loss secondary to surgery. Her stool guaiac in the emergency room was reported as being negative. No evidence of active bleeding has been reported at this time. 2. The patient has an elevation in the cardiac enzymes. The cardiology note is appreciated and feels that the patient suggest be monitored at this time. We will follow up the patient's blood count. Continue her physical therapy. She is also being followed by Orthopedics. She has history of prior surgery of the hip on the left, history of degenerative arthritis of the spine and right shoulder, history of multinodular goiter, history of MRSA cellulitis, history of anxiety and depression and history of a cognitive disorder. Susanna Patel MD
[2018-02-02 06:03] VITALS: RESP 20; O2SAT 96
[2018-02-02 07:25] LABS: EOS # 0.2 (0.0-0.7); EOS % 2.4 % (1.5-5.0); GRAN # 6.02 (1.4-6.5); GRAN % 76.2 % (50.0-68.0); LYMPH # 1.1 (1.2-3.4); LYMPH % 13.3 % (22.0-35.0); MEAN CELL VOLUME 87.6 fl (80.0-105.0); MEAN CORPUSCULAR HEMOGLOBIN 27.3 pg (25.0-35.0); MEAN CORPUSCULAR HGB CONC 31.2 g/dl (31.0-37.0); MEAN PLATELET VOLUME 8.5 fl (7.0-11.0); MONO # 0.6 (0.1-0.6); MONO % 8.1 % (1.0-6.0); RBC 4.03 10^6/uL (3.5-6.1); RED CELL DISTRIBUTION WIDTH 17.1 % (11.5-14.5); WHITE BLOOD COUNT 7.9 10^3/ul (4.5-11.0)
[2018-02-02] MEDS: Pantoprazole 40 mg EC Tab PO SCH (07:39)
--- NOTE | 2018-02-02 08:28 | PN ---
DATE: 01/31/2018 FOLLOWUP ORTHOPEDIC REPORT LOCATION: In room 276, bed #1 SUBJECTIVE: The patient came from [facility] on 01/30/2018 because of anemia, hemoglobin was 7.1; so, we gave her 2 units of packed cells yesterday, now it is 11.2 hemoglobin. She is doing well and has no complains of pain in her right hip. Surgery was done approximately 10 days ago, too early to take the sutures out. I will remove them in two week's time, which would be this Friday, probably at [facility] and she is to get up out of bed and ambulate to tolerance with total hip precautions. Peña Luna DO
--- NOTE | 2018-02-02 09:35 | PN ---
DATE: 02/02/2018 UPDATED REPORT LOCATION: In room 276, bed 1. She is doing much better. Hemoglobin came up from 7.7 to 11, hematocrit 24.5. to 35.5. Wound is dry. I will take the sutures out on Friday, but I am sure she could go back to subacute rehab and just hope she gets a little therapy here by ambulating with a walker with total hip precautions and she could lay on her sides when she puts a pillow between her legs to keep the legs abducted and avoiding adduction just to keep the right hip. Hopefully, I could see her at [facility] when she gets there or I will follow her here at [facility] where I check up on her. Peña Luna DO
--- NOTE | 2018-02-02 12:24 | PN ---
DATE: 02/02/2018 SUBJECTIVE: The patient is lying in bed. She denies any rectal bleeding, melena, nausea, vomiting, chest pain or shortness of breath. PHYSICAL EXAMINATION: VITAL SIGNS: Reveal a temperature of 98.2, blood pressure 137/76, heart rate of 68. HEENT: Reveals sclerae to be white. Conjunctivae pink. NECK: Supple. CHEST: Lungs are clear. HEART: Reveals a regular rate and rhythm. ABDOMEN: Soft, nontender. No mass. EXTREMITIES: Show no edema. LABORATORY DATA: Reveals hemoglobin of 11, white blood cell count 7.9. Electrolytes normal. IMPRESSION: An 87-year-old female with anemia, status post hip replacement surgery. There is no evidence of overt gastrointestinal bleeding. A stool for occult blood in the emergency room was negative. The patient does have a history of chronic anemia. The patient has multiple comorbidities including lupus, degenerative joint disease, hypertension, gastroesophageal reflux disease, thyroid nodules. RECOMMENDATIONS: No invasive GI workup is planned at this time as there is low index of suspicion for GI bleeding. The patient is to be transferred to [facility] to rehab her recent left hip replacement. Drake Bennett MD (Delete this signature block when dictator is a preceptor.) cc: MD Pasquale (Delete if not dictated.)
[2018-02-02 12:44] VITALS: BP 124/65; PULSE 63; TEMP 97.1
--- NOTE | 2018-02-03 16:12 | DS ---
HISTORY OF PRESENT ILLNESS: An 87-year-old female at [facility] to be transferred to [facility] home to continue her rehab post right hip surgery. She is being cleared by Cardiology, Orthopedics and GI. She was found to have anemia post surgery, required 2 units of packed red blood cells. GI evaluation revealed the patient had anemia of chronic disease and could be monitored at [facility] as an outpatient. Orthopedics had cleared the patient to return to [facility] and Cardiology had seen the patient for a bump in her troponins, which were felt to be not clinically significant. She had a chest x-ray at [facility], which was reported as showing no evidence of active disease. She had a Doppler study of her lower extremities, which was reported as showing no sonographic evidence of deep vein thrombosis in the lower extremities. She had an EKG, which showed normal sinus rhythm. MEDICATIONS: She would continue at [facility] on Aricept 5 mg daily, Celexa 10 mg daily, Colace 200 mg daily, Cozaar 100 mg daily, Feosol 324 daily, Plaquenil 200 mg daily, Protonix 40 mg daily, Tylenol two tabs every 6 p.r.n. pain and Xanax 0.25 mg at bedtime. PHYSICAL EXAMINATION: GENERAL: She was alert and oriented x3. LUNGS: Clear. HEART: Regular S1 and S2 rhythm. VITAL SIGNS: Her temp was 97, her pulse was 63, blood pressure was 124/65. ABDOMEN: Soft with positive bowel sounds. EXTREMITIES: Showed some trace edema. She has venous insufficiency. ASSESSMENT AND PLAN: She will be followed as an outpatient. Her hemoglobin on discharge was 11 with hematocrit of 35, platelet count 427, WBC 7.9. Susanna Patel MD
== END 2018-02-02 14:46 | DRG 812 ==
LOC: ED 13:20 → ERH 15:25 → 2RSO 17:43 → OBSVTOIN 01-30 10:34 → 2RNO 02-02 12:04
PROVIDERS: ADMIT Internal Medicine; ATTEND Internal Medicine
PROC: 30233N1 Transfusion of Nonautologous Red Blood Cells into Peripheral Vein, Percutaneous Approach (ICD-10-PCS; principal; 2018-01-30)
DX: D62 Acute posthemorrhagic anemia (principal); I10 Essential (primary) hypertension; M50.90 Cervical disc disorder, unspecified, unspecified cervical region; M51.86 Other intervertebral disc disorders, lumbar region; M32.9 Systemic lupus erythematosus, unspecified; M19.011 Primary osteoarthritis, right shoulder; E83.42 Hypomagnesemia; F41.9 Anxiety disorder, unspecified; D63.8 Anemia in other chronic diseases classified elsewhere; E04.2 Nontoxic multinodular goiter; K21.9 Gastro-esophageal reflux disease without esophagitis; H40.9 Unspecified glaucoma; I73.00 Raynaud's syndrome without gangrene; R74.8 Abnormal levels of other serum enzymes; Z96.641 Presence of right artificial hip joint; Z79.01 Long term (current) use of anticoagulants; Z86.14 Personal history of Methicillin resistant Staphylococcus aureus infection

== ENCOUNTER 2018-03-29 10:53 | Inpatient (IN) | payer MEDICARE ==
[2018-03-29 11:00] VITALS: BMI 23.4
--- NOTE | 2018-03-29 11:27 | ED PDOC ---
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 Luna, and macular degenerative with injection treatment last week, presents to the emergency department complaining of left knee pain and nausea s/p fall. Patient was walking to the table when she tripped and fell forward hitting her right eye with a mug. Patient sustain an abrasion to the right eye. Patient denies loss of consciousness and is able to recall the event. Patient dragged herself with her walker to the bedroom to call her daughter for help. Patient denies any fever, chills, chest pain, shortness of breath, vomiting, diarrhea, urinary symptoms, back pain, neck pain, headache, dizziness, or any other complaints. PMD: Dr. 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 - HEENT Hx HEENT Disorder: Yes (eyeglasses) Hx Glaucoma: Yes - Renal Hx Renal Disorder: No - Endocrine/Metabolic Hx Endocrine Disorders: Yes Hx Systemic Lupus Erythematosus: Yes ("borderline") - Hematological/Oncological Hx Blood Disorders: Yes Other/Comment: 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 - Integumentary Hx Dermatological Disorder: Yes Other/Comment: ble +1 edema cellulitis, thick hard toenails,redness swelling , feet reddened and swollen, red dry cracked skin to feet, skin discolorations both arms, slight redness to ble +1 pitting edema, buttocks/sacrum reddened no openings,dry flakey skin to feet, right hip dressing dry and intact wound clean/dry - Musculoskeletal/Rheumatological Hx Arthritis: Yes - Gastrointestinal Hx Gastrointestinal Disorders: Yes (HIATAL HERNIA,APPENDECTOMY,CHOLECY STECTOMY,CONSTIPATION) Hx Gastroesophageal Reflux: Yes - Genitourinary/Gynecological Hx Genitourinary Disorders: Yes (URINARY FREQUENCY,SOME INCONTINENCY.) Hx Incontinence: Yes - Psychiatric Hx Anxiety: Yes Hx Depression: No Hx Emotional Abuse: No Hx Physical Abuse: No Hx Substance Use: No - Surgical History Hx Appendectomy: Yes Hx Cholecystectomy: Yes Hx Orthopedic Surgery: Yes (left hip 11/06/12) Other/Comment: tongue surgery. cyst removal from right breast. hemorroidectomy, right total hip replacement 8 [address] in [facility] for rehab - Anesthesia Hx Anesthesia: Yes Hx Anesthesia Reactions: No Hx Malignant Hyperthermia: No - Suicidal Assessment Feels Threatened In Home Enviroment: No Family/Social History - Physician Review Nursing Documentation Reviewed: Yes Family/Social History: No Known Family HX Smoking Status: Never Smoked Hx Alcohol Use: No Hx Substance Use: No Hx Substance Use Treatment: No Allergies/Home Meds Allergies/Adverse Reactions: Allergies codeine Adverse Reaction (Verified 01/29/18 13:37) NAUSEA Home Medications: Home Meds Medication Instructions Recorded Confirmed Hydroxychloroquine Sulfate 200 mg PO DAILY 09/30/16 01/29/18 [Plaquenil] ALPRAZolam [Xanax] 0.25 mg PO HS 01/29/18 01/29/18 Apixaban [Eliquis] 2.5 mg PO BID 01/29/18 01/29/18 Calcium Carb 500 2 tab PO Q4 01/29/18 01/29/18 Docusate Sodium [Colace] 200 mg PO HS 01/29/18 01/29/18 Ferrous Sulfate 325 mg PO TID 01/29/18 01/29/18 Folic Acid 1 mg PO DAILY 01/29/18 01/29/18 Omeprazole 20 mg PO DAILY 01/29/18 01/29/18 traMADol [Ultram] 100 mg PO Q8 PRN 01/29/18 01/29/18 Review of Systems - Physician Review All systems were reviewed & negative as marked: Yes - Review of Systems Constitutional: absent: Fevers, Other (Chills) Respiratory: absent: SOB Cardiovascular: absent: Chest Pain Gastrointestinal: Nausea. absent: Abdominal Pain, Diarrhea, Vomiting Genitourinary Female: absent: Dysuria, Frequency, Hematuria Musculoskeletal: Other (left knee pain). absent: Arthralgias, Back Pain, Neck Pain Neurological: absent: Headache, Dizziness Physical Exam Vital Signs Reviewed: Yes Vital Signs Temp Pulse Resp BP Pulse Ox 03/29/18 10:53 97.9 F 91 H 18 158/83 H 95 Temperature: Afebrile Blood Pressure: Hypertensive Pulse: Regular Respiratory Rate: Normal Appearance: Positive for: Well-Appearing, Non-Toxic, Comfortable Pain Distress: None Mental Status: Positive for: Alert and Oriented X 3 - Systems Exam Head: Present: Atraumatic, Normocephalic, Ecchymosis (Periorbital ecchymosis noted to the left eye) Pupils: Present: PERRL Extroacular Muscles: Present: EOMI Conjunctiva: Present: Normal Mouth: Present: Moist Mucous Membranes Nose (External): Present: Other (ecchymosis noted to the bridge of nose) Neck: Present: Normal Range of Motion, Other (FROM of neck). No: MIDLINE TENDERNESS, Paraspinal Tenderness Respiratory/Chest: Present: Clear to Auscultation, Good Air Exchange. No: Respiratory Distress, Accessory Muscle Use Cardiovascular: Present: Regular Rate and Rhythm, Normal S1, S2. No: Murmurs Abdomen: No: Tenderness, Distention, Peritoneal Signs Back: Present: Normal Inspection Upper Extremity: Present: Normal Inspection. No: Cyanosis, Edema Lower Extremity: Present: Other (Limited flexion and extention of left patella knee). No: Edema Neurological: Present: GCS=15, CN II-XII Intact, Speech Normal Skin: Present: Warm, Dry, Normal Color. No: Rashes Psychiatric: Present: Alert, Oriented x 3, Normal Insight, Normal Concentration Medical Decision Making ED Course and Treatment: 03/29/18 11:26 Impression: 87 year old female presents complaining of left knee pain and nausea s/p trip and fall. Plan: -- Cervical Spine CT w/o contrast -- Head CT w/o contrast -- Orbits/ Facial w/o Contrast -- EKG -- Chest X-ray -- Boostrix vaccine Inj -- Urine Culture -- Hip Min 2V w/ Pelvis x-ray -- Knees B/l X-ray -- Tylenol -- Reglan -- IV Fluids -- Urinalysis -- Reassess and disposition Prior Visits: Notes and results from previous visits were reviewed. Progress Notes: 03/29/18 11:[address] patel who is aware that his patient is in the ER and agrees with the plan. 03/29/18 13:[address] Patel after evaluating the patient accepts patient onto his service for admission. - Lab Interpretations I have reviewed the lab results: Yes - RAD Interpretation Narrative RAD Interpretations (Text): PROCEDURE: CT ORBITS WITHOUT CONTRAST. Dictator : Alecia Rodriguez MD Report Date : 03/29/2018 12:56:40 IMPRESSION: No acute orbital or nasal bone fracture. Mild left nasal and periorbital soft tissue swelling. PROCEDURE: CT HEAD WITHOUT CONTRAST. Dictator : Alecia Rodriguez MD Report Date : 03/29/2018 12:46:58 IMPRESSION: No acute intracranial abnormality. Moderate chronic microangiopathic changes and moderate age-related global parenchymal volume loss. ADDENDUM: This addendum is in regards to additional findings. 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 PROCEDURE: CT Cervical Spine without contrast Dictator : Alecia Rodriguez MD Report Date : 03/29/2018 12:50:18 IMPRESSION: No acute fracture or traumatic anterior listhesis. PROCEDURE: Radiographs of the pelvis and bilateral hips Dictator : Alecia Rodriguez MD Report Date : 03/29/2018 12:59:23 IMPRESSION: No acute displaced fracture or dislocation. PROCEDURE: Chest X-ray Dictator : Alecia Rodriguez MD Report Date : 03/29/2018 12:59:54 IMPRESSION: No acute findings. Radiology Orders: 03/29/18 11:01 CERVICAL SPINE W/O CONTRAST [CT] Stat HEAD W/O CONTRAST [CT] Stat 03/29/18 11:04 CHEST PORTABLE [RAD] Stat Prints And Drawings Curator: Radiologist - EKG Interpretation EKG Interpretation (Text): EKG shows NSR at 88 BPM with isolated PT wave on V3. Interpreted by me. Interpreted by ED Physician: Yes Type: 12 lead EKG - Scribe Statement The provider has reviewed the documentation as recorded by the Scribe Tommie Castro Provider Scribe Attestation: All medical record entries made by the Scribe were at my direction and personally dictated by me. I have reviewed the chart and agree that the record accurately reflects my personal performance of the history, physical exam, medical decision making, and the department course for this patient. I have also personally directed, reviewed, and agree with the discharge instructions and disposition. Disposition/Present on Arrival - Present on Arrival Any Indicators Present on Arrival: No History of DVT/PE: No History of Uncontrolled Diabetes: No Urinary Catheter: No History of Decub. Ulcer: No History Surgical Site Infection Following: Orthopedic Procedures - Disposition Have Diagnosis and Disposition been Completed?: Yes Diagnosis: Fall, Chest pain Disposition Time: 13:29 Patient Plan: Observation Patient Problems: Current Active Problems Problem Status Onset Fall Acute Chest pain Acute Condition: STABLE
[2018-03-29] MEDS ORDERED: Oxycodone/Acetaminophen 5/325 mg Tab PO STA (11:28)
[2018-03-29] MEDS ORDERED: TDAP Vaccine 0.5 mL Syr IM ONE (11:28)
[2018-03-29 11:54] LABS: BASO # 0.01 K/mm3 (0.0-2.0); BASO % 0.1 % (0.0-3.0); EOS % 0.2 % (1.5-5.0); GRAN # 11.54 (1.4-6.5); GRAN % 90.3 % (50.0-68.0); HEMOGLOBIN 12.3 g/dL (12.0-16.0); LYMPH # 0.5 (1.2-3.4); LYMPH % 3.8 % (22.0-35.0); MEAN CELL VOLUME 88.2 fl (80.0-105.0); MEAN CORPUSCULAR HEMOGLOBIN 28.5 pg (25.0-35.0); MEAN CORPUSCULAR HGB CONC 32.4 g/dl (31.0-37.0); MEAN PLATELET VOLUME 9.3 fl (7.0-11.0); MONO # 0.7 (0.1-0.6); MONO % 5.6 % (1.0-6.0); PLATELET COUNT 275 10^3/uL (120.0-450.0); RBC 4.31 10^6/uL (3.5-6.1); RED CELL DISTRIBUTION WIDTH 16.1 % (11.5-14.5); WHITE BLOOD COUNT 12.8 10^3/uL (4.5-11.0)
[2018-03-29 12:04] LABS: ALB/GLOB RATIO 1.3 (1.1-1.8); ALT/SGPT 25 U/L (7-56); AST/SGOT 30 U/L (14-36); BLOOD UREA NITROGEN 25 mg/dL (7-21); CALCIUM 9.8 mg/dL (8.4-10.5); GFR NON-AFRICAN AMERICAN > 60; INR 0.93; PARTIAL THROMBOPLASTIN TIME 26.5 Seconds (25.1-36.5); PROTHROMBIN TIME 10.7 SECONDS (9.4-12.5)
[2018-03-29 12:16] LABS: TROPONIN I 0.03 ng/mL
[2018-03-29 12:18] LABS: NEUTROPHIL 91 % (50.0-70.0)
[2018-03-29 12:19] LABS: ANISOCYTOSIS SLIGHT; LYMPHOCYTE 5 % (22.0-35.0); MONOCYTE 4 % (1.0-6.0); PLATELET ESTIMATE LOW (NORMAL)
--- NOTE | 2018-03-29 12:50 | CT ---
Date of service: 03/29/2018 PROCEDURE: CT HEAD WITHOUT CONTRAST. HISTORY: fall COMPARISON: 12/28/2017. TECHNIQUE: Axial computed tomography images were obtained through the head/brain without intravenous contrast. Radiation dose: Total exam DLP = 868.31 mGy-cm. This CT exam was performed using one or more of the following dose reduction techniques: Automated exposure control, adjustment of the mA and/or kV according to patient size, and/or use of iterative reconstruction technique. FINDINGS: HEMORRHAGE: No intracranial hemorrhage. BRAIN: There are moderate chronic microangiopathic changes. There is no mass, mass effect or abnormal extra-axial fluid collection. There is no territorial infarction. The midline sagittal structures are normal. VENTRICLES: There is moderate age-related global parenchymal volume loss and proportionate enlargement of the ventricles and cortical sulci. CALVARIUM: There is no calvarial fracture or extracranial soft tissue swelling. PARANASAL SINUSES: Predominantly clear. MASTOID AIR CELLS: Predominantly clear. OTHER FINDINGS: None. IMPRESSION: No acute intracranial abnormality. Moderate chronic microangiopathic changes and moderate age-related global parenchymal volume loss.
--- NOTE | 2018-03-29 12:53 | CT ---
Date of service: 03/29/2018 PROCEDURE: CT Cervical Spine without contrast HISTORY: fall COMPARISON: None available. TECHNIQUE: Axial computed tomography images were obtained of the cervical spine without the use of intravenous contrast. Coronal and sagittal reformatted images were created and reviewed. Radiation dose: Total exam DLP = 280.55 mGy-cm. This CT exam was performed using one or more of the following dose reduction techniques: Automated exposure control, adjustment of the mA and/or kV according to patient size, and/or use of iterative reconstruction technique. FINDINGS: VERTEBRAE: There is moderate dextroscoliosis in the lower cervical spine. There is degenerative 3 mm anterior listhesis of C3 on C4. There is normal cervical lordosis. There is no acute fracture. The craniocervical junction is normal. There is moderate degenerative osteoarthrosis in the atlantoaxial joint. DISCS/SPINAL CANAL/NEURAL FORAMINA: There is multilevel degenerative disc disease with anterior osteophytes, reduced disc heights and multilevel facet arthropathy with variable degree of neural foraminal narrowing without central spinal canal stenosis. PARASPINAL SOFT TISSUES: Unremarkable. OTHER FINDINGS: There is an enlarged multinodular thyroid gland. Dedicated thyroid ultrasound on a non emergent basis is recommended for further evaluation. IMPRESSION: No acute fracture or traumatic anterior listhesis.
[2018-03-29] MEDS ORDERED: Sodium Chloride 0.9% 1,000 ML IV STA (12:54)
--- NOTE | 2018-03-29 13:00 | CT ---
Date of service: 03/29/2018 PROCEDURE: CT ORBITS WITHOUT CONTRAST. HISTORY: periorbital swelling w/ ecchmosis to nasal bridge COMPARISON: None available. TECHNIQUE: Axial CT images of the orbits were obtained. Coronal and sagittal reformats were generated. Radiation dose: Total exam DLP = 793.07 mGy-cm. This CT exam was performed using one or more of the following dose reduction techniques: Automated exposure control, adjustment of the mA and/or kV according to patient size, and/or use of iterative reconstruction technique. FINDINGS: RIGHT ORBIT: RIGHT BONY ORBIT: Normal. RIGHT INTRAORBITAL STRUCTURES: Globe: Normal. Extraocular muscles: Normal. Post septal space: Normal. Optic Nerve: Normal. Lacrimal Apparatus: Normal. RIGHT PRESEPTAL SOFT TISSUES: Normal. LEFT ORBIT: LEFT BONY ORBIT: Normal. LEFT INTRAORBITAL STRUCTURES: Globe: Normal. Extraocular muscles: Normal. Post septal space: Normal Optic Nerve: Normal. . Lacrimal Apparatus: Normal. LEFT PRESEPTAL SOFT TISSUES: Mild left periorbital soft tissue swelling. OTHER: There is no acute nasal bone fracture. There is mild left nasal soft tissue swelling. There is no acute maxillofacial fracture. There is no dislocation. There is severe degenerative osteoarthrosis in the left temporomandibular joint. IMPRESSION: No acute orbital or nasal bone fracture. Mild left nasal and periorbital soft tissue swelling.
--- NOTE | 2018-03-29 13:03 | RAD ---
PROCEDURE: Radiographs of the pelvis and bilateral hips HISTORY: fall COMPARISON: None. FINDINGS: BONES: The pelvic ring is intact. There is diffuse bone demineralization. There is no acute displaced fracture or bone destruction. JOINTS: Status post bilateral hip arthroplasties. No dislocation. No hardware complications. Both sacroiliac joints are normal. SOFT TISSUES: Normal. OTHER FINDINGS: None. IMPRESSION: No acute displaced fracture or dislocation.
--- NOTE | 2018-03-29 13:03 | RAD ---
Date of service: 03/29/2018 HISTORY: fall COMPARISON: No prior. FINDINGS: LUNGS: The lungs are well inflated and clear. PLEURA: No pleural effusions or pneumothorax. CARDIOVASCULAR: The heart is normal in size. No aortic atherosclerotic calcification present. OSSEOUS STRUCTURES: Severe degenerative osteoarthrosis in the right glenohumeral joint and mild degenerative osteoarthrosis in the acromioclavicular and left glenohumeral joint. VISUALIZED UPPER ABDOMEN: Normal. OTHER FINDINGS: None. IMPRESSION: No acute findings.
[2018-03-29] MEDS ORDERED: FERROUS SULFATE 325 MG PO SCH (14:00)
[2018-03-29 14:14] LABS: URINE APPEARANCE CLEAR (CLEAR); URINE BILIRUBIN NEGATIVE (NEGATIVE); URINE BLOOD MODERATE (NEGATIVE); URINE COLOR YELLOW (YELLOW); URINE GLUCOSE (UA) NEGATIVE (NEGATIVE); URINE LEUKOCYTE ESTERASE TRACE Leu/uL (NEGATIVE); URINE PROTEIN NEGATIVE mg/dL (<30 mg/dL); URINE UROBILINOGEN 0.2 E.U./dL (<1 E.U./dL)
[2018-03-29 14:16] LABS: URINE BACTERIA MANY (NEG); URINE RBC 15 - 20 /hpf (0-2)
--- NOTE | 2018-03-29 18:02 | CARD ---
APPROVED REPORT Date of service: 03/29/2018 EKG Measurement Heart [id number] DC [id number] <Conclusion> Normal sinus rhythm Normal ECG
--- NOTE | 2018-03-29 20:47 | HP ---
DATE OF EXAM: 03/29/2018 HISTORY OF PRESENT ILLNESS: The patient was brought to the emergency room by daughters when she was reported to have fallen at home. The patient states when she was walking to the kitchen with her walker carrying a cup of coffee, turned going into the kitchen to approach the table and tripped. She states that the coffee got struck her in the left eye area and cheek. She subsequently then apparently, according to the patient, pulled herself from the kitchen across the floor to get to her phone. She denies that she lost any sense of consciousness or any dizziness or chest discomfort. PAST MEDICAL HISTORY: Remarkable for cellulitis of the lower extremities with edema, congestive heart failure, rhabdomyolysis, bilateral hips surgeries, degenerative arthritis of the right shoulder, multinodular thyroid, anemia, cognitive behavior disorder, anxiety disorder. She has history of gait disorder. MEDICATIONS: Per the list of medications from the family, she is currently on Cozaar 100 mg daily, Celexa 10 mg daily, Aricept 5 mg daily, Plaquenil 200 mg daily, Protonix 40 mg daily, latanoprost 0.05 one drop to each eye at bedtime. She takes fish oil, Centrum Silver, . She is on iron supplement and Colace p.r.n. SOCIAL HISTORY: She is a nonsmoker, nondrinker, nondrug user. ALLERGIES: SHE HAS AN ALLERGY TO CODEINE. REVIEW OF SYSTEMS: All systems are reviewed, pertinent findings are that the patient has an area of ecchymosis over the right and the left eye, cheek area. There is some swelling to the left knee. She has some soreness which she describes over the right shoulder and chest area. PHYSICAL EXAMINATION: GENERAL: At this particular point in time, the patient is alert and oriented x3. VITAL SIGNS: Temp is 97.9, pulse is 63, blood pressure is 158/83, oxygen sat is 95% on room air. NECK: Supple. LUNGS: Clear. HEART: S1, S2 rhythm. ABDOMEN: Soft, scaphoid, positive bowel sounds. EXTREMITIES: Show edema. There is some soreness over both knees, right more than left. There is some ecchymosis over the left orbit area. Cervical spine shows no acute fracture, traumatic . There are degenerative changes in the cervical spine. She has multinodular thyroid gland by history. IMAGING STUDIES: CAT scan of her head is reported as showing no acute intracranial abnormality. There are moderate chronic microangiopathic changes and moderate age-related global parenchymal volume loss. There is a large right retrocerebellar paramedian arachnoid granulation with scalloping in the overlying occipital bone which the radiologist says is a benign finding. A chest x-ray reported as showing no acute findings. The EKG is read as a normal sinus rhythm. X-rays of the hip and pelvis; status post bilateral hip arthroplasties, but no acute displaced fracture or dislocation. CT of the orbit is reported showing no acute orbital or nasal bone fracture. There is mild left nasal and periorbital soft tissue swelling. LABORATORY DATA: Shows a WBC of 12.8, RBC of 4.31, hemoglobin 12.3, hematocrit 38, platelet count 275,000. PT 10.7 with an INR of 0.93, PTT of 26.5. Chemistry shows normal electrolytes, the BUN is 25 and the creatinine is 0.6. LFTs are normal. Troponin is 0.03. Her albumin is 4. Urinalysis shows moderate urine bacteria with trace leukocyte esterase. A urine culture has been ordered. IMPRESSION: This is an elderly female who reportedly tripped when walking into the kitchen at home and fell sustaining facial trauma and trauma to the upper tarsal, knees, hip area, and lower back. PLAN: 1. We will request monitoring the patient closely. 2. We will get an ENT evaluation to the facial trauma. 3. Orthopedic evaluation because of the degenerative arthritis history and swelling of the knees at this time. 4. We will get a Neurology consult as well given her history of cognitive behavior disorder and head trauma. 5. We will also get culture of the urine. 6. We will follow up with the patient's labs. Susanna Patel MD
[2018-03-29] MEDS ORDERED: Latanoprost 2.5 ml Opht Soln OU SCH (22:00)
--- NOTE | 2018-03-29 22:23 | CON ---
DATE: 03/29/2018 HISTORY OF PRESENT ILLNESS: This is an 87-year-old white female with past medical history of arthritis and status post left hip surgery, lupus, hypertension, anxiety, cognitive behavioral disorder, recent right total hip replacement, who came to the emergency room with the complaint of left knee pain and nausea. The patient fell at home. The patient was walking to the table when she tripped and fell hitting her left eye and bruised. Denies any loss of consciousness, and the patient dragged herself to the bedroom and called her daughter, who brought her here for further check up. CAT scan of the head, CAT scan of the cervical spine, and CT orbit did not show any fracture and called to evaluate the patient. PAST MEDICAL HISTORY: As above. SOCIAL HISTORY: Does not smoke and does not drink. HOME MEDICATIONS: Plaquenil, Xanax, Eliquis, Colace, and tramadol. REVIEW OF SYSTEMS: Ten-point review of systems was negative except slight headache and left shoulder pain. PHYSICAL EXAMINATION VITAL SIGNS: Blood pressure 158/83. HEENT: Normocephalic and atraumatic. Left eye bruised. NECK: Supple. NEUROLOGIC: Cranial nerves II through XII are tested. Pupils are reactive. EOM is intact. Visual chow full. No facial asymmetry. Tongue midline. Motor examination; spontaneous movement of the extremities noted. Deep tendon reflexes are 1+. Plantars are downgoing. Sensory appears intact. Cerebellar gait deferred. IMPRESSION: An 87-year-old white female who tripped and fell at home, bruised left side of the eye, and CAT scan of the cervical spine and orbit did not show any fracture. The patient is not in distress. Workup in progress. Continue present management. We will follow up. Hi Blair MD
[2018-03-30 07:05] LABS: EOS # 0.1 (0.0-0.7); EOS % 1.1 % (1.5-5.0); GRAN # 3.96 (1.4-6.5); GRAN % 74.2 % (50.0-68.0); LYMPH # 0.8 (1.2-3.4); LYMPH % 14.4 % (22.0-35.0); MEAN CELL VOLUME 88.5 fl (80.0-105.0); MEAN CORPUSCULAR HEMOGLOBIN 28.1 pg (25.0-35.0); MEAN CORPUSCULAR HGB CONC 31.7 g/dl (31.0-37.0); MEAN PLATELET VOLUME 9.6 fl (7.0-11.0); MONO # 0.6 (0.1-0.6); MONO % 10.3 % (1.0-6.0); RBC 3.92 10^6/uL (3.5-6.1); RED CELL DISTRIBUTION WIDTH 16.3 % (11.5-14.5); WHITE BLOOD COUNT 5.3 10^3/uL (4.5-11.0)
[2018-03-30 07:54] LABS: ALB/GLOB RATIO 1.1 (1.1-1.8); ALBUMIN 3.1 g/dL (3.0-4.8); ALT/SGPT 23 U/L (7-56); AST/SGOT 31 U/L (14-36); BLOOD UREA NITROGEN 18 mg/dL (7-21); CALCIUM 9.1 mg/dL (8.4-10.5); GFR NON-AFRICAN AMERICAN > 60
[2018-03-30] MEDS ORDERED: Non Formulary Medication (Omeprazole [Omeprazole] 20 MG) PO SCH (10:00)
[2018-03-30] MEDS: Pantoprazole 20 mg EC Tab PO SCH (10:29)
[2018-03-30 10:46] LABS: IRON 200 ug/dL (45-180)
[2018-03-30 10:55] LABS: % IRON SATURATION 62 % (20-55); TOTAL IRON BINDING CAPACITY 325 ug/dL (265-497)
--- NOTE | 2018-03-30 12:05 | CON ---
DATE: 03/30/2018 An 87-year-old female who was admitted to Dr. Susanna Patel after a fall in her home with no loss of consciousness, without significant facial trauma. The patient was brought to the emergency room at [facility] and was evaluated. Significant past medical history of a left hip, lupus, hypertension, anxiety and cognitive behavioral disorders with macular degeneration. The patient states she was walking when she tripped and fell, hitting her left eye and left side of the face. Denied loss of consciousness. Called her daughter and was brought to the ER for evaluation. The patient is now sitting in bed comfortably, noting interval improvement as she discussed in detail the incident as well as how she feels. CAT scan was done of the cervical spine and orbits. PAST MEDICAL HISTORY: The patient denies smoking. MEDICATIONS: She is presently on Plaquenil, Xanax, Eliquis, Colace, and tramadol. PHYSICAL EXAM: Ecchymosis and swelling, periorbital, left side. Cardinal chow intact. No facial numbness or paresthesias over the cheek. No trismus noted with full range of motion of the TMJ. Ears and throat were normal. CAT scan as stated was reviewed. CAT scan of orbit reviewed and discussed. IMPRESSION AND PLAN: No acute orbital or nasal bone fracture. This CAT scan was evaluated by me, consistent with radiographic findings, significant periorbital and left-sided nasal swelling. No bony fractures. The anterior wall of the maxillary sinus is intact. The tripod intact bilaterally with no blood accumulation in the maxillary sinus. Infraorbital floor appears to be normal on multiple films and as stated in the physical exam, orbital range of motion was not restricted. As stated, facial trauma is the impression of an 87-year-old female with a home fall, tripped, without loss of consciousness. It was discussed with the patient that the swelling will come down slowly over a 7 to 14-day period. No reduction is needed. The patient is advised to follow up in the office of Dr. Rafael Hahn for further evaluation. There is no bony fracture and no reduction necessary. Facial contusion, periorbital swelling and cellulitis noted. Small 1 cm lac at the orbital rim superiorly is healing well. We would continue bacitracin ointment, cool compresses to eye. The patient was discussed to limit physical activity. Secondary to trip it is recommended that gait training and possible PT for improved gait training as a recommendation was discussed with the patient. Jose Francisco Hahn DO
--- NOTE | 2018-03-30 16:06 | PN ---
DATE: 03/30/2018 CHIEF COMPLAINT: Status post fall. HISTORY OF PRESENT ILLNESS: The patient is seen and examined at bedside, has severe osteoarthritis throughout her body. She is definitely mildly deconditioned. No headaches. No dizziness. No changes in sensation, vision, taste, or smell. She has a baseline macular degeneration of the left eye and glaucoma of the right eye. No loss of consciousness and is much more stable. CAT scan of the head reviewed, no acute intracranial abnormalities. PAST MEDICAL HISTORY: History of lupus, history of left hip replacement as well as recent right hip replacement by Dr. Luna, hypertension, anxiety, and macular degeneration. REVIEW OF SYSTEMS: A 14-point review of systems as per the HPI. MEDICATIONS: Reviewed by nurse's reconciliation sheet. ALLERGIES: CODEINE. FAMILY HISTORY: Noncontributory. SOCIAL HISTORY: No illicit drug use, smoking, or EtOH abuse. LABORATORY DATA: Today's labs, sodium 136, potassium 3.8, chloride 104, carbon dioxide 28, BUN of 18, creatinine 0.69, and glucose of 89. PHYSICAL EXAMINATION: VITAL SIGNS: Temperature 98.7, pulse rate 74, blood pressure 149/70, respiratory rate 20, and oxygen sat 96% on room air. GENERAL: The patient is sitting up in bed, in no acute distress. HEENT: She has ecchymosis surrounding the periorbital side on the left side. Otherwise, no facial numbness or paresthesias. No trismus noted and full range of motion of the TMJ. NECK: Supple. No JVD. No adenopathy noted. LUNGS: Clear to auscultation. No adventitious sounds. HEART: S1, S2. Normal rate and rhythm. No murmurs, rubs, or gallops. ABDOMEN: Soft, nontender, nondistended. Bowel sounds heard. EXTREMITIES: No clubbing. No cyanosis. Peripheral pulses 2+ bilaterally. NEUROLOGICAL: The patient is alert and oriented to person, place, month, and year. Recall after 5 minutes is 1/3. Poor attention span, slow thought process. Cranial nerves II through XII are intact. Motor Exam: Moves all extremities equally. Toes are downgoing bilaterally. Sensory: Decreased light touch and pinprick up to the calves bilaterally. Decreased vibration of the toes. DTRs are 2+, and 1 in both knees and ankles. Coordination: [id number] intact. No dysmetria noted. Gait is deferred for now. IMPRESSION AND PLAN: This is an 87-year-old woman with history of left hip surgery, lupus, conduct behavioral disorder, history of recent total hip replacement on the right, anxiety, status post fall, no loss of consciousness, which was mechanical in nature, she was also deconditioned, she has evidence of neuropathy for underlying lupus on neuro exam. In addition, she has macular degeneration of the left eye, which can contribute to poor stepping of her surroundings. At this time, we will recommend physical and occupational therapy for gait training and muscle strengthening. ENT is on-board and recommended bacitracin ointment to the left eye as well as cold compress to the eye. She is clinically stable from my standpoint. Paul Blair MD
--- NOTE | 2018-03-30 16:51 | PN ---
DATE: 03/30/2018 SUBJECTIVE: An 87-year-old female status post fall. Nursing staff relates that there were no particular problems during the night or day. PHYSICAL EXAMINATION: VITAL SIGNS: Temperature is 98.4, pulse is 74, blood pressure is 149/70, respiratory rate is 20, oxygen sat is 96% on room air. GENERAL: She is alert and oriented x3. NECK: Supple. LUNGS: Clear. HEART: In S1, S2 rhythm. ABDOMEN: Soft with positive bowel sounds. Some ecchymosis over the left eye orbit area. LABORATORY DATA: Shows WBC of 5.3, RBC 3.92, hemoglobin 11, hematocrit 34.7, platelet count is 272. Chemistry shows normal electrolytes. BUN is 18, creatinine is 0.6. Her iron is 200. Her TIBC is 325 and oxygen saturation is 62%. LFTs are normal. So far occult blood is negative. The patient has a urine culture preliminary showing gram-negative rods. Consults from Neurology, ENT and Orthopedics are pending. We will continue to monitor the patient closely and physical therapy eval has been requested. Susanna Patel MD
[2018-03-30 17:04] LABS: FOLATE 16.3 ng/mL
--- NOTE | 2018-03-30 19:58 | CON ---
DATE OF CONSULTATION: 03/30/2018 LOCATION: Room 260, Bed 1. HISTORY OF PRESENT ILLNESS: The patient slipped and fell at home, was admitted for observation with a complaint of pain in the upper extremities and left hip where she landed on. X-rays of the left and right hip showed no fracture and both hips have total hips in it. The right one was done by me approximately 3 months ago, it is in good position, no evidence of fracture and she can do a straight leg raise. No undue swelling in the knees or the hips or the ankles. She does have shoulder arthritis also that she seemed to have contused her right shoulder worse than her left. Both have arthritis like I said. She is going to be worked up medically and neurologically and I will do physical therapy to avoid lying in bed as she will get only weaker. FINAL DIAGNOSIS: Contusion of both shoulders and intact bilateral total hips, the right one was done about 3 months ago, the wound is dry. We will send her for physical therapy. Peña Luna DO
--- NOTE | 2018-03-31 06:56 | CP.PCM.CON ---
<Estela Denis - Last Filed: 03/31/18 10:44> History of Present Illness - History of Present Illness History of Present Illness: Infectious Disease Consult Note for Rex Roth PGY3 This is an 87yo female with past medical history of HTN, bilateral LE cellulitis, GERD, OA, multinodular goiter, dyslipidemia, rheumatoid arthritis, gait disorder who came to ED for fall. Patient reports she was walking to the table and tripped. She hit her L eye and hurt her L knee. She denies losing consciousness at the time. She had recent R hip replacement. Patient reports having urinary frequency as well, but reports she has this normally. She denies any hematuria, dysuria, fever/chills, cough, chest pain, shortness of breath, recent travel or sick contacts. Past medical history: HTN, bilateral LE cellulitis (+ MRSA in past), GERD, OA, multinodular goiter, dyslipidemia, rheumatoid arthritis, gait disorder, anxiety Past surgical history: bilateral hip surgery Home meds: Reviewed Allergies: Codeine Social history: Denies EtOH, drug or tobacco use. 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 - HEENT Hx HEENT Problems: Yes (eyeglasses) Hx Glaucoma: Yes - RENAL Hx Chronic Kidney Disease: No - ENDOCRINE/METABOLIC Hx Endocrine Disorders: Yes Hx Systemic Lupus Erythematosus: Yes ("borderline") - HEMATOLOGICAL/ONCOLOGICAL Hx Blood Disorders: Yes Other/Comment: 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 - INTEGUMENTARY Hx Dermatological Problems: Yes Other/Comment: ble +1 edema cellulitis, thick hard toenails,redness swelling , feet reddened and swollen, red dry cracked skin to feet, skin discolorations both arms, slight redness to ble +1 pitting edema, buttocks/sacrum reddened no openings,dry flakey skin to feet, right hip dressing dry and intact wound clean/dry - MUSCULOSKELETAL/RHEUMATOLOGICAL Hx Arthritis: Yes - GASTROINTESTINAL Hx Gastrointestinal Disorders: Yes (HIATAL HERNIA,APPENDECTOMY,CHOLECYSTECTOMY,CONSTIPATION) Hx Gastroesophageal Reflux: Yes - GENITOURINARY/GYNECOLOGICAL Hx Genitourinary Disorders: Yes (URINARY FREQUENCY,SOME INCONTINENCY.) Hx Incontinence: Yes - PSYCHIATRIC Hx Anxiety: Yes Hx Depression: No Hx Emotional Abuse: No Hx Physical Abuse: No Hx Substance Use: No - SURGICAL HISTORY Hx Appendectomy: Yes Hx Cholecystectomy: Yes Hx Orthopedic Surgery: Yes (left hip 11/06/12) Other/Comment: tongue surgery. cyst removal from right breast. hemorroidectomy, right total hip replacement 8 days ago was in [facility] - ANESTHESIA Hx Anesthesia: Yes Hx Anesthesia Reactions: No Hx Malignant Hyperthermia: No Meds Allergies/Adverse Reactions: Allergies Allergy/AdvReac Type Severity Reaction Status Date / Time codeine AdvReac NAUSEA Verified 01/29/18 13:37 - Medications Medications: Current Medications Acetaminophen (Tylenol 325mg Tab) 650 mg PO Q6H PRN PRN Reason: Pain, moderate (4-7) Last Admin: 03/31/18 00:14 Dose: 650 mg Ferrous Sulfate (Feosol) 324 mg PO TID [facility] Last Admin: 03/30/18 17:59 Dose: 324 mg Home Med (Home Med) 0.02 unit OU HS [facility] Last Admin: 03/30/18 21:58 Dose: 0.02 unit Losartan Potassium (Cozaar) 100 mg PO DAILY [facility] Last Admin: 03/30/18 10:28 Dose: 100 mg Pantoprazole Sodium (Protonix Ec Tab) 20 mg PO DAILY [facility] Last Admin: 03/30/18 10:29 Dose: 20 mg Physical Exam - Constitutional Appears: No Acute Distress - Head Exam Additional comments: L eye bruising - Eye Exam Eye Exam: PERRL Pupil Exam: NORMAL ACCOMODATION, PERRL - ENT Exam ENT Exam: Mucous Membranes Moist - Neck Exam Neck exam: Positive for: Normal Inspection - Respiratory Exam Respiratory Exam: Clear to Auscultation Bilateral, NORMAL BREATHING PATTERN. absent: Rales, Rhonchi, Wheezes - Cardiovascular Exam Cardiovascular Exam: REGULAR RHYTHM, +S1, +S2, Systolic Murmur. absent: Gallop, Rubs - GI/Abdominal Exam GI & Abdominal Exam: Normal Bowel Sounds, Soft. absent: Mass, Rebound, Rigid, Tenderness - Extremities Exam Extremities exam: Negative for: calf tenderness, pedal edema Additional comments: Pain in L knee. No effusion noted. Mild erythema in bilateral legs without warmth, pain, swelling, or wounds/drainage. - Neurological Exam Neurological exam: Alert, CN II-XII Intact, Oriented x3 - Psychiatric Exam Psychiatric exam: Normal Affect, Normal Mood - Skin Skin Exam: Dry, Warm Results - Vital Signs Recent Vital Signs: Last Vital Signs Temp 98.3 F 03/31/18 06:00 Pulse 67 03/31/18 06:00 Resp 20 03/31/18 06:00 BP 138/69 03/31/18 06:00 Pulse Ox 94 L 03/31/18 06:00 - Labs Result Diagrams: 03/30/18 06:00 03/30/18 06:00 Labs: Laboratory Results - last 24 hr 03/29/18 03/30/18 03/30/18 11:00 06:00 06:00 WBC 5.3 D RBC 3.92 Hgb 11.0 L Hct 34.7 L MCV 88.5 MCH 28.1 MCHC 31.7 RDW 16.3 H Plt Count 272 MPV 9.6 Gran % 74.2 H Lymph % (Auto) 14.4 L Jun[place] % (Auto) 10.3 H Eos % (Auto) 1.1 L Baso % (Auto) 0.0 Gran # 3.96 Lymph # (Auto) 0.8 L [place] # (Auto) 0.6 Eos # (Auto) 0.1 Baso # (Auto) 0.00 Sodium 136 Potassium 3.8 Chloride 104 Carbon Dioxide 28 Anion Gap 8 L BUN 18 Creatinine 0.6 L Est GFR ( Amer) > 60 Est GFR (Non-Af Amer) > 60 POC Glucose (mg/dL) 95 Random Glucose 89 Calcium 9.1 Iron TIBC % Saturation Ferritin Total Bilirubin 0.4 AST 31 ALT 23 Alkaline Phosphatase 69 Total Protein 5.8 Albumin 3.1 Globulin 2.8 Albumin/Globulin Ratio 1.1 Vitamin B12 Folate Stool Occult Blood 03/30/18 03/30/18 03/30/18 07:00 07:00 10:00 WBC RBC Hgb Hct MCV MCH MCHC RDW Plt Count MPV Gran % Lymph % (Auto) Jun[place] % (Auto) Eos % (Auto) Baso % (Auto) Gran # Lymph # (Auto) [place] # (Auto) Eos # (Auto) Baso # (Auto) Sodium Potassium Chloride Carbon Dioxide Anion Gap BUN Creatinine Est GFR ( Amer) Est GFR (Non-Af Amer) POC Glucose (mg/dL) Random Glucose Calcium Iron 200 H TIBC 325 % Saturation 62 H Ferritin 25.0 Total Bilirubin AST ALT Alkaline Phosphatase Total Protein Albumin Globulin Albumin/Globulin Ratio Vitamin B12 254 Folate 16.3 Stool Occult Blood Negative Assessment & Plan - Assessment and Plan (Free Text) Assessment: 1. UTI - urine culture + for E.coli 2. Hx of B/L LE cellulitis + for MRSA in past 3. HTN 4. dyslipidemia 5. OA 6. Recent R hip replacement (~3 months ago) 7. Multinodular goiter 8. Dyslipidemia 9. Hx of RA 11. gait disorder Plan: Culture reviewed. Will start patient on Rocephin and switch to PO Keflex in AM for 4 more days. Will monitor clinically. Case seen, discussed and reviewed with Dr. Dior Denis PGY3 - Date & Time Date: 03/31/18 Time: 10:47 <Ahsan Rader - Last Filed: 03/31/18 19:39> Meds - Medications Medications: Current Medications Acetaminophen (Tylenol 325mg Tab) 650 mg PO Q6H PRN PRN Reason: Pain, moderate (4-7) Last Admin: 03/31/18 13:45 Dose: 650 mg Cephalexin Monohydrate (Keflex) 250 mg PO Q6 [facility]; Protocol Stop: 04/05/18 12:01 Ferrous Sulfate (Feosol) 324 mg PO TID [facility] Last Admin: 03/31/18 17:05 Dose: 324 mg Home Med (Home Med) 0.02 unit OU HS [facility] Last Admin: 03/30/18 21:58 Dose: 0.02 unit Ceftriaxone Sodium (Rocephin 1 Gram Ivpb) 1 gm in 100 mls @ 100 mls/hr IVPB DAILY [facility]; Protocol Stop: 04/01/18 10:01 Last Admin: 03/31/18 10:19 Dose: 100 mls/hr Losartan Potassium (Cozaar) 100 mg PO DAILY [facility] Last Admin: 03/31/18 10:17 Dose: 100 mg Pantoprazole Sodium (Protonix Ec Tab) 20 mg PO DAILY [facility] Last Admin: 03/31/18 10:18 Dose: 20 mg Results - Vital Signs Recent Vital Signs: Last Vital Signs Temp 98.7 F 03/31/18 17:54 Pulse 76 03/31/18 17:54 Resp 19 03/31/18 17:54 BP 109/58 L 03/31/18 17:54 Pulse Ox 96 03/31/18 07:00 - Labs Result Diagrams: 03/31/18 16:45 03/31/18 16:45 Labs: Laboratory Results - last 24 hr 03/31/18 03/31/18 16:45 16:45 WBC 7.6 D RBC 4.55 Hgb 12.8 Hct 40.2 MCV 88.4 MCH 28.1 MCHC 31.8 RDW 16.3 H Plt Count 312 MPV 9.6 Sodium 135 Potassium 4.0 Chloride 102 Carbon Dioxide 25 Anion Gap 12 BUN 27 H Creatinine 0.8 Est GFR ( Amer) > 60 Est GFR (Non-Af Amer) > 60 Random Glucose 146 H Calcium 9.8 Phosphorus 4.3 Magnesium 1.7 Total Bilirubin 0.2 AST 27 ALT 21 Alkaline Phosphatase 71 Total Protein 6.8 Albumin 3.7 Globulin 3.1 Albumin/Globulin Ratio 1.2 Assessment & Plan - Assessment and Plan (Free Text) Plan: Infectious Diseases Attending Physician Attestation Patient seen and examined, discussed with rn medical surgical. I have reviewed the patient's history of present illness, past medical, family and social histories, personal history, physical exam, lab findings and imaging studies. I agree with the above findings, assessment and plan. In addition, we have started Rocephin, R/O UTI. Follow up urine cx. May switch to PO antibiotics when ready for discharge.
[2018-03-31] MEDS: Pantoprazole 20 mg EC Tab PO SCH (10:18)
[2018-03-31] MEDS: cefTRIAXone 1 gm 1 GM/100 ML BAG IVPB SCH (10:19)
--- NOTE | 2018-03-31 10:26 | PN ---
DATE: 03/31/2018 LOCATION: In room 260, bed 1. The patient is approximately 2 months postop right total hip, which took a lot of energy out of the patient being that she is 87-year-old, had multiple wounds and blood, and she is basically still recuperating from the total hip surgery done on 02/03/2018. We have to continue aggressive physical therapy, get her strong as possible before she goes home. She is known to be left alone at the house once a while and she does venture out and she will try to do things on her own, but not realizing she is too weak to accomplish lot of the activities of daily living, so we have to provide her with therapy to get her stronger and hopefully and we will get provisions made for 24-hour help at home, but she does want to do things. The hip is functioning well and has less pain, but she needs her core strength by doing physical therapy with extremities in the axial skeleton and to accomplish this, we need to continue her therapy hopefully at [facility] soon and can provide her with more therapy to decrease her chance of falling again. Peña Luna DO
[2018-03-31 17:19] LABS: HEMOGLOBIN 12.8 g/dL (12.0-16.0); MEAN CELL VOLUME 88.4 fl (80.0-105.0); MEAN CORPUSCULAR HEMOGLOBIN 28.1 pg (25.0-35.0); MEAN CORPUSCULAR HGB CONC 31.8 g/dl (31.0-37.0); MEAN PLATELET VOLUME 9.6 fl (7.0-11.0); RBC 4.55 10^6/uL (3.5-6.1); RED CELL DISTRIBUTION WIDTH 16.3 % (11.5-14.5); WHITE BLOOD COUNT 7.6 10^3/uL (4.5-11.0)
[2018-03-31 17:37] LABS: ALB/GLOB RATIO 1.2 (1.1-1.8); ALBUMIN 3.7 g/dL (3.0-4.8); ALT/SGPT 21 U/L (7-56); AST/SGOT 27 U/L (14-36); BLOOD UREA NITROGEN 27 mg/dL (7-21); CALCIUM 9.8 mg/dL (8.4-10.5); GFR NON-AFRICAN AMERICAN > 60
--- NOTE | 2018-03-31 19:15 | PN ---
DATE: 03/31/2018 SUBJECTIVE: The patient is resting in bed comfortably . OBJECTIVE: VITAL SIGNS: Her temperature is 97.8, pulse is 67, blood pressure is 130/65, and oxygen sat is 96% on room air. GENERAL: She is alert and oriented x3. NECK: Supple. No JVD. LUNGS: Clear. HEART: S1 and S2 rhythm. ABDOMEN: Soft with positive bowel sounds. EXTREMITIES: Show no evidence of edema. LABORATORY DATA: WBC is 7.6, RBC is 4.55, hemoglobin 12.8, hematocrit 40.2, and platelet count is 312,000. Stool for occult blood is negative. Chemistry showed normal electrolytes. BUN is 27 and creatinine is 0.8. Random blood sugar was 146. The patient has a B12 of 254 and a folate of 16.3. Her albumin level was 3.7. ASSESSMENT AND PLAN: She is currently receiving antibiotics for urinary tract infection, being followed by Infectious Disease. Susanna Patel MD
--- NOTE | 2018-04-01 06:54 | CP.PCM.PN ---
<Estela Denis - Last Filed: 04/01/18 10:20> Subjective - Date & Time of Evaluation Date of Evaluation: 04/01/18 Time of Evaluation: 07:00 - Subjective Subjective: Infectious Disease Progress Note for Rex Roth PGY3 Patient seen and examined at bedside. She is afebrile without complaints at this time. She reports her urinary frequency has improved. Objective - Vital Signs/Intake and Output Vital Signs (last 24 hours): Temp Pulse Resp BP Pulse Ox 98.4 F 66 19 127/61 97 04/01/18 06:00 04/01/18 06:00 04/01/18 06:00 04/01/18 06:00 04/01/18 06:00 Intake and Output: 03/31/18 04/01/18 18:59 06:59 Intake Total 902 360 Balance 902 360 - Medications Medications: Current Medications Acetaminophen (Tylenol 325mg Tab) 650 mg PO Q6H PRN PRN Reason: Pain, moderate (4-7) Last Admin: 04/01/18 03:27 Dose: 650 mg Cephalexin Monohydrate (Keflex) 250 mg PO Q6 [facility]; Protocol Stop: 04/05/18 12:01 Ferrous Sulfate (Feosol) 324 mg PO TID [facility] Last Admin: 03/31/18 17:05 Dose: 324 mg Home Med (Home Med) 0.02 unit OU HS [facility] Last Admin: 03/31/18 21:18 Dose: 0.02 unit Ceftriaxone Sodium (Rocephin 1 Gram Ivpb) 1 gm in 100 mls @ 100 mls/hr IVPB DAILY [facility]; Protocol Stop: 04/01/18 10:01 Last Admin: 03/31/18 10:19 Dose: 100 mls/hr Losartan Potassium (Cozaar) 100 mg PO DAILY [facility] Last Admin: 03/31/18 10:17 Dose: 100 mg Pantoprazole Sodium (Protonix Ec Tab) 20 mg PO DAILY [facility] Last Admin: 03/31/18 10:18 Dose: 20 mg - Labs Labs: 03/31/18 16:45 03/31/18 16:45 PT 10.7 SECONDS (9.4-12.5) 03/29/18 11:45 INR 0.93 03/29/18 11:45 APTT 26.5 Seconds (25.1-36.5) 03/29/18 11:45 - Constitutional Appears: No Acute Distress - Head Exam Head Exam: NORMOCEPHALIC - Eye Exam Eye Exam: PERRL Pupil Exam: NORMAL ACCOMODATION, PERRL Additional comments: bruising around L eye - ENT Exam ENT Exam: Mucous Membranes Moist - Respiratory Exam Respiratory Exam: Clear to Ausculation Bilateral, Rhonchi. absent: Rales, Wheezes - Cardiovascular Exam Cardiovascular Exam: REGULAR RHYTHM, +S1, +S2. absent: Gallop, Rubs, Murmur - GI/Abdominal Exam GI & Abdominal Exam: Soft, Normal Bowel Sounds. absent: Rigid, Tenderness, Mass, Rebound - Extremities Exam Extremities Exam: absent: Calf Tenderness, Pedal Edema Additional comments: Pain in L knee. No effusion noted. Mild erythema in bilateral legs without warmth, pain, swelling, or wounds/drainage. Assessment and Plan - Assessment and Plan (Free Text) Assessment: 1. UTI - urine culture + for E.coli 2. Hx of B/L LE cellulitis + for MRSA in past 3. HTN 4. dyslipidemia 5. OA 6. Recent R hip replacement (~3 months ago) 7. Multinodular goiter 8. Dyslipidemia 9. Hx of RA 11. gait disorder Plan: Blood cultures negative thus far. Continue PO Keflex x 4 more days. Will monitor clinically. Case seen, discussed and reviewed with Dr. Dior Denis PGY3 <Ahsan Rader - Last Filed: 04/01/18 17:42> Objective - Vital Signs/Intake and Output Vital Signs (last 24 hours): Temp Pulse Resp BP Pulse Ox 97.6 F 76 20 108/58 L 97 04/01/18 17:08 04/01/18 17:08 04/01/18 17:08 04/01/18 17:08 04/01/18 06:00 Intake and Output: 04/01/18 04/01/18 06:59 18:59 Intake Total 360 Balance 360 - Medications Medications: Current Medications Acetaminophen (Tylenol 325mg Tab) 650 mg PO Q6H PRN PRN Reason: Pain, moderate (4-7) Last Admin: 04/01/18 11:45 Dose: 650 mg Cephalexin Monohydrate (Keflex) 250 mg PO Q6 [facility]; Protocol Stop: 04/05/18 12:01 Last Admin: 04/01/18 17:35 Dose: 250 mg Ferrous Sulfate (Feosol) 324 mg PO TID [facility] Last Admin: 04/01/18 17:35 Dose: 324 mg Home Med (Home Med) 0.02 unit OU HS [facility] Last Admin: 03/31/18 21:18 Dose: 0.02 unit Losartan Potassium (Cozaar) 100 mg PO DAILY [facility] Last Admin: 04/01/18 11:44 Dose: 100 mg Pantoprazole Sodium (Protonix Ec Tab) 20 mg PO DAILY [facility] Last Admin: 04/01/18 11:44 Dose: 20 mg - Labs Labs: 03/31/18 16:45 03/31/18 16:45 PT 10.7 SECONDS (9.4-12.5) 03/29/18 11:45 INR 0.93 03/29/18 11:45 APTT 26.5 Seconds (25.1-36.5) 03/29/18 11:45 Assessment and Plan - Assessment and Plan (Free Text) Plan: Infectious Diseases Attending Physician Attestation Patient seen and examined, discussed with medical record retrieval specialist. I have reviewed the patient's history of present illness, past medical, family and social histories, personal history, physical exam, lab findings and imaging studies. I agree with the above findings, assessment and plan. In addition, continue Keflex for cystitis for a short course of therapy (day 2 today of 3-5 days).
[2018-04-01] MEDS: Pantoprazole 20 mg EC Tab PO SCH (11:44)
[2018-04-01] MEDS: cefTRIAXone 1 gm 1 GM/100 ML BAG IVPB SCH (11:47)
--- NOTE | 2018-04-01 13:04 | RAD ---
Date of service: 04/01/2018 HISTORY: pain COMPARISON: 03/29/2018 TECHNIQUE: Chest PA and lateral FINDINGS: LUNGS: No active pulmonary disease. PLEURA: No significant pleural effusion identified. No pneumothorax apparent. CARDIOVASCULAR: No aortic atherosclerotic calcification present. Normal cardiac size. No pulmonary vascular congestion. OSSEOUS STRUCTURES: Degenerative changes in the right shoulder VISUALIZED UPPER ABDOMEN: Normal. OTHER FINDINGS: Mild aortic tortuosity IMPRESSION: No active disease.
[2018-04-01] MEDS ORDERED: Bupivacaine 0.5% Inj(30mL) IJ ONE (13:15)
[2018-04-01] MEDS ORDERED: MethylPREDNISolone Depo 40 mg/ml Inj IM ONE (13:15)
--- NOTE | 2018-04-01 14:02 | RAD ---
Date of service: 04/01/2018 PROCEDURE: Radiographs of the Left Shoulder HISTORY: Posttraumatic pain. COMPARISON: No prior. FINDINGS: BONES: Normal. No fracture. JOINTS: Severe acromioclavicular and glenohumeral degenerative changes. High riding humeral head relative to the glenoid consistent with rotator cuff disease. SOFT TISSUES: Lateral soft tissue swelling without adjacent proximal humeral fracture. OTHER FINDINGS: None. IMPRESSION: No acute fracture identified.
--- NOTE | 2018-04-01 19:18 | PN ---
DATE: 04/01/2018 SUBJECTIVE: The patient is sitting comfortably on telemetry at this time. Nursing staff relates that there were no particular problems. PHYSICAL EXAMINATION: VITAL SIGNS: Temperature is 97.9, blood pressure is 140/71, respiratory rate is 20, oxygen saturation is 97% on room air. GENERAL: She is alert and oriented x3. NECK: Supple. LUNGS: Clear. HEART: S1, S2 rhythm. ABDOMEN: Soft, with positive bowel sounds. EXTREMITIES: Show no evidence of edema. She is complaining of some discomfort over the scapular area on the left, status post her fall. IMAGING STUDIES : X-ray of the left shoulder shows severe degenerative changes in the glenohumeral area consistent with rotator cuff disease and degenerative arthritis. Chest x-ray is reported as showing no active disease. IMPRESSION AND PLAN: She is currently being followed by Infectious Disease for urinary tract infection and Orthopedics. She has also been seen by Neurology. She is receiving occupational and physical therapy and will continue the antibiotic therapy for urinary tract infection and occupational and physical therapy. Susanna Patel MD
--- NOTE | 2018-04-02 09:25 | PN ---
DATE: 04/02/2018 SUBJECTIVE: The patient is this resting comfortably this morning. The nursing staff relates that there are no problems during the night. PHYSICAL EXAMINATION: VITAL SIGNS: Her temperature is 98.7, her blood pressure is 119/56, respiratory rate is 20, her oxygen sat is 96% on room air. Heart rate is reported at 73. GENERAL: She is alert and oriented x3. She does state that she is having some discomfort over the left shoulder. NECK: Supple. LUNGS: Clear. HEART: Is in S1, S2 rhythm. ABDOMEN: Soft with positive bowel sounds. EXTREMITIES: Show no evidence of edema. DIAGNOSTIC DATA: An x-ray of her left shoulder revealed evidence of degenerative arthritic changes and the radiologist reads this as showing severe acromioclavicular and glenohumeral degenerative changes with a high riding humeral head relative to the glenoid consistent with rotator cuff disease. No acute fracture is noted. A chest x-ray was done as well and the radiologist read this as showing only mild aortic tortuosity, no active disease. The patient is currently receiving Keflex for urinary tract infection with the recommendation to complete 3 to 5 days. She is also on Cozaar for blood pressure, her eyedrops for glaucoma and macular degeneration, iron supplement for her chronic anemia, Protonix for GI prophylaxis and Tylenol p.r.n. for pain. She is being followed by Orthopedics as well as Neurology. She is status post fall at home with facial trauma, was seen by ear, nose and throat. She has cervical degenerative disease, and she has a history of bilateral hip surgeries. We will continue current level of care. Findings have been discussed with the patient. Susanna Patel MD
[2018-04-02] MEDS: Pantoprazole 20 mg EC Tab PO SCH (10:11)
[2018-04-02] MEDS ORDERED: Dextrose 50% SYRINGE Inj (50 ml) IVP ONE (11:27)
--- NOTE | 2018-04-02 20:14 | PN ---
DATE: 04/02/2018 SUBJECTIVE: The patient is in bed, was seen early this morning in room 260. No fevers and no chills. PHYSICAL EXAMINATION VITAL SIGNS: Temperature is 97, blood pressure is 120/60, respiratory rate of 18. HEENT: Unremarkable. NECK: Supple. LUNGS: Decreased breath sounds. HEART: Normal S1 and S2. ABDOMEN: Soft, nontender. LABORATORY DATA: Reveals a white count of 7.6, hemoglobin of 12. Chemistries: BUN of 27, creatinine of 0.8. E. Coli in the urine. Blood cultures, no growth. The patient is on p.o. Keflex. ASSESSMENT AND PLAN: This is an 87-year-old female with urinary tract infection, pansensitive negative. History of hypertension, dyslipidemia, methicillin-resistant Staphylococcus aureus lower extremity cellulitis in the past, hip replacement, multinodular goiter. Currently Keflex, will complete in 3 to 5 days. Satish Toro MD
--- NOTE | 2018-04-02 20:31 | RAD ---
Date of service: 03/29/2018 PROCEDURE: Bilateral knees HISTORY: Fall COMPARISON: TECHNIQUE: Two views of each knee FINDINGS: There is meniscal calcification bilaterally consistent with chondrocalcinosis. There is no fracture. Small joint effusion IMPRESSION: No acute findings
--- NOTE | 2018-04-03 06:32 | CP.PCM.PN ---
<Estela Denis - Last Filed: 04/03/18 10:31> Subjective - Date & Time of Evaluation Date of Evaluation: 04/03/18 Time of Evaluation: 07:00 - Subjective Subjective: Infectious Disease Progress Note for Rex Roth PGY3 Patient seen and examined at bedside. She is sitting in the chair eating breakfast. She has no complaints at this time and is afebrile. Objective - Vital Signs/Intake and Output Vital Signs (last 24 hours): Temp Pulse Resp BP Pulse Ox 97.8 F 77 18 112/49 L 97 04/03/18 00:01 04/03/18 00:01 04/03/18 00:01 04/03/18 00:01 04/03/18 00:01 Intake and Output: 04/02/18 04/03/18 18:59 06:59 Intake Total 1080 640 Balance 1080 640 - Medications Medications: Current Medications Acetaminophen (Tylenol 325mg Tab) 650 mg PO Q6H PRN PRN Reason: Pain, moderate (4-7) Last Admin: 04/02/18 21:32 Dose: 650 mg Cephalexin Monohydrate (Keflex) 250 mg PO Q6 [facility]; Protocol Stop: 04/05/18 12:01 Last Admin: 04/03/18 05:52 Dose: 250 mg Ferrous Sulfate (Feosol) 324 mg PO TID [facility] Last Admin: 04/02/18 18:27 Dose: 324 mg Home Med (Home Med) 0.02 unit OU HS ANTHONY Last Admin: 04/02/18 21:27 Dose: 0.02 unit Losartan Potassium (Cozaar) 100 mg PO DAILY AN[facility]ON[facility] Last Admin: 04/02/18 10:11 Dose: 100 mg Pantoprazole Sodium (Protonix Ec Tab) 20 mg PO DAILY AN[facility]Y Last Admin: 04/02/18 10:11 Dose: 20 mg - Labs Labs: 03/31/18 16:45 03/31/18 16:45 PT 10.7 SECONDS (9.4-12.5) 03/29/18 11:45 INR 0.93 03/29/18 11:45 APTT 26.5 Seconds (25.1-36.5) 03/29/18 11:45 - Constitutional Appears: No Acute Distress - Head Exam Head Exam: NORMOCEPHALIC - Eye Exam Eye Exam: EOMI, PERRL Pupil Exam: NORMAL ACCOMODATION, PERRL Additional comments: L eye bruising - ENT Exam ENT Exam: Mucous Membranes Moist - Respiratory Exam Respiratory Exam: Clear to Ausculation Bilateral, NORMAL BREATHING PATTERN. absent: Rales, Rhonchi, Wheezes - Cardiovascular Exam Cardiovascular Exam: REGULAR RHYTHM, +S1, +S2. absent: Gallop, Rubs, Murmur - GI/Abdominal Exam GI & Abdominal Exam: Soft, Normal Bowel Sounds. absent: Rigid, Tenderness, Mass, Rebound - Extremities Exam Extremities Exam: Normal Inspection. absent: Calf Tenderness, Pedal Edema - Neurological Exam Neurological Exam: Alert, Awake, CN II-XII Intact - Psychiatric Exam Psychiatric exam: Normal Affect, Normal Mood - Skin Skin Exam: Dry, Warm Assessment and Plan - Assessment and Plan (Free Text) Assessment: 1. UTI - urine culture + for E.coli 2. Hx of B/L LE cellulitis + for MRSA in past 3. HTN 4. dyslipidemia 5. OA 6. Recent R hip replacement (~3 months ago) 7. Multinodular goiter 8. Dyslipidemia 9. Hx of RA 11. gait disorder Plan: Continue Keflex PO x 2 more days to complete 5 day course. Will continue to monitor patient clinically. Case seen, discussed and reviewed with Dr. Dior Denis PGY3 <Ahsan Rader - Last Filed: 04/03/18 18:17> Objective - Vital Signs/Intake and Output Vital Signs (last 24 hours): Temp Pulse Resp BP Pulse Ox 97.1 F L 88 20 139/60 97 04/03/18 18:00 04/03/18 18:00 04/03/18 18:00 04/03/18 18:00 04/03/18 00:01 Intake and Output: 04/03/18 04/03/18 06:59 18:59 Intake Total 640 Balance 640 - Medications Medications: Current Medications Acetaminophen (Tylenol 325mg Tab) 650 mg PO Q6H PRN PRN Reason: Pain, moderate (4-7) Last Admin: 04/02/18 21:32 Dose: 650 mg Cephalexin Monohydrate (Keflex) 250 mg PO Q6 [facility]Y; Protocol Stop: 04/05/18 12:01 Last Admin: 04/03/18 17:22 Dose: 250 mg Ferrous Sulfate (Feosol) 324 mg PO TID [facility] Last Admin: 04/03/18 17:22 Dose: 324 mg Home Med (Home Med) 0.02 unit OU HS [facility] Last Admin: 04/02/18 21:27 Dose: 0.02 unit Losartan Potassium (Cozaar) 100 mg PO DAILY [facility] Last Admin: 04/03/18 09:49 Dose: 100 mg Pantoprazole Sodium (Protonix Ec Tab) 20 mg PO DAILY [facility] Last Admin: 04/03/18 09:49 Dose: 20 mg - Labs Labs: 03/31/18 16:45 03/31/18 16:45 PT 10.7 SECONDS (9.4-12.5) 03/29/18 11:45 INR 0.93 03/29/18 11:45 APTT 26.5 Seconds (25.1-36.5) 03/29/18 11:45 Assessment and Plan - Assessment and Plan (Free Text) Plan: Infectious Diseases Attending Physician Attestation Patient seen and examined, discussed with medical secretary receptionist. I have reviewed the patient's history of present illness, past medical, family and social histories, personal history, physical exam, lab findings and imaging studies. I agree with the above findings, assessment and plan. In addition, continue Keflex for cystitis for a short course of therapy (day 4 today of 3-5 days).
[2018-04-03] MEDS: Pantoprazole 20 mg EC Tab PO SCH (09:49)
--- NOTE | 2018-04-03 20:06 | PN ---
DATE: 04/03/2018 SUBJECTIVE: The patient is resting in bed this morning. Nursing staff relates that there were no problems. OBJECTIVE: VITAL SIGNS: Her temperature is 98, her blood pressure is 113/57, respiratory rate is 18 and oxygen sat is 97% on room air. HEART: S1 and S2 rhythm. ABDOMEN: Soft and scaphoid. Positive bowel sounds. LUNGS: Clear. EXTREMITIES: Show edema. IMPRESSION AND PLAN: The patient is receiving antibiotics, being followed by Infectious Disease for urinary tract infection. She is receiving occupational and physical therapy and is awaiting home care plans, which the family is actively doing. Susanna Patel MD
[2018-04-03] MEDS: Latanoprost 2.5 ml Opht Soln OU SCH (23:05)
[2018-04-04] MEDS: Pantoprazole 20 mg EC Tab PO SCH (09:16)
--- NOTE | 2018-04-04 13:30 | CP.PCM.PN ---
Subjective - Date & Time of Evaluation Date of Evaluation: 04/04/18 Time of Evaluation: 10:55 - Subjective Subjective: No fevers, no dysuria, not in distress. Objective - Vital Signs/Intake and Output Vital Signs (last 24 hours): Temp Pulse Resp BP Pulse Ox 97.1 F L 88 20 139/60 97 04/03/18 18:00 04/03/18 18:00 04/03/18 18:00 04/03/18 18:00 04/03/18 00:01 Intake and Output: 04/03/18 04/03/18 06:59 18:59 Intake Total 640 Balance 640 - Medications Medications: Current Medications Acetaminophen (Tylenol 325mg Tab) 650 mg PO Q6H PRN PRN Reason: Pain, moderate (4-7) Last Admin: 04/02/18 21:32 Dose: 650 mg Cephalexin Monohydrate (Keflex) 250 mg PO Q6 [facility]; Protocol Stop: 04/05/18 12:01 Last Admin: 04/03/18 17:22 Dose: 250 mg Ferrous Sulfate (Feosol) 324 mg PO TID [facility] Last Admin: 04/03/18 17:22 Dose: 324 mg Home Med (Home Med) 0.02 unit OU HS [facility] Last Admin: 04/02/18 21:27 Dose: 0.02 unit Losartan Potassium (Cozaar) 100 mg PO DAILY [facility] Last Admin: 04/03/18 09:49 Dose: 100 mg Pantoprazole Sodium (Protonix Ec Tab) 20 mg PO DAILY [facility] Last Admin: 04/03/18 09:49 Dose: 20 mg - Labs Labs: 03/31/18 16:45 03/31/18 16:45 PT 10.7 SECONDS (9.4-12.5) 03/29/18 11:45 INR 0.93 03/29/18 11:45 APTT 26.5 Seconds (25.1-36.5) 03/29/18 11:45 - Constitutional Appears: Chronically Ill - Head Exam Head Exam: NORMAL INSPECTION - Respiratory Exam Respiratory Exam: Decreased Breath Sounds - Cardiovascular Exam Cardiovascular Exam: +S1, +S2 - GI/Abdominal Exam GI & Abdominal Exam: Soft. absent: Tenderness Assessment and Plan - Assessment and Plan (Free Text) Plan: Assessment cystitis, clinically improved S/P left leg cellulitis in this patient with a history of MRSA wound infection in the same leg, clinically improved and S/P treatment with antibiotics S/P upper respiratory tract infection without evidence of pneumonia, improved an d S/P treatment right knee inflammatory arthritis S/P arthrocentesis history of bilateral lower extremity skin and skin structure infection with methicillin-sensitive Staph aureus history of right shoulder effusion S/P drainage dyslipidemia hypertension osteoarthritis gastroesophageal reflux disease multinodular goiter mitral regurgitation rheumatoid arthritis SLE Plan completed 5 days of Keflex (last day today)
--- NOTE | 2018-04-04 14:48 | PN ---
DATE: 04/04/2018 SUBJECTIVE: An 87-year-old female resting comfortably at this time. Nursing staff relates that there were no particular problems. PHYSICAL EXAMINATION: VITAL SIGNS: Her temperature is 97, her pulse is 88, respiratory rate is 20, blood pressure is 139/60, pulse ox is 97% on room air. GENERAL: The patient is alert and oriented x3. NECK: Supple. History of right shoulder effusion status post drainage. History of . Apparently, needing a course of antibiotics by Infectious Disease. She is on Ferrex, ferrous sulfate 325 three times a day, eyedrops for her macular degeneration and glaucoma, Cozaar 100 mg daily for hypertension and Protonix 20 mg daily for GI prophylaxis. I will continue current level of care. Susanna Patel MD
[2018-04-04] MEDS: Latanoprost 2.5 ml Opht Soln OU SCH (21:33)
[2018-04-05 05:46] VITALS: O2SAT 98
[2018-04-05] MEDS: Pantoprazole 20 mg EC Tab PO SCH (09:48)
[2018-04-05 11:58] LABS: HEMOGLOBIN 11.7 g/dL (12.0-16.0); MEAN CELL VOLUME 89.5 fl (80.0-105.0); MEAN CORPUSCULAR HEMOGLOBIN 27.8 pg (25.0-35.0); MEAN PLATELET VOLUME 8.9 fl (7.0-11.0); RBC 4.21 10^6/uL (3.5-6.1); WHITE BLOOD COUNT 7.2 10^3/uL (4.5-11.0)
[2018-04-05 12:13] LABS: ALB/GLOB RATIO 1.2 (1.1-1.8); ALBUMIN 3.7 g/dL (3.0-4.8); ALT/SGPT 23 U/L (7-56); AST/SGOT 19 U/L (14-36); BLOOD UREA NITROGEN 29 mg/dL (7-21); CALCIUM 9.7 mg/dL (8.4-10.5); GFR NON-AFRICAN AMERICAN > 60
--- NOTE | 2018-04-05 12:20 | CP.PCM.PN ---
Subjective - Date & Time of Evaluation Date of Evaluation: 04/05/18 Time of Evaluation: 10:30 - Subjective Subjective: Comfortable, no dysuria, no fevers. Objective - Vital Signs/Intake and Output Vital Signs (last 24 hours): Temp Pulse Resp BP Pulse Ox 97.4 F L 67 20 111/57 L 97 04/04/18 12:00 04/04/18 12:00 04/04/18 12:00 04/04/18 12:00 04/03/18 00:01 Intake and Output: 04/04/18 04/04/18 06:59 18:59 Intake Total 120 Balance 120 - Medications Medications: Current Medications Acetaminophen (Tylenol 325mg Tab) 650 mg PO Q6H PRN PRN Reason: Pain, moderate (4-7) Last Admin: 04/04/18 00:23 Dose: 650 mg Cephalexin Monohydrate (Keflex) 250 mg PO Q6 [facility]; Protocol Stop: 04/05/18 12:01 Last Admin: 04/04/18 11:48 Dose: 250 mg Ferrous Sulfate (Feosol) 324 mg PO TID [facility] Last Admin: 04/04/18 09:16 Dose: 324 mg Home Med (Home Med) 0.02 unit OU HS [facility] Last Admin: 04/04/18 00:18 Dose: Not Given Latanoprost (Xalatan Opht) 0 ml OU HS [facility] Last Admin: 04/03/18 23:05 Dose: 2.5 ml Losartan Potassium (Cozaar) 100 mg PO DAILY [facility] Last Admin: 04/04/18 09:17 Dose: 100 mg Pantoprazole Sodium (Protonix Ec Tab) 20 mg PO DAILY [facility] Last Admin: 04/04/18 09:16 Dose: 20 mg - Labs Labs: 03/31/18 16:45 03/31/18 16:45 PT 10.7 SECONDS (9.4-12.5) 03/29/18 11:45 INR 0.93 03/29/18 11:45 APTT 26.5 Seconds (25.1-36.5) 03/29/18 11:45 - Constitutional Appears: Chronically Ill - Head Exam Head Exam: NORMAL INSPECTION - Respiratory Exam Respiratory Exam: Decreased Breath Sounds - Cardiovascular Exam Cardiovascular Exam: +S1, +S2 - GI/Abdominal Exam GI & Abdominal Exam: Soft. absent: Tenderness Assessment and Plan - Assessment and Plan (Free Text) Plan: Assessment cystitis, clinically improved S/P left leg cellulitis in this patient with a history of MRSA wound infection in the same leg, clinically improved and S/P treatment with antibiotics S/P upper respiratory tract infection without evidence of pneumonia, improved and S/P treatment right knee inflammatory arthritis S/P arthrocentesis history of bilateral lower extremity skin and skin structure infection with methicillin-sensitive Staph aureus history of right shoulder effusion S/P drainage dyslipidemia hypertension osteoarthritis gastroesophageal reflux disease multinodular goiter mitral regurgitation rheumatoid arthritis SLE Plan completed 5 days of Keflex - continue to monitor clinically off antibiotics
[2018-04-05 13:44] VITALS: BP 122/64; PULSE 74; RESP 19; TEMP 94
== END 2018-04-05 17:55 | disposition home health service (06) | DRG 690 ==
LOC: ED 10:53 → ERH 13:29 → 2RNO 15:08 → OBSVTOIN 03-31 12:21
PROVIDERS: ADMIT Internal Medicine; ATTEND Internal Medicine
DX: N30.90 Cystitis, unspecified without hematuria (principal); L03.115 Cellulitis of right lower limb; L03.116 Cellulitis of left lower limb; S80.02XA Contusion of left knee, initial encounter; S00.12XA Contusion of left eyelid and periocular area, initial encounter; S00.83XA Contusion of other part of head, initial encounter; B96.20 Unspecified Escherichia coli [E. coli] as the cause of diseases classified elsewhere; M32.9 Systemic lupus erythematosus, unspecified; E04.2 Nontoxic multinodular goiter; M06.9 Rheumatoid arthritis, unspecified; H35.30 Unspecified macular degeneration; I11.0 Hypertensive heart disease with heart failure; I50.9 Heart failure, unspecified; G62.9 Polyneuropathy, unspecified; F91.9 Conduct disorder, unspecified; F41.9 Anxiety disorder, unspecified; E78.5 Hyperlipidemia, unspecified; M19.011 Primary osteoarthritis, right shoulder; H40.9 Unspecified glaucoma; R26.9 Unspecified abnormalities of gait and mobility; I73.00 Raynaud's syndrome without gangrene; I34.0 Nonrheumatic mitral (valve) insufficiency; K21.9 Gastro-esophageal reflux disease without esophagitis; Z96.643 Presence of artificial hip joint, bilateral; W01.190A Fall on same level from slipping, tripping and stumbling with subsequent striking against furniture, initial encounter; Y93.01 Activity, walking, marching and hiking; Y92.090 Kitchen in other non-institutional residence as the place of occurrence of the external cause; Z79.01 Long term (current) use of anticoagulants; Z86.14 Personal history of Methicillin resistant Staphylococcus aureus infection